=== PATIENT | female | born 1940 | race Two or more races ===

== ENCOUNTER 2020-12-30 21:04 | Inpatient (IN) | payer MEDICAID, SELFPAY ==
[~2020-12-30] VITALS: Ht 147.3 cm; Wt 45.8 kg
[2020-12-30 21:17] VITALS: BP 167/101
--- NOTE | 2020-12-30 21:32 | NUR ---
Dr. Ding examining patient.
--- NOTE | 2020-12-30 21:41 | NUR ---
PT TAKEN TO BED 11
[2020-12-30] MEDS ORDERED: LORazepam 2 MG/ML VIAL IVP ONE (21:45)
--- NOTE | 2020-12-30 21:45 | NUR ---
SEE PATIENTASSESSMENT FOR MORE INFORMATION. PATIENT SITTING IN BED LOCKED IN LOWEST POSITION, X2 SIDERAILS UP FOR PATIENT SAFETY. PATIENT CONNECTED TO MONITOR. VSS. BREATHING EVEN AND UNLABORED. NAD NOTED, WILL CONTINUE TO MONITOR. [id number] AT BEDSIDE.
--- NOTE | 2020-12-30 21:45 | NUR ---
80 YO/F BIB DAUGHTER IN-LAW W C/O ABDOMINAL AND BACK PAIN, NAUSEA, AND VOMITING X 2 DAYS. DENIES FEVER OR DIARRHEA, REPORTS X1 EPISODE OF SLIGHT HEMATURIA. DENIES INJURIES, LOC. PATIENT PRESENTS CONFUSED [employer] 13. MOANS TO TOUCH OF ABDOMEN, BOWEL SOUNDS PRESENT. PATIENT LAYING IN BED LOCKED IN LOWEST POSITION, X2 SIDERAILS UP FOR PATIENT SAFETY. BREATHING EVEN AND UNLABORED. NAD NOTED, WILL CONTINUR TO MONITOR. DAUGHTER IN LAW AT BEDSIDE. PMH: SCHIZO, DEMENTIA, ENDOMETRIS CANCER, HTN, DIABETES (PER [id number]) NKA
--- NOTE | 2020-12-30 22:12 | NUR ---
PT TAKEN TO RADIOLOGY
[2020-12-30 22:25] LABS: BASOPHILS % (AUTO) 0.1 % (0.0-2.0); HEMATOCRIT 35.6 % (36-48); HEMOGLOBIN 11.8 g/dL (12.0-16.0); LYMPHOCYTES # (AUTO) 1.1 K/uL (2.5-16.5); LYMPHOCYTES % (AUTO) 10.5 % (20.5-51.1); MEAN CORPUSCULAR HEMOGLOBIN 30 pg (27-31); MEAN CORPUSCULAR HGB CONC 33 g/dL (33-37); MONOCYTES # (AUTO) 0.3 K/uL (0.8-1.0); MONOCYTES % (AUTO) 2.5 % (1.7-9.3); NEUTROPHILS % (AUTO) 86.9 % (42.2-75.2); PLATELET COUNT (AUTO) 273 K/uL (140-450); RED BLOOD CELL COUNT(AUTO) 3.96 MIL/uL (4.20-5.40); RED CELL DISTRIBUTION WIDTH 14.6 % (11.6-13.7); WHITE BLOOD COUNT (AUTO) 10.4 K/uL (4.8-10.8)
--- NOTE | 2020-12-30 22:25 | NUR ---
PT RETURN FROM CT
[2020-12-30 22:32] LABS: APPEARANCE,URINE CLEAR (CLEAR); BILIRUBIN,URINE NEGATIVE (NEGATIVE); BLOOD, URINE 1+ (NEGATIVE); COLOR,URINE YELLOW (YELLOW); LEUKOCYTE ESTERASE ,URINE NEGATIVE (NEGATIVE); NITRITE, URINE NEGATIVE (NEGATIVE); UGLUCOSE 1+ (NEGATIVE)
[2020-12-30 22:43] LABS: ALBUMIN 3.8 g/dL (3.4-5.0); ANION GAP 16.5 (8-16); ASPARTATE AMINOTRANSFERASE 41 U/L (15-37); CARBON DIOXIDE 26.2 mmol/L (21-32); CHLORIDE 96 mmol/L (98-107); CREATININE 1.4 mg/dL (0.6-1.3); GLUCOSE 220 mg/dL (74-106); POTASSIUM 5.7 mmol/L (3.5-5.1); SODIUM SERUM 133 mmol/L (136-145); UREA NITROGEN, BLOOD 23 mg/dL (7-18)
[2020-12-30 23:01] LABS: RBC,URINE 0-5 /HPF (0-5); WBC,URINE 0-5 /HPF (0-5)
--- NOTE | 2020-12-30 23:17 | NUR ---
PROVIDED BEDPAN TO PATIENT. REMOVED BEDPAN WHEN PATIENT FINISHED, CLEAR YELLOW URINE.
[2020-12-31] MEDS ORDERED: NACL 0.9% 1,000 ML IV ONE ×2 (00:25)
[2020-12-31] MEDS ORDERED: cefTRIAXone 1,000 MG VIAL ONE (00:42)
--- NOTE | 2020-12-31 01:17 | NUR ---
PATIENT LAYING IN BED W EYES CLOSED, X2 SIDERAILS UP FOR PATIENT SAFETY, BREATHING EVEN AND UNLABORED. VSS. NAD NOTED, WILL CONTINUE TO MONITOR. DAUGHTER IN LAW AT BEDSIDE.
[2020-12-31] MEDS ORDERED: DEXTROSE 50% 50 ML SYR IVP ONE ×2 (02:55→15:05)
[2020-12-31] MEDS ORDERED: INSULIN REGULAR, HUMAN 100 UNIT/ML VIAL SUBQ ONE (02:55)
[2020-12-31] MEDS ORDERED: CALCIUM GLUCONATE 10% 1000 MG/10 ML VIAL IVP ONE (02:55)
[2020-12-31] MEDS ORDERED: KETOROLAC 30 MG/ML VIAL IVP ONE (02:55)
[2020-12-31] MEDS ORDERED: INSULIN REGULAR, HUMAN 100 UNIT/ML VIAL IVP ONE (03:20)
--- NOTE | 2020-12-31 03:55 | NUR ---
JULIUS SAMPLE OBTAINED FROM PATIENT NARES AND TAKEN TO LAB.
--- NOTE | 2020-12-31 04:15 | NUR ---
PATIENT'S [id number] LEFT, AND PROVIDED HER PHONE NUMBER ([phone], YOSELYN) AND PATIENT'S GRANDAUGHTER'S PHONE NUMBER ([phone], CAESAR). TO BE REACHED FOR ANY QUESTIONS OR UPDATES.
[2020-12-31] MEDS ORDERED: LOSA100T1 PO (05:17)
[2020-12-31] MEDS ORDERED: [UNRECOGNIZED DRUG - OTHER] (05:26)
[2020-12-31] MEDS ORDERED: CODEINE (05:26)
[2020-12-31] MEDS ORDERED: METF1TAB5 PO (05:28)
[2020-12-31] MEDS ORDERED: GLIM2TAB PO (05:29)
[2020-12-31] MEDS ORDERED: FENT1PAT TP (05:30)
--- NOTE | 2020-12-31 06:30 | NUR ---
PATIENT LAYING IN BED SUPINE W EYES CLOSED, HOB SLIGHTLY ELEVATED. 0.9NS FLUIDS RUNNING AT 100ML/HR W 680 ML TO BE INFUSED. VSS. BREATHING EVEN AND UNLABORED. NAD NOTED, WILL CONTINUE TO MONITOR.
--- NOTE | 2020-12-31 07:16 | NUR ---
Pt report given to JULIET Yadav for transfer of care at this time.
[2020-12-31] MEDS ORDERED: LORazepam 2 MG/ML VIAL ONE (07:45)
[2020-12-31] MEDS ORDERED: LORazepam 2 MG/ML VIAL IVP SCH ×2 (07:55→08:35)
--- NOTE | 2020-12-31 07:57 | NUR ---
UNABLE TO REORIENT PT TO STAY IN BED, PT ATTEMPTING TO GET OUT OF BED AT THIS TIME. ADMITTING DR LISA OVIEDO VERBAL ORDER FOR ATIVAN 1MG IVP. TRANSLATION PHONE USED (LITHUANIAN), PT CONFUSED, NOT SPEAKING COHERENTLY, STILL ATTEMPTS TO GET OUT OF BED.
--- NOTE | 2020-12-31 08:02 | NUR ---
DENISA CHUNG NOTIFIED DAUGHTER OF SITUATION. DAUGHTER STATES PT IS NORMALLY CONFUSED IN THE MORNING AND TYPICALLY NEEDS MEDICATION.
[2020-12-31] MEDS ORDERED: DOCUSATE SODIUM 100 MG GELCAP PO PRN (08:05)
[2020-12-31] MEDS ORDERED: ONDANSETRON 4 MG/2 ML VIAL IM/IVP PRN (08:05)
[2020-12-31] MEDS ORDERED: guaiFENesin DM 200/20 MG-10 ML 10 ML UDC PO PRN (08:05)
--- NOTE | 2020-12-31 08:12 | NUR ---
DR OVIEDO NOTIFIED, PT IS STILL ATTEMPTING TO GET OUT OF BED. ORDERED SOFT RESTRAINTS, MORPHINE 1MG IVP, ATIVAN 1MG IVP.
[2020-12-31] MEDS ORDERED: MORPHINE SULFATE 2 MG/ML SYR ONE (08:15)
--- NOTE | 2020-12-31 08:30 | NUR ---
MORPHINE, ATIVAN AND RESTRAINTS ORDER UNDER WRONG PT. PHARMACY STAFF MADE AWARE.
[2020-12-31] MEDS ORDERED: MORPHINE SULFATE 2 MG/ML SYR IVP SCH (08:35)
[2020-12-31] MEDS: DEXT 5% /NACL 0.9% 1,000 ML IV SCH (08:55)
[2020-12-31] MEDS ORDERED: LOSARTAN 50 MG TAB PO SCH (09:00)
[2020-12-31] MEDS: METOPROLOL 25 MG TAB PO SCH ×2 (09:00→20:18)
[2020-12-31] MEDS: PANTOPRAZOLE 40 MG TABEC PO SCH (09:00)
[2020-12-31] MEDS ORDERED: HALOPERIDOL IM 5 MG/ML VIAL IM ONE (09:15)
[2020-12-31] MEDS ORDERED: HALOPERIDOL IM 5 MG/ML VIAL ONE ×2 (09:18→12:23)
--- NOTE | 2020-12-31 10:04 | NUR ---
GRANDDAUGHTER WAS CONTACTED AND IS NOW ON HER WAY TO DISCUSS CODE STATUS UPDATE WELL CYSTOSCOPY L URETERAL STENT PLACEMENT.
--- NOTE | 2020-12-31 10:47 | NUR ---
GRAND DAUGHTER AND DAUGHTER IN LAW AT BEDSIDE. DR SAGE SPOKE WITH PT, DUE TO ENDOMETRIAL CANCER HX, DR SAGE WOULD LIKE THE PROCEDURE TO CHANGE. DAUGHTER IN LAW INFORMED THAT SHE WOULD LIKE THE SURGERY, BUT CHANGE CODE STATUS TO DNR.
[2020-12-31 10:54] LABS: CHOL/HDL RATIO 2.4 (1-4.5); FREE T4 (FREE THYROXINE) 1.34 ng/dL (0.76-1.46); MAGNESIUM 1.8 mg/dL (1.8-2.4); THYROID STIMULATING HORMONE 0.78 uIU/mL (0.34-3.74)
--- NOTE | 2020-12-31 11:20 | NUR ---
ATTEMPTED TO SEE PATIENT FOR PHYSICAL THERAPY EVALUATION HOWEVER PATIENT UNDER MEDICATION ATIVAN AT THIS TIME AND IS UNABLE TO PARTICIPATE OR FOLLOW COMMANDS PER RN. WILL FOLLOW UP IF APPROPRIATE TOMORROW; RN AWARE.
[2020-12-31] MEDS ORDERED: QUEtiapine FUMARATE 25 MG TAB ONE (12:08)
--- NOTE | 2020-12-31 12:15 | NUR ---
PT GOT OUT OF SOFT BILATERAL HAND RESTRAINTS, STOOD OUT OF BED WITH UNSTEADY GAIT. PT WAS PLACED BACK IN BED AND TRYING TO HIT STAFF. DR OVIEDO MADE AWARE OF SITUATION ORDERED VERBAL HALDOL 5 MG Q 8 HR PRN, SEROQUEL 50MG BID AND HALDOL 5 MG IM. PT DID NOT TOLERATE SEROQUEL AND REFUSED TO TAKE MEDICATION
[2020-12-31] MEDS ORDERED: HALOPERIDOL IM 5 MG/ML VIAL IM SCH (12:30)
[2020-12-31] MEDS ORDERED: GLUCAGON 1 MG VIAL ONE (15:07)
--- NOTE | 2020-12-31 15:10 | NUR ---
BS 32 -- CALLED DR OVIEDO, ORDER FOR IM GLUCAGON RECEIVED DUE TO NO IV ACCESS. CARRIED OUT.
[2020-12-31] MEDS ORDERED: GLUCAGON 1 MG VIAL IM SCH (15:30)
--- NOTE | 2020-12-31 15:35 | NUR ---
REPORT RECEIVED FROM ED
--- NOTE | 2020-12-31 15:50 | NUR ---
Patient will be admitted to care of IVELISSE SAEZ. Admited to TELEMETRY. Will go to room 107A. Belongings list completed. Report to SERENITY CHUNG.
--- NOTE | 2020-12-31 15:58 | NUR ---
PT ARRIVED ON UNIT. PT IS RESTING IN BED EYES CLOSED. EASY TO AROUSE. NO S/SX OF DISTRESS AT THIS TIME
[2020-12-31 16:00] VITALS: BP 128/63
--- NOTE | 2020-12-31 17:32 | NUR ---
MD SAGE AT BEDSIDE.
--- NOTE | 2020-12-31 18:55 | NUR ---
PT AWAKE NON COMPLAINANT AND IMPULSIVE
[2020-12-31] MEDS: HALOPERIDOL IM 5 MG/ML VIAL IM PRN (19:06)
--- NOTE | 2020-12-31 19:06 | NUR ---
PT TOOK OF TELE, ATTACKED STAFF. PT GIVEN PRN MEDICATION. AWARE
--- NOTE | 2020-12-31 19:23 | NUR ---
RECEIVED BEDSIDE REPORT FROM DAY RN, PT AAOX1 SELF. PT STANDING AT DOOR WAY ATTEMPTING TO LEAVE YELLING AT STAFF. PATIENT IS IRRITABLE DAY RN GAVE IM PRN. AWARE WAITING POSSIBLE SITTER ORDER. SKIN IS INTACT. DX L SEVERE HYDRONEPHROSIS PENDING SURGERY TOMORROW AM. PT NPO EXCEPT MEDS. IV ON R LARKIN 22G SL. PATIENT IS INCONTINENT TO B&B. POC DISCUSSED WITH PT. PT UNABLE TO VERBALIZED UNDERSTANDING. ASSOCIATE STORE DIRECTOR WITH PATIENT FOR SAFETY.
--- NOTE | 2020-12-31 19:25 | NUR ---
PT ENDORSED TO INSTRUCTOR OF EDUCATION RN. PT VITALS WNL
[2020-12-31 20:00] VITALS: BP 145/76
[2020-12-31] MEDS: QUEtiapine FUMARATE 25 MG TAB PO SCH (20:18)
--- NOTE | 2020-12-31 20:18 | NUR ---
VSS. PATIENT REFUSING PO DAMASO MEDICATIONS DESPITE EXPLAIN RATIONALE AND PROS OF MEDICATION. ALL NEEDS MET. SITTER AT BEDSIDE.
--- NOTE | 2020-12-31 22:00 | NUR ---
PATIENT IS SITTING IN BED CALM STARING OUT TO THE HALLWAY. DENIES ANY DISCOMFORT. SITTER AT BEDSIDE. WILL CONTINUE TO MONITOR.
[2021-01-01] VITALS: BP 143/71
--- NOTE | 2021-01-01 00:35 | NUR ---
VITAL SIGNS ARE WITHIN NORMAL LIMITS. ALL SAFETY MEASURES ARE IN PLACE. SITTER AT BEDSIDE. WILL CONTINUE TO MONITOR.
[2021-01-01] MEDS: HALOPERIDOL IM 5 MG/ML VIAL IM PRN (01:49)
--- NOTE | 2021-01-01 01:49 | NUR ---
PATIENT ATTEMPTING TO LEAVE BECAME VERY AGITATED WHEN ATTEMPT TO REDIRECT BACK INTO ROOM, PATIENT SCREAMING AND TRYING TO PUNCH AND BITE STAFF. MX STAFF ATTEMPT TO CALM PATIENT DOWN UNSUCCESSFUL. ADMIN PRN HALDOL IM. SITTER AT BEDSIDE. WILL CONTINUE TO MONITOR.
--- NOTE | 2021-01-01 02:40 | NUR ---
PATIENT OBSERVED LAYING IN BED APPEARS TO BE ASLEEP. CHEST RISE AND FALL NOTED. SITTER AT BEDSIDE.
--- NOTE | 2021-01-01 04:30 | NUR ---
ATTEMPT TO OBTAIN VITAL SIGNS 3X PATIENT IS VERY COMBATIVE TO NURSE TRYING TO HIT AND BITE, UNABLE TO OBTAIN VS AT THIS TIME. SITTER AT BEDSIDE. SAFETY MEASURES ARE IN PLACE.
[2021-01-01 06:07] LABS: T4 (THYROXINE) 11.5 ug/dL (4.5-12.0)
--- NOTE | 2021-01-01 06:19 | NUR ---
PATIENT IS REFUSING BLOOD DRAWS THIS MORNING COSTUME DESIGNER TRIED 2X. PATIENT WITH HX DEMENTIA. PATIENT OBSERVED SITTING BY THE DOOR SMILING AND ASKING, "COMER?" EXPLAIN TO PATIENT SHE CAN EAT AFTER SURGERY. PATIENT EASILY IRRITABLE WHEN SHE IS NOT ALLOWED TO LEAVE. PATIENT REQUIRES A LOT OF REDIRECTION. SITTER AT BEDSIDE.
--- NOTE | 2021-01-01 07:23 | NUR ---
PT HAS BEEN ENDORSED BY NATIONAL PARK TOUR GUIDE NURSE FOR CONTINUITY OF CARE, POC DISCUSSED. ENDORSED THAT PT IS HAVE A PROCEDURE TODAY TO REPLACE NEPHROSTOMY TUBE VIA IR. NO ORDER PLACED TO OBTAIN CONSENT, WILL CALL DR. SAGE TO VERIFY AND GET TORB. INFORM THAT THE PT IS CONFUSED AND HAS HX OF DEMENTIA SO FAMILY NEEDS TO BE CALLED AND OBTAIN CONSENT FROM THEM. PT IS RESTING IN BED WITH SITTER AT BEDSIDE. PT HAS A RIGHT HAND 22G, SALINE LOCK THAT IS WRAPPED IN KERLIX. PT IS ON ROOM AIR WITH CHEST RISING AND FALLING EVEN AND UNLABORED. ENDORSED THAT PT DECLINED BLOOD DRAW, MRSA SWAB AND PO MEDICATION. ALL SAFETY MEASURES IN PLACE, CALL LIGHT WITHIN REACH. WILL CONTINUE TO MONITOR.
--- NOTE | 2021-01-01 07:25 | NUR ---
GAVE BEDSIDE REPORT TO DAY RN. PT ENDORSED IN STABLE CONDITION.
[2021-01-01 08:00] VITALS: BP 157/80
--- NOTE | 2021-01-01 08:01 | NUR ---
SPOKE WITH RADIOLOGY ABOUT THE PLAN FOR PTS PROCEDURE OF GETTING THE NEPHROSTOMY TUBE REPLACED VIA IR. INFORMED THEM THAT IM WAITING ON DR. CRUM RESPONSE ABOUT CONSENT. THEY STATED THAT THEY ARE THE ONES THAT OBTAIN CONSENT, AND THAT WE JUST NEED TO PLACE THE ORDER. ONCE DR. SAGE RESPONSE WITH THE PROCEDURE I WILL PLACE THE ORDER.
--- NOTE | 2021-01-01 08:02 | NUR ---
DR. SAGE RESPONDED STATING THAT THE PROCEDURE IS A NEPHROSTOMY REPLACEMENT VIA IR. PLACED ORDER FOR RADIOLOGY.
[2021-01-01] MEDS: DEXT 5% /NACL 0.9% 1,000 ML IV SCH (08:05)
--- NOTE | 2021-01-01 08:21 | NUR ---
PT IS AGITATED AND PUSHING SITTER AWAY. PT IS OUT OF BED WALKING AROUND, WITH THE ASSISTANCE OF THE SPINE SURGEON AND FORMULATION SCIENTIST, PT WAS WALKED AROUND THE NURSING STATION. PT GAIT IS STEADY. WILL CONTINUE TO MONITOR
--- NOTE | 2021-01-01 08:57 | NUR ---
ATTEMPTED TO OBTAIN VITAL SIGNS, ONLY ABLE TO OBTAIN BP; 157/80 AND HR 106. PT IS AGITATED AT THIS TIME.
[2021-01-01] MEDS: METOPROLOL 25 MG TAB PO SCH ×2 (09:00→20:42)
[2021-01-01] MEDS: PANTOPRAZOLE 40 MG TABEC PO SCH (09:00)
[2021-01-01] MEDS: QUEtiapine FUMARATE 25 MG TAB PO SCH ×2 (09:00→20:15)
--- NOTE | 2021-01-01 09:00 | NUR ---
SPOKE WITH PTS DAUGHTER, PTS DAUGHTER IS IN THE CHART. INFORMED THE DAUGHTER OF THE PTS CONTINUED AGITATION. ASK IF THE FAMILY COULD COME TO HELP CALM THE PT AND KEEP HER FROM BEING AGITATED. FAMILY ALREADY MADE AWARE OF THE PTS PLAN TO GO TO PROCEDURE, SPOKE WITH DR MEADE. INFORMED THEM THAT THE PT WILL BE BACK ROUGHLY AROUND 1100, STATED THEY WILL BE ABLE TO COME AROUND 1300.
--- NOTE | 2021-01-01 09:08 | NUR ---
PATIENT HAS BEEN SCREENED AND CATEGORIZED MODERATE NUTRITION RISK. PATIENT WILL BE SEEN WITHIN 3-5 DAYS OF ADMISSION. 01/02/21 01/04/21 FNS REFERRAL FOR VOMITING OVER 3 DAYS NOT APPROPRIATE [address]
--- NOTE | 2021-01-01 09:21 | NUR ---
PT REFUSED MEDICATION, ATTEMPTED TWICE BUT PT PUSHED THE MEDICATION AND BECAME AGITATED. INFORMED DR. OVIEDO OF PTS CONTINUOUS AGITATION AND UNCOOPERATIVE.
[2021-01-01] MEDS ORDERED: MIDAZOLAM 5 MG/5 ML VIAL ONE ×2 (09:41→11:11)
[2021-01-01] MEDS ORDERED: diphenhydrAMINE 50 MG/ML VIAL ONE (09:41)
[2021-01-01] MEDS ORDERED: LIDOCAINE 1% 500 MG/50 ML VIAL ONE (09:41)
[2021-01-01] MEDS ORDERED: fentaNYL citrate 0.05 MG/ML VIAL ONE ×2 (09:41→11:11)
--- NOTE | 2021-01-01 09:59 | NUR ---
PT PICKED UP BY RADIOLOGY FOR PROCEDURE. PT TRANSPORTED BY GURNEY IN STABLE CONDITION. SITTER IS WITH PT AND WILL FOLLOW TO RADIOLOGY.
--- NOTE | 2021-01-01 11:44 | NUR ---
PT BROUGHT BACK IN STABLE CONDITION WITH A NEPHROSTOMY TUBE ON LEFT SIDE OF BACK. DRESSING IS DRY AND INTACT, NO HEMATOMA NOTED. PT REFUSED VITAL SIGNS. SITTER IS AT BEDSIDE AND PT IS IN STABLE CONDITION. WILL CONTINUE TO MONITOR.
--- NOTE | 2021-01-01 12:15 | NUR ---
ABLE TO OBTAIN 3RD SET OF VITALS, WNL, PT HAS BEEN REFUSING VITALS AND ASSESSMENT OF NEPHROSTOMY TUBE. PT SHOWS NO S/S OF ACUTE DISTRESS. SITTER AT BEDSIDE. WILL CONTINUE TO MONITOR.
--- NOTE | 2021-01-01 13:30 | NUR ---
PT ALLOWED OBTAINMENT OF LAST SET OF VITAL SIGNS, WNL. DRESSING APPEARS INTACTED FROM WHAT PT ALLOWED ME TO SEE. PT TRIED TO PULL ON BAGGING. SENIOR JAVA SOFTWARE DEVELOPER TAPED BAG TO BACK OF PT TO KEEP OUT OF HER WAY. WILL CONTINUE TO MONITOR.
--- NOTE | 2021-01-01 14:16 | NUR ---
DC PLANN[age] YRS OLD FEMALE PATIENT WAS ADMITTED FROM HOME WITH A DX OF LEFT SIDED SEVER HYDRONEPHROSIS, HYPERKALEMIA. PT HAS A HX OF DEMENTIA, SCHIZOPHRENIA, ENDOMETRIAL CANCER HTN AND DM. CXR SHOWED NO RADIOGRAPHIC EVIDENCE OF ACUTE CARDIOPULMONARY DISEASE. CT ABD/PELVIS SHOWED SEVER LEFT SIDED HYDROURETERONEPHROSIS, MULTIPLE CALCIFICATION ARE PRESENT IN THE LOWER PELVIS. RAPID COVID TEST NEGATIVE. ADMINISTERED IVF, IV ABX ROCEPHIN AND CONTINUED HOME MEDS. CONSULTED WITH UROLOGIST AND NEPHRO. DC PLAN TO GO HOME WHEN STABLE. Addendum: 01/02/21 at 1215 by Argentina Patel RN DC PLANNING: CALLED PT'S GRANDDAUGHTER SPOKE WITH CAESAR ROUSSEAU UNABLE TO FIND PLACEMENT BECAUSE OF MEDICAL HOSPITAL PRESUMPTIVE, PER CAESAR REQUESTED HOSPICE OR PALLIATIVE CARE. REFER PATIENT TO A PALLIATIVE CARE NAME ED WILL SPEAK WITH FAMILY. CM TO FOLLOW Addendum: 01/04/21 at 1533 by Argentina Patel RN DC PLANNING CALLED PT'S GRAND DAUGHTER CAESAR NOTIFIED HER THAT PT HAS A DC ORDER , UNABLE TO PLACE HER WITH HER INSURANCE PURPOSE BUT NOTIFIED HER THAT REFER TO THE [facility] AND WILL CONTACT THEM HOWEVER FOR NOW PATIENT IS STABLE FOR DC. ED [facility] WILL SET UP WITH [employer] TO COME HOME TO HELP HER FOR 3-4 HRS UNTIL SHE HAS A PENDING MEDICAL NUMBER . CAESAR STATED THEY CAN NOT TAKE HER AND ASKING ME TO TALK TO NGUYỄN CUTLER AND EXPLAIN. CALLED JUAN AT [phone] (FAMILY SPOKES PERSON) STATED THEY ARE ON [place] FOR BUSINESS TRIP AND NO RETURNING DATE, NO ONE IS HOME TO TAKE CARE OF HER. I TOLD JUAN DIDN'T HEAR FROM CAESAR THAT THEY ARE IN [place] BUT JUAN INSIST THAT NO ONE IS AT HOME TO TAKE PATIENT STATED, FAMILY HAVE OTHER THINGS TO TAKE CARE AND INSIST THAT TO FIND A PLACE FOR HER. I EXPLAINED TO HER WE NEED TO FINE AN APS REPORT. SHE REPLIED BOTH ARE IN THE PLANE LEFT A MESSAGE AND STATED "DO WHAT YOU HAVE TO DO" CM TO FOLLOW Addendum: 01/04/21 at 1652 by Argentina Patel RN DC PLANNING: RECEIVED A CALL FROM [facility] [phone] SPOKE WITH DEIRDRE DISCUSSED THE SITUATION, THAT FAMILY IS NOT WILLING TO TAKE PATIENT BACK HOME. HE STATED WILL SUBMIT TO THE NEXT SHIFT AND WILL CONTACT US [facility].PROVIDE THE HOUSE SUP NUMBER CM TO FOLLOW Addendum: 01/09/21 at 1217 by Argentina Patel RN DC PLANNING: RECEIVED A CALL FROM [facility] [phone] SPOKE WITH RAMA STATED SHE SPOKE WITH JUAN FAMILY FRIEND AND WILLING TO HELP WITH MEDICAL PROCESS, HOWEVER IN ORDER TO GET INFO FROM HER NEEDS INCAPACITY LETTER FROM THE PHYSICIAN AND TO FAX IT TO [phone] COSTELLO[address] GIORGIO TO FOLLOW Addendum: 01/09/21 at 1627 by Argentina Patel RN DC PLANNING: SPOKE WITH RAMA FROM [facility] REGARDING THE LETTER SHE SENT THE FORMAT, SIGNED BY DR COSTELLO AND FAXED BACK TO [phone]. CM TO FOLLOW Addendum: 01/10/21 at 1118 by Argentina Patel RN DC PLANNING: CALLED LARR[facility] [phone] SPOKE WITH RAMA STATED SHE RECEIVED THE INCAPACITATED LETTER WILL CALL FAMILY FRIEND JUAN AND WILL START THE APPLICATIONS. ONCE SHE HAS THE PENDING NUMBER SHE WILL CALL [facility] TO FOLLOW
--- NOTE | 2021-01-01 14:40 | NUR ---
PT FAMILY AT BEDSIDE, SPOKE WITH WANTING TO SPEAK WITH CASE MANAGEMENT ABOUT BEING DC'D TO SNF FOR ASSISTANCE. CALLED FERMÍN, CASE MANAGEMENT, STATED SHE WILL COME SPEAK WITH THE FAMILY
--- NOTE | 2021-01-01 15:15 | NUR ---
FERMÍN SPEAKING WITH FAMILY. PT IS STABLE. SITTER AT BEDSIDE, WILL CONTINUE TO MONITOR
[2021-01-01 16:00] VITALS: BP 153/83
--- NOTE | 2021-01-01 16:27 | NUR ---
PT REFUSED ASSESSMENT OF NEPHROSTOMY TUBE, BECAME AGITATED. PT SHOWS NO S/S OF ACUTE DISTRESS WILL CONTINUE TO MONITOR.
--- NOTE | 2021-01-01 16:52 | NUR ---
WITH ASSISTANCE OF CARRIER OPERATOR AND BOG CUTTER, ABLE TO OBTAIN PHOTOGRAPHY OF NEPHROSTOMY, INTACT AND DRAINING. PLACED IN THE CHART. WILL CONTINUE TO MONITOR.
[2021-01-01] MEDS: HYDROcodone/APAP 7.5/325 MG 1 TAB PO PRN (17:05)
--- NOTE | 2021-01-01 17:07 | NUR ---
PT COMPAINED OF MODERATE PAIN, MEDICATED PER MD ORDER. PT TOLERATED ADMINISTRATION AND SITTER IS AT BEDSIDE. PT IS IN STABLE CONDITION. ALL SAFETY MEASURES IN PLACE, WILL CONTINUE TO MONITOR.
--- NOTE | 2021-01-01 19:00 | NUR ---
300 ml output from nephrostomy
--- NOTE | 2021-01-01 19:39 | NUR ---
pt endorsed to digital experience manager nurse in stable condition.
--- NOTE | 2021-01-01 19:40 | NUR ---
RECD. RESTING IN BED, AWAKE, ORIENTED X1, CONFUSED. RESPIRATION EVEN AND UNLABORED. IV SALINE LOCK AT THE RIGHT THUMB G20, PATENT AND INTACT. REORIENTED TO HOSPITAL SETTING, NEEDS REINFORCEMENT. LEFT NEPHROSTOMY TUBE INTACT WITH MINIMAL AMOUNT OF CLEAR YELLOW URINE. NO AGITATION NOTED AT THIS TIME, ALLOWED 1:1 SITTER TO TAKE HER VITAL SIGNS. DENIES PAIN 0/10.
[2021-01-01 20:00] VITALS: BP 173/83
--- NOTE | 2021-01-01 20:00 | NUR ---
PATIENT'S PLAN OF CARE WAS DISCUSSED AND REVIEWED WITH HOSPITAL SUPERINTENDENT:ROBIN STAPLETON
--- NOTE | 2021-01-01 20:19 | NUR ---
REFUSED SCHEDULED MEDICATIONS. EXPLAINED IT IS IMPORTANT BUT STILL REFUSED. WILL COME BACK AGAIN. 1:1 SITTER MONITORING PATIENT NEAR BEDSIDE.
--- NOTE | 2021-01-01 20:30 | NUR ---
MOTIONED HAND TO NURSE NOT TO TOUCH OR GO AWAY FROM HER. STILL REFUSING UCHE MONITORING AND IV LINE TO BE CONNECTED TO IV MACHINE, OCCASIONALLY AGITATED.
--- NOTE | 2021-01-01 20:43 | NUR ---
CAME BACK TO PATIENT AND OFFERED AGAIN MEDICATIONS FOR THE NIGHT, TOOK SEROQUEL BUT REFUSED TO TAKE LOPRESSOR. EXPLAINED IT IS IMPORTANT BUT AGAIN REFUSED.
--- NOTE | 2021-01-01 22:00 | NUR ---
SLEEPING COMFORTABLY IN BED.
--- NOTE | 2021-01-01 23:58 | NUR ---
REFUSED TO BE CONNECTED TO IV MACHINE FOR INFUSION OF ROCEPHIN. WILL WAIT PATIENT TO SLEEP.
--- NOTE | 2021-01-02 | NUR ---
AWAKE, REFUSED VITAL SIGNS TO BE TAKEN BY SITTER. NEPHROSTOMY TUBE NEEDS TO BE EMPTY BUT PATIENT DOES NOT WANT TO TURN TO THE RIGHT SIDE, TRIED TO GRAB HER TUBE. WILL WAIT FOR PATIENT TO GO TO SLEEP AGAIN. STILL REFUSING TELE MONITORING.
[2021-01-02] MEDS: ZOLPIDEM 5 MG TAB PO PRN (01:24)
[2021-01-02] MEDS: HYDROcodone/APAP 7.5/325 MG 1 TAB PO PRN (01:25)
[2021-01-02] MEDS: HALOPERIDOL IM 5 MG/ML VIAL IM PRN (02:53)
--- NOTE | 2021-01-02 02:53 | NUR ---
AGITATED, PULLING OUT NEPHROSTOMY TUBE, MEDICATED WITH HALDOL PER MD ORDER.
[2021-01-02 04:00] VITALS: BP 177/97
--- NOTE | 2021-01-02 04:26 | NUR ---
PATIENT SLEEPING, ABLE TO CONNECT IV ANTIBIOTICS WITHOUT PATIENT'S RESISTANCE.
[2021-01-02] MEDS: hydrALAZINE 20 MG/ML VIAL IVP PRN ×3 (06:31→20:57)
--- NOTE | 2021-01-02 06:31 | NUR ---
BP - 177/93, HR - 109, MEDICATED WITH APRESOLINE BY MARY LOU CHUNG PER MD ORDER.
[2021-01-02 06:54] LABS: BASOPHILS % (AUTO) 0.3 % (0.0-2.0); EOSINOPHILS % (AUTO) 0.1 % (0.0-4.0); HEMATOCRIT 33.7 % (36-48); HEMOGLOBIN 11.3 g/dL (12.0-16.0); LYMPHOCYTES # (AUTO) 1.6 K/uL (2.5-16.5); LYMPHOCYTES % (AUTO) 19.1 % (20.5-51.1); MEAN CORPUSCULAR HEMOGLOBIN 30 pg (27-31); MEAN CORPUSCULAR HGB CONC 33 g/dL (33-37); MEAN CORPUSCULAR VOLUME 89.1 fL (80-94); MONOCYTES # (AUTO) 0.7 K/uL (0.8-1.0); NEUTROPHILS # (AUTO) 6.2 K/uL (1.8-7.7); NEUTROPHILS % (AUTO) 72.5 % (42.2-75.2); PLATELET COUNT (AUTO) 228 K/uL (140-450); RED BLOOD CELL COUNT(AUTO) 3.78 MIL/uL (4.20-5.40); RED CELL DISTRIBUTION WIDTH 14.9 % (11.6-13.7); WHITE BLOOD COUNT (AUTO) 8.6 K/uL (4.8-10.8)
[2021-01-02 07:03] LABS: ANION GAP 13.9 (8-16); CARBON DIOXIDE 26.3 mmol/L (21-32); CHLORIDE 105 mmol/L (98-107); CREATININE 1.3 mg/dL (0.6-1.3); GLUCOSE 198 mg/dL (74-106); POTASSIUM 3.2 mmol/L (3.5-5.1); SODIUM SERUM 142 mmol/L (136-145); UREA NITROGEN, BLOOD 20 mg/dL (7-18)
--- NOTE | 2021-01-02 07:30 | NUR ---
RECEIVED REPORT FROM NIGHT NURSE ROBIN PT IS AWAKE AND ALERT, COOPERATIVE, ON ROOM AIR, ON MECHANICAL SOFT DIET, SKIN INTACT , WITH LEFT SIDE NEUROSTOMY TUBE 200 ML OUTPUT, DONE BY DR REYES YESTERDAY, AMBULATORY WITH ASSIST, PT REFUSED MRSA SCREEN, IV NON INTACT ON THE RIGHT THUMB, PT HAD HIGH BLOOD PRESSURE AND NIGHT NURSE GAVE HYDRALAZINE BUT IV IS LEAKING AND MEDICATION WAS WASTED. SAFETY MEASURES IN PLACE AND CALL LIGHT WITHIN REACH. WILL CONTINUE TO MONITOR.
--- NOTE | 2021-01-02 07:33 | NUR ---
ASSESSED PT'S BP AND IT WAS 195/112 [place] OF 120. I CHECKED ON CHART WHEN WAS THE LAST TIME HYDRLAZINE WAS GIVEN AND 0636. UPON ASSESSMENT IV SITE WAS LEAKING AND NON PATENT. I ASKED NIGHT NURSE IF SHE WAS SURE SHE GAVE HYDRALAZINE 10 MG BECAUSE HER BP DID NOT GO DOWN AFTER ADMINISTRATION. NIGHT NURSE SAID SHE WAS NOT SURE. I INITIATED A NEW IV ACCESS WITH 3 TRIES. PT HAS A 24 G IV ON HER RIGHT FOREARM.
--- NOTE | 2021-01-02 07:35 | NUR ---
PATIENT BP STILL HIGH -184/110, HR - 113. PATIENT IS COOPERATIVE AT THIS TIME. CHECKED IV LINE, INFILTRATED. ENDORSED TO AM NURSES FOR NEW IV INSERTION, APRESOLINE DID NOT WORK, IV WITH LEAKAGE.
[2021-01-02 08:00] VITALS: BP 195/112
[2021-01-02] MEDS: DEXT 5% /NACL 0.9% 1,000 ML IV SCH (08:05)
--- NOTE | 2021-01-02 08:13 | NUR ---
I NOTIFIED DR. OVIEDO VIA TEXT MESSAGE OF OCCURRED EVENTS AND ASKED HOW TO PROCEED WITH PLAN OF CARE.
--- NOTE | 2021-01-02 08:16 | NUR ---
DR. OVIEDO RESPONDED WITH GIVING EXTRA DOSE OF 10MG OF HYDRALAZINE 10MG IVP.
[2021-01-02] MEDS: POTASSIUM CHLORIDE 10 MEQ TABER PO PRN ×2 (08:33→08:49)
[2021-01-02] MEDS: QUEtiapine FUMARATE 25 MG TAB PO SCH ×3 (08:33→21:00)
[2021-01-02] MEDS: PANTOPRAZOLE 40 MG TABEC PO SCH (08:34)
[2021-01-02] MEDS: METOPROLOL 25 MG TAB PO SCH ×3 (08:34→21:00)
--- NOTE | 2021-01-02 08:49 | NUR ---
PA RECEIVED SCHEDULED MEDICATIONS. BP WAS 195/112. PA WAS 120. PT WAS EDUCATED ON MEDICATIONS MOA AND SIDE EFFECTS. PT NODDED HEAD UNDERSTANDING TEACHING. PT HAS A SITTER AT BEDSIDE. WILL RE ASSESS BP IN 30 MINUTES. CALL LIGHT IS WITHIN REACH. SAFETY PRECAUTIONS ARE IN PLACE. WILL CONTINUE TO MONITOR.
--- NOTE | 2021-01-02 10:33 | NUR ---
UPDATED WITH PT'S BP AFTER HYDRALAZINE WAS ADMINISTERED WHICH WAS 169/95 VIA TEXT MESSAGE.
[2021-01-02] MEDS ORDERED: lisinopriL 20 MG TAB PO SCH (11:10)
--- NOTE | 2021-01-02 11:33 | NUR ---
PT'S GRANDDAUGHTER AND [id number], MS. CAESAR BIRD CAME TO SPEAK TO ME IN REGARDS REQUESTING A REFERRAL TO A BODY AND FENDER MECHANIC APPRENTICE TO PLACE PT IN A SKILLED FACILITY. MS. CAESAR BIRD STATED THAT THEY ARE UNABLE TO CARE FOR PT DUE TO BECOMING HOMELESS AFTER OF PT' SON WHICH WAS LAST MONTH.MS. CAESAR BIRD STATED THAT THEY DO NOT HAVE THE FINANCIAL MEANS OR STABLE RESIDENCY TO KEEP PT. MS. CAESAR BIRD WERE BOTH CRYING EXPLAINING THEIR SITUATION TO ME. THEY STATED THAT THE PREVIOUS OCCUPATIONAL THERAPY INSTRUCTOR OF PT WILL NO LONGER BE ABLE TO CARE FOR PT. I TOLD THEM THAT I WOULD SPEAK TO CASE MANAGEMENT ABOUT THE SITUATION.
[2021-01-02] MEDS: hydrALAZINE 10 MG TAB PO SCH ×2 (11:50→16:44)
--- NOTE | 2021-01-02 11:54 | NUR ---
ADMINISTERED 30MG HYDRALAZINE PO PER MD ORDER. BP WAS 169/95, NH: 95. MEDICATION EDUCATION WAS PROVIDED. SITTER IS AT BEDSIDE AND PT APPEARS NOT TO BE UNDER DISTRESS. CALL LIGHT IS WITHIN REACH. SAFETY PRECAUTIONS ARE IN PLACE. WILL CONTINUE TO MONITOR.
[2021-01-02 12:00] VITALS: BP 141/80
[2021-01-02 16:00] VITALS: BP 149/69
--- NOTE | 2021-01-02 16:34 | NUR ---
LATE ENTRY MEDICATION SODIUM CHLORIDE IV STARTED ON 12/31/20 AT 0345 COMPLETED ON 12/31/20 AT 1345.
--- NOTE | 2021-01-02 16:51 | NUR ---
ADMINISTERED 30MG OF HYDRALAZINE PO. PT'S BP WAS 149/68 FL:79. EDUCATED PT ON MEDICATIONS MOA AND SIDE EFFECTS. SITTER AT BEDSIDE. WILL CONTINUE TO MONITOR.
--- NOTE | 2021-01-02 19:16 | NUR ---
ENDORSED TO NIGHT NURSE FOR CONTINUITY OF CARE. PT IS STABLE
--- NOTE | 2021-01-02 19:17 | NUR ---
RECD. RESTING IN BED, AWAKE, A/OX2. REORIENTED TO HOSPITAL SETTING. RESPIRATION EVEN AND UNLABORED. IV OF NS AT 40 ML/HR, RIGHT FOREARM G24, NOT INFUSING, PATIENT HAD JUST AMBULATED TO THE BR BUT FLUSHES WELL. CALM AND QUIET AT THIS TIME. ON 1:1 SITTER MONITORING PATIENT FOR SAFETY. DENIES PAIN 0/10.
--- NOTE | 2021-01-02 20:39 | NUR ---
SCHEDULED MEDICATIONS GIVEN TO PATIENT BUT REFUSED. CALM IN BED BUT BECOME UNCOOPERATIVE.
[2021-01-02 20:55] VITALS: BP 179/95
--- NOTE | 2021-01-02 20:57 | NUR ---
BP - 179/95, HR - 108, MEDICATED WITH APRESOLINE IVP BY MILTON CHUNG. WILL CONTINUE TO MONITOR.
--- NOTE | 2021-01-02 21:10 | NUR ---
ASSISTED TO AMBULATE TO THE BR TO VOID BY SUBSTATION DESIGN DRAFTSPERSON. LEFT NEPHROSTOMY TUBE IN PLACED WITH 100 ML CLEAR LIGHT RED URINE.
--- NOTE | 2021-01-02 21:15 | NUR ---
HR - 168- 178 IN THE TELE MONITOR, PATIENT IS RESTING IN BED, CALM AND COMFORTABLE.
[2021-01-02] MEDS ORDERED: METOPROLOL 5 MG/5 ML VIAL IV SCH (21:40)
--- NOTE | 2021-01-02 21:40 | NUR ---
CHARGE NURSE ROQUE INFORMED DR. GARCIA, ORDERED LOPRESSOR IVP 5 MG. ONCE AND EKG.
--- NOTE | 2021-01-02 22:00 | NUR ---
CALLED FAMILY, DAUGHTER OF PATIENT CELESTE ACCORDING TO JULISSA MUHAMMAD, PATIENT IS NO CODE, WILL GO TO HOSPITAL TO COMPLETE DNR PAPER.
--- NOTE | 2021-01-02 22:10 | NUR ---
ECG SHOWS SVT, HR - 176, LEAVE A MESSAGE TO DR. MCKEON FOR THE CONSULT.
--- NOTE | 2021-01-02 22:20 | NUR ---
BP CHECKED AFTER APRESOLINE BY CHARGE NURSE ROQUE, 138/68, HR - 165 AT 2157/ MEDICATED WITH LOPRESSOR IVP PER MD ORDER BY CHARGE NURSE ROQUE. WILL CONTINUE TO MONITOR.
--- NOTE | 2021-01-02 22:50 | NUR ---
BP - 146/74, HR - 109. PATIENT IS ASYMPTOMATIC, RESTING COMFORTABLY IN BED ASLEEP.
--- NOTE | 2021-01-02 23:20 | NUR ---
VS CHECKED - 97.9, BP - 156/83, HR - 102, RR - 14, 02 SAT - 96%. PATIENT IS RESTING COMFORTABLY IN BED.
--- NOTE | 2021-01-02 23:25 | NUR ---
ECG RESULT SENT TO DR. MCKEON BY CHARGE NURSE ROQUE. OK TO GIVE ANOTHER LOPRESSOR 5 MG. IVP AND TO GET ANOTHER ECG AFTER 30 MINS LOPRESSOR GIVEN.
[2021-01-02] MEDS ORDERED: METOPROLOL 5 MG/5 ML VIAL IV ONE (23:30)
--- NOTE | 2021-01-02 23:41 | NUR ---
BP - 156/83, HR - 102, MEDICATED WITH LOPRESSOR 5 MG. IVP BY CHARGE NURSE ROQUE PER MD ORDER. WILL CONTINUE TO MONITOR.
--- NOTE | 2021-01-03 00:41 | NUR ---
BP - 163/89, HR - 79. PATIENT RESTING COMFORTABLY IN BED.
--- NOTE | 2021-01-03 01:25 | NUR ---
DR. GARCIA MADE AWARE ABOUT THE BP ELEVATED AGAIN 174/112 HR-119 AND ALSO WITH FREQUENT JERKING. WITH ORDERS.
[2021-01-03] MEDS ORDERED: METOPROLOL 5 MG/5 ML VIAL IV SCH (01:30)
--- NOTE | 2021-01-03 01:40 | NUR ---
BP - 159/91, HR - 109. PT ASYMPTOMATIC. 1:1 SITTER STILL NEAR BEDSIDE MONITORING PATIENT.
[2021-01-03] MEDS: ACETAMINOPHEN 325 MG TAB PO PRN (01:52)
--- NOTE | 2021-01-03 02:20 | NUR ---
BP STILL 159/91, HR - 106 ON TELE MONITORING. MEDICATED WITH LOPRESSOR IVP PER MD ORDER BY JULIET ROSE. WILL CONTINUE TO MONITOR.
--- NOTE | 2021-01-03 02:30 | NUR ---
IV INFILTRATED, NEW IV LINE INSERTED BY MILTON CHUNG AT THE RIGHT AC G20.
[2021-01-03] MEDS: DEXT 5% /NACL 0.9% 1,000 ML IV SCH ×3 (03:01→06:06)
--- NOTE | 2021-01-03 03:15 | NUR ---
ECG DONE BY RT, SINUS TACHYCARDIA, WITH IRREGULAR RATE, HR -106.
--- NOTE | 2021-01-03 03:40 | NUR ---
MESSAGED DR. GARCIA REGARDING VS AT 0320 AND ECG RESULTS, WILL WAIT FOR ANY NEW ORDER.
[2021-01-03 04:00] VITALS: BP 162/74
--- NOTE | 2021-01-03 06:00 | NUR ---
AWAKE IN BED, GETS AGITATED, TOOK OFF TELEBOX, GOWN AND TRYING TO PULL OUT NEPHROSTOMY TUBE. WENT OUT OF BED AND GOES TO THE CHAIR ASSISTED BY SITTER. HAD CONTINUOUS JERKY MOVEMENTS FOR 3 MINUTES, ASSISTED BACK TO THE BED WITH HELP OF MILTON CHUNG AND ARITER.
[2021-01-03 06:55] LABS: BASOPHILS % (AUTO) 0.3 % (0.0-2.0); HEMATOCRIT 32.3 % (36-48); HEMOGLOBIN 10.9 g/dL (12.0-16.0); LYMPHOCYTES # (AUTO) 1.7 K/uL (2.5-16.5); LYMPHOCYTES % (AUTO) 15.8 % (20.5-51.1); MEAN CORPUSCULAR HEMOGLOBIN 30 pg (27-31); MEAN CORPUSCULAR HGB CONC 34 g/dL (33-37); MEAN CORPUSCULAR VOLUME 88.1 fL (80-94); MONOCYTES # (AUTO) 0.7 K/uL (0.8-1.0); MONOCYTES % (AUTO) 6.4 % (1.7-9.3); NEUTROPHILS # (AUTO) 8.1 K/uL (1.8-7.7); NEUTROPHILS % (AUTO) 77.5 % (42.2-75.2); PLATELET COUNT (AUTO) 236 K/uL (140-450); RED BLOOD CELL COUNT(AUTO) 3.67 MIL/uL (4.20-5.40); RED CELL DISTRIBUTION WIDTH 14.9 % (11.6-13.7); WHITE BLOOD COUNT (AUTO) 10.5 K/uL (4.8-10.8)
[2021-01-03 07:19] LABS: ANION GAP 15.4 (8-16); CARBON DIOXIDE 24.5 mmol/L (21-32); CHLORIDE 102 mmol/L (98-107); CREATININE 1.3 mg/dL (0.6-1.3); GLUCOSE 293 mg/dL (74-106); SODIUM SERUM 139 mmol/L (136-145); UREA NITROGEN, BLOOD 19 mg/dL (7-18)
--- NOTE | 2021-01-03 07:20 | NUR ---
RECEIVED REPORT FROM NIGHT NURSE PATIENT IS AWAKE AND PER NIGHT NURSE PT IS CONFUSED AND BEEN HAVING HIGH BLOOD PRESSURE, ON ROOM AIR, MECHANICAL SOFT DIET, WITH LEFT NEPHROSTOMY TUBE WITH 100 ML OUTPUT, IV INTACT ON RIGHT AC WITH D5NS 1000 AT 100 MLS/HR. WITH 1;1 SITTER. SAFETY MEASURES IN PLACE AND CALL LIGHT WITHIN REACH. WILL CONTINUE TO MONITOR.
[2021-01-03 07:24] LABS: POTASSIUM 2.9 mmol/L (3.5-5.1)
--- NOTE | 2021-01-03 07:25 | NUR ---
RECEIVED CRITICAL LAB REPORT POTASSIUM 2.9 AND GLUCOSE [address] GARCIA AWARE AND ORDERS RECEIVED.
--- NOTE | 2021-01-03 07:25 | NUR ---
BP STILL IN THE HIGH SIDE, REMAIN ASYMPTOMATIC. ENDORSED TO AM SHIFT NURSE FOR CONTINUITY OF CARE.
[2021-01-03 08:00] VITALS: BP 165/89
[2021-01-03] MEDS ORDERED: INSULIN LISPRO SLIDING SCALE 100 UNITS/ML VIAL SUBQ ONE (08:35)
[2021-01-03] MEDS: hydrALAZINE 10 MG TAB PO SCH ×3 (08:45→17:14)
[2021-01-03] MEDS: METOPROLOL 25 MG TAB PO SCH (08:46)
[2021-01-03] MEDS: QUEtiapine FUMARATE 25 MG TAB PO SCH ×2 (08:46→22:29)
[2021-01-03] MEDS: PANTOPRAZOLE 40 MG TABEC PO SCH (08:46)
--- NOTE | 2021-01-03 08:56 | NUR ---
ADMINISTERED SCHEDULED MEDICATION CHECK VITAL SIGNS BP 165/89 MD 95 AND PT ABLE TO SWALLOW MEDICATION AND COOPERATIVE, ATTACHED INJECTION MOLDING TECHNICIAN. SAFETY MEASURES IN PLACE AND CALL LIGHT WITHIN REACH.WILL CONTINUE TO MONITOR.
[2021-01-03] MEDS ORDERED: INSULIN LISPRO 100 UNITS/ML VIAL SUBQ SCH (09:00)
--- NOTE | 2021-01-03 09:19 | NUR ---
INSULIN HUMALOG ONE TIME GIVEN PT GLUCOSE 293 MG/DL PER DR GARCIA ORDER AND KRIDER 40 MEQ GIVEN PT POTASSIUM 2.9.
[2021-01-03] MEDS ORDERED: NACL 0.9% 1,000 ML IV ONE (09:25)
[2021-01-03] MEDS ORDERED: POTASSIUM CHLORIDE 40 MEQ, LIDOCAINE MPF 1% 25 MG in NACL 0.9% 250 ML IV SCH (09:30)
--- NOTE | 2021-01-03 09:57 | NUR ---
IV FLUIDS CHANGED FROM D5NS 1000 MLS AT 100 MLS/HR TO SODUIM CHLORIDE 0.9% 1000 ML AT 60 MLS/HR PER DR BAILEY ORDER.INFUSING WELL.
--- NOTE | 2021-01-03 11:00 | NUR ---
MADE ROUNDS PT IS SLEEPING NO DISTRESS NOTED IV INFUSING WELL
[2021-01-03] MEDS ORDERED: AMIODARONE 200 MG TAB PO SCH (11:50)
[2021-01-03] MEDS ORDERED: APIXABAN 2.5 MG TAB PO SCH (11:55)
[2021-01-03 12:00] VITALS: BP 157/70
[2021-01-03] MEDS: METOPROLOL 50 MG TAB PO SCH ×2 (12:17→17:14)
--- NOTE | 2021-01-03 12:25 | NUR ---
ADMINISTERED SCHEDULED MEDICATION CHECK VITAL SIGNS PRIOR TO MEDICATION BP 157/70 IN 112 METOPROLOL 50 MG, ULLSTABPBV316 MG AND APIXABAN 2.5 MG GIVEN ONCE PER MD ORDER. PT TOLERATED WELL.WILL CONTINUE TO MONITOR.
--- NOTE | 2021-01-03 13:33 | NUR ---
RECEIVED TORB FROM DR. GARCIA FOR [facility] 45 GM MECHANICAL SOFT DIET.
--- NOTE | 2021-01-03 15:35 | NUR ---
01/03/21 RD INITIAL ASSESSMENT COMPLETED PLEASE REFER TO NUTRITION ASSESSMENT UNDER CARE ACTIVITY FOR ESTIMATED NUTRITIONAL NEEDS. 1. RECOMMENDED CCHO 60GM MECHANICAL SOFT DIET TOLERATED 2. RECOMMEND GLUCERNA BID 3. CONTINUE PROVIDING ASSISTANCE WITH MEALS 4. RD TO FOLLOW-UP 3-5 DAYS, MODERATE RISK ABIGAIL AVENDANO, GENNY
[2021-01-03 16:00] VITALS: BP 155/76
--- NOTE | 2021-01-03 17:32 | NUR ---
ADMINISTERED SCHEDULED MEDICATION CHECK VITAL SIGN BP 157/70 FL 112 PT TOLERATED WELL.
--- NOTE | 2021-01-03 19:23 | NUR ---
RECEIVED REPORT FROM AM NURSE. PATIENT IS SLEEPING IN BED, NO S/S OF RESPIRATORY DISTRESS. SKIN WARM AND DRY TO TOUCH.SAFETY PRECAUTIONS IN PLACE. CALL LIGHT WITHIN REACH. WITH IVF OF NS INFUSING AT 60ML. WILL CONTINUE TO MONITOR.
--- NOTE | 2021-01-03 19:23 | NUR ---
ENDORSED TO NIGHT NURSE FOR CONTINUITY OF CARE. PT IS STABLE.
[2021-01-03 20:00] VITALS: BP 173/81
[2021-01-03] MEDS: AMIODARONE 200 MG TAB PO SCH (21:00)
[2021-01-03] MEDS: OLANZapine 2.5 MG TAB PO SCH (22:29)
[2021-01-03] MEDS: APIXABAN 2.5 MG TAB PO SCH (22:37)
[2021-01-03] MEDS: hydrALAZINE 20 MG/ML VIAL IVP PRN (22:54)
--- NOTE | 2021-01-03 22:54 | NUR ---
BP-173/81 HYDRALAZINE 10 MG IVP GIVEN.
--- NOTE | 2021-01-03 23:23 | NUR ---
AMIODARONE NOT GIVEN D/T MEDICATION CANNOT BE CRUSHED PER PHARMACY. NOTIFIED DR. GARCIA . WILL FOLLOW UP IN AM. PATIENT IS STRICT I&O.
--- NOTE | 2021-01-03 23:55 | NUR ---
PATIENT IS SLEEPING, BP RECHECKED - 140/71, 85.
[2021-01-04] VITALS: BP 148/79
[2021-01-04] MEDS: METOPROLOL 50 MG TAB PO SCH ×4 (00:34→21:30)
[2021-01-04 04:00] VITALS: BP 148/79
[2021-01-04] MEDS: hydrALAZINE 20 MG/ML VIAL IVP PRN ×3 (07:08→09:05)
[2021-01-04 07:20] LABS: BASOPHILS % (AUTO) 0.4 % (0.0-2.0); HEMATOCRIT 35.7 % (36-48); HEMOGLOBIN 11.7 g/dL (12.0-16.0); LYMPHOCYTES # (AUTO) 2.1 K/uL (2.5-16.5); LYMPHOCYTES % (AUTO) 22.6 % (20.5-51.1); MEAN CORPUSCULAR HEMOGLOBIN 30 pg (27-31); MEAN CORPUSCULAR HGB CONC 33 g/dL (33-37); MEAN CORPUSCULAR VOLUME 90.5 fL (80-94); MONOCYTES # (AUTO) 0.6 K/uL (0.8-1.0); MONOCYTES % (AUTO) 6.6 % (1.7-9.3); NEUTROPHILS # (AUTO) 6.5 K/uL (1.8-7.7); NEUTROPHILS % (AUTO) 70.4 % (42.2-75.2); PLATELET COUNT (AUTO) 232 K/uL (140-450); RED BLOOD CELL COUNT(AUTO) 3.94 MIL/uL (4.20-5.40); WHITE BLOOD COUNT (AUTO) 9.2 K/uL (4.8-10.8)
--- NOTE | 2021-01-04 07:21 | NUR ---
PT ENDORSED BY MILITARY PERSONNEL SPECIALIST NURSE FOR CONTINUITY OF CARE, POC DISCUSSED. PT IS ASLEEP IN BED WITH SITTER AT BEDSIDE. PT IS ON ROOM AIR WITH CHEST RISING AND FALLING EVEN AND UNLABORED. PT RECEIVED HYDRALAZINE BY MILITARY PERSONNEL SPECIALIST NURSE AND NEW BLOOD PRESSURE IS 140/66. PT HAS A RIGHT AC 20 GAUGE, SALINE LOCK. PT ALSO HAS A LEFT NEPHROSTOMY TUBE. ALL SAFETY MEASURES IN PLACE, WILL CONTINUE TO MONITOR
[2021-01-04 07:24] LABS: ANION GAP 11.5 (8-16); CARBON DIOXIDE 26.8 mmol/L (21-32); CHLORIDE 104 mmol/L (98-107); CREATININE 1.2 mg/dL (0.6-1.3); GLUCOSE 203 mg/dL (74-106); MAGNESIUM 1.5 mg/dL (1.8-2.4); PHOSPHORUS 2.9 mg/dL (2.5-4.9); POTASSIUM 3.3 mmol/L (3.5-5.1); SODIUM SERUM 139 mmol/L (136-145); UREA NITROGEN, BLOOD 20 mg/dL (7-18)
--- NOTE | 2021-01-04 07:26 | NUR ---
ENDORSED TO AM NURSE FOR CONTINUITY OF CARE.
[2021-01-04 08:00] VITALS: BP 140/66
[2021-01-04] MEDS: QUEtiapine FUMARATE 25 MG TAB PO SCH ×2 (09:15→21:30)
[2021-01-04] MEDS: PANTOPRAZOLE 40 MG TABEC PO SCH (09:15)
[2021-01-04] MEDS: AMIODARONE 200 MG TAB PO SCH ×2 (09:16→21:30)
[2021-01-04] MEDS: hydrALAZINE 10 MG TAB PO SCH ×3 (09:16→17:00)
[2021-01-04] MEDS: APIXABAN 2.5 MG TAB PO SCH ×2 (09:18→21:30)
--- NOTE | 2021-01-04 09:24 | NUR ---
DAMASO MEDICATION ADMINISTERED PER MD ORDER, PT TOLERATED ADMINISTRATION. PT IS ALERT AND ORIENTED X1. PT IS ASLEEP IN BED WITH NO ACUTE S/S OF ACUTE DISTRESS. ALL SAFETY MEASURES IN PLACE. WILL CONTINUE TO MONITOR.
--- NOTE | 2021-01-04 11:22 | NUR ---
DAMASO BP MEDICATION NON ADMINISTERED DUE TO BP OF 97/54.
[2021-01-04] MEDS ORDERED: MAG SULF 2000 MG/WATER PREMIX 50 ML IV SCH (12:00)
--- NOTE | 2021-01-04 12:21 | NUR ---
PRN POTASSIUM AND MAGNESIUM ADMINISTERED PER MD ORDER, MAG LEVEL OF 1.5 AND POT LEVEL OF 3.3. IV SITE IS PATENT. PT IS RESTING IN BED WITH NO S/S OF ACUTE DISTRESS, ALL SAFETY MEASURES IN PLACE, CALL LIGHT WITHIN REACH. WILL CONTINUE TO MONITOR.
[2021-01-04] MEDS: POTASSIUM CHLORIDE 10 MEQ TABER PO PRN (12:31)
--- NOTE | 2021-01-04 13:40 | NUR ---
[facility] BP MEDICATION NON ADMINISTERED DUE TO BP OF 93/57. WILL CONTINUE TO MONITOR.
--- NOTE | 2021-01-04 13:57 | NUR ---
VITAL SIGNS WNL WITH BP AT 100/56. PT IS ASLEEP WITH NO ACUTE S/S AND CHEST RISING AND FALLING EVEN AND UNLABORED. SITTER AT BEDSIDE. WILL CONTINUE TO MONITOR.
--- NOTE | 2021-01-04 15:58 | NUR ---
Social Service Note: TYPE ROLLING MACHINE OPERATOR has contacted [facility] Adult Protective Services ([phone]); TYPE ROLLING MACHINE OPERATOR spoke to Thuy; a report was taken; Report # [id number]. TYPE ROLLING MACHINE OPERATOR will remain available for support. Addendum: 01/08/21 at 0901 by Julissa Quiros CM APS worker assigned to the pt's case is: Jose Winkler ([phone]). Addendum: 01/14/21 at 1321 by Julissa Quiros CM APS worker assigned to the case is Yvonne Meyers ([phone]); Ms. Barker states that she has not yet visited the patient; Ms. Barker plans to visit the patient tomorrow; Ms. Barker also states that she has not yet contacted the family to alert them of the APS investigation. Ms. Barker states that she will contact the family tomorrow after she visits the patient.
--- NOTE | 2021-01-04 18:24 | NUR ---
FAMILY AT BEDSIDE, SPOKE TO THEM ABOUT THE PLAN FROM CASE MANAGEMENT. ANSWERED ALL QUESTIONS, WILL CONTINUE TO MONITOR.
--- NOTE | 2021-01-04 19:15 | NUR ---
RECEIVED REPORT FROM AM RN AT BEDSIDE. PT IN BED AWAKE, CALM / QUIET, NON-VERBAL NON-VERBAL, RESP REG NON-LABORED, IN NAD.
[2021-01-04 20:05] VITALS: BP 149/66
[2021-01-04] MEDS: OLANZapine 2.5 MG TAB PO SCH (21:30)
--- NOTE | 2021-01-04 22:00 | NUR ---
MED PASS DONE PT ASLEEP, RESP REG NON-LABORED, IN NAD.
--- NOTE | 2021-01-05 00:15 | NUR ---
ON ROUNDS PT ASLEEP, NO S/S OF DISTRESS NOTED.
[2021-01-05 00:30] VITALS: BP 179/91
[2021-01-05] MEDS: hydrALAZINE 20 MG/ML VIAL IVP PRN (01:40)
[2021-01-05 02:30] VITALS: BP 147/72
--- NOTE | 2021-01-05 04:20 | NUR ---
ON ROUNDS PT ASLEEP, NO S/S OF DISTRESS NOTED. BP S/P APRESOLINE IVP IMPROVED 147/72, P 94
[2021-01-05 07:27] LABS: BASOPHILS % (AUTO) 0.4 % (0.0-2.0); EOSINOPHILS % (AUTO) 0.1 % (0.0-4.0); HEMATOCRIT 34.1 % (36-48); HEMOGLOBIN 11.3 g/dL (12.0-16.0); LYMPHOCYTES % (AUTO) 18.7 % (20.5-51.1); MEAN CORPUSCULAR HEMOGLOBIN 30 pg (27-31); MEAN CORPUSCULAR HGB CONC 33 g/dL (33-37); MEAN CORPUSCULAR VOLUME 89.4 fL (80-94); MONOCYTES # (AUTO) 0.7 K/uL (0.8-1.0); MONOCYTES % (AUTO) 6.6 % (1.7-9.3); NEUTROPHILS # (AUTO) 7.7 K/uL (1.8-7.7); NEUTROPHILS % (AUTO) 74.2 % (42.2-75.2); PLATELET COUNT (AUTO) 236 K/uL (140-450); RED BLOOD CELL COUNT(AUTO) 3.82 MIL/uL (4.20-5.40); RED CELL DISTRIBUTION WIDTH 14.5 % (11.6-13.7); WHITE BLOOD COUNT (AUTO) 10.4 K/uL (4.8-10.8)
--- NOTE | 2021-01-05 07:30 | NUR ---
RECEIVED REPORT FROM NIGHT NURSE. PER NIGHT NURSE, PT HAS NOT WANT TO EAT AND PT IS NON VERBAL. PT IS BREATHING ON RA. PT HAS A LEFT-SIDED NEPHROSTOMY BAG. PT HAS A RAC 20G SL. BP WAS HIGH LAST NIGHT AND NURSE GAVE MEDICATION. PT HAS A SITTER AT BEDSIDE. I INTRODUCED MYSELF TP PT. PT LOOKS TIRED, PALE AND WEAK COMPARED TO 2 DAYS AGO THAT I SAW HER. SAFETY PRECAUTIONS ARE IN PLACE. CALL LIGHT IS WITHIN REACH. PT IS NOT IN ACUTE DISTRESS. WILL CONTINUE TO MONITOR.
--- NOTE | 2021-01-05 07:30 | NUR ---
REPORT TO AM RN AT BEDSIDE. PT AWAKE, RESP REG NON-LABORED. PT IN NAD, SITTER AT BEDSIDE.
[2021-01-05 07:45] LABS: CREATININE 1.2 mg/dL (0.6-1.3); GLUCOSE 195 mg/dL (74-106); UREA NITROGEN, BLOOD 29 mg/dL (7-18)
--- NOTE | 2021-01-05 08:00 | NUR ---
EMPTIED OUT NEPHROSTOMY BAG 150 CC. DRAINAGE WAS A RED/PINK COLOR.NO APPARENT DISTRESS IS NOTED WILL CONTINUE TO MONITOR. SITTER IS AT BEDSIDE.
--- NOTE | 2021-01-05 08:03 | NUR ---
RECEIVED A CALL FROM LAB THAT PT'S K+ WAS 2.9 AND CO2 WAS 41.6. WILL NOTIFY MD AND INITIATE SEIZURE PRECAUTIONS.
--- NOTE | 2021-01-05 08:04 | NUR ---
PADDED SIDE RIALS FOR SEIZURE PRECAUTIONS. PT IS NOT UNDER NO APPARENT DISTRESS. SITTER IS AT BEDSIDE. WILL CONTINUE TO MONITOR.
--- NOTE | 2021-01-05 08:08 | NUR ---
DR. GARSIA WAS NOTIFIED ABOUT CRITICAL LAB VALUES OF K+2.9 AND CO2 OF 41.6. WILL WAIT FOR MD RESPONSE.
[2021-01-05 08:12] LABS: ANION GAP 13.9 (8-16); CHLORIDE 104 mmol/L (98-107); SODIUM SERUM 140 mmol/L (136-145)
[2021-01-05 08:15] LABS: POTASSIUM 2.9 mmol/L (3.5-5.1)
--- NOTE | 2021-01-05 08:15 | NUR ---
NOTIFIED ABOUT LAB MISTAKE ON CRITICAL VALUE AND THE CO2 LAB VALUE IS 25.
--- NOTE | 2021-01-05 08:15 | NUR ---
LAB CALLED TO NOTIFY ME OF LAB VALUE MISTAKE. CO2 IS 25. WILL NOTIFY MD ABOUT CORRECTION OF LAB VALUE.
--- NOTE | 2021-01-05 08:25 | NUR ---
DR. GARSIA ORDERED A K-RIDER 40MEQ IVF ONCE. WILL COMMENCE MEDICATION ADMINISTRATION.
--- NOTE | 2021-01-05 08:25 | NUR ---
PRESCRIBED 40MEQ OF K-RIDER FOR POTASSIUM LEVEL OF 2.9. WILL INITIATE MEDICTAION ADMINISTRATION.
--- NOTE | 2021-01-05 08:33 | NUR ---
UPON MEDICATION ADMINISTRATION PT WAS NOT ALERT OR AWAKE. I HELD MEDICATIONS DUE TO ASPIRATION PRECAUTION. HAS BEEN NOTIFIED. PT IS NOT UNDER APPARENT DISTRESS. WILL CONTINUE TO MONITOR.SITTER IS AT BEDSIDE.
[2021-01-05] MEDS ORDERED: POTASSIUM CHL 40 MEQ/ D5-1/2NS 1,000 ML IV SCH (08:50)
[2021-01-05] MEDS ORDERED: KCL 20 MEQ/WATER INJ PREMIX 200 ML IV ONE (08:55)
[2021-01-05] MEDS: APIXABAN 2.5 MG TAB PO SCH ×3 (09:00→21:00)
[2021-01-05] MEDS: AMIODARONE 200 MG TAB PO SCH ×3 (09:00→21:00)
[2021-01-05] MEDS: METOPROLOL 50 MG TAB PO SCH ×3 (09:00→21:00)
[2021-01-05] MEDS: PANTOPRAZOLE 40 MG TABEC PO SCH ×4 (09:00→18:41)
[2021-01-05] MEDS: QUEtiapine FUMARATE 25 MG TAB PO SCH ×3 (09:00→21:00)
--- NOTE | 2021-01-05 09:06 | NUR ---
LAB CALLED TO VERIFY K-RIDER ORDER.
[2021-01-05] MEDS ORDERED: POTASSIUM CHLORIDE 40 MEQ, LIDOCAINE MPF 1% 25 MG in NACL 0.9% 250 ML IV ONE (09:30)
[2021-01-05] MEDS: hydrALAZINE 10 MG TAB PO SCH ×3 (09:38→17:00)
--- NOTE | 2021-01-05 10:55 | NUR ---
PT HAD A SEIZURE LASTING AROUND 1 MINUTE LONG. PT WAS QUIN INWARDS. I PLACED PT ON HER SIDE, APPLIED OXYGEN AND COUNTED TIMEFRAME OF SEIZURE. PLACED A SUCTION CANISTER AT BEDSIDE. PT DID NOT SHOW SIGNS OF INJURY. I NOTIFIED DR. GARSIA OF SEIZURE. AFTER SEIZURE WAS DONE PT APPEARED TO BE TIRED.
--- NOTE | 2021-01-05 11:05 | NUR ---
PT APPEARS TO BE AWAKE AND ALERT AFTER SEIZURE. SHE IS BEING COOPERATIVE AND IS SMILING. WALKED INTO ROOM AND WAS NOTIFIED OF ALL THE EVENTS. MD SAID IF PT APPEARS TO BE IN PAIN BY FACIAL GRIMACE. TO START COMFORT MEASURES. SITTER AT BEDSIDE BP IS 125/79, HR:110 RR:18,AND SPO2 IS 97% 2L NC. SITTER IS AT BEDSIDE. PT IS NOT UNDER APPARENT DISTRESS. SAFETY PRECAUTIONS ARE IN PLACE.WILL CONTINUE TO MONITOR.
--- NOTE | 2021-01-05 11:30 | NUR ---
DEPUTY SALCEDO ARRIVED TO CHECK UP ON THE STATUS OF PT. DEPUTY SALCEDO ASKED IF PT WAS GOING TO BE DISCHARGED ANYTIME SOON AND I TOLD THE DEPUTY THAT PT WAS UNSTABLE AND SHE COULD NOT GET DISCHARGED TODAY. I EXPLAINED TO THAT PT DID NOT HAVE PLACEMENT DUE TO BEING UNINSURED. I ALSO EXPLAINED TO DEPUTY SALCEDO THAT PT WAS SUPPOSED TO RECEIVE HOME HEALTH CARE AND THAT COULD NOT HAPPEN BECAUSE GRANDDAUGHTER AND [id number] W[place]. DEPUTY SALCEDO HAD NO FURTHER QUESTIONS.
[2021-01-05 12:00] VITALS: BP 127/95
--- NOTE | 2021-01-05 13:00 | NUR ---
HELD HYDRALAZINE DUE TO PT'S BP BEING 127/95, HR:122 AND PT REFUSING TO TAKE MEDICATIONS. NOTIFIED CHARGE NURSE SUSAN OF SITUATION AND SHE TOLD ME TO HOLD HYDRALAZINE. PT APPEARS NOT TO BE UNDER APPARENT ACUTE DISTRESS. SITTER IS AT BEDSIDE. WILL CONTINUE TO MONITOR.
--- NOTE | 2021-01-05 14:35 | NUR ---
NOTIFIED THAT PT APPEARED TO BE IN PAIN DUE TO HOLDING HER CHEST AND GUARDING. I RECOMMENDED IVP PAIN MEDICATION DUE TO PT BEING TOO WEAK TO SWALLOW. WILL AWAIT MD'S RESPONSE.
--- NOTE | 2021-01-05 14:48 | NUR ---
ORDERED 0.5MG OF MORPHINE IVP BY TORB. WILL CONTINUE MEDICATION ADMINISTRATION.
[2021-01-05] MEDS ORDERED: MORPHINE SULFATE 2 MG/ML SYR IVP PRN (14:55)
--- NOTE | 2021-01-05 15:15 | NUR ---
ADMINISTERED 0.5MG OF MORPHINE IVP FOR PAIN BY APPARENT GRIMACE OF FACE. EXPLAINED MEDICATION MOA AND SIDE EFFECTS. BP: 154/62, HR:120. SITTER IS AT BEDSIDE. SAFETY PRECAUTIONS ARE IN PLACE. WILL REASSESS FACIAL EXPRESSIONS IN 30 MINUTES.
[2021-01-05] MEDS: MORPHINE SULFATE 2 MG/ML SYR IVP PRN (15:16)
--- NOTE | 2021-01-05 16:16 | NUR ---
REASSEEED PTS PAIN AND VS : PT IS RESTING AND HER BP IS 95/81, HR:112. SITTER IS AT PLACE. SAFETY PRECAUTIONS ARE IN PLACE. CALL LIGHT IS WITHIN REACH. WILL CONTINUE TO MONITOR.
--- NOTE | 2021-01-05 19:31 | NUR ---
ENDORSED PT TO NIGHT NURSE FOR CONTINUITY OF CARE. PT IS STABLE.
--- NOTE | 2021-01-05 19:31 | NUR ---
ENDORSED PT TO NIGHT NURSE FOR CONTINUITY OF CARE. PT IS STABLE.
--- NOTE | 2021-01-05 19:45 | NUR ---
RECEIVED REPORT AT BEDSIDE.PT IS SLEEPING.DOESN'T OPEN HER EYES .IVF SL PATENT.LT NEPHROSTOMY TUBE IS PATENT.VS STABLE.CALL LIGHT IN REACH.RESP.UNLABORED IN RA.NO S/S OF DISTRESS NOTED.WILL CONTINUE MONITORING.
[2021-01-05 20:00] VITALS: BP 124/76
[2021-01-05] MEDS: OLANZapine 2.5 MG TAB PO SCH (21:00)
--- NOTE | 2021-01-05 22:00 | NUR ---
PT IS VERY DROWSY SO UNABLE TO TAKE HER MEDS.
[2021-01-06 04:00] VITALS: BP 120/68
--- NOTE | 2021-01-06 05:45 | NUR ---
SLEPT WELL.WHEN SHE IS AWAKE TRY TO GET OOB.SITTER AT BEDSIDE.NO DISTRESS NOTED NOW.
[2021-01-06 05:55] LABS: BASOPHILS % (AUTO) 0.3 % (0.0-2.0); HEMOGLOBIN 11.1 g/dL (12.0-16.0); LYMPHOCYTES # (AUTO) 2.4 K/uL (2.5-16.5); LYMPHOCYTES % (AUTO) 16.6 % (20.5-51.1); MEAN CORPUSCULAR HEMOGLOBIN 30 pg (27-31); MEAN CORPUSCULAR HGB CONC 33 g/dL (33-37); MEAN CORPUSCULAR VOLUME 90.5 fL (80-94); MONOCYTES % (AUTO) 7.1 % (1.7-9.3); PLATELET COUNT (AUTO) 215 K/uL (140-450); RED BLOOD CELL COUNT(AUTO) 3.75 MIL/uL (4.20-5.40); RED CELL DISTRIBUTION WIDTH 14.3 % (11.6-13.7); WHITE BLOOD COUNT (AUTO) 14.5 K/uL (4.8-10.8)
[2021-01-06 06:17] LABS: CARBON DIOXIDE 27.5 mmol/L (21-32); CHLORIDE 108 mmol/L (98-107); CREATININE 1.3 mg/dL (0.6-1.3); GLUCOSE 219 mg/dL (74-106); POTASSIUM 3.5 mmol/L (3.5-5.1); SODIUM SERUM 146 mmol/L (136-145); UREA NITROGEN, BLOOD 35 mg/dL (7-18)
--- NOTE | 2021-01-06 07:25 | NUR ---
PT RECEIVED FROM RUG SCRATCHER RN,PT RESTING IN BED EYES CLOSED, BREATHING IS SYMMETRICAL. NO S/SX OF DISTRESS. ALLL SAFETY MEASURES IN PLACE.
[2021-01-06] MEDS: NACL 0.45% 500 ML IV SCH ×2 (08:40→21:10)
[2021-01-06] MEDS: APIXABAN 2.5 MG TAB PO SCH (08:57)
[2021-01-06] MEDS: PANTOPRAZOLE 40 MG TABEC PO SCH (08:58)
[2021-01-06] MEDS: QUEtiapine FUMARATE 25 MG TAB PO SCH ×2 (08:59→20:36)
[2021-01-06] MEDS: AMIODARONE 200 MG TAB PO SCH ×2 (08:59→20:35)
[2021-01-06] MEDS: METOPROLOL 50 MG TAB PO SCH ×2 (09:00→20:35)
--- NOTE | 2021-01-06 09:05 | NUR ---
MEDICATIONS GIVEN PER MD ORDER. PT EDUCATED REINFORCEMENT NEEDED.
[2021-01-06] MEDS: hydrALAZINE 10 MG TAB PO SCH ×3 (09:47→17:00)
--- NOTE | 2021-01-06 10:19 | NUR ---
PT RESTING IN BED EYES CLOSED
--- NOTE | 2021-01-06 10:59 | NUR ---
PT REFUSING TO EAT PT EDUCATED REINFORCEMENT NEEDED
[2021-01-06 12:00] VITALS: BP 112/74
--- NOTE | 2021-01-06 12:59 | NUR ---
PT ATE ALL HER LUNCH 100% FULL ASSISTANCE. PT TOLERATED WELL.
--- NOTE | 2021-01-06 15:20 | NUR ---
FAMILY FRIEND AT BEDSIDE. PT ABLE TO COMMUNICATE AND TALK TO THEM . NO S/SX OF DISTRESS. FAMILY LAWRENCE PT SNACKS, FAMILY EDUCATED ON PUREED DIET.
--- NOTE | 2021-01-06 17:20 | NUR ---
STRAIGHT CATHETER OBTAINED FOR URINE CULTURE PT TOLERATED WELL. ALL SAFETY MEASURES IN PLACE
[2021-01-06 17:25] LABS: APPEARANCE,URINE CLEAR (CLEAR); BILIRUBIN,URINE NEGATIVE (NEGATIVE); BLOOD, URINE TRACE-I (NEGATIVE); COLOR,URINE DARK YELLOW (YELLOW); LEUKOCYTE ESTERASE ,URINE NEGATIVE (NEGATIVE); NITRITE, URINE NEGATIVE (NEGATIVE); PH,URINE 5.5 (5.0-9.0); UGLUCOSE 1+ (NEGATIVE)
[2021-01-06 17:33] LABS: WBC,URINE 0-5 /HPF (0-5)
--- NOTE | 2021-01-06 18:15 | NUR ---
GRANDDAUGHTER CALLED REGARDING STATUS OF PT
[2021-01-06] MEDS: PIPERACILLIN/TAZOBACTAM 2.25 GM in DEXTROSE 5% 50 ML IV SCH (18:39)
--- NOTE | 2021-01-06 19:10 | NUR ---
PT ENDORSED TO STEPDOWN NURSE RN FOR CONTINUITY OF CARE. PT STABLE
--- NOTE | 2021-01-06 19:45 | NUR ---
RECEIVED REPORT AT BEDSIDE.PT IS MORE AWAKE THAN LAST NIGHT.RESP.UNLABORED.LUNGS DIMINISHED.IVF INFUSING WELL.SITTER AT BEDSIDE.NEPHROSTOMY TUBE IS PATENT AT LT SIDE,WILL CONT.MONITORING.
[2021-01-06 20:00] VITALS: BP 109/55
[2021-01-06] MEDS: OLANZapine 2.5 MG TAB PO SCH (20:39)
[2021-01-06] MEDS ORDERED: PIPERACILLIN/TAZOBACTAM 3.375 GM in DEXTROSE 5% 50 ML IV SCH (21:00)
[2021-01-07] MEDS: PIPERACILLIN/TAZOBACTAM 2.25 GM in DEXTROSE 5% 50 ML IV SCH ×5 (00:28→23:39)
[2021-01-07 04:00] VITALS: BP 194/70
[2021-01-07] MEDS: hydrALAZINE 20 MG/ML VIAL IVP PRN (04:16)
--- NOTE | 2021-01-07 04:22 | NUR ---
HER BP WAS HIGH 194/70.HYDRALAZINE IVP GIVEN.WILL REASSESS BP.
--- NOTE | 2021-01-07 06:28 | NUR ---
RECHECKED IK=904/57.SLEPT WELL.SITTER AT BEDSIDE.
[2021-01-07 07:13] LABS: BASOPHILS % (AUTO) 0.2 % (0.0-2.0); HEMATOCRIT 33.2 % (36-48); HEMOGLOBIN 10.8 g/dL (12.0-16.0); LYMPHOCYTES # (AUTO) 2.1 K/uL (2.5-16.5); LYMPHOCYTES % (AUTO) 14.5 % (20.5-51.1); MEAN CORPUSCULAR HEMOGLOBIN 30 pg (27-31); MEAN CORPUSCULAR HGB CONC 33 g/dL (33-37); MEAN CORPUSCULAR VOLUME 91.2 fL (80-94); MONOCYTES # (AUTO) 0.8 K/uL (0.8-1.0); MONOCYTES % (AUTO) 5.6 % (1.7-9.3); NEUTROPHILS # (AUTO) 11.4 K/uL (1.8-7.7); NEUTROPHILS % (AUTO) 79.7 % (42.2-75.2); PLATELET COUNT (AUTO) 194 K/uL (140-450); RED BLOOD CELL COUNT(AUTO) 3.64 MIL/uL (4.20-5.40); RED CELL DISTRIBUTION WIDTH 14.7 % (11.6-13.7); WHITE BLOOD COUNT (AUTO) 14.4 K/uL (4.8-10.8)
[2021-01-07 07:27] LABS: ANION GAP 19.8 (8-16); CARBON DIOXIDE 21.1 mmol/L (21-32); CHLORIDE 105 mmol/L (98-107); CREATININE 1.7 mg/dL (0.6-1.3); GLUCOSE 368 mg/dL (74-106); SODIUM SERUM 143 mmol/L (136-145); UREA NITROGEN, BLOOD 35 mg/dL (7-18)
--- NOTE | 2021-01-07 07:37 | NUR ---
PT RECEIVED FROM AUTHORIZATION REP RN. PT RESTING IN BED AWAKE TALKING. NO S/SX OF DISTRESS AT THIS TIME BREATHING IS SYMMETRICAL AND UNLABORED. ALL SAFETY MEASURES ARE IN PLACE.
--- NOTE | 2021-01-07 08:07 | NUR ---
PTS NEPHROSTOMY TUBE HAS 150 ML YELLOW AND CLEAR
--- NOTE | 2021-01-07 08:08 | NUR ---
PT ASSESSED BY MD STUDENT PER. PT COOPERATIVE
[2021-01-07 08:23] LABS: POTASSIUM 2.9 mmol/L (3.5-5.1)
--- NOTE | 2021-01-07 08:24 | NUR ---
CRITICAL VALUE RECEIVED BUN 35, K 2.9. NOTIFIED, ORDERS RECEIVED AND WILL BE CARRIED THROUGH
[2021-01-07] MEDS: QUEtiapine FUMARATE 25 MG TAB PO SCH ×2 (08:32→20:11)
[2021-01-07] MEDS: AMIODARONE 200 MG TAB PO SCH ×2 (08:32→20:11)
[2021-01-07] MEDS: hydrALAZINE 10 MG TAB PO SCH ×3 (08:32→16:33)
[2021-01-07] MEDS: METOPROLOL 50 MG TAB PO SCH ×2 (08:32→20:12)
[2021-01-07] MEDS: PANTOPRAZOLE 40 MG TABEC PO SCH (08:33)
--- NOTE | 2021-01-07 08:33 | NUR ---
PT AT 25% OF FOOD
--- NOTE | 2021-01-07 08:44 | NUR ---
MEDICATIONS GIVEN PER MD ORDER. PT EDUCATED , NO S/SX OF DISTRESS. ALL SAFETY MEASURES ARE IN PLACE.
--- NOTE | 2021-01-07 08:58 | NUR ---
PT HAS 16 SECOND SEIZURE. PT BREATHING LABORED AND RAPID WILL MONITOR. MD STUDENT AWARE
--- NOTE | 2021-01-07 09:50 | NUR ---
PRN K-DUR GIVEN PER MD ORDER. PT EDUCATED AND NEEDS REINFORCEMENT , NO S/SX OF DISTRESS. PT TOLERATED WELL. NO S/SX OF DISTRESS
[2021-01-07] MEDS ORDERED: POTASSIUM CHLORIDE 40 MEQ, LIDOCAINE MPF 1% 25 MG in NACL 0.9% 250 ML IV SCH (10:00)
[2021-01-07] MEDS: NACL 0.45% 500 ML IV SCH ×2 (10:30→22:10)
--- NOTE | 2021-01-07 10:45 | NUR ---
PT RESTING IN BED BREATHING IS UNLABORED, EYES CLOSED.
--- NOTE | 2021-01-07 11:42 | NUR ---
MD MCKEON AT BEDSIDE
--- NOTE | 2021-01-07 11:58 | NUR ---
MEDICATIONS GIVEN PER MD ORDER, PT EDUCATED REINFORCEMENT NEEDED
[2021-01-07 12:00] VITALS: BP 135/81
--- NOTE | 2021-01-07 13:30 | NUR ---
PER DR BURROUGHS IF CR WORSENS IMAGING IS REQUIRED TO ASSESS NEPHROSTOMY TUBE PLACEMENT
--- NOTE | 2021-01-07 15:59 | NUR ---
HEMATOLOGY SUPERVISOR AT BEDSIDE.
[2021-01-07] MEDS: ACETAMINOPHEN 325 MG TAB PO PRN (16:33)
--- NOTE | 2021-01-07 16:33 | NUR ---
MEDICATIONS GIVEN PER MD ORDER PT EDUCATED. REINFORCEMENT NEEDED. THREAT MONITORING ANALYST AT BEDSIDE.
--- NOTE | 2021-01-07 17:49 | NUR ---
PT RESTING IN BED , MUSIC THERAPY PROVIDED PT CALM AND RELAXED. PT TOLERATED WELL
--- NOTE | 2021-01-07 17:52 | NUR ---
300 MLS FOR NEPHROSTOMY TUBE TODAY , YELLOW AND CLEAR, NO ODOR
--- NOTE | 2021-01-07 18:46 | NUR ---
FAMILY AT BEDSIDE , PT HAD 100% OF DINNER
--- NOTE | 2021-01-07 18:52 | NUR ---
PT RESTING IN BED IN STABLE CONDITION WILL ENDORSE TO ELECTRICAL INTERN RN FOR CONTINUITY OF CARE
--- NOTE | 2021-01-07 19:05 | NUR ---
PT ENDORSED TO REHABILITATION PROGRAM COORDINATOR RN. PT IN STABLE CONDITION.
--- NOTE | 2021-01-07 19:20 | NUR ---
RECEIVED PT AWAKE ON BED, VERBALLY RESPONSIVE BUT CONFUSED, NO SIGNS OF SOB OR PAIN, IVF INFUSING WELL, , WITH LEFT NEPHROSTOMY TUBE IN PLACE ATTACHED TO LEG BAG WITH YELLOW OUTPUT NOTED, SAFETY MEASURES IN PLACE, SITTER AT BEDSIDE FOR SAFETY, FREQUENT ROUNDS WILL BE MADE.
[2021-01-07 20:00] VITALS: BP 166/61
[2021-01-07] MEDS: OLANZapine 2.5 MG TAB PO SCH (20:11)
--- NOTE | 2021-01-07 21:10 | NUR ---
PT AWAKE TRYING TO GET OOB, MAXIMUM ASSIST TO BEDSIDE CHAIR, AFTER 10 MINUTES PT ASSISTED BACK TO BED, LEFT NEPHROSTOMY TUBE ATTACHED TO LEG BAG DRAINING YELLOW URINE, SITTER AT BEDSIDE, ALL NEEDS ATTENDED.
[2021-01-07] MEDS: MORPHINE SULFATE 2 MG/ML SYR IVP PRN (22:28)
[2021-01-07] MEDS: ZOLPIDEM 5 MG TAB PO PRN (23:42)
[2021-01-08] MEDS: HALOPERIDOL IM 5 MG/ML VIAL IM PRN (03:03)
--- NOTE | 2021-01-08 03:07 | NUR ---
PT AWAKE AND RESTLESS, STARTED SCREAMING, HALDOL IM GIVEN PRN, CONTINUE SITTER AT BEDSIDE FOR SAFETY, MONITORED CLOSELY.
[2021-01-08 04:00] VITALS: BP 145/65
--- NOTE | 2021-01-08 04:10 | NUR ---
PT AWAKE, OCCASIONALLY TALKING TO SELF, CONFUSED UNABLE TO REDIRECT, VITAL SIGNS STABLE, NO SIGNS OF PAIN OR SOB, IVF INFUSING WELL, MONITORED CLOSELY.
[2021-01-08] MEDS: PIPERACILLIN/TAZOBACTAM 2.25 GM in DEXTROSE 5% 50 ML IV SCH ×3 (05:05→17:51)
--- NOTE | 2021-01-08 05:20 | NUR ---
SEEN PT SLEEPING, NO DISTRESS NOTED, SAFETY MEASURES IN PLACE, SITTER AT BEDSIDE.
--- NOTE | 2021-01-08 07:15 | NUR ---
PT SLEEPING, NO SIGNS OF DISTRESS, BEDSIDE REPORT GIVEN TO JULIET SCHWARTZ FOR CONTINUITY OF CARE.
--- NOTE | 2021-01-08 07:16 | NUR ---
RECEIVED REPORT FROM NIGHT NURSE BRADY PATIENT IS SLEEPING, ON ROOM AIR, PUREE DIET, WITH 1;1 SITTER AT BEDSIDE, NON AMBULATORY, IV ON RIGHT AC WITH NS AT 40 MLS/HR, WITH LEFT NEPHROSTOMY TUBE WITH 300 ML OUTPUT, LAST BOWEL MOVEMENT 01/07/21 EEG DONE YESTERDAY, PLAN OF CARE FOR HOSPICE CARE. SAFETY MEASURES IN PLACE AND CALL LIGHT WITHIN REACH. WILL CONTINUE TO MONITOR.
[2021-01-08 08:00] VITALS: BP 152/69
[2021-01-08] MEDS: AMIODARONE 200 MG TAB PO SCH ×2 (08:52→20:19)
[2021-01-08] MEDS: QUEtiapine FUMARATE 25 MG TAB PO SCH ×2 (08:52→20:19)
[2021-01-08] MEDS: hydrALAZINE 10 MG TAB PO SCH ×3 (08:52→16:48)
[2021-01-08] MEDS: PANTOPRAZOLE 40 MG TABEC PO SCH (08:53)
[2021-01-08] MEDS: METOPROLOL 50 MG TAB PO SCH ×2 (08:53→20:18)
[2021-01-08] MEDS ORDERED: levETIRAcetam 500 MG TAB PO SCH (09:00)
--- NOTE | 2021-01-08 09:11 | NUR ---
ADMINISTERED SCHEDULED MEDICATION CHECK BP PRIOR TO MEDICATION BP 152/69 WI 82 PATIENT TOLERATED WELL WILL CONTINUE TO MONITOR.
[2021-01-08 09:45] LABS: BASOPHILS # (AUTO) 0.2 K/uL (0.00-0.22); BASOPHILS % (AUTO) 1.5 % (0.0-2.0); EOSINOPHILS % (AUTO) 0.1 % (0.0-4.0); HEMATOCRIT 29.8 % (36-48); HEMOGLOBIN 9.7 g/dL (12.0-16.0); LYMPHOCYTES # (AUTO) 1.8 K/uL (2.5-16.5); LYMPHOCYTES % (AUTO) 12.5 % (20.5-51.1); MEAN CORPUSCULAR HEMOGLOBIN 29 pg (27-31); MEAN CORPUSCULAR HGB CONC 33 g/dL (33-37); MONOCYTES # (AUTO) 0.9 K/uL (0.8-1.0); MONOCYTES % (AUTO) 6.4 % (1.7-9.3); NEUTROPHILS # (AUTO) 11.5 K/uL (1.8-7.7); NEUTROPHILS % (AUTO) 79.5 % (42.2-75.2); PLATELET COUNT (AUTO) 151 K/uL (140-450); RED BLOOD CELL COUNT(AUTO) 3.31 MIL/uL (4.20-5.40); RED CELL DISTRIBUTION WIDTH 14.3 % (11.6-13.7); WHITE BLOOD COUNT (AUTO) 14.5 K/uL (4.8-10.8)
[2021-01-08 10:33] LABS: ANION GAP 16.6 (8-16); CARBON DIOXIDE 24.4 mmol/L (21-32); CHLORIDE 108 mmol/L (98-107); CREATININE 1.5 mg/dL (0.6-1.3); GLUCOSE 320 mg/dL (74-106); SODIUM SERUM 146 mmol/L (136-145); UREA NITROGEN, BLOOD 31 mg/dL (7-18)
[2021-01-08] MEDS: NACL 0.45% 500 ML IV SCH ×2 (10:40→23:10)
[2021-01-08] MEDS: levETIRAcetam 1,000 MG in NACL 0.9% 100 ML IV SCH ×2 (10:53→20:23)
--- NOTE | 2021-01-08 10:55 | NUR ---
SODIUM CHLORIDE 0.9% LEVETIRACETAM 1000 MG AT 220 MLS/HR GIVEN INFUSING WELL AND VERIFIED BY DR FOX.
--- NOTE | 2021-01-08 11:00 | NUR ---
PATIENT SEEN BY DR FOX AND ORDERED CT HEAD WITH OUT CONTRAST.
[2021-01-08] MEDS ORDERED: POTASSIUM CHLORIDE 10 MEQ TABER PO SCH (11:40)
[2021-01-08] MEDS ORDERED: MAG SULF 2000 MG/WATER PREMIX 50 ML IV ONE (11:40)
--- NOTE | 2021-01-08 11:50 | NUR ---
KDUR AT 40 MEQ GIVEN PT POTASSIUM LEVEL AT 3.0.
--- NOTE | 2021-01-08 12:04 | NUR ---
MAGNESIUM RIDER AT 2000 GRAMS GIVEN INFUSING WELL. PATIENT EATING WELL.
--- NOTE | 2021-01-08 12:05 | NUR ---
ULTRASOUND OF THE KIDNEY ONGOING TO CHECK FOR NEPHROSTOMY TUBE PLACEMENT.
--- NOTE | 2021-01-08 12:30 | NUR ---
ADMINISTERED SCHEDULED MEDICATION AT THIS TIME PT IS RESTING AND NO DISTRESS NOTED PT SEEN BY DR RAGLAND.
--- NOTE | 2021-01-08 14:41 | NUR ---
01/08/21 RD FOLLOW UP COMPLETED PLEASE REFER TO NUTRITION ASSESSMENT UNDER CARE ACTIVITY FOR ESTIMATED NUTRITIONAL NEEDS. 1. CONT. PUREE CCHO 45 GM 2. RECOMMEND GLUCERNA BID 3. CONTINUE PROVIDING ASSISTANCE WITH MEALS 4. RD TO FOLLOW-UP 3-5 DAYS, MODERATE RISK ABIGAIL AVENDANO, RD
--- NOTE | 2021-01-08 15:00 | NUR ---
PATIENT OUT IN HER ROOM FOR CT HEAD WITH OUT CONTRAST.
--- NOTE | 2021-01-08 15:10 | NUR ---
PATIENT IS BACK IN HER ROOM
[2021-01-08 16:00] VITALS: BP 124/65
--- NOTE | 2021-01-08 16:48 | NUR ---
SCHEDULED MEDICATION HELP PER PARAMETERS PATIENT BP 124/65 RI 97 WILL CONTINUE TO MONITOR.
--- NOTE | 2021-01-08 17:53 | NUR ---
ADMINISTERED SCHEDULED MEDICATION ZOSYN INFUSING WELL.DRAINED 200 ML OUTPUT FROM THE NEPHROSTOMY TUBE.
--- NOTE | 2021-01-08 19:28 | NUR ---
endorsed to night nurse for continuity of care. pt is stable.
--- NOTE | 2021-01-08 19:29 | NUR ---
RECEIVED PT SITTING UP ON BED, CALM AND COOPERATIVE BUT WITH CONFUSION, SITTER AT BEDSIDE, FLACC-0, IVF INFUSING WELL, LEFT NEPHROSTOMY TUBE DRAINING WELL, SAFETY MEASURES IN PLACE, CALL LIGHT WITHIN REACH.
[2021-01-08 20:00] VITALS: BP 139/60
[2021-01-08] MEDS: OLANZapine 2.5 MG TAB PO SCH (20:19)
--- NOTE | 2021-01-08 22:20 | NUR ---
DUE MEDS CRUSHED AND GIVEN WITH PUDDING, TOLERATED WELL, ALL NEEDS ATTENDED, SITTER AT BEDSIDE. Addendum: 01/08/21 at 2249 by Robb Douglass RN TIME SHOULD BE 2020
--- NOTE | 2021-01-08 22:30 | NUR ---
PT STILL AWAKE, CALM AT THIS TIME, REPORT GIVEN TO ROBIN PEREZ FOR CONTINUITY OF CARE.
--- NOTE | 2021-01-08 22:31 | NUR ---
RECD. RESTING IN BED, AWAKE, ALERT, CONFUSED. RESPIRATION EVEN AND UNLABORED. JUST LAYING IN BED, WITH EYES OPEN. IV OF NS INFUSING AT 40 ML/HR, RIGHT FOREARM G 22. NO AGITATION NOTED. ABLE TO AMBULATE WITH ASSISTANCE. SAFETY MEASURES ENFORCED. BED IN THE LOWEST POSITION, SIDE RAILS UP. 1:1 SITTER MONITORING PATIENT FOR SAFETY NEAR DOOR. NO APPEARANCE OF PAIN OR DISCOMFORT NOTED, 0/10.
--- NOTE | 2021-01-09 01:00 | NUR ---
LYING SUPINE IN BED, EYES OPEN BUT NO AGITATION NOTED. QUIET IN BED. WILL CONTINUE TO MONITOR.
--- NOTE | 2021-01-09 03:00 | NUR ---
HAD LARGE AMOUNT OF LOOSE BM, YELLOWISH. CLEANSED AND MADE COMFORTABLE IN BED BY SITTER.
[2021-01-09] MEDS: PIPERACILLIN/TAZOBACTAM 2.25 GM in DEXTROSE 5% 50 ML IV SCH ×4 (03:57→17:19)
[2021-01-09 04:00] VITALS: BP 119/56
[2021-01-09] MEDS: NACL 0.45% 500 ML IV SCH ×2 (04:19→11:40)
--- NOTE | 2021-01-09 05:00 | NUR ---
LAYING ON BED, NO APPEARANCE OF DISCOMFORT OR PAIN NOTED, 0/10.
[2021-01-09 06:58] LABS: BASOPHILS % (AUTO) 0.3 % (0.0-2.0); EOSINOPHILS % (AUTO) 0.2 % (0.0-4.0); HEMATOCRIT 31.7 % (36-48); HEMOGLOBIN 10.3 g/dL (12.0-16.0); LYMPHOCYTES # (AUTO) 1.5 K/uL (2.5-16.5); LYMPHOCYTES % (AUTO) 11.4 % (20.5-51.1); MEAN CORPUSCULAR HEMOGLOBIN 30 pg (27-31); MEAN CORPUSCULAR HGB CONC 33 g/dL (33-37); MEAN CORPUSCULAR VOLUME 91.4 fL (80-94); MONOCYTES # (AUTO) 0.7 K/uL (0.8-1.0); MONOCYTES % (AUTO) 5.2 % (1.7-9.3); NEUTROPHILS # (AUTO) 10.8 K/uL (1.8-7.7); NEUTROPHILS % (AUTO) 82.9 % (42.2-75.2); PLATELET COUNT (AUTO) 182 K/uL (140-450); RED BLOOD CELL COUNT(AUTO) 3.46 MIL/uL (4.20-5.40); RED CELL DISTRIBUTION WIDTH 14.8 % (11.6-13.7); WHITE BLOOD COUNT (AUTO) 13.1 K/uL (4.8-10.8)
--- NOTE | 2021-01-09 07:10 | NUR ---
RECEIVED BEDSIDE REPORT FROM SCHOOL PSYCHOLOGIST NURSE FOR CONTINUITY OF CARE. PT IS SLEEPING IN BED WITH UNLABORED BREATHING. PT SKIN IS DRY AND WARM. IV IS ON RIGHT FORE ARM 22G WITH FLUIDS RUNNING. PLAN OF CARE WAS DISCUSSED. PT IS STABLE. CALL LIGHT WITHIN REACH. WILL CONTINUE TO MONITOR.
--- NOTE | 2021-01-09 07:10 | NUR ---
CONDITION REMAIN STABLE, ENDORSED TO AM SHIFT NURSES FOR CONTINUITY OF CARE.
[2021-01-09 07:22] LABS: MAGNESIUM 2.2 mg/dL (1.8-2.4); PHOSPHORUS 2.4 mg/dL (2.5-4.9)
[2021-01-09 07:29] LABS: ANION GAP 14.3 (8-16); CARBON DIOXIDE 25.7 mmol/L (21-32); CHLORIDE 108 mmol/L (98-107); CREATININE 1.4 mg/dL (0.6-1.3); SODIUM SERUM 144 mmol/L (136-145); UREA NITROGEN, BLOOD 32 mg/dL (7-18)
--- NOTE | 2021-01-09 07:46 | NUR ---
RECEIVED CRITICAL LAB VALUE FROM LABORATORY OF BLOOD SUGAR BEEN 523. INFORMED DR. GARCIA AND RECEIVED ORDERS TO GIVE 14 UNITS PER SLIDING SCALE.
[2021-01-09 07:50] LABS: GLUCOSE 523 mg/dL (74-106)
[2021-01-09] MEDS ORDERED: INSULIN LISPRO 100 UNITS/ML VIAL SUBQ SCH (08:30)
[2021-01-09] MEDS: QUEtiapine FUMARATE 25 MG TAB PO SCH ×2 (08:47→21:29)
[2021-01-09] MEDS: PANTOPRAZOLE 40 MG TABEC PO SCH (08:47)
[2021-01-09] MEDS: AMIODARONE 200 MG TAB PO SCH ×2 (08:47→21:28)
[2021-01-09] MEDS: METOPROLOL 50 MG TAB PO SCH ×2 (08:48→21:29)
[2021-01-09] MEDS: hydrALAZINE 10 MG TAB PO SCH ×3 (08:48→16:55)
[2021-01-09] MEDS: levETIRAcetam 1,000 MG in NACL 0.9% 100 ML IV SCH ×2 (08:49→21:16)
--- NOTE | 2021-01-09 09:00 | NUR ---
PT IS IN BED WITH SITTER FEEDING PT. ADMINISTER PRESCRIBED MEDICATION. GAVE INSULIN [address] GARCIA FOR BLOOD SUGAR OF 523. PT IS STABLE. SAFETY MEASURES IN PLACE AND WILL CONTINUE TO MONITOR.
--- NOTE | 2021-01-09 09:10 | NUR ---
GAVE BEDSIDE REPORT TO [facility] NURSE FOR CONTINUE OF CARE. PT IS STABLE. Addendum: 01/09/21 at 1926 by Jade Hutchinson RN RN DISREGARD WRONG TIME
--- NOTE | 2021-01-09 09:58 | NUR ---
GRANDDAUGHTER CAESAR CALLED AND UPDATED HER ON PT STATUS. ANSWERED ANY QUESTIONS SHE HAD.
--- NOTE | 2021-01-09 12:15 | NUR ---
PT IS IN AWAKE AND IN BED. PT ON RA WITH UNLABORED BREATHING. PT IS STABLE. ALL SAFETY MEASURES ARE IN PLACE AND WILL CONTINUE TO MONITOR.
--- NOTE | 2021-01-09 12:32 | NUR ---
HYDRALAZINE 10 MG HELD FROM PT BP WAS 91/73 HEART 84. SAFETY MEASURES ARE IN PLACE AND WILL CONTINUE TO MONITOR.
--- NOTE | 2021-01-09 15:36 | NUR ---
PT IS SLEEPING WITH VISIBLE CHEST RISE AND FALL. NO DISTRESS NOTED. ALL SAFETY MEASURES ARE IN PLACE AND WILL CONTINUE TO MONITOR.
[2021-01-09 16:00] VITALS: BP 133/63
--- NOTE | 2021-01-09 17:01 | NUR ---
HYDRALAZINE 10 MG HELD PATIENT VITAL SIGNS WITHIN NORMAL LEVEL BP 133/63 VA 98.PT IS AWAKE AND RESTING. WILL CONTINUE TO MONITOR.
--- NOTE | 2021-01-09 17:20 | NUR ---
ADMINISTERED SCHEDULED MEDICATION ZOSYN 2.25 GM. INFUSING WELL.
--- NOTE | 2021-01-09 18:28 | NUR ---
SPOKE TO GRANDDAUGHTER CAESAR AND GAVE AN UPDATE ON THE PT WHO IS SLEEPING AT THE MOMENT WITH VISIBLE CHEST RISE AND FALL. CAESAR ASKED IF PT HAD ANY SEIZURES TODAY AND WAS INFORMED THAT NO. SAFETY MEASURES ARE IN PLACE AND WILL CONTINUE TO MONITOR PT.
--- NOTE | 2021-01-09 19:10 | NUR ---
GAVE BEDSIDE REPORT TO [facility] NURSE FOR CONTINUE OF CARE. PT IS STABLE.
--- NOTE | 2021-01-09 19:11 | NUR ---
RECD. SLEEPING COMFORTABLY IN BED, RESPIRATION EVEN AND UNLABORED. IV OF NS INFUSING AT 40ML/HR, RIGHT FOREARM G22. SAFETY MEASURES ENFORCED. SIDE RAILS WITH PADS, BED IN THE LOWEST POSITION, SIDE RAILS UP, BED ON ALARM. PATIENT IS FALL RISK AND ON SEIZURE PRECAUTION. NO APPEARANCE OF PAIN OR DISCOMFORT NOTED 0/10.
[2021-01-09 20:00] VITALS: BP 141/82
--- NOTE | 2021-01-09 21:00 | NUR ---
Patient's Plan of Care was discussed and reviewed with AUTOMOBILE RENTAL REPRESENTATIVE: ROBIN STAPLETON
--- NOTE | 2021-01-09 21:16 | NUR ---
PAMRA IVPB INFUSED BY JULIET NEVAREZ. PATIENT STARTED TO WAKE UP, A/OX1, CONFUSED.
--- NOTE | 2021-01-09 21:28 | NUR ---
SCHEDULED MEDICATIONS CRUSHED AND GIVEN WITH PUDDING,TOLERATED WELL. REORIENTED PATIENT TO HOSPITAL SETTING.
[2021-01-09] MEDS: OLANZapine 2.5 MG TAB PO SCH (21:29)
--- NOTE | 2021-01-10 | NUR ---
BED ALARMED, FOUND PATIENT NEAR BED, UNSTEADY. ASSISTED BACK TO BED AND MADE COMFORTABLE. SAFETY MAINTAINED. PUT ON BED ALARM AGAIN. WILL CONTINUE TO MONITOR.
[2021-01-10] MEDS: NACL 0.45% 500 ML IV SCH ×2 (00:10→12:40)
[2021-01-10] MEDS: PIPERACILLIN/TAZOBACTAM 2.25 GM in DEXTROSE 5% 50 ML IV SCH ×4 (00:29→18:00)
--- NOTE | 2021-01-10 02:00 | NUR ---
SLEEPING COMFORTABLY IN BED, RESPIRATION EVEN AND UNLABORED.
[2021-01-10 04:00] VITALS: BP 127/64
--- NOTE | 2021-01-10 04:00 | NUR ---
AWAKE IN BED, NO AGITATION BUT JUST QUIET IN BED.
--- NOTE | 2021-01-10 06:30 | NUR ---
RESTING IN BED, CLEANSED BY PARTS PRODUCT ANALYST. MADE COMFORTABLE IN BED WITH PILLOWS. NO AGITATION NOTED.
[2021-01-10 06:52] LABS: CARBON DIOXIDE 27.4 mmol/L (21-32); CHLORIDE 107 mmol/L (98-107); CREATININE 1.3 mg/dL (0.6-1.3); GLUCOSE 316 mg/dL (74-106); POTASSIUM 3.4 mmol/L (3.5-5.1); SODIUM SERUM 143 mmol/L (136-145); UREA NITROGEN, BLOOD 25 mg/dL (7-18)
[2021-01-10 06:53] LABS: BASOPHILS # (AUTO) 0.1 K/uL (0.00-0.22); BASOPHILS % (AUTO) 0.5 % (0.0-2.0); EOSINOPHILS % (AUTO) 0.3 % (0.0-4.0); HEMOGLOBIN 10.6 g/dL (12.0-16.0); LYMPHOCYTES # (AUTO) 1.7 K/uL (2.5-16.5); LYMPHOCYTES % (AUTO) 14.3 % (20.5-51.1); MEAN CORPUSCULAR HEMOGLOBIN 30 pg (27-31); MEAN CORPUSCULAR HGB CONC 33 g/dL (33-37); MEAN CORPUSCULAR VOLUME 89.4 fL (80-94); MONOCYTES # (AUTO) 0.6 K/uL (0.8-1.0); MONOCYTES % (AUTO) 5.1 % (1.7-9.3); NEUTROPHILS # (AUTO) 9.4 K/uL (1.8-7.7); NEUTROPHILS % (AUTO) 79.8 % (42.2-75.2); PLATELET COUNT (AUTO) 180 K/uL (140-450); RED BLOOD CELL COUNT(AUTO) 3.58 MIL/uL (4.20-5.40); RED CELL DISTRIBUTION WIDTH 14.3 % (11.6-13.7)
--- NOTE | 2021-01-10 07:57 | NUR ---
ENDORSED TO AM SHIFT NURSE FOR CONTINUITY OF CARE.
--- NOTE | 2021-01-10 07:57 | NUR ---
NURSE REPORT Report obtained from the night nurse Christy, and this nurse assumed care of patient. VSS. Afeb. IV 1/2 NS infusing at 40 ml/hr.
[2021-01-10] MEDS: POTASSIUM CHLORIDE 10 MEQ TABER PO PRN (10:30)
[2021-01-10] MEDS: QUEtiapine FUMARATE 25 MG TAB PO SCH ×2 (10:31→22:27)
[2021-01-10] MEDS: hydrALAZINE 10 MG TAB PO SCH ×3 (10:31→17:00)
[2021-01-10] MEDS: ACETAMINOPHEN 325 MG TAB PO PRN (10:32)
[2021-01-10] MEDS: METOPROLOL 50 MG TAB PO SCH ×2 (10:32→22:27)
[2021-01-10] MEDS: AMIODARONE 200 MG TAB PO SCH ×2 (10:33→22:27)
[2021-01-10] MEDS: PANTOPRAZOLE 40 MG TABEC PO SCH (10:33)
[2021-01-10] MEDS: levETIRAcetam 1,000 MG in NACL 0.9% 100 ML IV SCH ×2 (10:40→22:26)
--- NOTE | 2021-01-10 13:00 | NUR ---
NURSE NOTES Had 1 visitor and she assisted patient to eat, but she eat slowly. Meds crushed and given in apple sauce. No sxs of pain or discomfort.
--- NOTE | 2021-01-10 16:00 | NUR ---
NURSE NOTES VSS. Rodriguez. BP 131/60. Addendum: 01/10/21 at 2028 by Agency 04 RN RN No sxs of pain or discomfort. Patient needs to feed with each meals, but slwo feeder. Will not open her mouth.
[2021-01-10 20:00] VITALS: BP 130/68
--- NOTE | 2021-01-10 20:30 | NUR ---
REPORT GIVEN BY AM SHIFT. PT IS SLEEPING , RESPIRATION EVEN AND UNLABORED. PT ON ROOM AIR. SKIN WARM TO TOUCH.IV LINE TO RFA NO 22 GAUGE RUNNING 1/2 NS AT 40 CC/HR . PT HAS LEFT NEPHROSTOMY TUBE WITH YELLOW CLEAR DRAINAGE. PATIENT IS FALL RISK BED PLACED ON LOWEST POSITION. PT HX SEIZURE AND SEIZURE PRECAUTION APPLIED. GRAND DAUGHTER WAS CALLING AND INFORM HER THAT PT IS SLEEPING AT THIS TIME.
--- NOTE | 2021-01-10 20:36 | NUR ---
NURSE REPORT Report given to night nurse Zuleima to assumed care of patient. Stable condition. No sxs of pain or discomfort.
--- NOTE | 2021-01-10 21:00 | NUR ---
V/S T 96.8, B/P 130/68, P 83, R 18 SPO2 96%. PT STILL SLEEPING AT THIS TIME.
[2021-01-10 22:18] LABS: WHITE BLOOD COUNT (AUTO) 11.8 K/uL (4.8-10.8)
[2021-01-10] MEDS: OLANZapine 2.5 MG TAB PO SCH (22:27)
--- NOTE | 2021-01-10 22:30 | NUR ---
TRYING TO GIVE NIGHT MED TO PT . ALL MEDS ALREADY CRUSH AND MIX WITH APPLE SAUCE , CALL HER NAME AND WAKE PT UP. PT OPEN EYES AND BACK TO SLEEP, UNABLE TO GIVE NIGHT MED AT THIS TIME D/T PT TOO SLEEPY RISK FOR ASPIRATION. KEPRA IV GIVEN ORDER.
--- NOTE | 2021-01-10 23:00 | NUR ---
PT IS AWAKE AT THIS TIME ABLE TO GIVE ALL NIGHT MEDS MIX WITH APPLE SAUCE AALIYAH WELL.
[2021-01-11] MEDS: PIPERACILLIN/TAZOBACTAM 2.25 GM in DEXTROSE 5% 50 ML IV SCH ×2 (00:49→05:16)
[2021-01-11] MEDS: NACL 0.45% 500 ML IV SCH ×2 (01:10→13:40)
[2021-01-11 04:00] VITALS: BP 116/57
--- NOTE | 2021-01-11 06:00 | NUR ---
AM CARE GIVEN. AM MEDS GIVEN AALIYAH WELL.
[2021-01-11 06:49] LABS: BASOPHILS % (AUTO) 0.3 % (0.0-2.0); EOSINOPHILS # (AUTO) 0.1 K/uL (0-0.4); EOSINOPHILS % (AUTO) 0.6 % (0.0-4.0); HEMATOCRIT 32.2 % (36-48); HEMOGLOBIN 10.5 g/dL (12.0-16.0); LYMPHOCYTES # (AUTO) 1.3 K/uL (2.5-16.5); LYMPHOCYTES % (AUTO) 9.3 % (20.5-51.1); MEAN CORPUSCULAR HEMOGLOBIN 30 pg (27-31); MEAN CORPUSCULAR HGB CONC 33 g/dL (33-37); MEAN CORPUSCULAR VOLUME 90.6 fL (80-94); MONOCYTES # (AUTO) 0.6 K/uL (0.8-1.0); MONOCYTES % (AUTO) 4.6 % (1.7-9.3); NEUTROPHILS # (AUTO) 11.7 K/uL (1.8-7.7); NEUTROPHILS % (AUTO) 85.2 % (42.2-75.2); PLATELET COUNT (AUTO) 193 K/uL (140-450); RED BLOOD CELL COUNT(AUTO) 3.55 MIL/uL (4.20-5.40); RED CELL DISTRIBUTION WIDTH 14.3 % (11.6-13.7); WHITE BLOOD COUNT (AUTO) 13.7 K/uL (4.8-10.8)
--- NOTE | 2021-01-11 07:23 | NUR ---
REPORT GIVEN TO AM SHIFT. PT IS SLEEPING AT THIS TIME.
[2021-01-11 07:42] LABS: PHOSPHORUS 3.5 mg/dL (2.5-4.9)
[2021-01-11 07:46] LABS: ANION GAP 16.9 (8-16); CARBON DIOXIDE 24.1 mmol/L (21-32); CHLORIDE 105 mmol/L (98-107); CREATININE 1.6 mg/dL (0.6-1.3); SODIUM SERUM 142 mmol/L (136-145); UREA NITROGEN, BLOOD 28 mg/dL (7-18)
[2021-01-11 07:51] LABS: GLUCOSE 424 mg/dL (74-106)
--- NOTE | 2021-01-11 08:00 | NUR ---
NURSE REPORT Report obtained [facility] night nurse Zuleima at 0723 and this nurse assume care of patient. Received patient awake and alert. No c/o pain. VSS. Afeb. IV 1/2 NS at 40 ml/hr infusing into R arm. Frequent check since patient fall risks.
[2021-01-11] MEDS: levETIRAcetam 1,000 MG in NACL 0.9% 100 ML IV SCH ×2 (09:00→22:27)
[2021-01-11] MEDS: PANTOPRAZOLE 40 MG TABEC PO SCH (10:24)
[2021-01-11] MEDS: hydrALAZINE 10 MG TAB PO SCH ×3 (10:26→18:29)
[2021-01-11] MEDS: METOPROLOL 50 MG TAB PO SCH ×2 (10:26→21:00)
[2021-01-11] MEDS: QUEtiapine FUMARATE 25 MG TAB PO SCH ×2 (10:27→22:14)
[2021-01-11] MEDS: AMIODARONE 200 MG TAB PO SCH (10:27)
[2021-01-11] MEDS: ACETAMINOPHEN 325 MG TAB PO PRN (10:28)
--- NOTE | 2021-01-11 13:00 | NUR ---
NURSE NOTES PATIENT ISN'T EATING ANYTHING AND REFUSING MEALS. IV 1/2 NS AT 40 ML/HR. GIVEN KEPPRA. NO SEIZURES NOTED.
--- NOTE | 2021-01-11 18:00 | NUR ---
NURSE NOTES PATIENT REFUSED TO EAT DINNER AND SUPERVISOR CORDUROY CUTTING TRIED 1:1 FEED AND WOULDN'T EAT. VSS. AFEB. 1/2 NS AT 40 ML/HR.
--- NOTE | 2021-01-11 19:15 | NUR ---
NURSE REPORT AND ENDORSEMENT REPORT GIVEN TO NIGHT NURSE BERENICE TO ASSUME CARE OF APTIENT. VSS. AFEB. SBAR GIVEN AND ALL QUESTIONS ANSWERED. VIJAYA KLEIN RN
--- NOTE | 2021-01-11 19:30 | NUR ---
RECEIVED ENDORSEMENT FROM RN DAYSHIFT NURSE AT BEDSIDE FOR CONTINUITY OF CARE, PT IN STABLE CONDITION. PT IN BED HOB UP 45% SHE IS AOX1 ON ROOM AIR. WITH IV SITE R F/A 22G RUNNING 1/2 N/S AT 40MLS/HR. NO S/S OF PAIN OR DISTRESS NOTED. ALL FALLS PRECAUTIONS IN PLACE.
[2021-01-11 20:00] VITALS: BP 129/70
--- NOTE | 2021-01-11 20:00 | NUR ---
PT LYING IN BED NO S/S OF PAIN OR DISTRESS NOTED. IV SITE RUNNING 1/2 NS AT 40MLS/HR. EYES CLOSED BUT OPEN SPONTANEOUSLY TO NAME AND LIGHT SHAKING. V/S FOLLOWS: T 98.6 P 95 R 18 B/P 129/70 02 92% ON ROOM AIR. ALL FALLS PROTOCOL IN PLACE.
--- NOTE | 2021-01-11 21:30 | NUR ---
PT IN BED IV KESULLYRA RECONSTITUTED; HUNG AND RUNNING ORDERED. PT ALSO GIVEN ORDERED LOPRESSOR, SEROQUEL AND ZYPREXA. PT UNABLE TO COMPREHEND PURPOSE AND SIDE EFFECTS OF MEDICATION. MEDS WERE CRUSHED AND GIVEN WITH VANILLA PUDDING. NO S/S OF PAIN OR DISTRESS NOTED. ALL ORDERED PRECAUTIONS IN PLACE.
[2021-01-11] MEDS: OLANZapine 2.5 MG TAB PO SCH (22:15)
--- NOTE | 2021-01-11 23:00 | NUR ---
PT WAS TURNED, CHANGED AND REPOSITIONED IN BED. ALL FALLS PRECAUTIONS IN PLACE.
--- NOTE | 2021-01-12 02:00 | NUR ---
ROUNDS DONE, PT SLEEPING ALL ORDERED PRECAUTIONS IN PLACE.
[2021-01-12] MEDS: NACL 0.45% 500 ML IV SCH ×2 (02:22→18:00)
[2021-01-12 04:00] VITALS: BP 135/71
--- NOTE | 2021-01-12 04:30 | NUR ---
FLUIDS REPLACED AND RUNNING ORDERED. TURNED, CHANGED AND REPOSITIONED DIN BED. NO C/O VOICED . V/S FOLLOWS: T 97.9 P 92 R 18 B/P 135/71 02 93% ON ROOM AIR. ALL ORDERED PRECAUTIONS IN PLACE, PT HAS NO S/S OF PAIN OR DISTRESS NOTED.
[2021-01-12 07:09] LABS: CARBON DIOXIDE 23.8 mmol/L (21-32); CHLORIDE 106 mmol/L (98-107); CREATININE 1.5 mg/dL (0.6-1.3); GLUCOSE 359 mg/dL (74-106); POTASSIUM 3.8 mmol/L (3.5-5.1); SODIUM SERUM 144 mmol/L (136-145); UREA NITROGEN, BLOOD 30 mg/dL (7-18)
[2021-01-12 07:10] LABS: HEMATOCRIT 31.5 % (36-48); HEMOGLOBIN 10.5 g/dL (12.0-16.0); MEAN CORPUSCULAR HEMOGLOBIN 30 pg (27-31); MEAN CORPUSCULAR HGB CONC 33 g/dL (33-37); MEAN CORPUSCULAR VOLUME 89.2 fL (80-94); PLATELET COUNT (AUTO) 228 K/uL (140-450); RED BLOOD CELL COUNT(AUTO) 3.53 MIL/uL (4.20-5.40); RED CELL DISTRIBUTION WIDTH 14.4 % (11.6-13.7); WHITE BLOOD COUNT (AUTO) 23.7 K/uL (4.8-10.8)
--- NOTE | 2021-01-12 07:20 | NUR ---
NURSE REPORT Report obtained from night nurse Deidra and this nurse assumed care of patient. Received patient asleep at beginning of shift. No sxs of pain or distress.
[2021-01-12 07:25] LABS: MAGNESIUM 1.9 mg/dL (1.8-2.4)
[2021-01-12 07:50] LABS: LYMPHOCYTES % (MANUAL) 3 % (20-46); MONOCYTES % (MANUAL) 2 % (5-12)
--- NOTE | 2021-01-12 08:30 | NUR ---
NURSE NOTES PATIENT GETTING OUT OF BED AND THIS NURSE ASSISTED PATIENT TO THE BATHROOM. VOIDED AND HAD LOOSE SOFT BM.
[2021-01-12] MEDS: QUEtiapine FUMARATE 25 MG TAB PO SCH ×2 (09:53→20:31)
[2021-01-12] MEDS: PANTOPRAZOLE 40 MG TABEC PO SCH (09:54)
[2021-01-12] MEDS: AMIODARONE 200 MG TAB PO SCH (09:54)
[2021-01-12] MEDS: METOPROLOL 50 MG TAB PO SCH ×2 (09:54→20:32)
[2021-01-12] MEDS: levETIRAcetam 1,000 MG in NACL 0.9% 100 ML IV SCH ×2 (09:55→21:34)
[2021-01-12] MEDS: hydrALAZINE 10 MG TAB PO SCH ×3 (10:07→18:54)
--- NOTE | 2021-01-12 12:00 | NUR ---
NURSE NOTES BREAKFAST TAKEN 30% AND LUNCH 100%. NO C/O PAIN. IV 1/2 NS AT 40 ML/HR.
[2021-01-12 14:30] VITALS: BP 121/45
--- NOTE | 2021-01-12 17:30 | NUR ---
NURSE NOTES PATIENT GETTING OUT OF BED AND TRYING TO REMOVE IV. IV SL'D. OTHER NURSES ASSISTED WHEN SHE WAS OUT OF BED, AND INCONTINENT OF STOOL. CLEANSED AND UP IN CHAIR.
--- NOTE | 2021-01-12 19:14 | NUR ---
NURSE REPORT REPORT GIVEN TO NIGHT NURSE TO ASSUME CARE OF PATIENT. VSS. AFEB. UP IN CHAIR. NURSE WATCHING HER FROM OUTSIDE OF ROOM.
--- NOTE | 2021-01-12 19:30 | NUR ---
RECEIVED REPORT FROM DAY SHIFT NURSE FOR CONTINUITY OF CARE. PT STABLE NO SIGNS OF DISTRESS.
[2021-01-12 20:00] VITALS: BP 130/68
--- NOTE | 2021-01-12 20:00 | NUR ---
ALL SCHEDULED MEDS GIVEN. PT TOLERATED WELL. PT AWAKE AND SITTING ON BED. NO SIGNS OF DISTRESS, SAFETY MEASURES IMPLEMENTED.
[2021-01-12] MEDS: HALOPERIDOL IM 5 MG/ML VIAL IM PRN (20:05)
[2021-01-12] MEDS: OLANZapine 2.5 MG TAB PO SCH (20:31)
--- NOTE | 2021-01-12 20:50 | NUR ---
CHECKED PATIENTS BLOOD SUGAR IT WAS GREATER THAN 600. NOTIFIED DR. GARSIA. DR ORDERED TO GIVE 12 UNITS OF INSULIN AND RECHECK AFTER 1 HOUR. PROVIDER ORDERED TO INCREASE CURRENT FLUIDS TO 100 MLS/HR.
[2021-01-12] MEDS: INSULIN LISPRO SLIDING SCALE 100 UNITS/ML VIAL SUBQ PRN ×2 (21:12→22:34)
--- NOTE | 2021-01-12 21:12 | NUR ---
GAVE 12 UNITS OF INSULIN, WILL RECHECK AFTER 1 HR FOR BLOOD SUGAR.
[2021-01-12] MEDS: BLOOD GLUCOSE MONITORING 1 DEV DEV FS SCH (21:17)
--- NOTE | 2021-01-12 22:12 | NUR ---
CHECKED PATIENTS BLOOD SUGAR IT WAS 442. DR GARSIA NOTIFIED, HE ORDERED TO GIVE 6 UNITS OF INSULIN AND RECHECK 2 HR
--- NOTE | 2021-01-12 22:34 | NUR ---
GAVE 6 UNITS OF INSULIN, WILL RECHECK BS IN 2 HR
[2021-01-13] MEDS: INSULIN LISPRO SLIDING SCALE 100 UNITS/ML VIAL SUBQ PRN ×4 (00:58→21:36)
[2021-01-13] MEDS: NACL 0.45% 500 ML IV SCH ×5 (01:23→21:14)
--- NOTE | 2021-01-13 03:52 | NUR ---
PT ASLEEP, NO SIGNS OF DISTRESS, ON ROOM AIR, SAFETY MEASURES IMPLEMENTED.
[2021-01-13 04:00] VITALS: BP 140/93
--- NOTE | 2021-01-13 06:14 | NUR ---
IV FLUIDS NON ADMIN AT THIS SCHEDULED TIME. CURRENT IV FLUIDS STILL RUNNING.
[2021-01-13] MEDS: BLOOD GLUCOSE MONITORING 1 DEV DEV FS SCH ×4 (06:51→21:30)
--- NOTE | 2021-01-13 07:20 | NUR ---
NURSE REPORT Report obtained from Adriano and this nurse assumed care of patient. Patient awake and alert x 1. No c/o pain or discomfort. IV 1/2 NS infusing at 100 ml/hr.
--- NOTE | 2021-01-13 07:25 | NUR ---
ENDORSED PATIENT TO DAY SHIFT NURSE FOR CONTINUITY OF CARE. PT STABLE, NO SIGNS OF DISTRESS, ON ROOM AIR, IV LINE INTACT. SAFETY MEASURES IMPLEMENTED. CALL LIGHT WITHIN REACH.
[2021-01-13 07:55] LABS: BASOPHILS % (AUTO) 0.1 % (0.0-2.0); EOSINOPHILS % (AUTO) 0.2 % (0.0-4.0); HEMATOCRIT 34.9 % (36-48); HEMOGLOBIN 11.4 g/dL (12.0-16.0); LYMPHOCYTES # (AUTO) 1.2 K/uL (2.5-16.5); LYMPHOCYTES % (AUTO) 6.6 % (20.5-51.1); MEAN CORPUSCULAR HEMOGLOBIN 30 pg (27-31); MEAN CORPUSCULAR HGB CONC 33 g/dL (33-37); MEAN CORPUSCULAR VOLUME 90.9 fL (80-94); MONOCYTES # (AUTO) 0.7 K/uL (0.8-1.0); MONOCYTES % (AUTO) 3.9 % (1.7-9.3); NEUTROPHILS # (AUTO) 15.9 K/uL (1.8-7.7); NEUTROPHILS % (AUTO) 89.2 % (42.2-75.2); PLATELET COUNT (AUTO) 252 K/uL (140-450); RED BLOOD CELL COUNT(AUTO) 3.84 MIL/uL (4.20-5.40); RED CELL DISTRIBUTION WIDTH 14.5 % (11.6-13.7); WHITE BLOOD COUNT (AUTO) 17.8 K/uL (4.8-10.8)
[2021-01-13 08:00] LABS: CARBON DIOXIDE 22.1 mmol/L (21-32); CHLORIDE 103 mmol/L (98-107); CREATININE 1.4 mg/dL (0.6-1.3); GLUCOSE 300 mg/dL (74-106); POTASSIUM 3.1 mmol/L (3.5-5.1); SODIUM SERUM 142 mmol/L (136-145); UREA NITROGEN, BLOOD 37 mg/dL (7-18)
--- NOTE | 2021-01-13 08:00 | NUR ---
NURSE REPORT REPORT OBTAINED FROM NIGHT NURSE JEANETTE AT 0725 AND THIS NURSE ASSUMED CARE OF PATIENT. RECEIVED PATIENT ASLEEP AT THE BEGINNING OF DAYSHIFT. NO SXS OF PAIN OR DISTRESS NOTED. VSS. AFEB
[2021-01-13] MEDS: QUEtiapine FUMARATE 25 MG TAB PO SCH ×2 (09:00→21:31)
[2021-01-13] MEDS: hydrALAZINE 10 MG TAB PO SCH ×4 (09:00→17:00)
[2021-01-13] MEDS: METOPROLOL 50 MG TAB PO SCH ×2 (09:00→21:31)
[2021-01-13] MEDS: PANTOPRAZOLE 40 MG TABEC PO SCH (09:01)
[2021-01-13] MEDS: AMIODARONE 200 MG TAB PO SCH (09:05)
[2021-01-13] MEDS: levETIRAcetam 1,000 MG in NACL 0.9% 100 ML IV SCH ×2 (09:53→21:53)
[2021-01-13] MEDS ORDERED: INSULIN LANTUS 100 UNITS/ML 10 ML VIAL SUBQ SCH (09:55)
--- NOTE | 2021-01-13 10:00 | NUR ---
NURSE NOTES PATIENT GETTING OUT OF BED AND NEEDED TO DISCONNECT HER iv BEFORE SHE PULL OUT THE IV. SHE SAT IN THE CHAIR AND THIS NURSE NOTICE URINE ON THE FLOOR, BUT THEN SHE CHECKED THE UROTOMY BAG AND THE VALVE WAS OPEN. sO ABOUT 125 ML WAS ON THE FLOOR.
--- NOTE | 2021-01-13 11:11 | NUR ---
01/13/21 RD FOLLOW UP COMPLETED PLEASE REFER TO NUTRITION ASSESSMENT UNDER CARE ACTIVITY FOR ESTIMATED NUTRITIONAL NEEDS. 1. CONT. PUREE CCHO 45 GM 2. CONTINUE GLUCERNA BID 3. CONTINUE PROVIDING ASSISTANCE WITH MEALS 4. RD TO FOLLOW-UP 3-5 DAYS, MODERATE RISK CELIO CHEN, GENNY
[2021-01-13 14:30] VITALS: BP 98/55
[2021-01-13 16:00] VITALS: BP 106/64
--- NOTE | 2021-01-13 16:00 | NUR ---
NURSE CARE PATIENT HAS BEEN ASLEEP SINCE LUNCH TIME, AND SHE REFUSED TO EAT. BLOOD GLUCOSE WHEN LETHARGIC WAS 190.
[2021-01-13] MEDS ORDERED: KCL 20 MEQ/WATER INJ PREMIX 200 ML IV SCH (20:00)
--- NOTE | 2021-01-13 20:00 | NUR ---
NURSE REPORT REPORT GIVEN TO NIGHT NURSE KAROLINA TO ASSUME CARE OF PATIENT. VSS. AFEB. PATIENT HAS BEEN SLEEPY SINCE 1400. BLOOD GLUCOSE CHECK 1415- 190. BEFORE LUNCH BG- 343 AND PATIENT RECEIVED 8 UNITS HUMALOG AND ALSO HAD LANTUS 10 UNITS. BEFORE DINNER- BG 203. NO INSULIN GIVEN SINCE PATIENT JUST SLEEPING AND WONT WAKE UP TO EAT. k 3.[address] HERMINIA GARSIA WAS NOTIFIED TO ORDER KCL IV- 40 MEQ ORDERED. TO BE GIVEN BY INVESTIGATIVE RESEARCH SPECIALIST- KCL 40 PO AND IV KCL.
--- NOTE | 2021-01-13 20:00 | NUR ---
PATIENT WAS RECEIVED IN BED AWAKE AND ALERT, SPEAKS FOREIGN LANGUAGE, CALM AND QUITE.
--- NOTE | 2021-01-13 21:00 | NUR ---
ALL DUE MEDICATIONS WERE GIVEN BY MOUTH CRUSHED WITH APPLE SAUCE, DUE KEPPRA 1 GRAM IV PB WAS ADMINISTERED, TOLERATED WELL
--- NOTE | 2021-01-13 21:30 | NUR ---
K LEVEL WAS 3.1, GOT NEW ORDER TO REPLACE VIA 40 MEQ KCL RIDER, ADMINISTERED TOLERATING WELL AT 30 ML/HOUR.
[2021-01-13] MEDS: OLANZapine 2.5 MG TAB PO SCH (21:31)
--- NOTE | 2021-01-14 | NUR ---
KCL FIRST BAG OF 20 MEQ WAS FINISHED, DUE ZOSYN 2.25 GMS WAS ADMINISTERED TOLERATED WELL AT 100 ML/HOUR, WHILE THE NEXT KCL 20 MEQ WAS PAUSED.
[2021-01-14] MEDS ORDERED: PIPERACILLIN/TAZOBACTAM 2.25 GM VIAL IV ONE ×2 (00:28→06:06)
[2021-01-14] MEDS: PIPERACILLIN/TAZOBACTAM 2.25 GM in DEXTROSE 5% 50 ML IV SCH ×4 (00:32→18:45)
--- NOTE | 2021-01-14 01:00 | NUR ---
2ND BAG OF KCL 20 MEQS IN 100 ML NSS WAS ADMINISTERED AT 30 ML/HOUR.
[2021-01-14] MEDS: NACL 0.45% 500 ML IV SCH ×6 (02:14→22:14)
[2021-01-14 04:00] VITALS: BP 115/62
--- NOTE | 2021-01-14 04:00 | NUR ---
PATIENT WAS ASLEEP CALMLY.
[2021-01-14] MEDS: BLOOD GLUCOSE MONITORING 1 DEV DEV FS SCH ×4 (06:27→21:33)
--- NOTE | 2021-01-14 07:24 | NUR ---
ALL REPORTS WERE GIVEN, TRANSFER OF CASRE ENDORSED
[2021-01-14 08:00] VITALS: BP_SYST 102; BP_SYST 149; BP_DIAS 70; BP_DIAS 73
[2021-01-14] MEDS: INSULIN LANTUS 100 UNITS/ML 10 ML VIAL SUBQ SCH (09:00)
[2021-01-14] MEDS: AMIODARONE 200 MG TAB PO SCH (09:52)
[2021-01-14] MEDS: PANTOPRAZOLE 40 MG TABEC PO SCH (09:53)
[2021-01-14] MEDS: hydrALAZINE 10 MG TAB PO SCH ×3 (09:53→17:00)
[2021-01-14] MEDS: QUEtiapine FUMARATE 25 MG TAB PO SCH ×2 (09:54→21:33)
[2021-01-14] MEDS: METOPROLOL 50 MG TAB PO SCH ×2 (09:55→21:33)
[2021-01-14] MEDS: levETIRAcetam 1,000 MG in NACL 0.9% 100 ML IV SCH ×2 (09:56→21:58)
[2021-01-14 11:38] LABS: BASOPHILS # (AUTO) 0.1 K/uL (0.00-0.22); BASOPHILS % (AUTO) 0.4 % (0.0-2.0); EOSINOPHILS # (AUTO) 0.1 K/uL (0-0.4); EOSINOPHILS % (AUTO) 0.5 % (0.0-4.0); HEMATOCRIT 31.7 % (36-48); HEMOGLOBIN 10.4 g/dL (12.0-16.0); LYMPHOCYTES # (AUTO) 1.1 K/uL (2.5-16.5); LYMPHOCYTES % (AUTO) 7.4 % (20.5-51.1); MEAN CORPUSCULAR HEMOGLOBIN 30 pg (27-31); MEAN CORPUSCULAR HGB CONC 33 g/dL (33-37); MEAN CORPUSCULAR VOLUME 90.6 fL (80-94); MONOCYTES # (AUTO) 0.7 K/uL (0.8-1.0); MONOCYTES % (AUTO) 4.7 % (1.7-9.3); NEUTROPHILS # (AUTO) 13.1 K/uL (1.8-7.7); PLATELET COUNT (AUTO) 264 K/uL (140-450); RED CELL DISTRIBUTION WIDTH 14.5 % (11.6-13.7); WHITE BLOOD COUNT (AUTO) 15.1 K/uL (4.8-10.8)
[2021-01-14 11:50] LABS: ANION GAP 13.5 (8-16); CARBON DIOXIDE 24.3 mmol/L (21-32); CHLORIDE 108 mmol/L (98-107); CREATININE 1.3 mg/dL (0.6-1.3); GLUCOSE 266 mg/dL (74-106); POTASSIUM 3.8 mmol/L (3.5-5.1); SODIUM SERUM 142 mmol/L (136-145); UREA NITROGEN, BLOOD 35 mg/dL (7-18)
[2021-01-14] MEDS ORDERED: POTASSIUM CHLORIDE 10 MEQ TABER PO SCH (12:00)
--- NOTE | 2021-01-14 13:04 | NUR ---
DC PLANNING: CALLED [facility] SPOKE WITH KALLIE STATED STILL AWAITING FOR JUAN TO SIGN THE MEDICAL APPLICATION. CALL JUAN LEFT A MESSAGE. CM TO FOLLOW Addendum: 01/17/21 at 1319 by Argentina Patel RN LATE ENTRY: 01/16/21 SPOKE WITH SHERON STATED CHECKED THE E-MAIL AND JUAN HAS NOT YET SIGNED THE PAPERWORK . APS SHIP FASTENER NAME KADEEM CAME TO SEE PATIENT, UPDATED PT'S CLINICAL, NO FAMILY MEMBER VISITED SINCE LAST WEEK. SHE STATED WILL CALL FAMILY. CM TO FOLLOW Addendum: 01/17/21 at 1330 by Argentina Patel RN DC PLANNING: MET PT'S DAUGHTER IN [place] IN THE ROOM ASKED HER IF THE MEDICAL APPLICATION PAPERWORK SIGNED, YOSELYN CALLED JUAN, ABLE TO TAKE TO HER AND JUAN STATED SHE SIGNED IT ELECTRONICALLY ON THURSDAY. NOTIFIED SHERON AND HE WILL FOLLOW UP. CM TO FOLLOW Addendum: 01/18/21 at 1447 by Argentina Patel RN DC PLANNING: PER SHERON PAPERWORK SUBMITTED 01/17/21 STILL AWAITING FOR THE PENDING MEDICAL NUMBER. CALLED [facility] SPOKE WITH ED AT [phone] NOTIFIED HIM THAT WE ARE STILL WAITING FOR THE MEDICAL PENDING NUMBER. PER ED HE WILL DISCUSS IT WITH HIS SALES ASSOCIATE AND ONCE WE HAVE THE MEDICAL PENDING NUMBER TO CALL HIM. Addendum: 01/23/21 at 1108 by Argentina Patel RN DC PLANNING: RECEIVED A CALL FROM SHERON STATED PT HAS A PENDING MEDICAL NUMBER CASE # [id number]. CALLED [facility] SPOKE WITH ED AND PROVIDE THE NUMBER. CM TO FOLLOW Addendum: 01/24/21 at 1120 by Argentina Patel RN DC PLANNING: RECEIVED A CALL FROM JUAN (FAMILY SPOKES PERSON) STATED SHE RECEIVED A CALL FROM MEDICAL OFFICE AND PROVIDE THE NUMBER [phone]. CM TO FOLLOW Addendum: 01/24/21 at 1642 by Argentina Patel RN DC PLANNING: PT HAD MEDICAL NUMBER PROVIDE TO ED A HOSPICE, HE STATED MEDICAL SHOWS ACTIVE, COME TOMORROW TO SEE PATIENT. CM TO FOLLOW Addendum: 01/25/21 at 1654 by Argentina Patel RN DC PLANNING: PT'S MEDICAL WILL AT THE END OF JANUARY PER ED [facility] ASKING SHERON IF IT CAN BE EXTENDED.PER SHERNO UNABLE TO EXTEND IT BUT WILL FOLLOW UP WITH THE COUNTY TO EXPEDITE. ONCE MEDICAL IS APPROVED [facility] [place] IS WILLING TO ACCEPT PT/ CM TO FOLLOW Addendum: 01/29/21 at 1053 by Argentina Patel RN DC PLANNING: PER ED FROM [facility] UNABLE TO ASSIST WITH RESTRICTED MEDICAL. CALLED [facility] [phone] SPOKE WITH EUNICE STATED WILL REVIEW IT. FAXED TO [phone] CM TO FOLLOW Addendum: 01/29/21 at 1442 by Argentina Patel RN DC PLANNING: RECEIVED A CALL FROM [facility] SPOKE WITH EUNICE STATED THEY ARE UNABLE TO ACCEPT PATIENT BECAUSE OF THE RESTRICTED MEDICAL STATUS. FAXED TO [facility] AT [phone]. CM TO FOLLOW Addendum: 01/30/21 at 1325 by Argentina Patel RN DC PLANNING: RECEIVED A CALL FROM [facility] [phone] SPOKE WITH DIANELYS STATED THEY ARE UNABLE TO TAKE PATIENT BECAUSE OF INSURANCE STATUS. CM TO FOLLOW
[2021-01-14] MEDS: INSULIN LISPRO SLIDING SCALE 100 UNITS/ML VIAL SUBQ PRN ×3 (13:24→21:36)
--- NOTE | 2021-01-14 13:43 | NUR ---
PATIENT'S 5051 HOLD HAS BEEN OFF SEVERAL DAYS. DOES NOT NEED OR HAVE SITTER PRESENTLY. CONTINUING THE BLOUS FEEDING'S PER G TUBE. PATIENT LETHARGIC NOT TAKING BREAKFAST TRAY OR LUNCH TRAY. CONTINUE PLAN OF CARE.
[2021-01-14 16:00] VITALS: BP_SYST 107; BP_SYST 134; BP_DIAS 53; BP_DIAS 90
[2021-01-14] MEDS: ACETAMINOPHEN 325 MG TAB PO PRN (16:40)
[2021-01-14 20:00] VITALS: BP 111/65
--- NOTE | 2021-01-14 20:00 | NUR ---
RECEIVED PATIENT IN BED WITH NO IV ACCESS, ALERT, CALM BUT CONFUSED,
[2021-01-14] MEDS: OLANZapine 2.5 MG TAB PO SCH (21:33)
--- NOTE | 2021-01-14 21:39 | NUR ---
ALL DUE MEDS WERE GIVEN CRUSHED WITH APPLE SAUCE, NEW PIV WAS OBTAINED IN HER LEFT THUMB LUCERO 24 GAUGE, TOLERATED WELL, KEPPRA IVPB WAS GIVEN INFUSED WELL, TOLERATED WELL BY THE PATIENT.
--- NOTE | 2021-01-14 23:00 | NUR ---
PATIENT PULLED OUT HER NEW PIV, OBTEINED HER NEW PIV AGAIN IN HER RIGHT AC 22 GAUGE LUCERO, ZOSYN 2.25 GRAMS WAS INFUSED TOLERATED WELL.
--- NOTE | 2021-01-15 02:00 | NUR ---
PATIENT WAS ASLEEP CALMLY.
[2021-01-15] MEDS: NACL 0.45% 500 ML IV SCH ×5 (03:14→20:59)
[2021-01-15 04:00] VITALS: BP 101/52
[2021-01-15] MEDS: HALOPERIDOL IM 5 MG/ML VIAL IM PRN (04:34)
--- NOTE | 2021-01-15 06:00 | NUR ---
BS= 88 MG.DL, NO INSULIN NEEDED TO COVER, ZOSYN 2.25 GMS WAS INFUSING WELL, TOLERATED BY THE PATIENT.
[2021-01-15] MEDS: PIPERACILLIN/TAZOBACTAM 2.25 GM in DEXTROSE 5% 50 ML IV SCH ×4 (06:12→12:59)
--- NOTE | 2021-01-15 07:37 | NUR ---
ALL REPORTS GIVEN TO INCOMING RN, TRANSFER OF CARE ENDORSED.
--- NOTE | 2021-01-15 07:43 | NUR ---
0400 V/S WNL, AGITATED HALDOL 5 MG IM WAS GIVEN TO HE RIGHT ANTERIOR THIGH, TOLERATED WELL BY THE PATIENT.
[2021-01-15] MEDS: BLOOD GLUCOSE MONITORING 1 DEV DEV FS SCH ×4 (07:45→20:51)
[2021-01-15 08:00] VITALS: BP 107/68
[2021-01-15 08:12] LABS: BASOPHILS # (AUTO) 0.1 K/uL (0.00-0.22); BASOPHILS % (AUTO) 1.2 % (0.0-2.0); EOSINOPHILS # (AUTO) 0.2 K/uL (0-0.4); EOSINOPHILS % (AUTO) 1.3 % (0.0-4.0); HEMATOCRIT 28.7 % (36-48); HEMOGLOBIN 9.6 g/dL (12.0-16.0); LYMPHOCYTES % (AUTO) 17.5 % (20.5-51.1); MEAN CORPUSCULAR HEMOGLOBIN 30 pg (27-31); MEAN CORPUSCULAR HGB CONC 33 g/dL (33-37); MEAN CORPUSCULAR VOLUME 89.2 fL (80-94); MONOCYTES # (AUTO) 0.6 K/uL (0.8-1.0); NEUTROPHILS # (AUTO) 8.7 K/uL (1.8-7.7); PLATELET COUNT (AUTO) 234 K/uL (140-450); RED BLOOD CELL COUNT(AUTO) 3.21 MIL/uL (4.20-5.40); RED CELL DISTRIBUTION WIDTH 14.2 % (11.6-13.7); WHITE BLOOD COUNT (AUTO) 11.6 K/uL (4.8-10.8)
[2021-01-15 08:53] LABS: CARBON DIOXIDE 23.3 mmol/L (21-32); CHLORIDE 109 mmol/L (98-107); CREATININE 1.1 mg/dL (0.6-1.3); GLUCOSE 115 mg/dL (74-106); POTASSIUM 3.3 mmol/L (3.5-5.1); SODIUM SERUM 143 mmol/L (136-145); UREA NITROGEN, BLOOD 27 mg/dL (7-18)
[2021-01-15] MEDS: METOPROLOL 50 MG TAB PO SCH ×3 (09:00→21:00)
[2021-01-15] MEDS: INSULIN LANTUS 100 UNITS/ML 10 ML VIAL SUBQ SCH (09:00)
[2021-01-15] MEDS: hydrALAZINE 10 MG TAB PO SCH ×3 (09:00→17:00)
[2021-01-15] MEDS: PANTOPRAZOLE 40 MG TABEC PO SCH (09:31)
[2021-01-15] MEDS: QUEtiapine FUMARATE 25 MG TAB PO SCH ×3 (09:33→21:00)
[2021-01-15] MEDS: levETIRAcetam 1,000 MG in NACL 0.9% 100 ML IV SCH ×2 (09:36→20:59)
[2021-01-15] MEDS: AMIODARONE 200 MG TAB PO SCH (09:39)
[2021-01-15 10:34] LABS: MAGNESIUM 1.7 mg/dL (1.8-2.4); PHOSPHORUS 2.4 mg/dL (2.5-4.9)
[2021-01-15 16:00] VITALS: BP 117/50
[2021-01-15] MEDS: INSULIN LISPRO SLIDING SCALE 100 UNITS/ML VIAL SUBQ PRN ×2 (19:12→21:06)
--- NOTE | 2021-01-15 19:30 | NUR ---
BP ON LOW SIDE ALL DAY 107/68 BP MED'S HELD REPORTED OFF TO NIGHT RN PATIENT'S NEXT BP MED'S AT 0900 THIS EVENING PLAN OF CARE WILL GIVE BP MED'S IF PATIENT NEED'S MEDS
[2021-01-15 20:00] VITALS: BP 122/55
--- NOTE | 2021-01-15 20:00 | NUR ---
RECEIVED BEDSIDE REPORT FROM DAY RN EARLIER REGARDING THE PATIENT FOR CONTINUITY OF CARE. RECEIVED PATIENT AWAKE, ALERT, CONFUSED AT TIMES. FAMILY AT THE BEDSIDE. PATIENT NOT IN ANY DISTRESS AND NO COMPLAIN AT THIS TIME. IVF INFUSING ORDERED. FALL PRECAUTION IMPLEMENTED. REMINDED THE PATIENT NOT TO GET OUT OF BED. CALL LIGHT WITHIN REACH. WILL CONTINUE POC AND OBSERVATION.
[2021-01-15] MEDS: OLANZapine 2.5 MG TAB PO SCH ×2 (20:52→21:00)
--- NOTE | 2021-01-16 02:27 | NUR ---
PATIENT ASLEEP NOT IN ANY DISTRESS. WILL CONTINUE TO OBSERVE.
[2021-01-16 04:00] VITALS: BP 164/83
[2021-01-16] MEDS: NACL 0.45% 500 ML IV SCH ×4 (04:57→20:00)
[2021-01-16] MEDS: BLOOD GLUCOSE MONITORING 1 DEV DEV FS SCH ×4 (05:15→21:00)
[2021-01-16] MEDS: INSULIN LISPRO SLIDING SCALE 100 UNITS/ML VIAL SUBQ PRN (05:17)
--- NOTE | 2021-01-16 06:15 | NUR ---
PATIENT STABLE. NO ACUTE EVENT THROUGHOUT THE NIGHT. PATIENT NOT IN ANY DISTRESS AND NO COMPLAIN AT THIS TIME. WILL ENDORSE THE PATIENT TO THE ONCOMING RN FOR CONTINUITY OF CARE.
[2021-01-16 07:09] LABS: BASOPHILS % (AUTO) 0.4 % (0.0-2.0); EOSINOPHILS # (AUTO) 0.1 K/uL (0-0.4); EOSINOPHILS % (AUTO) 0.9 % (0.0-4.0); HEMATOCRIT 30.1 % (36-48); LYMPHOCYTES # (AUTO) 1.5 K/uL (2.5-16.5); LYMPHOCYTES % (AUTO) 14.9 % (20.5-51.1); MEAN CORPUSCULAR HEMOGLOBIN 30 pg (27-31); MEAN CORPUSCULAR HGB CONC 33 g/dL (33-37); MEAN CORPUSCULAR VOLUME 90.2 fL (80-94); MONOCYTES # (AUTO) 0.4 K/uL (0.8-1.0); MONOCYTES % (AUTO) 4.4 % (1.7-9.3); NEUTROPHILS # (AUTO) 7.8 K/uL (1.8-7.7); NEUTROPHILS % (AUTO) 79.4 % (42.2-75.2); PLATELET COUNT (AUTO) 240 K/uL (140-450); RED BLOOD CELL COUNT(AUTO) 3.33 MIL/uL (4.20-5.40); RED CELL DISTRIBUTION WIDTH 14.3 % (11.6-13.7); WHITE BLOOD COUNT (AUTO) 9.8 K/uL (4.8-10.8)
[2021-01-16 07:19] LABS: MAGNESIUM 1.5 mg/dL (1.8-2.4); PHOSPHORUS 2.4 mg/dL (2.5-4.9)
[2021-01-16 07:21] LABS: ANION GAP 13.2 (8-16); CARBON DIOXIDE 24.3 mmol/L (21-32); CHLORIDE 107 mmol/L (98-107); GLUCOSE 232 mg/dL (74-106); POTASSIUM 3.5 mmol/L (3.5-5.1); SODIUM SERUM 141 mmol/L (136-145); UREA NITROGEN, BLOOD 19 mg/dL (7-18)
[2021-01-16 08:00] VITALS: BP 118/63
[2021-01-16] MEDS: INSULIN LANTUS 100 UNITS/ML 10 ML VIAL SUBQ SCH (08:18)
[2021-01-16] MEDS: QUEtiapine FUMARATE 25 MG TAB PO SCH ×2 (08:30→21:07)
[2021-01-16] MEDS: AMIODARONE 200 MG TAB PO SCH (08:31)
[2021-01-16] MEDS: PANTOPRAZOLE 40 MG TABEC PO SCH (08:31)
[2021-01-16] MEDS: METOPROLOL 50 MG TAB PO SCH ×2 (08:33→21:06)
[2021-01-16] MEDS: hydrALAZINE 10 MG TAB PO SCH ×3 (08:34→17:22)
[2021-01-16] MEDS: SODIUM PHOS / POTASSIUM PHOS 1 PKT PDR PO SCH ×2 (08:36→21:07)
[2021-01-16] MEDS: MAGNESIUM OXIDE 400 MG TAB PO SCH (08:36)
[2021-01-16] MEDS: levETIRAcetam 1,000 MG in NACL 0.9% 100 ML IV SCH ×2 (09:00→21:05)
[2021-01-16 13:00] VITALS: BP 135/68
--- NOTE | 2021-01-16 15:31 | NUR ---
PT. MEYER CONDITION WITH LOW LAVONNE SCALE AT HIGH RISK, CONTINUE TO FOLLOW PRESSURE INJURY PREVENTION INTERVENTIONS. -TURN AND REPOSITION PATIENT Q 2H -ASSESS AND MONITOR SKIN CONDITION DURING POSITION CHANGE -OFFLOAD BILATERAL HEELS BY PLACING PILLOWS UNDER CALVES AT ALL TIMES, UNLESS OTHERWISE CONTRAINDICATED -PRESSURE REDISTRIBUTION BY PLACING PILLOWS AND OFFLOADING SACRALCOCCYX -KEEP SKIN CLEAN AND DRY AT ALL TIMES.
[2021-01-16 16:00] VITALS: BP 130/63
--- NOTE | 2021-01-16 19:30 | NUR ---
PATIENT VERY LETHARGIC TODAY UNABLE TO GET PATIENT TO FULLY WAKE UP UNTIL LATE MORNING WHEN PATIENT'S DOCTOR WAS HERE AND SPOKE IN PATIENT'S KNOWN LANGUAGE. PATIENT NOT WANTING TO EAT ALL DAY WAS ABLE TO GET APPLE SAUCE AND PUDDING DOWN WITH MED'S END OF SHIFT AT AROUND 18:30 PATIENT C/O OF LARKIN PAIN MORPHINE 0.5 mg GIVEN. REPORTED TO LEGAL DOCUMENT SPECIALIST PATIENT RECEIVED MORPHINE BUT MAY REQUIRE JUST PLAIN TYLENOL PATIENT STILL MOANING. PATIENT NOT EATING INSTRUCTED PATIENT TO EAT LARKIN COULD BE FROM NOT EATING ENOUGH.
[2021-01-16] MEDS: OLANZapine 2.5 MG TAB PO SCH (21:07)
[2021-01-16] MEDS: ACETAMINOPHEN 325 MG TAB PO PRN (21:28)
[2021-01-17] MEDS: NACL 0.45% 500 ML IV SCH ×4 (05:14→20:14)
[2021-01-17 07:27] LABS: BASOPHILS # (AUTO) 0.1 K/uL (0.00-0.22); BASOPHILS % (AUTO) 0.5 % (0.0-2.0); EOSINOPHILS # (AUTO) 0.1 K/uL (0-0.4); EOSINOPHILS % (AUTO) 0.9 % (0.0-4.0); HEMATOCRIT 28.3 % (36-48); HEMOGLOBIN 9.4 g/dL (12.0-16.0); LYMPHOCYTES % (AUTO) 15.3 % (20.5-51.1); MEAN CORPUSCULAR HEMOGLOBIN 30 pg (27-31); MEAN CORPUSCULAR HGB CONC 33 g/dL (33-37); MEAN CORPUSCULAR VOLUME 89.5 fL (80-94); MONOCYTES # (AUTO) 0.7 K/uL (0.8-1.0); MONOCYTES % (AUTO) 5.4 % (1.7-9.3); NEUTROPHILS % (AUTO) 77.9 % (42.2-75.2); PLATELET COUNT (AUTO) 256 K/uL (140-450); RED BLOOD CELL COUNT(AUTO) 3.16 MIL/uL (4.20-5.40); RED CELL DISTRIBUTION WIDTH 14.7 % (11.6-13.7); WHITE BLOOD COUNT (AUTO) 12.9 K/uL (4.8-10.8)
--- NOTE | 2021-01-17 07:30 | NUR ---
Received report from pm nurse. Patient resting in bed, awake, no signs of distress. Call light within reach.
[2021-01-17 07:37] LABS: CARBON DIOXIDE 27.6 mmol/L (21-32); CHLORIDE 106 mmol/L (98-107); GLUCOSE 113 mg/dL (74-106); POTASSIUM 3.6 mmol/L (3.5-5.1); SODIUM SERUM 141 mmol/L (136-145); UREA NITROGEN, BLOOD 14 mg/dL (7-18)
[2021-01-17 08:00] VITALS: BP 151/65
[2021-01-17 08:56] LABS: MAGNESIUM 1.5 mg/dL (1.8-2.4); PHOSPHORUS 3.3 mg/dL (2.5-4.9)
[2021-01-17] MEDS: QUEtiapine FUMARATE 25 MG TAB PO SCH ×2 (09:00→21:04)
[2021-01-17] MEDS: PANTOPRAZOLE 40 MG TABEC PO SCH (09:00)
[2021-01-17] MEDS: MAGNESIUM OXIDE 400 MG TAB PO SCH (09:00)
[2021-01-17] MEDS: INSULIN LANTUS 100 UNITS/ML 10 ML VIAL SUBQ SCH (09:00)
[2021-01-17] MEDS: AMIODARONE 200 MG TAB PO SCH (09:00)
[2021-01-17] MEDS: METOPROLOL 50 MG TAB PO SCH ×2 (09:00→21:00)
[2021-01-17] MEDS: hydrALAZINE 10 MG TAB PO SCH ×3 (09:00→17:00)
[2021-01-17] MEDS: BLOOD GLUCOSE MONITORING 1 DEV DEV FS SCH ×4 (10:00→22:00)
[2021-01-17] MEDS: levETIRAcetam 1,000 MG in NACL 0.9% 100 ML IV SCH ×2 (10:00→21:05)
[2021-01-17] MEDS: SODIUM PHOS / POTASSIUM PHOS 1 PKT PDR PO SCH ×2 (10:01→21:05)
[2021-01-17] MEDS: INSULIN LISPRO SLIDING SCALE 100 UNITS/ML VIAL SUBQ PRN (12:35)
--- NOTE | 2021-01-17 15:51 | NUR ---
01/17/21 RD FOLLOW UP COMPLETED PLEASE REFER TO NUTRITION ASSESSMENT UNDER CARE ACTIVITY FOR ESTIMATED NUTRITIONAL NEEDS. 1. CONT. PUREE CCHO 45 GM 2. RECOMMEND GLUCERNA BID 3. CONTINUE PROVIDING ASSISTANCE WITH MEALS 4. RD TO FOLLOW-UP 2-3 DAYS, HIGH RISK ABIGAIL AVENDANO, RD
[2021-01-17 16:00] VITALS: BP 124/67
[2021-01-17] MEDS: OLANZapine 2.5 MG TAB PO SCH (21:04)
[2021-01-18] VITALS: BP 117/63
[2021-01-18] MEDS: NACL 0.45% 500 ML IV SCH ×5 (04:23→21:14)
[2021-01-18 05:17] VITALS: BP 121/60
[2021-01-18] MEDS: BLOOD GLUCOSE MONITORING 1 DEV DEV FS SCH ×4 (06:15→21:00)
[2021-01-18] MEDS: INSULIN LISPRO SLIDING SCALE 100 UNITS/ML VIAL SUBQ PRN ×2 (06:17→13:26)
--- NOTE | 2021-01-18 06:19 | NUR ---
SPOKE WITH PT'S JULISSA MAYNARD PER PT'S REQUEST. JULISSA INFORMED THAT PT WANTED TO EAT SOME BREAD WITH COFFEE. PT STATED TO GRANDDAUGHTER IN [place] THAT SHE DOES NOT LIKE THE FOOD HERE AND THAT IS WHY SHE DOESNT EAT. PT WAS ABLE TO SWALLOW 2 PIECES OF BREAD SOAKED IN SOME COFFEE WITH RN AT BEDSIDE. NO S/S OF DYSPHAGIA. PT ALSO HAD BS OF 61 LAST NIGHT D/T DECREASED PO INTAKE. BS THIS AM IS 154. PT VERY SLEEPY AT THIS TIME. WILL HOLD THE 2 UNITS OF INSULIN COVERAGE DUE TO PT'S HX OF DECREASED FOOD INTAKE AND POOR APPETITE. WILL ENDORSE TO DAYSHIFT NURSE TO F/U AFTER BREAKFAST. NEPHROSTOMY TUBE WITH GOOD OUTPUT. PT STILL VOIDING. PT DENIES ANY PAIN AT THIS TIME
[2021-01-18 06:55] LABS: BASOPHILS % (AUTO) 0.3 % (0.0-2.0); EOSINOPHILS % (AUTO) 0.4 % (0.0-4.0); HEMATOCRIT 24.8 % (36-48); HEMOGLOBIN 8.4 g/dL (12.0-16.0); LYMPHOCYTES # (AUTO) 1.6 K/uL (2.5-16.5); LYMPHOCYTES % (AUTO) 15.2 % (20.5-51.1); MEAN CORPUSCULAR HEMOGLOBIN 31 pg (27-31); MEAN CORPUSCULAR HGB CONC 34 g/dL (33-37); MEAN CORPUSCULAR VOLUME 90.3 fL (80-94); MONOCYTES # (AUTO) 0.5 K/uL (0.8-1.0); MONOCYTES % (AUTO) 5.1 % (1.7-9.3); NEUTROPHILS # (AUTO) 8.4 K/uL (1.8-7.7); PLATELET COUNT (AUTO) 246 K/uL (140-450); RED BLOOD CELL COUNT(AUTO) 2.74 MIL/uL (4.20-5.40); RED CELL DISTRIBUTION WIDTH 14.6 % (11.6-13.7); WHITE BLOOD COUNT (AUTO) 10.6 K/uL (4.8-10.8)
[2021-01-18 07:03] LABS: MAGNESIUM 1.3 mg/dL (1.8-2.4); PHOSPHORUS 3.2 mg/dL (2.5-4.9)
[2021-01-18 08:50] LABS: CARBON DIOXIDE 25.9 mmol/L (21-32); CHLORIDE 107 mmol/L (98-107); CREATININE 1.1 mg/dL (0.6-1.3); GLUCOSE 185 mg/dL (74-106); POTASSIUM 2.9 mmol/L (3.5-5.1); SODIUM SERUM 141 mmol/L (136-145); UREA NITROGEN, BLOOD 14 mg/dL (7-18)
--- NOTE | 2021-01-18 08:56 | NUR ---
Patient's calcium 7.9, potassium 2.9 and magnesium 1.3. Contact Physician and awaiting orders.
[2021-01-18] MEDS: hydrALAZINE 10 MG TAB PO SCH ×3 (09:29→18:03)
[2021-01-18] MEDS: POTASSIUM CHLORIDE 10 MEQ TABER PO PRN (09:32)
[2021-01-18] MEDS: SODIUM PHOS / POTASSIUM PHOS 1 PKT PDR PO SCH ×2 (09:33→21:11)
[2021-01-18] MEDS: METOPROLOL 50 MG TAB PO SCH ×2 (09:33→21:16)
[2021-01-18] MEDS: MAGNESIUM OXIDE 400 MG TAB PO SCH (09:34)
[2021-01-18] MEDS: QUEtiapine FUMARATE 25 MG TAB PO SCH ×2 (09:34→21:09)
[2021-01-18] MEDS: PANTOPRAZOLE 40 MG TABEC PO SCH (09:34)
[2021-01-18] MEDS: AMIODARONE 200 MG TAB PO SCH (09:34)
[2021-01-18] MEDS: levETIRAcetam 1,000 MG in NACL 0.9% 100 ML IV SCH (09:36)
[2021-01-18] MEDS: INSULIN LANTUS 100 UNITS/ML 10 ML VIAL SUBQ SCH (09:42)
[2021-01-18] MEDS: MORPHINE SULFATE 2 MG/ML SYR IVP PRN ×2 (13:24→18:04)
[2021-01-18 16:00] VITALS: BP 135/75
[2021-01-18 17:32] VITALS: BP 123/80
[2021-01-18] MEDS: OLANZapine 2.5 MG TAB PO SCH ×2 (21:09→21:12)
[2021-01-18] MEDS: HALOPERIDOL IM 5 MG/ML VIAL IM PRN (21:10)
[2021-01-19] MEDS: levETIRAcetam 1,000 MG in NACL 0.9% 100 ML IV SCH ×3 (00:14→21:00)
--- NOTE | 2021-01-19 00:49 | NUR ---
I RECEIVED PT IN BED FROM OUT GOING NURSE , PT IS ALERT ORIENTED X2 , ON RA CLEAR LUNGS SKIN ISINTACT , SHE HAS NO IV ACCESS , I STARTED ONE ON LEFT BIG FINGER /SHE C/O NO PAIN VSS .
[2021-01-19 01:53] VITALS: BP 135/71
[2021-01-19] MEDS: NACL 0.45% 500 ML IV SCH ×5 (02:14→22:52)
[2021-01-19] MEDS: BLOOD GLUCOSE MONITORING 1 DEV DEV FS SCH ×4 (06:21→21:00)
--- NOTE | 2021-01-19 06:22 | NUR ---
BLOOD SUGAR 64 PT IS AWAKE AND ALERT I GAVE HER APPLE JUICE WITH ADDED SUGAR I WILL RECHECK HER BLOOD SUGAR AFTER 1 HR .
--- NOTE | 2021-01-19 06:55 | NUR ---
BLOOD SUGAGER RECHECK AFTER GIVING APPLE JUICE WITH ADDED SUGAR IS 98 , SHE IS SLEEPING WELL
[2021-01-19 08:00] VITALS: BP 143/85
--- NOTE | 2021-01-19 08:39 | NUR ---
patient awake alert, follows some simple commands and repositioned in bed to left side.
--- NOTE | 2021-01-19 10:02 | NUR ---
(01/19/21) RD FOLLOW UP COMPLETED PLEASE REFER TO NUTRITION PROGRESS NOTE UNDER CARE ACTIVITY FOR ESTIMATED NUTRITION NEEDS. RD RECOMMENDATIONS: 1. CONTINUE PUREE CCHO 45 GM TOLERATED 2. CONTINUEGLUCERNA BID TOLERATED. THIS PROVIDES AN ADDITIONAL 440 KCAL AND 20 GM PROTEIN TO HELP MEET EST NEEDS. 3. CONTINUE PROVIDING ASSISTANCE WITH MEALS 4. RD TO FOLLOW-UP 3-5 DAYS, MODERATE RISK ANGELA LARSON MS, RDN
[2021-01-19] MEDS: hydrALAZINE 10 MG TAB PO SCH ×3 (11:34→18:28)
[2021-01-19] MEDS: AMIODARONE 200 MG TAB PO SCH (11:35)
[2021-01-19] MEDS: METOPROLOL 50 MG TAB PO SCH ×2 (11:38→21:00)
[2021-01-19] MEDS: MAGNESIUM OXIDE 400 MG TAB PO SCH (11:39)
[2021-01-19] MEDS: PANTOPRAZOLE 40 MG TABEC PO SCH (11:39)
[2021-01-19] MEDS: QUEtiapine FUMARATE 25 MG TAB PO SCH ×2 (11:39→21:00)
[2021-01-19] MEDS: INSULIN LANTUS 100 UNITS/ML 10 ML VIAL SUBQ SCH (11:41)
[2021-01-19] MEDS: ACETAMINOPHEN 325 MG TAB PO PRN (11:42)
[2021-01-19 16:00] VITALS: BP 128/58
[2021-01-19 16:56] LABS: BASOPHILS # (AUTO) 0.1 K/uL (0.00-0.22); BASOPHILS % (AUTO) 0.4 % (0.0-2.0); EOSINOPHILS % (AUTO) 0.3 % (0.0-4.0); HEMATOCRIT 27.6 % (36-48); HEMOGLOBIN 9.2 g/dL (12.0-16.0); LYMPHOCYTES # (AUTO) 2.2 K/uL (2.5-16.5); LYMPHOCYTES % (AUTO) 15.9 % (20.5-51.1); MEAN CORPUSCULAR HEMOGLOBIN 30 pg (27-31); MEAN CORPUSCULAR HGB CONC 33 g/dL (33-37); MEAN CORPUSCULAR VOLUME 88.7 fL (80-94); MONOCYTES # (AUTO) 0.7 K/uL (0.8-1.0); NEUTROPHILS % (AUTO) 78.4 % (42.2-75.2); PLATELET COUNT (AUTO) 296 K/uL (140-450); RED BLOOD CELL COUNT(AUTO) 3.11 MIL/uL (4.20-5.40); RED CELL DISTRIBUTION WIDTH 14.8 % (11.6-13.7); WHITE BLOOD COUNT (AUTO) 14.1 K/uL (4.8-10.8)
[2021-01-19 17:12] LABS: ANION GAP 6.6 (8-16); CARBON DIOXIDE 28.6 mmol/L (21-32); CHLORIDE 107 mmol/L (98-107); GLUCOSE 56 mg/dL (74-106); POTASSIUM 3.2 mmol/L (3.5-5.1); SODIUM SERUM 139 mmol/L (136-145); UREA NITROGEN, BLOOD 11 mg/dL (7-18)
[2021-01-19 17:16] LABS: MAGNESIUM 1.5 mg/dL (1.8-2.4); PHOSPHORUS 2.3 mg/dL (2.5-4.9)
--- NOTE | 2021-01-19 18:26 | NUR ---
Patient's blood sugar at 47, gave orange juice and apple juice, patient eating dinner and to recheck blood sugar.
[2021-01-19] MEDS ORDERED: CRUSHER, PILL MC ONE (21:58)
[2021-01-19] MEDS: INSULIN LISPRO SLIDING SCALE 100 UNITS/ML VIAL SUBQ PRN (23:31)
[2021-01-20] MEDS: NACL 0.45% 500 ML IV SCH ×5 (03:14→23:14)
[2021-01-20 04:21] VITALS: BP 128/69
[2021-01-20] MEDS: BLOOD GLUCOSE MONITORING 1 DEV DEV FS SCH ×4 (06:53→21:00)
--- NOTE | 2021-01-20 06:55 | NUR ---
her morning blood sugar was 60 i gave her apple juice with addedd sugar and checked her blood sugar letter and was 90 , she was given a bed bath and linen changed
--- NOTE | 2021-01-20 07:30 | NUR ---
REPORT RECEIVED FROM MILK RUNNER NURSE.
[2021-01-20 07:58] LABS: BASOPHILS % (AUTO) 0.4 % (0.0-2.0); EOSINOPHILS % (AUTO) 0.3 % (0.0-4.0); HEMATOCRIT 26.3 % (36-48); HEMOGLOBIN 8.9 g/dL (12.0-16.0); LYMPHOCYTES # (AUTO) 1.6 K/uL (2.5-16.5); MEAN CORPUSCULAR HEMOGLOBIN 30 pg (27-31); MEAN CORPUSCULAR HGB CONC 34 g/dL (33-37); MEAN CORPUSCULAR VOLUME 89.3 fL (80-94); MONOCYTES # (AUTO) 0.6 K/uL (0.8-1.0); MONOCYTES % (AUTO) 5.2 % (1.7-9.3); NEUTROPHILS # (AUTO) 8.6 K/uL (1.8-7.7); NEUTROPHILS % (AUTO) 79.1 % (42.2-75.2); PLATELET COUNT (AUTO) 284 K/uL (140-450); RED BLOOD CELL COUNT(AUTO) 2.95 MIL/uL (4.20-5.40); RED CELL DISTRIBUTION WIDTH 14.9 % (11.6-13.7); WHITE BLOOD COUNT (AUTO) 10.9 K/uL (4.8-10.8)
[2021-01-20 08:17] LABS: CARBON DIOXIDE 26.1 mmol/L (21-32); CHLORIDE 109 mmol/L (98-107); CREATININE 0.9 mg/dL (0.6-1.3); GLUCOSE 71 mg/dL (74-106); POTASSIUM 3.1 mmol/L (3.5-5.1); SODIUM SERUM 143 mmol/L (136-145); UREA NITROGEN, BLOOD 15 mg/dL (7-18)
[2021-01-20 08:30] LABS: MAGNESIUM 1.6 mg/dL (1.8-2.4); PHOSPHORUS 2.6 mg/dL (2.5-4.9)
[2021-01-20] MEDS: MAGNESIUM OXIDE 400 MG TAB PO SCH (08:41)
[2021-01-20] MEDS: hydrALAZINE 10 MG TAB PO SCH ×3 (08:41→16:17)
[2021-01-20] MEDS: AMIODARONE 200 MG TAB PO SCH (08:41)
[2021-01-20] MEDS: QUEtiapine FUMARATE 25 MG TAB PO SCH ×2 (08:42→21:00)
[2021-01-20] MEDS: METOPROLOL 50 MG TAB PO SCH ×2 (08:42→21:00)
[2021-01-20] MEDS: PANTOPRAZOLE 40 MG TABEC PO SCH (08:42)
[2021-01-20] MEDS: levETIRAcetam 1,000 MG in NACL 0.9% 100 ML IV SCH ×2 (08:47→21:00)
[2021-01-20] MEDS: INSULIN LANTUS 100 UNITS/ML 10 ML VIAL SUBQ SCH (08:48)
--- NOTE | 2021-01-20 08:50 | NUR ---
MEDICATIONS GIVEN PRESCRIBED PER MD ORDER. PT EDUCATED . NO S/SX OF DISTRESS. PT GIVEN GLUCERNA AT THIS TIME DRANK IT AND TOLERATED WELL.
--- NOTE | 2021-01-20 10:57 | NUR ---
NEW IV LINE STARTED. PT TOLERATED WELL. ROHAN OVER IT TO AVOID PULLING IT . WILL ASSESS SITE ROUTINELY
--- NOTE | 2021-01-20 11:30 | NUR ---
BG A87 . INSULIN GIVEN PER SLIDING SCALE
--- NOTE | 2021-01-20 12:05 | NUR ---
PT AMBULATED TO RESTROOM WASHED HANDS AND UNDRESSED HERSELF. PT REORIENTED TO BED AND CLOTHED. PT TOLERATED WELL. NO S/SX OF DISTRESS. PT UNCOOPERATIVE
[2021-01-20] MEDS: INSULIN LISPRO SLIDING SCALE 100 UNITS/ML VIAL SUBQ PRN (12:20)
--- NOTE | 2021-01-20 12:45 | NUR ---
MEDICATIONS GIVEN PER MD ORDER . PT EDUCATED AND VERBALIZED UNDERSTANDING
[2021-01-20 16:00] VITALS: BP 122/62
--- NOTE | 2021-01-20 16:03 | NUR ---
PT ROUNDED ON PT RESTING IN BED STATING CASA AND WHIMPERING. PT REORIENTED TO HOSPITAL.
[2021-01-20] MEDS: POTASSIUM CHLORIDE 10 MEQ TABER PO PRN (16:18)
--- NOTE | 2021-01-20 16:29 | NUR ---
PT PULLED OUT OUT NEPHROSTOMY TUBE. MD SAGE AND MD RAMIRES AVAILABLE
--- NOTE | 2021-01-20 18:43 | NUR ---
PT WALKING NAKED ON TENA WAY . PT UNCOOPERATIVE AND REFUSES TO GO TO BED. 3 NURSE ASSIST NECESSARY . PT SCREAM , " CASA " CASA!! . PT BACK IN BED .
--- NOTE | 2021-01-20 19:23 | NUR ---
PT ENDORSED TO NIGHT ALFAIFT RN . PT STABLE . RN AWARE OF EPISODES OF ELOPEMENT AND UNCOOPERATIVENESS
--- NOTE | 2021-01-20 19:27 | NUR ---
PT UP OT OF BED OPENING BLINDS AND SCREAMING CASA CASA. PT GIVEN GLUCERNA DRINK AND REORIENTED TO BED.
[2021-01-20] MEDS: OLANZapine 2.5 MG TAB PO SCH (21:00)
[2021-01-21] VITALS: BP 130/71
--- NOTE | 2021-01-21 | NUR ---
PT C/O OF PAIN AT IV SITE. IV SITE NOTED WITH MILD REDNESS. ASKED SENIOR RESIDENT CARE DIRECTOR TO OBTAIN SITE , DUE TO PT BEING A HARD STICK.
[2021-01-21] MEDS: HALOPERIDOL IM 5 MG/ML VIAL IM PRN ×2 (01:07→04:20)
[2021-01-21] MEDS: NACL 0.45% 500 ML IV SCH ×4 (04:14→19:14)
--- NOTE | 2021-01-21 06:22 | NUR ---
PT SLEPT WELL VSS , NO PAIN SHE WAS AGGITETED TWICE AND GOT OUT OF BED I GAVE HER HALDOL WITH EFFECT
--- NOTE | 2021-01-21 07:24 | NUR ---
PT HAS BEEN ENDORSED BY EXHIBITION DESIGNER NURSE FOR CONTINUITY OF CARE, POC DISCUSSED. PT IS ASLEEP IN BED WITH NO ACUTE S/S OF DISTRESS. PT HAS A LEFT FINGER 22G RUNNING HALF NS @100. PT ON ROOM AIR WITH CHEST RISING AND FALLING EVEN AND UNLABORED. ALL SAFETY MEASURES IN PLACE, CALL LIGHT WITHIN REACH. WILL CONTINUE TO MONITOR.
[2021-01-21 07:27] LABS: BASOPHILS # (AUTO) 0.1 K/uL (0.00-0.22); BASOPHILS % (AUTO) 0.6 % (0.0-2.0); HEMATOCRIT 27.4 % (36-48); HEMOGLOBIN 9.3 g/dL (12.0-16.0); LYMPHOCYTES % (AUTO) 8.4 % (20.5-51.1); MEAN CORPUSCULAR HEMOGLOBIN 30 pg (27-31); MEAN CORPUSCULAR HGB CONC 34 g/dL (33-37); MEAN CORPUSCULAR VOLUME 89.2 fL (80-94); MONOCYTES # (AUTO) 0.6 K/uL (0.8-1.0); NEUTROPHILS # (AUTO) 10.3 K/uL (1.8-7.7); PLATELET COUNT (AUTO) 296 K/uL (140-450); RED BLOOD CELL COUNT(AUTO) 3.08 MIL/uL (4.20-5.40); RED CELL DISTRIBUTION WIDTH 14.8 % (11.6-13.7); WHITE BLOOD COUNT (AUTO) 11.9 K/uL (4.8-10.8)
[2021-01-21] MEDS: BLOOD GLUCOSE MONITORING 1 DEV DEV FS SCH ×4 (07:56→21:00)
[2021-01-21 08:00] VITALS: BP 153/87
[2021-01-21 08:02] LABS: MAGNESIUM 1.4 mg/dL (1.8-2.4); PHOSPHORUS 2.7 mg/dL (2.5-4.9)
[2021-01-21 08:08] LABS: CARBON DIOXIDE 24.6 mmol/L (21-32); CHLORIDE 105 mmol/L (98-107); CREATININE 1.1 mg/dL (0.6-1.3); GLUCOSE 182 mg/dL (74-106); POTASSIUM 3.6 mmol/L (3.5-5.1); SODIUM SERUM 139 mmol/L (136-145); UREA NITROGEN, BLOOD 16 mg/dL (7-18)
[2021-01-21] MEDS: hydrALAZINE 10 MG TAB PO SCH ×3 (09:43→16:54)
[2021-01-21] MEDS: AMIODARONE 200 MG TAB PO SCH (09:43)
[2021-01-21] MEDS: METOPROLOL 50 MG TAB PO SCH ×2 (09:44→21:00)
[2021-01-21] MEDS: PANTOPRAZOLE 40 MG TABEC PO SCH (09:44)
[2021-01-21] MEDS: levETIRAcetam 1,000 MG in NACL 0.9% 100 ML IV SCH ×2 (09:45→21:00)
[2021-01-21] MEDS: INSULIN LANTUS 100 UNITS/ML 10 ML VIAL SUBQ SCH (09:45)
[2021-01-21] MEDS: QUEtiapine FUMARATE 25 MG TAB PO SCH ×2 (09:58→21:00)
--- NOTE | 2021-01-21 09:58 | NUR ---
DAMASO MEDICATION ADMINISTERED IN APPLE SAUCE, PT TOLERATED ADMINISTRATION. IV IS PATENT AND INTACT. PT SHOWS NO S/S OF ACUTE DISTRESS, ALL SAFETY MEASURES IN PLACE, CALL LIGHT WITHIN REACH, WILL CONTINUE TO MONITOR.
[2021-01-21] MEDS: MAG SULF 2000 MG/WATER PREMIX 50 ML IV PRN (11:25)
[2021-01-21] MEDS: INSULIN LISPRO SLIDING SCALE 100 UNITS/ML VIAL SUBQ PRN (11:26)
--- NOTE | 2021-01-21 11:28 | NUR ---
PRN MAG ADMINISTERED PER MD ORDER FOR A MAG LEVEL OF 1.4. IV IS PATENT AND INTACT. BLOOD GLUCOSE IS 218, 4 UNITS OF INSULIN ADMINISTERED PER SLIDING SCALE. ALL SAFETY MEASURES IN PLACE, CALL LIGHT WITHIN REACH. WILL CONTINUE TO MONITOR.
--- NOTE | 2021-01-21 12:51 | NUR ---
DAMASO MEDICATION ADMINISTERED PER MD ORDER, PT TOLERATED ADMINISTRATION, ALL SAFETY MEASURES IN PLACE. CALL LIGHT WITHIN REACH. WILL CONTINUE TO MONITOR
--- NOTE | 2021-01-21 15:28 | NUR ---
PT IS ASLEEP IN BED WITH NO ACUTE S/S OF DISTRESS, ALL SAFETY MEASURES IN PLACE. CALL LIGHT WITHIN REACH WILL CONTINUE TO MONITOR.
--- NOTE | 2021-01-21 15:31 | NUR ---
RECEIVED TORB BY DR. RAMIRES FOR SWALLOW EVALUATION D/T PATIENT REFUSING PUREE DIET.
[2021-01-21 16:00] VITALS: BP 102/54
--- NOTE | 2021-01-21 16:39 | NUR ---
BLOOD GLUCOSE WAS 52, INFUSED THE PRN 50% DEXTROSE PER MD ORDER. PT TOLERATED ADMINISTRATION. ALL SAFETY MEASURES IN PLACE. WILL REASSESS IN 30 MINUTES.
[2021-01-21] MEDS: DEXTROSE 50% 50 ML SYR IVP PRN (16:53)
--- NOTE | 2021-01-21 17:33 | NUR ---
01/21/21 RD FOLLOW UP COMPLETED PLEASE REFER TO NUTRITION ASSESSMENT UNDER CARE ACTIVITY FOR ESTIMATED NUTRITIONAL NEEDS. 1. RECOMMEND SWALLOW EVALUATION D/T PT REFUSING TO EAT PUREE FOODS 2. CURRENTLY ON PUREE CCHO 45 GM 3. CONTINUE GLUCERNA BID 4. CONTINUE PROVIDING ASSISTANCE WITH MEALS AND ENCOURAGE PO INTAKE GREATER THAN 75% 5. RD TO FOLLOW-UP 2-3 DAYS, HIGH RISK ABIGAIL AVENDANO, RD
--- NOTE | 2021-01-21 17:38 | NUR ---
REASSESS BLOOD GLUCOSE, 147. NO ACTION NEEDED AT THIS TIME.
--- NOTE | 2021-01-21 19:10 | NUR ---
ENDORSED TO GLAZE MIXER NURSE FOR CONTINUITY OF CARE. NO SOB OR RESPIRATORY DISTRESS NOTED. DENIES ANY PAIN OR DISCOMFORT @ THIS TIME. ALL SAFETY MEASURES IN PLACE. CALL LIGHT PLACED WITHIN REACH.
--- NOTE | 2021-01-21 19:30 | NUR ---
RECEIVED REPORT FROM RN DAYSHIFT NURSE AT BEDSIDE FOR CONTINUITY OF CARE, PT IN STABLE CONDITION.
--- NOTE | 2021-01-21 20:20 | NUR ---
PT FINGERSTICK IS 50, PT AROUSABLE TO NAME AND LIGHT SHAKING. SHE SAT UP AND DRANK 2 SUPPLEMENTAL SHAKES. WILL RECHECK FINGERSTICK LATER. OTHER V/S FOLLOWS: T 97.9 P 78 R 18 B/P 117/59 02 98% ON ROOM AIR. PT HAS RIGHT THUMB 22G INTACT AND RUNNING 1/2 NORMAL SALINE. ALL FALLS PRECAUTIONS IN PLACE.
[2021-01-21] MEDS: OLANZapine 2.5 MG TAB PO SCH (21:00)
--- NOTE | 2021-01-21 21:30 | NUR ---
PT WAS TURNED, CHANGED AND REPOSITIONED IN BED. PT GIVEN ORDERED LOPRESSOR, SEROQUEL AND ZYPREXA, MEDS CRUSHED AND GIVEN IN PUDDING. PT ATE ABOUT 2 BITES. ALSO IV KEPPRA GIVEN ORDERED. NEW BAG OF 1/2 NS HUNG. PT EDUCATED REGARDING MEDICATIONS AND IT S PURPOSES, PT UNABLE TO EXPRESS UNDERSTANDING OF ORDERED MEDS. ALL BERNIE PRECAUTIONS IN PLACE.
--- NOTE | 2021-01-21 22:00 | NUR ---
PONT OF CONTACT CALLED AND WAS UPDATED REGARDING PT CONDITION.
[2021-01-22] VITALS: BP 117/59
[2021-01-22] MEDS: NACL 0.45% 500 ML IV SCH ×5 (00:14→22:41)
--- NOTE | 2021-01-22 01:00 | NUR ---
DOG BEAUTICIAN UNABLE TO OBTAIN IV SITE, ATTEMPTED X2 AND UNABLE TO OBTAIN.
--- NOTE | 2021-01-22 05:30 | NUR ---
PT UP TO BATHROOM ON OWN WITH A STEADY GAIT. PT ESCORTED BACK TO BED AFTERWARDS V/S FOLLOWS: T 97.9 P 78 R 20 B/P 117/59 02 95
--- NOTE | 2021-01-22 06:30 | NUR ---
FINGERSTICK IS 173 PT NOT EATING WELL NO COVERAGE GIVEN.
--- NOTE | 2021-01-22 07:10 | NUR ---
RECEIVED REPORT FROM HOOKER UP NURSE FOR CONTINUITY OF CARE. PT IS SLEEPING WITH VISIBLE CHEST RISE AND FALL. PT IS ON RA WITH NO UNLABORED BREATHING. SKIN IS DRY AND WARM. IV ON RIGHT THUMB. PT IS STABLE. CALL LIGHT WITHIN REACH. WILL CONTINUE TO MONITOR.
[2021-01-22] MEDS: BLOOD GLUCOSE MONITORING 1 DEV DEV FS SCH ×4 (07:41→21:29)
[2021-01-22 08:00] VITALS: BP 140/75
[2021-01-22] MEDS: PANTOPRAZOLE 40 MG TABEC PO SCH (09:19)
[2021-01-22] MEDS: AMIODARONE 200 MG TAB PO SCH (09:19)
[2021-01-22] MEDS: QUEtiapine FUMARATE 25 MG TAB PO SCH ×2 (09:20→22:37)
[2021-01-22] MEDS: hydrALAZINE 10 MG TAB PO SCH ×3 (09:21→18:35)
[2021-01-22] MEDS: METOPROLOL 50 MG TAB PO SCH ×2 (09:21→22:37)
[2021-01-22] MEDS: levETIRAcetam 1,000 MG in NACL 0.9% 100 ML IV SCH ×2 (09:22→22:38)
[2021-01-22] MEDS: INSULIN LANTUS 100 UNITS/ML 10 ML VIAL SUBQ SCH (09:25)
--- NOTE | 2021-01-22 09:30 | NUR ---
PT IS AWAKE. PT IS ON RA WITH UNLABORED BREATHING. PT IS STABLE. SCHEDULED MEDICATION WAS GIVEN. WILL CONTINUE TO MONITOR.
[2021-01-22 10:00] LABS: HEMATOCRIT 31.7 % (36-48); HEMOGLOBIN 10.4 g/dL (12.0-16.0); MEAN CORPUSCULAR HEMOGLOBIN 30 pg (27-31); MEAN CORPUSCULAR HGB CONC 33 g/dL (33-37); MEAN CORPUSCULAR VOLUME 90.2 fL (80-94); PLATELET COUNT (AUTO) 323 K/uL (140-450); RED BLOOD CELL COUNT(AUTO) 3.51 MIL/uL (4.20-5.40); RED CELL DISTRIBUTION WIDTH 15.3 % (11.6-13.7); WHITE BLOOD COUNT (AUTO) 16.3 K/uL (4.8-10.8)
[2021-01-22 10:24] LABS: ANION GAP 11.3 (8-16); CARBON DIOXIDE 24.6 mmol/L (21-32); CHLORIDE 105 mmol/L (98-107); CREATININE 1.4 mg/dL (0.6-1.3); GLUCOSE 183 mg/dL (74-106); POTASSIUM 3.9 mmol/L (3.5-5.1); SODIUM SERUM 137 mmol/L (136-145); UREA NITROGEN, BLOOD 19 mg/dL (7-18)
[2021-01-22 10:30] LABS: MAGNESIUM 1.9 mg/dL (1.8-2.4); PHOSPHORUS 2.1 mg/dL (2.5-4.9)
[2021-01-22 10:57] LABS: LYMPHOCYTES % (MANUAL) 10 % (20-46); MONOCYTES % (MANUAL) 2 % (5-12)
--- NOTE | 2021-01-22 11:30 | NUR ---
BLOOD SUGAR WAS 196. WILL ADMINISTER 2 UNITS OF HUMALOG INSULIN.
[2021-01-22] MEDS: INSULIN LISPRO SLIDING SCALE 100 UNITS/ML VIAL SUBQ PRN (12:23)
--- NOTE | 2021-01-22 13:15 | NUR ---
PT IV REPLACED ON LEFT FOREARM. IV CATHETER IS INTACT. BLEEDING IS CONTROL. CHARGE NURSE, JOSLYN, PLACED NEW IV ON LEFT FOREARM 24 GAUGE.
--- NOTE | 2021-01-22 15:30 | NUR ---
PT IS AWAKE AND IN BED. PT A VISITOR AT BEDSIDE. PT IS STABLE. NO DISTRESS NOTED. VISITOR, DAUGHTER IN LAW, WANTED TO KNOW ABOUT PT TRANSFER SITUATION. CALLED PAT TO ASK AND PAT SAID TO GIVE VISITOR HER NUMBER. VISITOR SAID SHE WOULD CALL AND HAVE HER FRIEND TRANSLATE FOR HER BECAUSE SHE DOESN'T SPEAK [place].
[2021-01-22 16:00] VITALS: BP 110/49
--- NOTE | 2021-01-22 17:00 | NUR ---
PT BLOOD SUGAR WAS 79. GAVE HER SOME ORANGE JUICE.
--- NOTE | 2021-01-22 19:10 | NUR ---
GAVE REPORT TO NIGHTSHIFT NURSE FOR CONTINUITY OF CARE. PT IS AWAKE AND LAYING IN BED. PT IS STABLE.
[2021-01-22 20:00] VITALS: BP 133/64
[2021-01-22] MEDS: DEXTROSE 50% 50 ML SYR IVP PRN (21:31)
[2021-01-22 22:32] VITALS: BP 121/55
[2021-01-22] MEDS: OLANZapine 2.5 MG TAB PO SCH (22:37)
[2021-01-23] MEDS: NACL 0.45% 500 ML IV SCH ×5 (01:14→21:14)
[2021-01-23 04:00] VITALS: BP 137/63
--- NOTE | 2021-01-23 06:21 | NUR ---
PRN POTASSIUM GIVEN TO PT PER MD ORDER, PT ONLY ACCEPTED HALF OF THE DOSE. DAMASO MEDICATION ADMINISTERED WELL. PT BLOOD GLUCOSE IS 144, NO INSULIN COVERAGE IS NEEDED. ATTEMPTED TO START IV AGAIN, BUT PT REFUSED AND STARTED SWINGING HER ARMS. ALL SAFETY MEASURES IN PLACE. CALL LIGHT WITHIN REACH. WILL CONTINUE TO MONITOR.
[2021-01-23] MEDS: BLOOD GLUCOSE MONITORING 1 DEV DEV FS SCH ×4 (06:27→21:03)
[2021-01-23] MEDS: DEXTROSE 50% 50 ML SYR IVP PRN (06:28)
--- NOTE | 2021-01-23 07:24 | NUR ---
PT HAS BEEN ENDORSED BY OPERATIONAL TEST MECHANIC NURSE FOR CONTINUITY OF CARE, POC DISCUSSED. PT IS IN SLEEP WITH NO ACUTE S/S OF DISTRESS. PT HAS A RIGHT AC 20 G RUNNING HALF NS @ 100 ML PER HOUR. PT SKIN IS INTACT BUT IS INCONTIENT WITH LOOSE BM NOTED DURING NIGHT. PT IS ON ROOM AIR WITH CHEST RISING AND FALLING EVEN AND UNLABORED. PT BLOOD GLUCOSE IS 62, WILL MONITOR. ALL SAFETY MEASURES IN PLACE. CALL LIGHT WITHIN REACH, WILL CONTINUE TO MONITOR.
[2021-01-23 07:33] LABS: HEMATOCRIT 28.2 % (36-48); HEMOGLOBIN 9.2 g/dL (12.0-16.0); MEAN CORPUSCULAR HEMOGLOBIN 30 pg (27-31); MEAN CORPUSCULAR HGB CONC 33 g/dL (33-37); PLATELET COUNT (AUTO) 274 K/uL (140-450); RED BLOOD CELL COUNT(AUTO) 3.11 MIL/uL (4.20-5.40); RED CELL DISTRIBUTION WIDTH 15.3 % (11.6-13.7)
[2021-01-23 07:48] LABS: MAGNESIUM 1.6 mg/dL (1.8-2.4); PHOSPHORUS 2.5 mg/dL (2.5-4.9)
[2021-01-23 07:49] LABS: ANION GAP 9.3 (8-16); CARBON DIOXIDE 28.1 mmol/L (21-32); CHLORIDE 104 mmol/L (98-107); CREATININE 1.2 mg/dL (0.6-1.3); GLUCOSE 68 mg/dL (74-106); POTASSIUM 3.4 mmol/L (3.5-5.1); SODIUM SERUM 138 mmol/L (136-145); UREA NITROGEN, BLOOD 14 mg/dL (7-18)
--- NOTE | 2021-01-23 07:50 | NUR ---
HANDOFF WITH JULIET GABRIEL. ARTURO CHAPA RN
[2021-01-23 08:00] VITALS: BP 140/71
--- NOTE | 2021-01-23 08:26 | NUR ---
RECEIVED A CRITICAL FROM VIGIAL OF WBC 25.4, REPORTED TO THE DOCTOR, NO NEW ORDERS REPORTED.
[2021-01-23 08:28] LABS: WHITE BLOOD COUNT (AUTO) 25.4 K/uL (4.8-10.8)
[2021-01-23 08:57] LABS: LYMPHOCYTES % (MANUAL) 7 % (20-46); MONOCYTES % (MANUAL) 6 % (5-12)
[2021-01-23] MEDS: levETIRAcetam 1,000 MG in NACL 0.9% 100 ML IV SCH ×3 (09:00→21:47)
[2021-01-23] MEDS: INSULIN LANTUS 100 UNITS/ML 10 ML VIAL SUBQ SCH (09:00)
[2021-01-23] MEDS: hydrALAZINE 10 MG TAB PO SCH ×4 (09:30→16:08)
[2021-01-23] MEDS: AMIODARONE 200 MG TAB PO SCH (09:30)
[2021-01-23] MEDS: METOPROLOL 50 MG TAB PO SCH ×2 (09:31→21:53)
[2021-01-23] MEDS: PANTOPRAZOLE 40 MG TABEC PO SCH (09:31)
[2021-01-23] MEDS: QUEtiapine FUMARATE 25 MG TAB PO SCH ×2 (09:31→21:48)
--- NOTE | 2021-01-23 09:38 | NUR ---
IV INFILTRATED. IMMEDIATELY STOPPED IV FLUIDS, REMOVED IV AND CATH IN PLACE. PT TOLERATED REMOVAL, FLUIDS EXPELLED FROM IV SITE. ELEVATED ARM AND APPLIED ICE PACK.
--- NOTE | 2021-01-23 09:42 | NUR ---
DAMASO MEDICATION ADMINISTERED PER MD ORDER, MEDICATION GIVEN IN APPLE SAUCE. PT STARTED REFUSE THE APPLESAUCE TOWARDS THE END OF ADMINISTRATION. PT IS STABLE.
--- NOTE | 2021-01-23 10:01 | NUR ---
ATTEMPTED TO INSERT IV, PT REFUSED TO LET ME LOOK AT HER ARM, REPEATING "NO" AND SWINGING HER ARM. SHANITA CHUNG THEN ATTEMPTED AND SHE CONTINUED TO SAY NO AND SWING HER ARM. CALL SHAYNA CASTRO AND ASKED IF HE CAN HELP TRANSLATE. SHAYNA TRANSLATED AND PT VERBALIZED THAT SHE DOES NO WANT THE IV, BECAME UPSET AND STARTED CRYING. WILL NOTIFY THE MD OF THIS.
--- NOTE | 2021-01-23 10:44 | NUR ---
DOCTOR RESPONDING TO PTS REFUSAL OF IV INSERTION SAYING "AGG OK".
--- NOTE | 2021-01-23 11:44 | NUR ---
BLOOD GLUCOSE IS 146, NO INSULIN COVERAGE NEEDED AT THIS TIME. WILL CONTINUE TO MONITOR.
--- NOTE | 2021-01-23 13:04 | NUR ---
PT URINATED AND HAD A BOWEL MOVEMENT IN BED, CHUCKS HAVE BEEN CHANGED AND PT HAS BEEN CLEANED UP. ALL SAFETY MEASURES IN PLACE. CALL LIGHT WITHIN REACH. WILL CONTINUE TO MONITOR.
[2021-01-23 16:00] VITALS: BP 116/64
[2021-01-23] MEDS: POTASSIUM CHLORIDE 10 MEQ TABER PO PRN (16:08)
--- NOTE | 2021-01-23 16:40 | NUR ---
SPEECH THERAPY AT BEDSIDE. REPORTED PT REFUSED TO EAT FOR HIM, ONLY GOT A SMALL AMOUNT OF APPLE SAUCE IN. RECOMMENDS PUREE DIET BASED OF WHAT HE COULD SEE
--- NOTE | 2021-01-23 16:42 | NUR ---
PT WAS SEEN FOR DYSPHAGIA. PT WAS ABLE TO SAFELY SWALLOW PUREE DIET WITH THIN LIQUID WITHOUT S/S OF ASPIRATION. RECOMMENDATION PUREE DIET WITH THIN LIQUID
--- NOTE | 2021-01-23 18:04 | NUR ---
HEARD THE BED ALARM GOING OFF, PT AMBULATED TO THE RESTROOM BEFORE I COULD GET A CLEAN CATCH URINE SAMPLE
--- NOTE | 2021-01-23 19:25 | NUR ---
PT HAS BEEN ENDORSED TO TRIMMING DEPARTMENT BLOCKER NURSE FOR CONTINUITY OF CARE, PT IS STABLE.
[2021-01-23 20:00] VITALS: BP 133/64
[2021-01-23] MEDS: INSULIN LISPRO SLIDING SCALE 100 UNITS/ML VIAL SUBQ PRN (21:05)
[2021-01-23] MEDS: OLANZapine 2.5 MG TAB PO SCH (21:48)
[2021-01-23 22:55] LABS: APPEARANCE,URINE SL CLOUDY (CLEAR); BILIRUBIN,URINE NEGATIVE (NEGATIVE); BLOOD, URINE TRACE-I (NEGATIVE); COLOR,URINE YELLOW (YELLOW); LEUKOCYTE ESTERASE ,URINE 2+ (NEGATIVE); NITRITE, URINE NEGATIVE (NEGATIVE); PH,URINE 5.5 (5.0-9.0); UGLUCOSE NEGATIVE (NEGATIVE)
[2021-01-23 23:04] LABS: RBC,URINE 0-5 /HPF (0-5); WBC,URINE TOO MANY TO COUNT /HPF (0-5)
[2021-01-23 23:05] LABS: YEAST,URINE Moderate /HPF (None Seen)
[2021-01-23] MEDS ORDERED: cefTRIAXone 1,000 MG VIAL ONE (23:34)
[2021-01-24] MEDS: VANCOMYCIN 500 MG VIAL PO SCH ×4 (01:01→17:23)
[2021-01-24] MEDS: NACL 0.45% 500 ML IV SCH ×5 (02:59→22:14)
[2021-01-24 04:00] VITALS: BP 137/63
[2021-01-24] MEDS: BLOOD GLUCOSE MONITORING 1 DEV DEV FS SCH ×4 (05:12→21:52)
[2021-01-24 07:39] LABS: MAGNESIUM 1.5 mg/dL (1.8-2.4); PHOSPHORUS 2.6 mg/dL (2.5-4.9)
[2021-01-24 07:42] LABS: ANION GAP 15.2 (8-16); CARBON DIOXIDE 23.1 mmol/L (21-32); CHLORIDE 102 mmol/L (98-107); CREATININE 1.3 mg/dL (0.6-1.3); GLUCOSE 115 mg/dL (74-106); POTASSIUM 3.3 mmol/L (3.5-5.1); SODIUM SERUM 137 mmol/L (136-145); UREA NITROGEN, BLOOD 17 mg/dL (7-18)
--- NOTE | 2021-01-24 07:58 | NUR ---
RECEIVED REPORT FROM STEAM PLANT RECORDS CLERK NURSE FOR CONTINUITY OF CARE, POC DISCUSSED. PT IS ASLEEP IN BED WITH CHEST RISING AND FALLING EVEN AND UNLABORED. NEW BAG OF FLUIDS REPLENISHED. PTS BLOOD GLUCOSE IS 109. PT HAS A LEFT WRIST 22 GAUGE RUNNING HALF NS AT 100. ALL SAFETY MEASURES IN PLACE. CALL LIGHT WITHIN REACH. WILL CONTINUE TO MONITOR.
--- NOTE | 2021-01-24 08:16 | NUR ---
HANDOFF WITH JULIET GABRIEL. ARTURO CHAPA RN
[2021-01-24] MEDS: INSULIN LANTUS 100 UNITS/ML 10 ML VIAL SUBQ SCH (08:38)
--- NOTE | 2021-01-24 08:38 | NUR ---
DAMASO LANTUS NON ADMINISTERED DUE TO PT NOT EATING, AND BLOOD GLUCOSE TRENDING DOWN.
[2021-01-24 08:56] LABS: WHITE BLOOD COUNT (AUTO) 21.4 K/uL (4.8-10.8)
[2021-01-24 08:57] LABS: HEMATOCRIT 24.7 % (36-48); HEMOGLOBIN 8.2 g/dL (12.0-16.0); MEAN CORPUSCULAR HEMOGLOBIN 30 pg (27-31); MEAN CORPUSCULAR HGB CONC 33 g/dL (33-37); MEAN CORPUSCULAR VOLUME 90.5 fL (80-94); PLATELET COUNT (AUTO) 265 K/uL (140-450); RED BLOOD CELL COUNT(AUTO) 2.73 MIL/uL (4.20-5.40); RED CELL DISTRIBUTION WIDTH 14.8 % (11.6-13.7)
[2021-01-24] MEDS: levETIRAcetam 1,000 MG in NACL 0.9% 100 ML IV SCH ×2 (09:00→22:12)
[2021-01-24 09:01] LABS: LYMPHOCYTES % (MANUAL) 6 % (20-46); MONOCYTES % (MANUAL) 5 % (5-12)
[2021-01-24] MEDS: PANTOPRAZOLE 40 MG TABEC PO SCH (09:58)
[2021-01-24] MEDS: QUEtiapine FUMARATE 25 MG TAB PO SCH ×2 (09:58→21:38)
--- NOTE | 2021-01-24 09:58 | NUR ---
DAMASO MEDICATION ADMINISTERED PER MD ORDER, PT IS AWAKE, ALERT AND TALKING. PT ATE ALL OF HER YOGURT AND ENSURE. GAVE MEDICATION WITH JELLO AND PT TOOK ALL OF HER MEDICATION. PT TOLERATED ADMINISTRATION. IV IS PATENT AND RUNNING IV ABX. PRN K-DUR AND TYLENOL ADMINISTERED FOR LOW POTASSIUM AND ELEVATED TEMPERATURE. ALL SAFETY MEASURES IN PLACE. CALL LIGHT WITHIN REACH. WILL CONTINUE TO MONITOR.
[2021-01-24] MEDS: hydrALAZINE 10 MG TAB PO SCH ×3 (09:59→17:22)
[2021-01-24] MEDS: ACETAMINOPHEN 325 MG TAB PO PRN (09:59)
[2021-01-24] MEDS: AMIODARONE 200 MG TAB PO SCH (09:59)
[2021-01-24] MEDS: METOPROLOL 50 MG TAB PO SCH ×2 (10:00→21:38)
[2021-01-24] MEDS: POTASSIUM CHLORIDE 10 MEQ TABER PO PRN (10:01)
--- NOTE | 2021-01-24 12:00 | NUR ---
BLOOD GLUCOSE WAS 237, 4 UNITS OF INSULIN ADMINISTERED PER MD ORDER. ALL SAFETY MEASURES IN PLACE. CALL LIGHT WITHIN REACH. WILL CONTINUE TO MONITOR.
[2021-01-24] MEDS: INSULIN LISPRO SLIDING SCALE 100 UNITS/ML VIAL SUBQ PRN ×2 (12:27→22:14)
[2021-01-24] MEDS ORDERED: CRUSHER, PILL MC ONE (12:33)
--- NOTE | 2021-01-24 15:15 | NUR ---
01/24/21 RD FOLLOW UP COMPLETED PLEASE REFER TO NUTRITION ASSESSMENT UNDER CARE ACTIVITY FOR ESTIMATED NUTRITIONAL NEEDS. 1. CONTINUE PUREE CCHO 45 GM 2. CONTINUE GLUCERNA BID 3. CONTINUE PROVIDING ASSISTANCE WITH MEALS AND ENCOURAGE PO INTAKE GREATER THAN 75% 4. FNS WILL PROVIDE GELATO THRIVE BID -THIS WILL PROVIDE AN ADDITIONAL 520 KCAL AND [address] TO FOLLOW-UP 3-5 DAYS, MODERATE RISK ABIGAIL AVENDANO RD
[2021-01-24 16:00] VITALS: BP 116/64
--- NOTE | 2021-01-24 17:04 | NUR ---
BLOOD GLUCOSE IS 161, HELD INSULIN DUE TO PTS REFUSAL TO EAT. DO NOT WANT BG TO DROP. PRN MAG HUNG. DAMASO MEDICATION ADMINISTERED PER MD ORDER. ALL SAFETY MEASURES IN PLACE. WILL CONTINUE TO MONITOR.
--- NOTE | 2021-01-24 18:54 | NUR ---
SPOKE WITH HOSPICE NURSE FOR HOSPICE PLACEMENT, STATED SHE IS A CANDIDATE BUT DO NOT HAVE A BED. WILL FOLLOW UP WITH CASE MANAGEMENT.
[2021-01-24] MEDS: MAG SULF 2000 MG/WATER PREMIX 50 ML IV PRN (19:05)
--- NOTE | 2021-01-24 19:17 | NUR ---
PT HAS BEEN ENDORSED TO CUSTOMER MARKETING MANAGER NURSE FOR CONTINUITY OF CARE. PT IS STABLE.
[2021-01-24 20:00] VITALS: BP 124/60
[2021-01-24] MEDS: OLANZapine 2.5 MG TAB PO SCH (21:37)
[2021-01-25] MEDS: VANCOMYCIN 500 MG VIAL PO SCH ×5 (02:06→17:18)
[2021-01-25] MEDS: NACL 0.45% 500 ML IV SCH ×5 (03:15→23:19)
[2021-01-25 04:00] VITALS: BP 109/50
--- NOTE | 2021-01-25 07:21 | NUR ---
PT HAS BEEN ENDORSED BY TECHNICIAN'S HELPER NURSE, ARTURO, FOR CONTINUITY OF CARE. POC DISCUSSED. PT IS ASLEEP IN BED WITH NO ACUTE S/S OF DISTRESS. CHEST RISING AND FALLING EVEN AND UNLABORED ON ROOM AIR. PT HAS A LEFT FOREARM 20G, RUNNING 0.45 NS @ 100. SKIN INTACT, PT IS INCONTINENT WITH A DIAPER ON. LAST BLOOD GLUCOSE ON TECHNICIAN'S HELPER WAS 171, PT REFUSED TO GET INSULIN. WILL MONITOR AT [facility] BLOOD SUGAR CHECK AND ADMINISTER PER SLIDING SCALE. ALL SAFETY MEASURES IN PLACE. CALL LIGHT WITHIN REACH .WILL CONTINUE TO MONITOR.
[2021-01-25] MEDS: BLOOD GLUCOSE MONITORING 1 DEV DEV FS SCH ×4 (07:42→16:37)
[2021-01-25 07:43] LABS: BASOPHILS % (AUTO) 0.1 % (0.0-2.0); HEMATOCRIT 23.6 % (36-48); HEMOGLOBIN 7.8 g/dL (12.0-16.0); LYMPHOCYTES # (AUTO) 1.1 K/uL (2.5-16.5); LYMPHOCYTES % (AUTO) 5.5 % (20.5-51.1); MEAN CORPUSCULAR HEMOGLOBIN 30 pg (27-31); MEAN CORPUSCULAR HGB CONC 33 g/dL (33-37); MEAN CORPUSCULAR VOLUME 90.3 fL (80-94); MONOCYTES # (AUTO) 0.9 K/uL (0.8-1.0); MONOCYTES % (AUTO) 4.5 % (1.7-9.3); NEUTROPHILS # (AUTO) 17.3 K/uL (1.8-7.7); NEUTROPHILS % (AUTO) 89.9 % (42.2-75.2); PLATELET COUNT (AUTO) 265 K/uL (140-450); RED BLOOD CELL COUNT(AUTO) 2.62 MIL/uL (4.20-5.40); RED CELL DISTRIBUTION WIDTH 14.8 % (11.6-13.7); WHITE BLOOD COUNT (AUTO) 19.2 K/uL (4.8-10.8)
[2021-01-25] MEDS: INSULIN LISPRO SLIDING SCALE 100 UNITS/ML VIAL SUBQ PRN ×4 (07:43→22:11)
--- NOTE | 2021-01-25 07:44 | NUR ---
PATIENT HANDOFF REPORT WITH JULIET GABRIEL. ARTURO CHAPA RN
[2021-01-25 07:46] LABS: ANION GAP 13.9 (8-16); CARBON DIOXIDE 22.4 mmol/L (21-32); CHLORIDE 103 mmol/L (98-107); CREATININE 1.3 mg/dL (0.6-1.3); GLUCOSE 164 mg/dL (74-106); POTASSIUM 3.3 mmol/L (3.5-5.1); SODIUM SERUM 136 mmol/L (136-145); UREA NITROGEN, BLOOD 16 mg/dL (7-18)
[2021-01-25 08:00] VITALS: BP 123/60
[2021-01-25] MEDS: AMIODARONE 200 MG TAB PO SCH (09:14)
[2021-01-25] MEDS: METOPROLOL 50 MG TAB PO SCH ×2 (09:15→21:47)
[2021-01-25] MEDS: PANTOPRAZOLE 40 MG TABEC PO SCH (09:15)
[2021-01-25] MEDS: hydrALAZINE 10 MG TAB PO SCH ×3 (09:16→17:18)
[2021-01-25] MEDS: POTASSIUM CHLORIDE 10 MEQ TABER PO PRN (09:16)
[2021-01-25] MEDS: QUEtiapine FUMARATE 25 MG TAB PO SCH ×2 (09:17→21:47)
[2021-01-25] MEDS: levETIRAcetam 1,000 MG in NACL 0.9% 100 ML IV SCH ×2 (09:19→21:48)
[2021-01-25] MEDS: INSULIN LANTUS 100 UNITS/ML 10 ML VIAL SUBQ SCH (09:25)
--- NOTE | 2021-01-25 09:38 | NUR ---
ADMINISTERED ALL PRESCRIBED MEDICATIONS PER MD ORDER WILL CONTINUE TO MONITOR PT FOR S/S OF SIDE EFFECTS OF MEDICATIONS. PT IS STABLE AT THE MOMENT.
--- NOTE | 2021-01-25 09:40 | NUR ---
PRN POTASSIUM ADMINISTERED PER MD ORDER, PT PT WAS 3.3. PT DRANK ALL HER ENSURE.
--- NOTE | 2021-01-25 11:21 | NUR ---
BLOOD GLUCOSE IS 201, 4 UNITS OF INSULIN WILL BE ADMINISTERED PER MD ORDER.
--- NOTE | 2021-01-25 13:04 | NUR ---
DAMASO MEDICATION ADMINISTERED PER MD ORDER, PT TOLERATED ADMINISTRATION. PT HAS BEEN CHANGED AND CLEANED. PT IS STABLE. ALL SAFETY MEASURES IN PLACE . CALL LIGHT WITHIN REACH .WILL CONTINUE TO MONITOR.
[2021-01-25] MEDS ORDERED: OLAN2.5T40 PO (14:38)
[2021-01-25] MEDS ORDERED: QUET25TA46 PO (14:38)
[2021-01-25] MEDS ORDERED: APR10 PO (14:38)
[2021-01-25] MEDS ORDERED: LEVE1000 PO (14:38)
[2021-01-25] MEDS ORDERED: LANTUS SUBQ (14:38)
[2021-01-25] MEDS ORDERED: APR20I IVP (14:38)
[2021-01-25] MEDS ORDERED: METO50TA99 PO (14:38)
[2021-01-25] MEDS ORDERED: AMIO200T10 PO (14:38)
--- NOTE | 2021-01-25 15:18 | NUR ---
PT IS STABLE IN BED WITH NO ACUTE S/S OF DISTRESS. CALL LIGHT WITHIN REACH. WILL CONTINUE TO MONTIOR.
[2021-01-25 16:00] VITALS: BP 106/49
--- NOTE | 2021-01-25 17:34 | NUR ---
DAMASO MEDICATION ADMINISTERED PER MD ORDER, PT TOLERATED ADMINISTRATION. PT CLEANED AND HAD A LOOSE BOWEL MOVEMENT. ALL VITAL SIGNS IN PLACE, CALL LIGHT WITHIN REACH. WILL CONTINUE TO MONITO.
--- NOTE | 2021-01-25 19:10 | NUR ---
PT HAS BEEN ENDORSED TO SPECIAL EDUCATOR NURSE IN STABLE CONDITION, POC DISCUSSED
[2021-01-25 20:00] VITALS: BP 101/51
[2021-01-25] MEDS: OLANZapine 2.5 MG TAB PO SCH (21:43)
[2021-01-26] MEDS: VANCOMYCIN 500 MG VIAL PO SCH ×5 (00:25→23:11)
[2021-01-26 04:00] VITALS: BP 110/51
[2021-01-26] MEDS: NACL 0.45% 500 ML IV SCH ×4 (04:07→18:24)
[2021-01-26] MEDS: BLOOD GLUCOSE MONITORING 1 DEV DEV FS SCH ×4 (06:15→20:17)
[2021-01-26] MEDS: INSULIN LISPRO SLIDING SCALE 100 UNITS/ML VIAL SUBQ PRN ×2 (06:19→18:04)
--- NOTE | 2021-01-26 07:30 | NUR ---
RECEIVED REPORT FROM NIGHT NURSE. WILL CONTINUE PLAN OF CARE.
--- NOTE | 2021-01-26 07:40 | NUR ---
HANDOFF WITH JULIET VELASCO. ARTURO CHAPA RN
[2021-01-26] MEDS: FLUCONAZOLE 100 MG TAB PO SCH (09:00)
[2021-01-26] MEDS: INSULIN LANTUS 100 UNITS/ML 10 ML VIAL SUBQ SCH (09:00)
[2021-01-26] MEDS: PANTOPRAZOLE 40 MG TABEC PO SCH (09:00)
[2021-01-26] MEDS: METOPROLOL 50 MG TAB PO SCH ×2 (09:00→20:32)
[2021-01-26] MEDS: QUEtiapine FUMARATE 25 MG TAB PO SCH ×2 (09:00→20:33)
[2021-01-26] MEDS: hydrALAZINE 10 MG TAB PO SCH ×3 (09:57→17:50)
[2021-01-26] MEDS: levETIRAcetam 1,000 MG in NACL 0.9% 100 ML IV SCH ×2 (09:57→20:25)
[2021-01-26] MEDS: AMIODARONE 200 MG TAB PO SCH (09:59)
--- NOTE | 2021-01-26 10:21 | NUR ---
ADMINISTERED SCHEDULED MEDICATIONS PER MD ORDER. EDUCATED PT ON MEDICATIONS MOA AND SIDE EFFECTS. PT DID NOT VERBALIZE UNDERSTANDING. IV FLUID ARE RUNNING WELL. IV SITE IS INTACT. BP IS 143/76 NV 81, PLT 200 WNL. PT IS RESTING COMFORTABLY. SAFETY PRECAUTIONS ARE IN PLACE. CALL LIGHT IS WITHIN REACH. WILL ROUND ON HER IN 1 HOUR.
--- NOTE | 2021-01-26 12:38 | NUR ---
ASSESSED BG AND IT WAS 143MG/DL. NO INSULIN COVERAGE WAS NEEDED PER SLIDING SCALE. WILL CONTINUE TO MONITOR.
--- NOTE | 2021-01-26 13:05 | NUR ---
ADMINISTERED SCHEDULED MEDICATIONS PER MD ORDER. EDUCATED PT ON MEDICATIONS MOA AND SIDE EFFECTS. PT DID NOT VERBALIZED UNDERSTANDING DUE TO THE LANGUAGE BARRIER. BP WAS 129/66 WY 67. PT IS EATING AND DOES NOT APPEAR TO BE IN ANY ACUTE DISTRESS. SAFETY PRECAUTIONS ARE IN PLACE . WILL CONTINUE TO MONITOR.
[2021-01-26 16:00] VITALS: BP 111/53
--- NOTE | 2021-01-26 18:05 | NUR ---
ADMINISTERED SCHEDULED MEDICATIONS PER MD ORDER. BG WAS 183MG/DL. ADMINISTERED 2 UNITS OF HUMALOG INSULIN. BP WAS 133/61, SD:81. EDUCATED PT ON MEDICATIONS MOA AND SIDE EFFECTS. PT UNDERSTOOD TEACHING PARTIALLY. SAFETY PRECAUTIONS ARE IN PLACE. WILL CONTINUE TO MONITOR.
--- NOTE | 2021-01-26 19:29 | NUR ---
ENDORSED PT TO NIGHT NURSE FOR CONTINUITY OF CARE. PT IS STABLE.
--- NOTE | 2021-01-26 19:43 | NUR ---
RECEIVED REPORT FROM DAYSHIFT NURSE FOR CONTINUITY OF CARE. PATIENT IN STABLE CONDITION
[2021-01-26 20:00] VITALS: BP 122/60
[2021-01-26] MEDS: OLANZapine 2.5 MG TAB PO SCH (20:33)
--- NOTE | 2021-01-26 20:35 | NUR ---
PT TRIGGERED BED ALARM, SEEN PT TRYING TO AMBULATE TO BR WITH IV LINE CAUGHT ON THE SIDE RAILS, PT CONFUSED, ASSISTED TO BR, VOIDED FREELY AND LOOSE BM WITH SMALL GREENISH BLACK STOOL, BACK TO BED, PERINEAL CARE DONE AND DIAPER APPLIED, RN SITTING AT BEDSIDE FOR SAFETY.
[2021-01-26] MEDS: HALOPERIDOL IM 5 MG/ML VIAL IM PRN (20:52)
--- NOTE | 2021-01-26 20:52 | NUR ---
GAVE PRN HALDOL IM, FOR AGITATION.
--- NOTE | 2021-01-26 21:00 | NUR ---
ALL SCHEDULED MEDICATIONS GIVEN. PT TOLERATED WELL. PT RESTING ON BED, NO SIGNS OF DISTRESS. SAFETY MEASURES IMPLEMENTED.
--- NOTE | 2021-01-27 | NUR ---
PT STILL AWAKE, RN SITTING OUTSIDE THE ROOM FOR CLOSE MONITORING, IVF INFUSING WELL, SIDE RAILS UP AND BED ALARM ON.
[2021-01-27] MEDS: NACL 0.45% 500 ML IV SCH ×5 (00:14→21:48)
[2021-01-27 04:00] VITALS: BP 137/68
--- NOTE | 2021-01-27 04:00 | NUR ---
PT SLEEPING ON AND OFF, VITAL SIGNS STABLE, NO SIGNS OF PAIN, INCONTINENT OF URINE, PERINEAL CARE DONE, DIAPER APPLIED, REPOSITIONED AND OFFLOAD PRESSURE AREAS, MONITORED CLOSELY.
[2021-01-27] MEDS: VANCOMYCIN 500 MG VIAL PO SCH ×4 (06:00→23:32)
--- NOTE | 2021-01-27 06:20 | NUR ---
PT SLEEPING, AROUSABLE, REFUSED TO TAKE DUE PO VANCOMYCIN, WILL TRY AGAIN LATER, PT WENT BACK TO SLEEP, IVF INFUSING WELL, MONITORED CLOSELY.
--- NOTE | 2021-01-27 06:30 | NUR ---
CHECKED BLOOD SUGAR, IT WAS 74. NO INSULIN COVERAGE GIVEN.
[2021-01-27] MEDS: BLOOD GLUCOSE MONITORING 1 DEV DEV FS SCH ×4 (06:31→21:48)
--- NOTE | 2021-01-27 07:16 | NUR ---
ENDORSE PATIENT TO DAY SHIFT RN FOR CONTINUITY OF CARE. PATIENT IN STABLE CONDITION.
[2021-01-27 08:00] VITALS: BP 149/75
--- NOTE | 2021-01-27 08:00 | NUR ---
RECEIVED REPORT FROM THE SLIP DUMPER FOR CONTINUITY OF CARE. INITIAL ASSESSMENT INITIATED. PATIENT ASLEEP, AROUSABLE, NOT IN ANY DISTRESS NOTED. WITH IVF ON GOING AND INFUSING WELL. ISOLATION PRECAUTION OBSERVED. CALLED LAB FOR FOLLOW UP OF C-DIFF RESULT AND SPOKE TO MARIA DOLORES. NEEDS ATTENDED, WILL CONTINUE TO MONITOR.
[2021-01-27] MEDS: hydrALAZINE 10 MG TAB PO SCH ×3 (09:37→16:55)
[2021-01-27] MEDS: METOPROLOL 50 MG TAB PO SCH ×2 (09:37→21:34)
[2021-01-27] MEDS: PANTOPRAZOLE 40 MG TABEC PO SCH (09:37)
[2021-01-27] MEDS: QUEtiapine FUMARATE 25 MG TAB PO SCH ×2 (09:38→21:35)
[2021-01-27] MEDS: AMIODARONE 200 MG TAB PO SCH (09:38)
[2021-01-27] MEDS: FLUCONAZOLE 100 MG TAB PO SCH (09:38)
[2021-01-27] MEDS: INSULIN LANTUS 100 UNITS/ML 10 ML VIAL SUBQ SCH (09:39)
[2021-01-27] MEDS: levETIRAcetam 1,000 MG in NACL 0.9% 100 ML IV SCH (09:40)
--- NOTE | 2021-01-27 09:45 | NUR ---
DUE MEDICATION GIVEN AND REFUSING IT, WILL CONTINUE TO MONITOR.
--- NOTE | 2021-01-27 10:00 | NUR ---
PATIENT IS POSITIVE FOR C-DIFF, DR. GARCIA IS AWARE. WILL CONTINUE TO MONITOR.
--- NOTE | 2021-01-27 11:30 | NUR ---
RECEIVED REPORT FROM JOSLYN FOR CONTINUITY OF CARE.
--- NOTE | 2021-01-27 11:35 | NUR ---
REPORT GIVEN TO JULIET DURON FOR CONTINUITY OF CARE.
--- NOTE | 2021-01-27 11:45 | NUR ---
PATIENT IV INFILTRATED, TRY TO INSERT ONE, PATIENT KEEP REFUSING, WILL TRY AGAIN LATER.
--- NOTE | 2021-01-27 14:36 | NUR ---
CHECKED ON PATIENT. PATIENT SLEEPING RESPIRATION EVEN UNLABORED ON ROOM AIR. NO DISTRESS NOTED. WILL CONTINUE TO MONITOR
[2021-01-27 16:00] VITALS: BP 129/66
[2021-01-27] MEDS: ACETAMINOPHEN 325 MG TAB PO PRN (16:54)
--- NOTE | 2021-01-27 16:54 | NUR ---
PT COMPLAINED OF MILD HEADACHE. PRN TYLENOL GIVEN PER ORDER. WILL CONTINUE TO MONITOR
--- NOTE | 2021-01-27 17:28 | NUR ---
TRY TO INSERT AN IV AGAIN, UNABLE TO INSERT. WILL HAVE CHARGE NURSE TO INSERT AN IV.
[2021-01-27] MEDS: INSULIN LISPRO SLIDING SCALE 100 UNITS/ML VIAL SUBQ PRN (17:31)
--- NOTE | 2021-01-27 17:45 | NUR ---
PER DR. GARCIA ITS OKAY TO CHANGE KEPPRA IV MEDICATION TO PO SINCE PATIENT DOESN'T HAVE AN IV RIGHT NOW
--- NOTE | 2021-01-27 19:30 | NUR ---
ENDORSED PATIENT TO INSURANCE SALES MANAGER NURSE FOR CONTINUITY OF CARE
--- NOTE | 2021-01-27 19:31 | NUR ---
RECEIVED PT ON BED, AAOX1, CONFUSED WITH HX OF DEMENTIA, ROMANSH AND [place] SPEAKING, NO IV SITE, DRS AWARE, PT REFUSED RE-INSERTION, SAFETY MEASURES IN PLACE WITH BED ALARM ON AND SIDE RAILS UP, MAINTAINED ON CONTACT ISOLATION FOR C-DIFF POSITIVE, FREQUENT ROUNDS WILL BE MADE AND CLOSE MONITORING.
[2021-01-27 20:00] VITALS: BP 129/60
[2021-01-27] MEDS: OLANZapine 2.5 MG TAB PO SCH (21:35)
[2021-01-27] MEDS: levETIRAcetam 500 MG TAB PO SCH (21:35)
--- NOTE | 2021-01-27 21:40 | NUR ---
DUE PO MEDS CRUSHED AND GIVEN WITH PUDDING, TOLERATED WELL, ALL NEEDS ATTENDED.
--- NOTE | 2021-01-28 01:10 | NUR ---
PT AWAKE, COMPLAINING OF BACK PAIN, MEDICATED PRN WITH TYLENOL PO, TOLERATED WELL, ABLE TO REPOSITION SELF INDEPENDENTLY, MONITORED CLOSELY.
[2021-01-28] MEDS: ACETAMINOPHEN 325 MG TAB PO PRN (01:11)
[2021-01-28] MEDS: NACL 0.45% 500 ML IV SCH ×5 (01:14→21:02)
--- NOTE | 2021-01-28 04:30 | NUR ---
PT AWAKE, VITAL SIGNS STABLE, NO SIGNS OF PAIN, INCONTINENT OF URINE AND BM WITH MODERATE LOOSE STOOL, PERINEAL CARE DONE, MONITORED CLOSELY.
[2021-01-28] MEDS: VANCOMYCIN 500 MG VIAL PO SCH (05:50)
--- NOTE | 2021-01-28 06:10 | NUR ---
DUE VANCOMYCIN GIVEN, BLOOD SUGAR CHECKED WITH 117 RESULT, NO DISTRESS NOTED, MONITORED CLOSELY.
[2021-01-28 06:55] LABS: BASOPHILS % (AUTO) 0.6 % (0.0-2.0); EOSINOPHILS % (AUTO) 0.5 % (0.0-4.0); HEMATOCRIT 24.1 % (36-48); HEMOGLOBIN 8.1 g/dL (12.0-16.0); LYMPHOCYTES # (AUTO) 1.7 K/uL (2.5-16.5); LYMPHOCYTES % (AUTO) 26.1 % (20.5-51.1); MEAN CORPUSCULAR HEMOGLOBIN 30 pg (27-31); MEAN CORPUSCULAR HGB CONC 34 g/dL (33-37); MEAN CORPUSCULAR VOLUME 90.5 fL (80-94); MONOCYTES # (AUTO) 0.5 K/uL (0.8-1.0); MONOCYTES % (AUTO) 7.2 % (1.7-9.3); NEUTROPHILS # (AUTO) 4.2 K/uL (1.8-7.7); NEUTROPHILS % (AUTO) 65.6 % (42.2-75.2); PLATELET COUNT (AUTO) 268 K/uL (140-450); RED BLOOD CELL COUNT(AUTO) 2.66 MIL/uL (4.20-5.40); RED CELL DISTRIBUTION WIDTH 14.6 % (11.6-13.7); WHITE BLOOD COUNT (AUTO) 6.5 K/uL (4.8-10.8)
[2021-01-28] MEDS: BLOOD GLUCOSE MONITORING 1 DEV DEV FS SCH ×4 (06:57→21:01)
[2021-01-28 06:58] LABS: ANION GAP 13.7 (8-16); CARBON DIOXIDE 26.9 mmol/L (21-32); CHLORIDE 107 mmol/L (98-107); CREATININE 1.2 mg/dL (0.6-1.3); GLUCOSE 138 mg/dL (74-106); POTASSIUM 3.6 mmol/L (3.5-5.1); SODIUM SERUM 144 mmol/L (136-145); UREA NITROGEN, BLOOD 15 mg/dL (7-18)
[2021-01-28 07:02] LABS: MAGNESIUM 1.5 mg/dL (1.8-2.4); PHOSPHORUS 2.7 mg/dL (2.5-4.9)
--- NOTE | 2021-01-28 07:20 | NUR ---
PT ASLEEP, NO SIGNS OF DISTRESS, REPORT GIVEN TO RN SUSAN FOR CONTINUITY OF CARE.
--- NOTE | 2021-01-28 07:21 | NUR ---
RECEIVED PT ASLEEP. NO SOB NOTED. NO SIGNS OF PAIN AT THIS TIME. BED ON LOW POSITION, CALL LIGHT WITHIN REACH, BED ALARM ON. WILL CONTINUE TO MONITOR PT.
[2021-01-28 08:00] VITALS: BP 151/73
[2021-01-28] MEDS: INSULIN LANTUS 100 UNITS/ML 10 ML VIAL SUBQ SCH (09:00)
--- NOTE | 2021-01-28 10:00 | NUR ---
RECEIVED PATIENT FROM OFFICE COORDINATOR. PATIENT IS RESTING. NO S/S OF DISTRESS. ALL SAFETY PRECAUTIONS IN PLACE.
--- NOTE | 2021-01-28 10:00 | NUR ---
PT RESTING. NO SOB NOTED. NO SIGNS OF PAIN AT THIS TIME. ENDORSED TO SONY-JULIET FOR CONTINUITY OF CARE.
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
[2021-01-28] MEDS: hydrALAZINE 10 MG TAB PO SCH ×3 (12:13→17:00)
[2021-01-28] MEDS: levETIRAcetam 500 MG TAB PO SCH ×2 (12:14→20:20)
[2021-01-28] MEDS: FLUCONAZOLE 100 MG TAB PO SCH (12:18)
[2021-01-28] MEDS: METOPROLOL 50 MG TAB PO SCH ×2 (12:19→20:21)
[2021-01-28] MEDS: PANTOPRAZOLE 40 MG TABEC PO SCH (12:19)
[2021-01-28] MEDS: AMIODARONE 200 MG TAB PO SCH (12:20)
[2021-01-28] MEDS: QUEtiapine FUMARATE 25 MG TAB PO SCH ×2 (12:20→20:21)
--- NOTE | 2021-01-28 13:00 | NUR ---
CHECKED PATIENT. PATIENT IS RESTING. ALL SAFETY PRECAUTIONS IN PLACE. WILL CONTINUE TO MONITOR.
--- NOTE | 2021-01-28 14:15 | NUR ---
CHECKED ON PATIENT. PATIENT IS STABLE. ALL SAFETY PRECAUTIONS IN PLACE. WILL CONTINUE TO MONITOR.
--- NOTE | 2021-01-28 14:37 | NUR ---
STEEL ERECTOR OTILIO ATTEMPTED TO CONTACT RESERVOIR CARETAKER MS. QUAN TITLE COORDINATOR, J[place]ICA COLLINS AT THE [facility] OFFICE . TO FIND PATIENT'S CASE # [id number] STATUS. JAMAICA COLLINS WAS NOT AVAILABLE AND ANSWER THE CALL SW LEFT HER A VOICE MAIL MGS WITH DIRECT CONTACT NUMBER. Addendum: 01/29/21 at 1734 by Amada Buitrago CM DC PLANNING RESERVOIR CARETAKER BERNABE [place] CALL BACK TO DISCUSS PATIENT'S OPEN CASE # [id number]. PER RESERVOIR CARETAKER KADEEM SHE HAS ATTEMPTED TO CONTACT SEVERAL TIMES BOTH PATIENT'S GRANDDAUGHTER CAESAR JASSO AND DAUGHTER IN LAW YOSELYN JASSO BUT HAS RECEIVED NO RESPONSE FROM NEITHER OF THEM. PER RESERVOIR CARETAKER SHE HAS COME TO [facility] AND MET WITH PATIENT HOWEVER, WAS UNABLE TO GET MUCH INFORMATION FROM HER. [facility] INFORM HER THAT SHE HAD MEET WITH DAUGHTER [place] ON 01/28/21 AND INFORM HER OF THE APS/REPORT PROCESS AND PROVIDED RESERVOIR CARETAKER NUMBER TO GET THEM LINK AND IN CONTACT. WELL PROVIDED HER WITH INFORMATION AND EXPLORE OTHER RESOURCES THEY MAY NEED TO GET PATIENT TO A SAFE DISCHARGE FROM [facility]. RESERVOIR CARETAKER KADEEM STATED THAT SHE WILL FOLLOW UP WITH SOME VISITS AND CALLS TO THE FAMILY AND WILL CALL BACK TO [facility]/ TO PROVIDE UPDATES. [facility] THANK HER FOR HER CALL BACK AND WILL ALSO INFORM HER THAT THESE SENIOR PACKAGING ENGINEER WILL BE CALLING HER BACK FOR UPDATES. SHE AGREED AND ENDED THE CALL
[2021-01-28 16:00] VITALS: BP 128/68
--- NOTE | 2021-01-28 16:30 | NUR ---
CHECKED PATIENT'S BLOOD SUGAR. BLOOD SUGAR WAS AT 294. ADMINISTERED 6 UNITS PER PRN SLIDING SCALE. WILL CONTINUE TO MONITOR.
[2021-01-28] MEDS: INSULIN LISPRO SLIDING SCALE 100 UNITS/ML VIAL SUBQ PRN (18:06)
--- NOTE | 2021-01-28 19:35 | NUR ---
RECEIVED REPORT FROM RN DAYSHIFT NURSE AT BEDSIDE FOR CONTINUITY OF CARE, PT IN STABLE CONDITION.
--- NOTE | 2021-01-28 19:50 | NUR ---
ENDORSED PATIENT TO CLASSIFICATION OFFICER RN FOR CONTINUITY OF CARE. PATIENT IS STABLE.
[2021-01-28] MEDS: OLANZapine 2.5 MG TAB PO SCH (20:22)
--- NOTE | 2021-01-28 20:30 | NUR ---
PT LYING IN BED AOX2, SKIN INTACT AND ON ROOM AIR. PT IS INCONTINENT, BUT CAN ALERT STAFF THAT SHE NEEDS TO BE CHANGED. SHE HAS NO IV ACCESS AND REFUSES TO HAVE ONE. V/S FOLLOWS: T 98.2 P 79 R 18 B/P 126/65 02 99% ON ROOM AIR. ALL FALLS PRECAUTIONS IN PLACE.
--- NOTE | 2021-01-28 20:45 | NUR ---
PT WAS TURNED, CHANGED AND REPOSITIONED IN BED. FINGERSTICK IS 139, NO COVERAGE NEEDED. PT GIVEN ORDERED KEPPRA, LOPRESSOR, SEROQUEL AND ZYPREXA WELL SQ HEPARIN. EDUCATION MEDICATION PROVIDED AT BEDSIDE. REINFORCEMENT NEEDED. CONTACT AND FALLS PRECAUTIONS IN PLACE.
--- NOTE | 2021-01-28 21:30 | NUR ---
PT WAS TURNED, CHANGED AND REPOSITIONED IN BED. ALL ORDERED PRECAUTIONS IN PLACE.
[2021-01-29] VITALS: BP 126/65
--- NOTE | 2021-01-29 01:00 | NUR ---
PT WAS TURNED, CHANGED AND REPOSITIONED IN BED. ALL ORDERED PRECAUTIONS IN PLACE.
[2021-01-29] MEDS: NACL 0.45% 500 ML IV SCH ×2 (02:14→07:14)
[2021-01-29 04:00] VITALS: BP 146/69
--- NOTE | 2021-01-29 06:00 | NUR ---
PT TURNED, CHANGED AND REPOSITIONED IN BED. FINGERSTICK IS 222, SHE WAS GIVEN 4 UNITS OF HUMALOG COVERAGE.
[2021-01-29] MEDS: INSULIN LISPRO SLIDING SCALE 100 UNITS/ML VIAL SUBQ PRN ×3 (06:50→20:45)
[2021-01-29 06:57] LABS: BASOPHILS % (AUTO) 0.5 % (0.0-2.0); EOSINOPHILS % (AUTO) 0.6 % (0.0-4.0); HEMATOCRIT 24.6 % (36-48); HEMOGLOBIN 8.2 g/dL (12.0-16.0); LYMPHOCYTES % (AUTO) 30.6 % (20.5-51.1); MEAN CORPUSCULAR HEMOGLOBIN 30 pg (27-31); MEAN CORPUSCULAR HGB CONC 33 g/dL (33-37); MEAN CORPUSCULAR VOLUME 90.5 fL (80-94); MONOCYTES # (AUTO) 0.5 K/uL (0.8-1.0); MONOCYTES % (AUTO) 7.3 % (1.7-9.3); NEUTROPHILS # (AUTO) 4.1 K/uL (1.8-7.7); PLATELET COUNT (AUTO) 275 K/uL (140-450); RED BLOOD CELL COUNT(AUTO) 2.72 MIL/uL (4.20-5.40); RED CELL DISTRIBUTION WIDTH 14.5 % (11.6-13.7); WHITE BLOOD COUNT (AUTO) 6.7 K/uL (4.8-10.8)
[2021-01-29 07:19] LABS: ANION GAP 11.3 (8-16); CARBON DIOXIDE 26.2 mmol/L (21-32); CHLORIDE 109 mmol/L (98-107); CREATININE 1.1 mg/dL (0.6-1.3); GLUCOSE 233 mg/dL (74-106); POTASSIUM 3.5 mmol/L (3.5-5.1); SODIUM SERUM 143 mmol/L (136-145); UREA NITROGEN, BLOOD 14 mg/dL (7-18)
[2021-01-29] MEDS: BLOOD GLUCOSE MONITORING 1 DEV DEV FS SCH ×4 (07:25→20:46)
--- NOTE | 2021-01-29 07:25 | NUR ---
REPORT RECEIVED FROM THE NIGHT NURSE, PT IS DNR, NKA, MENTAL STATUS ALERT X2, PUREE DIET, LAST BLOOD GLUCOSE IS 222 INSULIN COVERAGE PROVIDED. PT HAD LEFT NEPHROTIC TUBE AND PT PULL IT. BRYATN REDNESS, ON ROOM AIR, NO IV ACCESS PT KEEP PULLING THE LINES LAST NIGHT NEW ONE DID NOT PLACED. POSITIVE FOR C. DIFF PT HAS 5 DIARRHEAL EPISODES WITH NIGHT NURSE. WILL CONTINUE TO MONITOR PT AND CARRY OUT CURRENT PLAN OF CARE.
[2021-01-29 07:27] LABS: MAGNESIUM 1.5 mg/dL (1.8-2.4); PHOSPHORUS 2.4 mg/dL (2.5-4.9)
[2021-01-29] MEDS ORDERED: NACL 0.45% 1,000 ML IV SCH (07:45)
[2021-01-29 08:00] VITALS: BP 132/66
[2021-01-29] MEDS: hydrALAZINE 10 MG TAB PO SCH ×3 (09:00→17:00)
[2021-01-29] MEDS ORDERED: MAGNESIUM OXIDE 400 MG TAB PO SCH (09:10)
[2021-01-29] MEDS: METOPROLOL 50 MG TAB PO SCH ×2 (09:22→20:52)
[2021-01-29] MEDS: FLUCONAZOLE 100 MG TAB PO SCH (09:23)
[2021-01-29] MEDS: levETIRAcetam 500 MG TAB PO SCH ×2 (09:23→20:51)
[2021-01-29] MEDS: QUEtiapine FUMARATE 25 MG TAB PO SCH ×2 (09:24→20:53)
[2021-01-29] MEDS: PANTOPRAZOLE 40 MG TABEC PO SCH (09:24)
[2021-01-29] MEDS: AMIODARONE 200 MG TAB PO SCH (09:25)
[2021-01-29] MEDS: INSULIN LANTUS 100 UNITS/ML 10 ML VIAL SUBQ SCH (09:26)
--- NOTE | 2021-01-29 09:36 | NUR ---
ALL PRESCRIBED MEDICATIONS GIVEN PER MD ORDER, CRUSHED AND MIXED IN JELLO 14 UNITS OF LANTUS ADMINISTERED BLOOD GLUCOSE WAS 173. HELD HYDRALAZINE BP WAS 132/66 KS 80. ALL OTHER BP MEDICATIONS ADMINISTERED. WILL CONTINUE TO MONITOR PT FOR SIDE EFFECTS OF MEDICATIONS AND S/S OF HYPO/HYPERGLYCEMIA.
--- NOTE | 2021-01-29 11:52 | NUR ---
BLOOD GLUCOSE WAS 196, 2 UNITS OF INSULIN ADMINISTERED PER MD ORDER WILL CONTINUE TO MONITOR PT FOR S/S OF HYPO/HYPER GLYCEMIA.
[2021-01-29] MEDS ORDERED: Z-GUARD PASTE TP SCH (13:00)
--- NOTE | 2021-01-29 13:00 | NUR ---
Z GUARD ADMINISTERED ON THE BRYANT ANAL AREA DUE TO REDNESS.WILL CONTINUE TO MONITOR.
--- NOTE | 2021-01-29 13:01 | NUR ---
BP 126/68 WY 69 HELD HYDRALAZINE 10 MG. WILL CONTINUE TO MONITOR PT
[2021-01-29] MEDS: ACETAMINOPHEN 325 MG TAB PO PRN (14:46)
--- NOTE | 2021-01-29 14:52 | NUR ---
PT COMPLAIN OF GENERALIZED BODY PAIN 4/10 MEDICATED WITH TYLENOL. WILL CONTINUE TO MONITOR PT.
[2021-01-29 16:00] VITALS: BP 132/56
--- NOTE | 2021-01-29 16:19 | NUR ---
PT BLOOD GLUCOSE WAS 73 240 ML OF APPLE JUICE GIVEN WILL RECHECK BLOOD GLUCOSE AGAIN IN 15 MINUTE.
--- NOTE | 2021-01-29 17:05 | NUR ---
HYDRALAZINE 10 MG HELD PATIENT VITAL SIGNS WITHIN NORMAL LIMITS. BP 132/54 OH 72.
--- NOTE | 2021-01-29 17:25 | NUR ---
RECHECK BLOOD SUGAR 110 MG/DL NO INSULIN COVERAGE. WILL CONTINUE TO MONITOR.
--- NOTE | 2021-01-29 17:58 | NUR ---
PT IS SLEEPING IN BED COMFORTABLY DENIES PAIN
--- NOTE | 2021-01-29 19:08 | NUR ---
ENDORSE THE CONVERTIBLE POWER SHOVEL OPERATOR NURSE FOR CONTINUITY OF CARE PT IS STABLE
--- NOTE | 2021-01-29 19:45 | NUR ---
REPORT RECEIVED AT BEDSIDE.PT'S CONDITION IS STABLE.NO SIGN OF ANY DISTRESS NOTED.HAS NO IV LINE AND REFUSED TI INSERT NEW ONE.CALL LIGHT IN REACH.WILL CONT.MONITORING.
[2021-01-29 20:00] VITALS: BP 121/62
[2021-01-29] MEDS: OLANZapine 2.5 MG TAB PO SCH (20:53)
--- NOTE | 2021-01-30 00:47 | NUR ---
SLEEPING W/O ANY DISTRESS.FREQUENT ROUND DONE.
[2021-01-30 04:00] VITALS: BP 132/72
[2021-01-30] MEDS: BLOOD GLUCOSE MONITORING 1 DEV DEV FS SCH ×4 (06:53→21:40)
[2021-01-30] MEDS: INSULIN LISPRO SLIDING SCALE 100 UNITS/ML VIAL SUBQ PRN ×4 (06:54→21:37)
--- NOTE | 2021-01-30 07:00 | NUR ---
SLEPT WELL.QP=[id number].COVERD PER SLIDING SCALE.ENDORSED TO AM RN.
--- NOTE | 2021-01-30 07:25 | NUR ---
report received from night nurse pt is alert x4 denies pain and discomfort no IV access pt pulled IV multiple time. pt is in contact isolation due to positive c. diff, pt is on puree diet, has hx of dm last blood glucose 165 and insulin coverage given by night nurse. will continue current plan of care.
[2021-01-30] MEDS: levETIRAcetam 500 MG TAB PO SCH ×2 (08:42→21:42)
[2021-01-30] MEDS: AMIODARONE 200 MG TAB PO SCH (08:43)
[2021-01-30] MEDS: FLUCONAZOLE 100 MG TAB PO SCH (08:43)
[2021-01-30] MEDS: PANTOPRAZOLE 40 MG TABEC PO SCH (08:43)
[2021-01-30] MEDS: METOPROLOL 50 MG TAB PO SCH ×2 (08:44→21:41)
[2021-01-30] MEDS: hydrALAZINE 10 MG TAB PO SCH ×3 (09:00→16:47)
[2021-01-30] MEDS: INSULIN LANTUS 100 UNITS/ML 10 ML VIAL SUBQ SCH (09:00)
[2021-01-30] MEDS: QUEtiapine FUMARATE 25 MG TAB PO SCH ×2 (09:05→21:41)
--- NOTE | 2021-01-30 09:08 | NUR ---
ALL PRESCRIBED MEDICATIONS GIVEN PER MD ORDER HELD LANTUS BLOOD GLUCOSE WAS 82 DIABETIC SNACK GIVEN WILL REASSESS BLOOD GLUCOSE IN 15 MINUTE. WILL CONTINUE TO ASSESS PT FOR HYPO/HYPER GLYCEMIA.
--- NOTE | 2021-01-30 11:42 | NUR ---
PT BLOOD GLUCOSE WAS 202 4 UNITS OF INSULIN GIVEN PER MD ORDER. WILL CONTINUE TO MONITOR PT OF HYPO/HYPER GLYCEMIA
--- NOTE | 2021-01-30 13:06 | NUR ---
HYDRALAZINE 10 MG HELD CHECK VITAL SIGNS PRIOR TO MEDICATION BP 132/66 MA 76. PATIENT VITAL SIGNS ARE WITHIN NORMAL LIMITS.
[2021-01-30 16:00] VITALS: BP 131/68
--- NOTE | 2021-01-30 16:47 | NUR ---
BLOOD SUGAR 200 MG/DL INSULIN COVERAGE 2 UNITS GIVEN AND HELD HYDRALAZINE 10 MG PT VITALS SIGNS ARE WITHIN NORMAL LIMIT. WILL CONTINUE TO MONITOR.
--- NOTE | 2021-01-30 19:28 | NUR ---
ENDORSE THE CALL WORKER NURSE FOR CONTINUITY OF CARE PT IS STABLE.
--- NOTE | 2021-01-30 19:29 | NUR ---
RECEIVED REPORT FROM DAYSHIFT NURSE FOR CONTINUITY OF CARE. PT IN STABLE CONDITION.
--- NOTE | 2021-01-30 19:31 | NUR ---
ASSESSED PT'S BOWEL MOVEMENT. NOTICED A SMALL STREAK OF BLOOD ON STOOL. PROVIDER NOTIFIED.
--- NOTE | 2021-01-30 19:32 | NUR ---
ORDERED TO MONITOR HGB AND MONITOR FOR ANY WORSENING SYMPTOMS IN REGARDS OF BLOOD ON STOOL.
[2021-01-30 20:00] VITALS: BP 135/71
--- NOTE | 2021-01-30 21:30 | NUR ---
ALL SCHEDULED MEDICATIONS GIVEN. SCHEDULED BS CHECKED, IT WAS 193. GAVE 2 UNITS OF INSULIN. PT TOLERATED WELL.
[2021-01-30] MEDS: OLANZapine 2.5 MG TAB PO SCH (21:41)
--- NOTE | 2021-01-31 | NUR ---
patient resting on bed, no signs of distress. safety measures implemented. call light within reach.
[2021-01-31 04:00] VITALS: BP 141/71
[2021-01-31] MEDS: INSULIN LISPRO SLIDING SCALE 100 UNITS/ML VIAL SUBQ PRN ×4 (06:53→20:24)
[2021-01-31] MEDS: BLOOD GLUCOSE MONITORING 1 DEV DEV FS SCH ×4 (06:54→20:28)
--- NOTE | 2021-01-31 07:48 | NUR ---
ENDORSE PT TO DAY SHIFT NURSE FOR CONTINUITY OF CARE. PT STABLE CONDITION
--- NOTE | 2021-01-31 08:00 | NUR ---
RECEIVED REPORT FROM LAN ENGINEER FOR CONTINUITY OF CARE. INITIAL ASSESSMENT INITIATED. PATIENT ALERT AWAKE NOT IN ANY DISTRESS NOTED. NO IV ACCESS AT THIS TIME. DENIES PAIN. ISOLATION OBSERVED FOR POSITIVE C-DIFF.FALL RISK OBSERVED. NEEDS ATTENDED, WILL CONTINUE TO MONITOR.
[2021-01-31] MEDS: INSULIN LANTUS 100 UNITS/ML 10 ML VIAL SUBQ SCH (09:00)
--- NOTE | 2021-01-31 09:00 | NUR ---
DUE MEDS GIVEN AND TOLERATED WELL. PATIENT ASKING IF WE CAN CALL THE FAMILY TO BRING HER MEDICATION FOR HER EYES. TRIED TO CALL THE NUMBER, NO ANSWER.
[2021-01-31] MEDS: levETIRAcetam 500 MG TAB PO SCH ×2 (09:01→20:12)
[2021-01-31] MEDS: QUEtiapine FUMARATE 25 MG TAB PO SCH (09:01)
[2021-01-31] MEDS: hydrALAZINE 10 MG TAB PO SCH ×3 (09:01→17:02)
[2021-01-31] MEDS: AMIODARONE 200 MG TAB PO SCH (09:02)
[2021-01-31] MEDS: PANTOPRAZOLE 40 MG TABEC PO SCH (09:02)
[2021-01-31] MEDS: FLUCONAZOLE 100 MG TAB PO SCH (09:02)
[2021-01-31] MEDS: METOPROLOL 50 MG TAB PO SCH ×2 (09:03→20:12)
[2021-01-31 10:01] LABS: BASOPHILS # (AUTO) 0.1 K/uL (0.00-0.22); BASOPHILS % (AUTO) 1.1 % (0.0-2.0); EOSINOPHILS % (AUTO) 0.2 % (0.0-4.0); HEMATOCRIT 26.3 % (36-48); HEMOGLOBIN 8.6 g/dL (12.0-16.0); LYMPHOCYTES # (AUTO) 1.8 K/uL (2.5-16.5); LYMPHOCYTES % (AUTO) 27.7 % (20.5-51.1); MEAN CORPUSCULAR HEMOGLOBIN 30 pg (27-31); MEAN CORPUSCULAR HGB CONC 33 g/dL (33-37); MEAN CORPUSCULAR VOLUME 91.2 fL (80-94); MONOCYTES # (AUTO) 0.4 K/uL (0.8-1.0); MONOCYTES % (AUTO) 6.5 % (1.7-9.3); NEUTROPHILS # (AUTO) 4.2 K/uL (1.8-7.7); NEUTROPHILS % (AUTO) 64.5 % (42.2-75.2); PLATELET COUNT (AUTO) 184 K/uL (140-450); RED BLOOD CELL COUNT(AUTO) 2.88 MIL/uL (4.20-5.40); RED CELL DISTRIBUTION WIDTH 15.3 % (11.6-13.7); WHITE BLOOD COUNT (AUTO) 6.6 K/uL (4.8-10.8)
[2021-01-31 10:13] LABS: ANION GAP 9.6 (8-16); CARBON DIOXIDE 28.1 mmol/L (21-32); CHLORIDE 106 mmol/L (98-107); GLUCOSE 159 mg/dL (74-106); POTASSIUM 3.7 mmol/L (3.5-5.1); SODIUM SERUM 140 mmol/L (136-145); UREA NITROGEN, BLOOD 17 mg/dL (7-18)
[2021-01-31 10:43] LABS: MAGNESIUM 1.4 mg/dL (1.8-2.4); PHOSPHORUS 3.1 mg/dL (2.5-4.9)
[2021-01-31] MEDS: MAGNESIUM OXIDE 400 MG TAB PO PRN (11:14)
--- NOTE | 2021-01-31 14:49 | NUR ---
RESTING IN BED, DENIES PAIN. IN STABLE CONDITION.
[2021-01-31 18:00] VITALS: BP 152/67
--- NOTE | 2021-01-31 19:00 | NUR ---
REPORT GIVEN TO JULIET REID FOR CONTINUITY OF CARE.PATIENT IN STABLE CONDITION.
--- NOTE | 2021-01-31 19:24 | NUR ---
RECEIVED REPORT FROM DAYSHIFT NURSE FOR CONTINUITY OF CARE. PATIENT RESTING ON BED, STABLE CONDITION.
[2021-01-31 20:00] VITALS: BP 139/70
[2021-01-31] MEDS: OLANZapine 2.5 MG TAB PO SCH (20:13)
--- NOTE | 2021-01-31 20:28 | NUR ---
PT ON ROOM AIR, NO SIGNS DISTRESS. ALL SCHEDULED MEDICATIONS GIVEN. PT TOLERATED WELL. SCHEDULED BS CHECKED. IT WAS 175, GAVE 2 UNITS OF INSULIN. SAFETY MEASURES IMPLEMENTED.
--- NOTE | 2021-02-01 | NUR ---
PATIENT RESTING ON BED, NO SIGNS OF DISTRESS, ON ROOM AIR. SAFETY MEASURES IMPLEMENTED. CALL LIGHT WITHIN REACH.
--- NOTE | 2021-02-01 02:00 | NUR ---
PATIENT ASLEEP, NO SIGNS OF DISTRESS, ON ROOM AIR. SAFETY MEASURES IMPLEMENTED. CALL LIGHT WITHIN REACH.
[2021-02-01 04:00] VITALS: BP 147/66
--- NOTE | 2021-02-01 04:00 | NUR ---
PATIENT RESTING ON BED. NO SIGNS OF DISTRESS, ON ROOM AIR. SAFETY MEASURES IMPLEMENTED.
[2021-02-01] MEDS: INSULIN LISPRO SLIDING SCALE 100 UNITS/ML VIAL SUBQ PRN ×3 (06:54→21:17)
[2021-02-01] MEDS: BLOOD GLUCOSE MONITORING 1 DEV DEV FS SCH ×4 (06:55→21:19)
--- NOTE | 2021-02-01 06:56 | NUR ---
BS CHECKED. IT WAS 164, GAVE 2 UNITS OF INSULIN. PT TOLERATED WELL.
--- NOTE | 2021-02-01 07:25 | NUR ---
report received from night nurse pt is alert x4 denies pain and discomfort no IV access . pt is in contact isolation due to positive c. diff, pt is on puree diet, PT PULLED NEPHROSTOMY . will continue current plan of care. SAFETY MEASURE ON PLACE, CALLS LIGHT WITHIN REACH
--- NOTE | 2021-02-01 07:30 | NUR ---
ENDORSE PT TO DAY SHIFT NURSE FOR CONTINUITY OF CARE. PT ON STABLE CONDITION.
--- NOTE | 2021-02-01 09:15 | NUR ---
Patient resting in bed, awake, no signs of distress, respirations even & nonlabored in room air. no complains, safety measures on place, calls light within reach
[2021-02-01] MEDS: METOPROLOL 50 MG TAB PO SCH ×2 (10:20→21:09)
[2021-02-01] MEDS: levETIRAcetam 500 MG TAB PO SCH ×2 (10:21→21:08)
[2021-02-01] MEDS: AMIODARONE 200 MG TAB PO SCH (10:22)
[2021-02-01] MEDS: PANTOPRAZOLE 40 MG TABEC PO SCH (10:23)
[2021-02-01] MEDS: hydrALAZINE 10 MG TAB PO SCH ×3 (10:24→17:27)
[2021-02-01] MEDS: INSULIN LANTUS 100 UNITS/ML 10 ML VIAL SUBQ SCH (10:27)
--- NOTE | 2021-02-01 10:30 | NUR ---
Patient resting in bed, awake, no signs of distress, respirations even & nonlabored in room air. got medicated as order, tolerated Meds well, nephrostomy site dressing change. safety measures on place, calls light within reach
--- NOTE | 2021-02-01 11:33 | NUR ---
DC PLANNING PRODUCTION SHIFT SUPERVISOR PLACE A CALL TO KALYN SARAH AT ABOUT 09:15 AT SPOKE TO DEPUTY Royce MENDOZA IN REQUEST FOR A WELFARE CHECK TO PATIENT'S DAUGHTER [place] Y[place] JASSO. WHO HAS NOT CONTACTED [facility]O SHE STATED SHE WOULD ON 01/28/21 TO DISCUSS A PLAN FOR DISCHARGE FOR PATIENT AFTER SHE TALK TO APS/ADJUNCT SOCIOLOGY PROFESSOR SATYA QUAN ON ELDERLY ABANDONMENT CASE. DEPUTY MENDOZA GATHER THE INFORMATION PROVIDED BY MILO AND AGREED TO FOLLOW UP WITH A CALL TO [facility] TO PROVIDE AN UPDATE. Addendum: 02/04/21 at 7694 by Amada Buitrago CM LATE ENTRY OF 02/01/21 PATIENT'S DAUGHTER [place]ASS[place] MET WITH [facility] STATING THAT Elmo GOT IN CONTACT WITH HER DUE TO ABANDONMENT REPORT. MILO EXPLAINED TO MRS. JASSO THAT IS CONSIDERED ABANDONMENT WHEN ELDERLY PATIENT IS LEFT IN THE HOSPITAL AND NO VISITING TAKES PLACE FOR DAYS FROM THE FAMILY OR RESPONSIBLE DEMOCRAT IN THIS CASE SHE AND HER DAUGHTER NICOLAS ARE LISTED HER FAMILY CONTACT. MILO ALSO EXPLAINED TO MRS JASSO THAT PATIENT HAS BEEN IN THE HOSPITAL FOR OVER A MONTH NOW WITH CLEARANCE FOR DC BUT HOWEVER SHE AND DAUGHTER ARE REFUSING TO TAKE HOME AT DISCHARGE. MILO INFORMED TO MRS. YOSELYN JASSO THAT MANY ATTEMPTS HAVE BEEN MADE BY THE HOSPITAL TO PLACE PATIENT HOWEVER, THERE IS NO PLACE OF ACCEPTANCE DUE TO PATIENT'S IMMIGRATION STATUS AND LIMITED EMERGENCY MEDICAL IS NOT ACCEPTED IN ANY SNF. PER MRS. JASOS SHE IS UNABLE TO TAKE HER DUE TO ALL HER FINANCIAL PROBLEMS AND STATED THAT SHE HAS NOT RECEIVED ANY CALLS FROM APS WORKER BERNABE QUAN . MILO WROTE APS/ADJUNCT SOCIOLOGY PROFESSOR CONTACT NUMBER AND HANDED TO MRS. YOSELYN JASSO IN A PIECE OF PAPER. SHE STATED THAT WILL TALK TO APS/WORKER AND WILL CONTACT HER ON Thursday02/04/21 FOR UPDATE. MILO AGREED AND WILL FOLLOW UP WITH APS/ADJUNCT SOCIOLOGY PROFESSOR FOR AN UPDATE. MILO ATTEMPTED TO CALL ADJUNCT SOCIOLOGY PROFESSOR/APS ASSIGNED TO THE CASE MS. SATYA QUAN TO DISCUSS AND GET AN UPDATED STATUS ON THE CASE. ADJUNCT SOCIOLOGY PROFESSOR DID NOT ANSWER THE CALL. MILO YAÑEZ LEFT HER A VOICE MGS TO CALL BACK AT DIRECT CONTACT NUMBER LEFT IN VOICE MAIL.
--- NOTE | 2021-02-01 12:16 | NUR ---
PATIENT AWAKE. PATIENT SITTING UP IN BED. COMPUTER NUMERICAL CONTROL MACHINIST AIDING PATIENT WITH FEEDING LUNCH. ALL SAFETY MEASURES IN PLACE. CALL LIGHT WITHIN REACH. WILL CONTINUE TO MONITOR.
--- NOTE | 2021-02-01 13:08 | NUR ---
PATIENT AWAKE. NO ACUTE DISTRESS NOTED. PATIENT ON ROOM AIR. BP 135 /63, HR 81, SCHEDULED MEDICATION GIVEN. ALL SAFETY MEASURES IN PLACE. CALL LIGHT WITHIN REACH. WILL CONTINUE TO MONITOR.
--- NOTE | 2021-02-01 15:04 | NUR ---
PATIENT SITTING UP IN BED. NO ACUTE DISTRESS NOTED. DRESSING TO LEFT LOWER BACK CHANGED DUE TO BE SATURATED AND PATIENT COMPLAIN OF FEELING WET. ALL SAFETY MEASURES IN PLACE. CALL LIGHT WITH REACH. WILL CONTINUE TO MONITOR.
[2021-02-01 16:00] VITALS: BP 141/43
--- NOTE | 2021-02-01 16:54 | NUR ---
PT ON BED CONFUSED TRIED MULTIPLE TIMES TO GET OUT OF BED, INSTRUCTED NOT TO, WILL KEEP MONITORING. SAFETY MEASURES ON PLACE , CALLS LIGHT WITHIN REACH
--- NOTE | 2021-02-01 18:10 | NUR ---
PATIENT AWAKE. BREATHING EVEN AND UNLABORED. PUMP HOUSE OPERATOR AT BEDSIDE ASSISTING PATIENT. ALL SAFETY MEASURES IN PLACE. CALL LIGHT WITHIN REACH. WILL CONTINUE TO MONITOR.
--- NOTE | 2021-02-01 19:05 | NUR ---
ENDORSED TO SPRAY PAINTING MACHINE OPERATOR NURSE FOR CONTINUITY OF CARE. PATIENT STABLE. ALL SAFETY MEASURES IN PLACE. CALL LIGHT WITHIN REACH.
--- NOTE | 2021-02-01 19:30 | NUR ---
RECEIVED BEDSIDE ENDORSEMENT FROM AM SHIFT RN, SAFETY MEASURES IN PLACE, FALL PRECAUTIONS IN PLACE AND CONTACT PRECAUTIONS - CDIFF, A&O X3, DNR, NO SIGNS OF DISTRESS, NO IV SITE, WILL CONTINUE TO MONITOR, AND NOTIFY MD NEEDED.
[2021-02-01] MEDS: OLANZapine 2.5 MG TAB PO SCH (21:09)
--- NOTE | 2021-02-01 21:10 | NUR ---
BLOOD GLUCOSE FINGER STICK, BS 180, GAVE 2 UNITS PER SLIDING SCALE, GAVE SCHEDULED MEDS, PROVIDED MEDICATION EDUCATION, PROVIDED TOILETING, SAFETY MEASURES IN PLACE, WILL CONTINUE TO MONITOR.
[2021-02-02] VITALS: BP 117/42
--- NOTE | 2021-02-02 | NUR ---
ROUNDS DONE, PT IN BED SLEEPING NO S/S OF PAIN OR DISTRESS NOTED, ALL ORDERED PRECAUTIONS IN PLACE.
--- NOTE | 2021-02-02 02:32 | NUR ---
PATIENT IS KEPT COMFORTABLE, NO SIGNS OF DISTRESS, SAFETY MEASURES IN PLACE, CHEST RISE AND FALL, WILL CONTINUE TO MONITOR.
--- NOTE | 2021-02-02 06:30 | NUR ---
FINGERSTICK IS 76, NO HUMALOG COVERAGE NEEDED, GIVEN APPLE JUICE TO INCREASE BLOOD SUGAR.
[2021-02-02] MEDS: BLOOD GLUCOSE MONITORING 1 DEV DEV FS SCH ×4 (06:34→21:00)
[2021-02-02 08:00] VITALS: BP 119/64
--- NOTE | 2021-02-02 08:06 | NUR ---
(02/02/21) RD FOLLOW UP COMPLETED PLEASE REFER TO NUTRITION PROGRESS NOTE UNDER CARE ACTIVITY FOR ESTIMATED NUTRITION NEEDS. RD RECOMMENDATIONS: 1. CONTINUE PUREE CCHO 45 GM TOLERATED 2. CONTINUE GLUCERNA BID TOLERATED 3. CONTINUE PROVIDING ASSISTANCE WITH MEALS AND ENCOURAGE PO INTAKE GREATER THAN 75% 4. FNS WILL PROVIDE GELATO THRIVE BID. THIS WILL PROVIDE AN ADDITIONAL 520 KCAL AND [address] TO FOLLOW-UP 5-7 DAYS, LOW RISK ANGELA LARSON MS, RDN
[2021-02-02] MEDS: hydrALAZINE 10 MG TAB PO SCH ×3 (13:20→18:30)
[2021-02-02] MEDS: METOPROLOL 50 MG TAB PO SCH ×2 (13:21→22:25)
[2021-02-02] MEDS: MAGNESIUM OXIDE 400 MG TAB PO PRN (13:22)
[2021-02-02] MEDS: AMIODARONE 200 MG TAB PO SCH (13:23)
[2021-02-02] MEDS: levETIRAcetam 500 MG TAB PO SCH ×2 (13:23→22:25)
[2021-02-02] MEDS: PANTOPRAZOLE 40 MG TABEC PO SCH (13:24)
[2021-02-02] MEDS: INSULIN LANTUS 100 UNITS/ML 10 ML VIAL SUBQ SCH (14:24)
[2021-02-02] MEDS: INSULIN LISPRO SLIDING SCALE 100 UNITS/ML VIAL SUBQ PRN ×2 (14:26→18:32)
[2021-02-02 16:00] VITALS: BP 113/65
--- NOTE | 2021-02-02 17:45 | NUR ---
REPORT RECEIVED FROM MILTON CHUNG. PT RESTING IN BED. NO COMPLAINTS AT THIS TIME. WILL CONTINUE TO MONITOR PATIENT.
--- NOTE | 2021-02-02 18:30 | NUR ---
BLOOD SUGAR 237, COVERAGE GIVEN. SCHEDULED HYDRALAZINE GIVEN. PATIENT TOLERATED IT WELL. NO COMPLAINTS AT THIS TIME.
--- NOTE | 2021-02-02 19:20 | NUR ---
REPORT GIVEN TO CELL STRIPPER NURSE AT BEDSIDE FOR CONTINUITY OF CARE. PATIENT RESTING IN BED.
--- NOTE | 2021-02-02 19:21 | NUR ---
RECD. RESTING IN BED, AWAKE, A/OX2. RESPIRATION EVEN AND UNLABORED. NO IV LINE, PT REFUSING IV INSERTION. ABLE TO VERBALIZED NEEDS, AMBULATORY TO THE BR. NO NEPHROSTOMY TUBE, SITE COVERED WITH DRESSING, DRAINING GEORGE COLORED FLUID. SAFETY MEASURES ENFORCED. SIDE RAILS WITH PADS FOR SEIZURE PRECAUTION. DENIES PAIN 0/10.
--- NOTE | 2021-02-02 19:21 | NUR ---
Patient's Plan of Care was discussed and reviewed with UNIVERSITY INTERN: ROBIN. CALL LIGHT WITHIN REACH. WILL CONTINUE TO MONITOR
--- NOTE | 2021-02-02 19:30 | NUR ---
PUREE FOOD AT THE BEDSIDE, NOT EATEN BY THE PATIENT, STATED "I WANT HAMBURGER." REORIENTED TO HOSPITAL SETTING. OFFERED PUDDING AND JELLO, ATE TWO SPOONFULS OF JELLO AND REFUSED TO EAT MORE.
--- NOTE | 2021-02-02 20:30 | NUR ---
SHOWED NURSE HER UNDERWEAR WITH DRIED BLOOD, SIZE OF TWENTY FIVE CENTS. CLEANSED AND ASSISTED TO CHANGE UNDERWEAR. NEPHROSTOMY TUBE DRESSING CHANGED, APPLIED ABDOMINAL PADS TO ABSORBED FLUIDS.
[2021-02-02] MEDS: OLANZapine 2.5 MG TAB PO SCH (22:24)
--- NOTE | 2021-02-02 22:40 | NUR ---
REFUSED HEPARIN, EXPLAINED ITS IMPORTANCE BUT STILL REFUSED.
[2021-02-03] VITALS: BP 142/66
--- NOTE | 2021-02-03 | NUR ---
SLEEPING COMFORTABLY IN BED.
--- NOTE | 2021-02-03 02:00 | NUR ---
SLEEPING ON HER RIGHT SIDE, RESPIRATION EVEN AND UNLABORED.
--- NOTE | 2021-02-03 04:00 | NUR ---
STILL SLEEPING COMFORTABLY IN BED.
--- NOTE | 2021-02-03 06:00 | NUR ---
ABLE TO SLEEP WELL. CONDITION REMAIN STABLE.
--- NOTE | 2021-02-03 07:10 | NUR ---
ENDORSED TO AM SHIFT NURSE FOR CONTINUITY OF CARE.
[2021-02-03] MEDS: BLOOD GLUCOSE MONITORING 1 DEV DEV FS SCH ×4 (07:58→21:11)
[2021-02-03 08:00] VITALS: BP 121/44
[2021-02-03] MEDS: METOPROLOL 50 MG TAB PO SCH ×2 (09:41→21:10)
[2021-02-03] MEDS: AMIODARONE 200 MG TAB PO SCH (09:42)
[2021-02-03] MEDS: hydrALAZINE 10 MG TAB PO SCH ×3 (09:43→17:29)
[2021-02-03] MEDS: levETIRAcetam 500 MG TAB PO SCH ×2 (09:50→21:09)
[2021-02-03] MEDS: PANTOPRAZOLE 40 MG TABEC PO SCH (09:51)
[2021-02-03] MEDS: INSULIN LANTUS 100 UNITS/ML 10 ML VIAL SUBQ SCH (10:52)
[2021-02-03] MEDS: INSULIN LISPRO SLIDING SCALE 100 UNITS/ML VIAL SUBQ PRN ×3 (12:19→21:18)
[2021-02-03] MEDS: ACETAMINOPHEN 325 MG TAB PO PRN ×2 (14:04→21:19)
[2021-02-03 16:00] VITALS: BP 133/55
--- NOTE | 2021-02-03 19:15 | NUR ---
RECD. REPORT FROM JULIET VALDES. PATIENT RESTING IN BED, AWAKE, A/OX2. REORIENTED TO HOSPITAL SETTING. RESPIRATION EVEN AND UNLABORED. AMBULATORY TO THE BR. SAFETY MEASURES ENFORCED. LEFT NEPHROSTOMY TUBE SITE WITH MINIMAL AMOUNT OF CLEAR LIQUID DRAIN. COVERED WITH GAUZED AND APPLIED DRESSING. DENIES PAIN 0/10.
--- NOTE | 2021-02-03 20:00 | NUR ---
CHANGED PATIENT'S GOWN AND PUT ON NEW UNDERWEAR AND SOCKS. CHANGED BEDDINGS. MADE PATIENT COMFORTABLE IN BED.
--- NOTE | 2021-02-03 21:19 | NUR ---
SCHEDULED MEDICATIONS GIVEN. COMPLAINT OF HEADACHE, MEDICATED WITH TYLENOL PER MD ORDER.
--- NOTE | 2021-02-03 21:57 | NUR ---
Patient's Plan of Care was discussed and reviewed with DINING ROOM HOST/HOSTESS: ROBIN STAPLETON
--- NOTE | 2021-02-03 22:30 | NUR ---
SLEEPING ON HER RIGHT SIDE IN BED.
[2021-02-04] VITALS: BP 123/65
--- NOTE | 2021-02-04 | NUR ---
STILL SLEEPING COMFORTABLY IN BED.
--- NOTE | 2021-02-04 01:00 | NUR ---
WOKE UP, REPEATING "AGUA, AGUA". CHANGED WET BLANKETS AND PUT ON WARM BLANKET. WENT BACK TO SLEEP.
--- NOTE | 2021-02-04 03:00 | NUR ---
SLEEPING COMFORTABLY IN BED. RESPIRATION EVEN AND UNLABORED.
--- NOTE | 2021-02-04 05:30 | NUR ---
CLEANSED AND DIAPER CHANGED DONE. MADE COMFORTABLE IN BED.
--- NOTE | 2021-02-04 07:10 | NUR ---
CONDITION REMAIN STABLE. ENDORSED TO AM NURSE FOR CONTINUITY OF CARE.
[2021-02-04] MEDS: BLOOD GLUCOSE MONITORING 1 DEV DEV FS SCH ×4 (07:34→20:24)
[2021-02-04 08:00] VITALS: BP 129/62
--- NOTE | 2021-02-04 08:22 | NUR ---
PT REFUSED MORNING LABS, DR GARSIA NOTIFIED. WILL CONTINUE TO MONITOR.
[2021-02-04] MEDS: hydrALAZINE 10 MG TAB PO SCH ×3 (09:00→17:00)
[2021-02-04] MEDS ORDERED: PANTOPRAZOLE 40 MG TABEC PO SCH (09:00)
[2021-02-04] MEDS: PANTOPRAZOLE 40 MG TABEC PO SCH (09:00)
[2021-02-04] MEDS: AMIODARONE 200 MG TAB PO SCH (09:00)
[2021-02-04] MEDS: INSULIN LANTUS 100 UNITS/ML 10 ML VIAL SUBQ SCH (09:56)
[2021-02-04] MEDS: levETIRAcetam 500 MG TAB PO SCH ×2 (09:57→20:12)
--- NOTE | 2021-02-04 09:58 | NUR ---
PATIENT REFUSED PO MEDICATIONS, SHE TOOK 1 PILL OF KEPPRA THEN REFUSED THE REST OF MEDICATIONS. WILL CONTINUE TO MONITOR.
[2021-02-04] MEDS: INSULIN LISPRO SLIDING SCALE 100 UNITS/ML VIAL SUBQ PRN (12:46)
--- NOTE | 2021-02-04 12:46 | NUR ---
DUE MEDICATIONS ADMINISTERED, PT TOLERATED WELL, NO DISTRESS NOTED, WILL CONTINUE TO MONITOR.
[2021-02-04 16:00] VITALS: BP 155/73
--- NOTE | 2021-02-04 17:09 | NUR ---
PATIENT REFUSED HYDRALAZINE PO, STATED DOES NOT WANT TO TAKE THE PILLS, TRIED TO EXPLAIN TO PATIENT REGARDING MEDICATION, TRIBAL JUDGE ALIYAH ALSO AT BEDSIDE TELLING PATIENT IN HEBREW TO TAKE MEDICATION, PT TOOK 1 PILL AND REFUSED THE REST.
--- NOTE | 2021-02-04 17:15 | NUR ---
RESIDENTIAL REAL ESTATE SALES MANAGER/APS SATYA QUAN CALLED [facility]/ TO PROVIDE UPDATE ON STATUS ON CASE. PER APS/RESIDENTIAL REAL ESTATE SALES MANAGER SHE HAS SPOKE TO BOTH PATIENT'S DAUGHTER [place] Y[place] JASSO AND GRANDDAUGHTER NICOLAS JASSO AT AND BOTH STATED THAT THEY ARE NOW LOOKING FOR PLACEMENT FOR THE PATIENT AND DUE TO THEIR EFFORTS CASE WITH APS WILL BE CLOSING. [facility] CLARIFY WITH APS/RESIDENTIAL REAL ESTATE SALES MANAGER THAT NEITHER OF THE FAMILY MEMBERS ARE LOOKING FOR PLACEMENT INSTEAD THEY ARE TELLING THE HOSPITAL THAT THEY CAN'T CARE FOR PATIENT AND LEAVING IT TO APS AND HOSPITAL TO FIND PLACEMENT OR DECIDE WHAT TO DO WITH PATIENT. MRS. BERNABE QUAN STATED THAT APS IS NOT ABLE TO DO ANYTHING IN THE CASE AND ADVISED [facility]/ TO SEND PATIENT'S CASE TO LEGAL DEPARTMENT DUE TO APS BEEN UNABLE TO DO ANYTHING IN THE CASE. REQUESTED TO HAVE APS/RESIDENTIAL REAL ESTATE SALES MANAGER NEW CAR MAKE READY MECHANIC CONTACT MRS. ABHILASH ACOSTA APS SOCIAL WORKERS NEW CAR MAKE READY MECHANIC AT . APS WAS ANGRY FOR THE REQUEST STATING " IM TELLING YOU THERE IS NOTHING THAT CAN BE DONE" AFTER NUMBER WAS PROVIDED THANK HER AND ENDED THE CALL.
--- NOTE | 2021-02-04 18:58 | NUR ---
PT WAS SEEN FOR DYSPHAGIA. PT WAS ABLE TO SAFELY SWALLOW MS DIET WITH THIN LIQUID WITHOUT S/S OF ASPIRATION. RECOMMENDATION MS DIET WITH THIN LIQUID
--- NOTE | 2021-02-04 19:23 | NUR ---
ENDORSED PT TO DIRECTOR ASSET NURSE BERENICE CHUNG FOR CONTINUOUS OF CARE.
--- NOTE | 2021-02-04 19:30 | NUR ---
RECEIVED REPORT AT BEDSIDE FOR CONTINUITY OF CARE. PT IN BED, IN STABLE CONDITION.
[2021-02-04 20:00] VITALS: BP 129/53
--- NOTE | 2021-02-04 20:00 | NUR ---
PT WAS TURNED, CHANGED AND REPOSITIONED IN BED, LINENS CHANGED V/S FOLLOWS: T 99.5 P 95 R 20 B/P 129/53 02 97% ON ROOM AIR. ALL FALLS PRECAUTIONS IN PLACE.
--- NOTE | 2021-02-04 21:30 | NUR ---
PT WAS GIVEN ORDERED KEPPRA, TEACHING GIVEN AT BEDSIDE, PT UNABLE TO EXPRESS COMPREHENSION, PT WAS ALSO GIVEN SQ HEPARIN PT UNABLE TO UNDERSTAND MEDICATION TEACHING. PLATES 184. PT FINGERSTICK IS 109, NO HUMALOG COVERAGE NEEDED. ALL ORDERED PRECAUTIONS IN PLACE.
--- NOTE | 2021-02-05 00:30 | NUR ---
PT WAS TURNED, CHANGED AND REPOSITIONED IN BED. DRESSING TO LOWER LEFT ABDOMEN WAS REPLACED BECAUSE IT WAS WET. STITCHES INTACT. ALL FALLS PRECAUTIONS IN PLACE.
[2021-02-05] MEDS: ACETAMINOPHEN 325 MG TAB PO PRN ×2 (01:40→15:58)
--- NOTE | 2021-02-05 01:40 | NUR ---
PT C/O HEADACHE, SHE WAS GIVEN 650MG TYLENOL, BUT ONLY WANTED TO TAKE 1 PILL. PT WAS GIVEN 325MG TYLENOL. WILL MONITOR FOR EFFECT.
--- NOTE | 2021-02-05 04:00 | NUR ---
PT IN BED, SHE WAS TURNED CHANGED AND REPOSITIONED NI BED. PT AMBULATED TO TOILET AND BACK WITH STANDBY ASSISTANCE. V/S FOLLOWS: T 97.9 P 94 R 20 B/P 154/71 02 99% ON ROOM AIR. ALL ORDERED PRECAUTIONS IN PLACE.
--- NOTE | 2021-02-05 06:30 | NUR ---
FINGERSTICK IS 98 NO HUMALOG COVERAGE REQUIRED. PT IN BED RESTING, NO C/O VOICED ALL ORDERED PRECAUTIONS IN PLACE.
--- NOTE | 2021-02-05 07:30 | NUR ---
RECEIVED BEDSIDE REPORT FROM JULIET NG FOR CONTINUOUS OF CARE, PT SLEEPING, NO DISTRESS NOTED, PT ON ROOM AIR, NO SOB NOTED, INITIAL ASSESSMENT DONE, ALL SAFETY PRECAUTION MET, CALL LIGHT WITHIN REACH, WILL CONTINUE TO MONITOR.
[2021-02-05] MEDS: BLOOD GLUCOSE MONITORING 1 DEV DEV FS SCH ×4 (07:36→21:00)
[2021-02-05 08:00] VITALS: BP 144/71
[2021-02-05] MEDS: PANTOPRAZOLE 40 MG TABEC PO SCH (08:56)
[2021-02-05] MEDS: AMIODARONE 200 MG TAB PO SCH (08:58)
--- NOTE | 2021-02-05 08:58 | NUR ---
DUE MEDICATION ADMINISTERED, PT REFUSED TO TAKE ALL MEDICATIONS, WILL TRY AGAIN LATER.
[2021-02-05] MEDS: hydrALAZINE 10 MG TAB PO SCH ×3 (09:00→17:00)
[2021-02-05] MEDS: INSULIN LANTUS 100 UNITS/ML 10 ML VIAL SUBQ SCH (09:00)
[2021-02-05] MEDS: levETIRAcetam 500 MG TAB PO SCH ×2 (09:55→23:07)
--- NOTE | 2021-02-05 09:55 | NUR ---
PT TOOK KEPPRA BUT REFUSED HYDRALAZINE, PT RESTING, NO DISTRESS NOTED, WILL CONTINUE TO MONITOR.
[2021-02-05] MEDS: INSULIN LISPRO SLIDING SCALE 100 UNITS/ML VIAL SUBQ PRN ×3 (12:25→22:59)
--- NOTE | 2021-02-05 12:32 | NUR ---
MEDICATION ADMINISTERED, PT TOLERATED WELL, NO DISTRESS NOTED, WILL CONTINUE TO MONITOR.
[2021-02-05] MEDS ORDERED: LORazepam 0.5 MG TAB ONE (15:25)
[2021-02-05] MEDS: LORazepam 0.5 MG TAB PO PRN (15:35)
--- NOTE | 2021-02-05 15:35 | NUR ---
PT STATED FEELING ANXIOUS, PER DR GARSIA TO GIVE PT 0.5MG ATIVAN, MEDICATION ADMINISTERED, WILL CONTINUE TO MONITOR.
--- NOTE | 2021-02-05 15:55 | NUR ---
PT STATED HAVING HEADACHE, TYLENOL ORDERED GIVEN, WILL CONTINUE TO MONITOR.
[2021-02-05 16:00] VITALS: BP 129/72
--- NOTE | 2021-02-05 19:30 | NUR ---
ENDORSED PT TO FISHERIES INSPECTOR NURSE ROBIN PEREZ, FOR CONTINUOUS OF CARE.
--- NOTE | 2021-02-05 19:31 | NUR ---
RECD. RESTING IN BED, AWAKE, A/OX2. RESPIRATION EVEN AND UNLABORED. SAFETY MEASURES ENFORCED, SIDE RAILS WITH PADS. BED IN THE LOWEST POSITION. ABLE TO AMBULATE BY HERSELF TO THE BR, GAIT STEADY. MEDICATIONS FOR THE NIGHT DISCUSSED WITH PATIENT. NEEDS REINFORCEMENT. DENIES PAIN 0/10.
--- NOTE | 2021-02-05 20:00 | NUR ---
Patient's Plan of Care was discussed and reviewed with ONLINE MERCHANT: ROBIN STAPLETON
--- NOTE | 2021-02-05 20:30 | NUR ---
COMPLAINED OF WET BEDDINGS, BRADY CHUNG CHNAGED BEDDINGS.
--- NOTE | 2021-02-05 21:20 | NUR ---
SALES FORCE DEVELOPER OF ZOE SAHU CAME AND INQUIRED ABOUT PATIENT REGARDING REPORT THAT PATIENT IS BEING NEGLECTED BY FAMILY. GIVE REPORT OF HOW PATIENT IS DOING AT PRESENT AND INFORMED SALES FORCE DEVELOPER PATIENT DAUGHTER IN LAW YOSELYN CAME THIS MORNING PER AM NURSE REPORT. POLICE OFFICE CALLED YOSELYN AND HAD SOME DISCUSSION IN BULGARIAN REGARDING PATIENT.
--- NOTE | 2021-02-05 22:25 | NUR ---
RADIO FREQUENCY DESIGN ENGINEER LEFT THE HOSPITAL AFTER LOOKING AT THE NEW MEDICAL INSURANCE PAPERS IN THE CHART.
--- NOTE | 2021-02-05 22:30 | NUR ---
PATIENT COMPLAINT OF BEING WET. PUT ON NEW GAUZE DRESSING FOR THE LEFT NEPHROSTOMY TUBE SITE DRINAING GEORGE COLORED FLUID. MADE COMFORTABLE IN BED WITH WARM BLANKETS.
[2021-02-06] VITALS: BP 121/61
--- NOTE | 2021-02-06 00:30 | NUR ---
SLEEPING COMFORTABLY IN BED.
--- NOTE | 2021-02-06 02:30 | NUR ---
CHANGED GOWN WITH SOME PORTION WET. BACK TO SLEEP AFTER CHANGING GOWN.
--- NOTE | 2021-02-06 04:00 | NUR ---
ON HER LEFT SIDE SLEEPING COMFORTABLY.
--- NOTE | 2021-02-06 06:00 | NUR ---
ASSISTED TO CHANGED GOWN. ABLE TO SLEEP WELL.
[2021-02-06] MEDS: BLOOD GLUCOSE MONITORING 1 DEV DEV FS SCH ×4 (06:43→20:49)
[2021-02-06] MEDS: INSULIN LISPRO SLIDING SCALE 100 UNITS/ML VIAL SUBQ PRN ×3 (06:44→20:53)
--- NOTE | 2021-02-06 07:24 | NUR ---
CONDITION REMAIN STABLE. ENDORSED TO AM SHIFT NURSE FOR CONTINUITY OF CARE.
--- NOTE | 2021-02-06 07:25 | NUR ---
RECEIVED REPORT FROM NIGHT NURSE AT BEDSIDE FOR CONTINUITY OF CARE. REVIEWED AND WILL CONTINUE WITH POC. PT ASLEEP DURING REPORT, NURSE REPORTS PT IS AA&OX2. PT IS RA BREATHING NORMAL AND UNLABORED. NURSE REPORTS LAST BM WAS LAST NIGHT. PT HAS WOUND ON LEFT SIDE WHERE NEPHROSTOMY TUBE WAS, DRESSING IS DRY AND INTACT. PT CONDITION IS STABLE.
[2021-02-06 08:00] VITALS: BP 131/65
[2021-02-06] MEDS: AMIODARONE 200 MG TAB PO SCH (08:59)
[2021-02-06] MEDS: hydrALAZINE 10 MG TAB PO SCH ×4 (09:00→16:14)
[2021-02-06] MEDS: PANTOPRAZOLE 40 MG TABEC PO SCH ×2 (09:00→09:04)
[2021-02-06] MEDS: levETIRAcetam 500 MG TAB PO SCH ×2 (09:00→20:42)
[2021-02-06] MEDS: INSULIN LANTUS 100 UNITS/ML 10 ML VIAL SUBQ SCH (09:02)
--- NOTE | 2021-02-06 09:16 | NUR ---
PT REFUSED PANTOPRAZOLE AND HYDRALAZINE. AWARE. Addendum: 02/06/21 at 0917 by Gloria Denise RN RN DR. GARSIA AT BEDSIDE.
--- NOTE | 2021-02-06 09:18 | NUR ---
SPOKE TO DR. GARSIA ABOUT HEPARIN ORDER. INFORMED HIM THAT LAST PLATELET LAB DRAW WAS 01/31. HE SAID IT WAS OK TO GIVE. WILL ADMINISTER SUBQ.
--- NOTE | 2021-02-06 09:30 | NUR ---
PT WAS UP TO THE RESTROOM WITH STANDBY ASSIST. GAIT IS UNSTEADY. FALL PRECAUTIONS IN PLACE. LINENS ON BED WERE CHANGED. GOWN ON PT WAS CHANGED. PT IS NOW BACK IN BED. DENIES PAIN. PT IS STABLE.
[2021-02-06 10:36] LABS: HEMATOCRIT 24.9 % (36-48); HEMOGLOBIN 8.1 g/dL (12.0-16.0); MEAN CORPUSCULAR HEMOGLOBIN 30 pg (27-31); MEAN CORPUSCULAR HGB CONC 33 g/dL (33-37); MEAN CORPUSCULAR VOLUME 91.9 fL (80-94); PLATELET COUNT (AUTO) 377 K/uL (140-450); RED BLOOD CELL COUNT(AUTO) 2.71 MIL/uL (4.20-5.40)
--- NOTE | 2021-02-06 10:44 | NUR ---
SPOKE TO YOSELYN, [id number] ON THE PHONE. YOSELYN WAS INQUIRING WHY THE PT WAS LABELED ABANDONED BY FAMILY TO POLICE. INFORMED YOSELYN THAT THIS INFORMATION NEEDS TO BE DISCUSSED WITH CASE MANAGEMENT. TOLD HER THAT CASE MANAGEMENT WOULD GET THIS INFORMATION AND CALL HER ABOUT THE MATTER. CALLED FERMÍN (WILDLIFE VETERINARIAN) TO INFORM HER TO CALL YOSELYN. FERMÍN SAID SHE WILL CALL SHORTLY.
[2021-02-06 11:05] LABS: MONOCYTES % (MANUAL) 6 % (5-12)
[2021-02-06 11:06] LABS: CREATININE 1.2 mg/dL (0.6-1.3); GLUCOSE 162 mg/dL (74-106)
[2021-02-06 11:11] LABS: ANION GAP 9.5 (8-16); CARBON DIOXIDE 30.1 mmol/L (21-32); CHLORIDE 104 mmol/L (98-107); POTASSIUM 3.6 mmol/L (3.5-5.1); SODIUM SERUM 140 mmol/L (136-145); UREA NITROGEN, BLOOD 16 mg/dL (7-18)
[2021-02-06 11:12] LABS: LYMPHOCYTES % (MANUAL) 15 % (20-46)
--- NOTE | 2021-02-06 11:31 | NUR ---
PT CONDITION IS STABLE. PT IS CURRENTLY TAKING A NAP. NO SIGNS OF PAIN OR DISTRESS. PT IS ON RA WITH NORMAL, UNLABORED BREATHING. WILL CONTINUE TO PERFORM FREQ CHECKS.
--- NOTE | 2021-02-06 12:27 | NUR ---
PT'S BS READING IS 150. PER SLIDING SCALE PT DOES NOT NEED INSULIN COVERAGE. PT IS STABLE AT THIS TIME. EATING LUNCH SITTING UP IN BED. NO DISTRESS NOTED.
--- NOTE | 2021-02-06 13:05 | NUR ---
PT NEEDED TO USE THE RESTROOM. ASSISTED TO RESTROOM AND PERFORMED LINEN CHANGE. GOWN WAS SOILED AND WET, CHANGED PT AND APPLIED NEW GOWN. PT BACK IN BED AND DRY. WILL CONTINUE TO MONITOR.
--- NOTE | 2021-02-06 15:29 | NUR ---
PERFORMED FREQ ROUNDING. PT HAS PREFINISH OPERATOR AT BEDSIDE TAKING VITALS. CONDITION IS STABLE AND PT DENIES PAIN AND DISCOMFORT AT THIS TIME. WILL CONTINUE TO MONITOR.
[2021-02-06 16:00] VITALS: BP 115/54
--- NOTE | 2021-02-06 16:10 | NUR ---
PT REFUSED HYDRALAZINE ORDERED. PT STATES SHE DOES NOT WANT TO TAKE ANYMORE PILLS. BP IS STABLE AT THIS TIME. WILL CONTINUE TO MONITOR.
--- NOTE | 2021-02-06 17:21 | NUR ---
CHANGED PT DRESSING WHERE LEFT NEPHROSTOMY TUBE WAS. AREA IS DRAINING MODERATE AMOUNT OF CLEAR FLUID. NOTIFIED , DR. GARSIA. AWAITING RESPONSE.
--- NOTE | 2021-02-06 17:39 | NUR ---
YOSELYN (FAMILY) CALLED TO CHECK ON PT CONDITION MADE HER AWARE OF PT STATUS. MADE FAMILY AWARE THAT PT IS STABLE AND CURRENTLY SLEEPING.
--- NOTE | 2021-02-06 19:23 | NUR ---
GAVE CHANGE OF SHIFT REPORT TO NIGHT NURSE. DISCUSSED POC. PT CONDITION IS STABLE.
--- NOTE | 2021-02-06 19:24 | NUR ---
RECD. RESTING IN BED, AWAKE, A/OX2. ABLE TO VERBALIZED NEEDS AND CALLS NURSE WHEN SHE NEEDING HELP. RESPIRATION EVEN AND UNLABORED. REORIENTED TO HOSPITAL. ABLE TO AMBULATE INDEPENDENTLY. SAFETY MEASURES ENFORCED. SIDE RAILS WITH PADS. BED IN THE LOWEST POSITION. CALL LIGHT IN REACH. DENIES PAIN 0/10.
--- NOTE | 2021-02-06 20:42 | NUR ---
SCHEDULED MEDICATIONS GIVEN, JOSH 100% OF SNACK FOR THE NIGHT.
[2021-02-06] MEDS: LORazepam 0.5 MG TAB PO PRN (21:03)
--- NOTE | 2021-02-06 21:03 | NUR ---
AGITATED, GOING OUT OF THE ROOM AND WALKING IN THE HALLWAY, ASSISTED BACK TO BED AND MEDICATED WITH ATIVAN PER MD ORDER.
--- NOTE | 2021-02-06 21:30 | NUR ---
DRAINING NEPHROSTOMY TUBE COVERED WITH GAUZE. GOWN CHANGED. MADE PATIENT COMFORTABLE IN BED.
--- NOTE | 2021-02-06 22:00 | NUR ---
NO AGITATION, SLEEPING COMFORTABLY IN BED.
[2021-02-07] VITALS: BP 132/62
--- NOTE | 2021-02-07 | NUR ---
STILL IN BED, COMFORTABLE AND ASLEEP.
--- NOTE | 2021-02-07 02:00 | NUR ---
WOKE UP, GO TO THE BR TO VOID, BACK TO BED AFTER VOIDING AND WENT BACK TO SLEEP.
--- NOTE | 2021-02-07 04:00 | NUR ---
ON HER RIGHT SIDE, COMFORTABLY SLEEPING. RESPIRATION EVEN AND UNLABORED.
--- NOTE | 2021-02-07 06:00 | NUR ---
ABLE TO SLEEP WELL. HAT FOR UA COLLECTION PLACE NEAR BEDSIDE FOR URINE COLLECTION FOR CULTURE.
[2021-02-07] MEDS: BLOOD GLUCOSE MONITORING 1 DEV DEV FS SCH ×4 (06:46→20:44)
--- NOTE | 2021-02-07 07:30 | NUR ---
ENDORSED PATIENT TO GARMENT WORKER RN FOR CONTINUITY OF CARE. PATIENT IS STABLE.
--- NOTE | 2021-02-07 07:30 | NUR ---
ENDORSED TO AM SHIFT NURSE FOR CONTINUITY OF CARE.
--- NOTE | 2021-02-07 07:32 | NUR ---
RECEIVED REPORT FROM COTTON FARMWORKER RN FOR CONTINUITY OF CARE. PATIENT IS RESTING IN BED. NO S/S OF DISTRESS. RESPIRATIONS ARE EVEN AND UNLABORED. ALL SAFETY PRECAUTIONS IN PLACE.
[2021-02-07 08:00] VITALS: BP 158/73
[2021-02-07] MEDS: AMIODARONE 200 MG TAB PO SCH (09:00)
[2021-02-07] MEDS: INSULIN LANTUS 100 UNITS/ML 10 ML VIAL SUBQ SCH (09:00)
[2021-02-07] MEDS: PANTOPRAZOLE 40 MG TABEC PO SCH (11:54)
[2021-02-07] MEDS: levETIRAcetam 500 MG TAB PO SCH ×2 (11:54→20:53)
[2021-02-07] MEDS: hydrALAZINE 10 MG TAB PO SCH ×3 (12:03→18:11)
--- NOTE | 2021-02-07 12:15 | NUR ---
CHECKED ON PATIENT. PATIENT IS AWAKE AND STABLE. NO S/S OF DISTRESS. PATIENT DENIES ANY PAIN. ALL SAFETY PRECAUTIONS IN PLACE. WILL CONTINUE TO MONITOR.
[2021-02-07] MEDS: INSULIN LISPRO SLIDING SCALE 100 UNITS/ML VIAL SUBQ PRN ×3 (12:39→20:46)
--- NOTE | 2021-02-07 14:00 | NUR ---
PATIENT'S FAMILY CALLED. PATIENT SPOKE WITH DAUGHTER IN LAW YOSELYN.
--- NOTE | 2021-02-07 15:14 | NUR ---
CHECKED ON PATIENT. PATIENT IS IN BED RESTING. ALL SAFETY PRECAUTIONS IN PLACE.
[2021-02-07 16:00] VITALS: BP 131/65
--- NOTE | 2021-02-07 19:20 | NUR ---
RECEIVED REPORT AT BEDSIDE. PATIENT IN BED RESTING. NO SOB NOTED. ALL SAFETY PRECAUTIONS ARE IN PLACE. CALL LIGHT WITHIN REACH. SKIN WARM AND DRY TO TOUCH. WILL CONTINUE TO MONITOR.
--- NOTE | 2021-02-07 20:53 | NUR ---
ADMINISTERED ALL 2100 SCHEDULED MEDICATIONS, TOLERATED WELL. AFEBRILE
--- NOTE | 2021-02-07 22:30 | NUR ---
ASSISTED PATIENT TO RESTROOM. ABLE TO URINATE.
[2021-02-08] VITALS: BP 159/74
--- NOTE | 2021-02-08 02:10 | NUR ---
PATIENT IS SLEEPING. NO SOB NOTED. CALL LIGHT WITHIN REACH.
[2021-02-08] MEDS: BLOOD GLUCOSE MONITORING 1 DEV DEV FS SCH ×4 (06:40→20:47)
[2021-02-08] MEDS: INSULIN LISPRO SLIDING SCALE 100 UNITS/ML VIAL SUBQ PRN ×3 (06:41→17:31)
--- NOTE | 2021-02-08 07:25 | NUR ---
ENDORSED TO AM NURSE FOR CONTINUITY OF CARE. PATIENT IS STABLE
--- NOTE | 2021-02-08 07:27 | NUR ---
RECEIVED PATIENT AND REPORT FROM HAND BOOKED FOLDER AND STITCHER RN FOR CONTINUITY OF CARE. PATIENT IS RESTING IN BED. NO S/S OF DISTRESS. ALL SAFETY PRECAUTIONS IN PLACE.
[2021-02-08 08:00] VITALS: BP 151/75
[2021-02-08] MEDS: INSULIN LANTUS 100 UNITS/ML 10 ML VIAL SUBQ SCH (09:00)
[2021-02-08] MEDS: hydrALAZINE 10 MG TAB PO SCH ×3 (10:01→17:38)
[2021-02-08] MEDS: AMIODARONE 200 MG TAB PO SCH (10:01)
[2021-02-08] MEDS: levETIRAcetam 500 MG TAB PO SCH ×2 (10:01→20:48)
[2021-02-08] MEDS: PANTOPRAZOLE 40 MG TABEC PO SCH (10:01)
[2021-02-08 10:43] LABS: BASOPHILS % (AUTO) 0.4 % (0.0-2.0); HEMATOCRIT 28.2 % (36-48); HEMOGLOBIN 9.1 g/dL (12.0-16.0); LYMPHOCYTES # (AUTO) 1.3 K/uL (2.5-16.5); LYMPHOCYTES % (AUTO) 11.2 % (20.5-51.1); MEAN CORPUSCULAR HEMOGLOBIN 30 pg (27-31); MEAN CORPUSCULAR HGB CONC 32 g/dL (33-37); MEAN CORPUSCULAR VOLUME 92.1 fL (80-94); MONOCYTES # (AUTO) 0.7 K/uL (0.8-1.0); MONOCYTES % (AUTO) 6.3 % (1.7-9.3); NEUTROPHILS # (AUTO) 9.6 K/uL (1.8-7.7); NEUTROPHILS % (AUTO) 82.1 % (42.2-75.2); PLATELET COUNT (AUTO) 440 K/uL (140-450); RED BLOOD CELL COUNT(AUTO) 3.07 MIL/uL (4.20-5.40); WHITE BLOOD COUNT (AUTO) 11.7 K/uL (4.8-10.8)
[2021-02-08 10:59] LABS: ANION GAP 9.6 (8-16); CARBON DIOXIDE 30.2 mmol/L (21-32); CHLORIDE 104 mmol/L (98-107); GLUCOSE 198 mg/dL (74-106); POTASSIUM 3.8 mmol/L (3.5-5.1); SODIUM SERUM 140 mmol/L (136-145); UREA NITROGEN, BLOOD 15 mg/dL (7-18)
--- NOTE | 2021-02-08 12:00 | NUR ---
DR. GARSIA AT BEDSIDE WITH PATIENT.
[2021-02-08] MEDS: ACETAMINOPHEN 325 MG TAB PO PRN (14:08)
[2021-02-08 14:29] LABS: BILIRUBIN,URINE NEGATIVE (NEGATIVE); BLOOD, URINE NEGATIVE (NEGATIVE); COLOR,URINE YELLOW (YELLOW); LEUKOCYTE ESTERASE ,URINE 1+ (NEGATIVE); NITRITE, URINE NEGATIVE (NEGATIVE); UGLUCOSE NEGATIVE (NEGATIVE)
[2021-02-08 14:38] LABS: APPEARANCE,URINE CLOUDY (CLEAR)
--- NOTE | 2021-02-08 14:42 | NUR ---
PATIENT'S DAUGHTER IN LAW YOSELYN CALLED. PATIENT IS SPEAKING ON THE PHONE WITH HER.
[2021-02-08 16:00] VITALS: BP 139/68
--- NOTE | 2021-02-08 16:25 | NUR ---
02/08/21 RD FOLLOW UP COMPLETED PLEASE REFER TO NUTRITION ASSESSMENT UNDER CARE ACTIVITY FOR ESTIMATED NUTRITIONAL NEEDS. 1. CONTINUE MECHANICAL SOFT CCHO 60 GM AND CARDIAC DIET TOLERATED 2. ASSIST SETTING UP MEAL 3. D/C GLUCERNA AND GELATO THRIVE 4. RD TO FOLLOW-UP 5-7 DAYS, LOW RISK ABIGAIL AVENDANO, RD
--- NOTE | 2021-02-08 17:38 | NUR ---
PATIENT REFUSED 3 TABLETS OF HYDRALAZINE AND ACCEPTED ONLY ONE TABLET. BP IS 136/60 AND HR IS 83.
--- NOTE | 2021-02-08 19:30 | NUR ---
RECEIVED REPORT FROM RN DAYSHIFT NURSE AT BEDSIDE FOR CONTINUITY OF CARE, PT IN STABLE CONDITION.
--- NOTE | 2021-02-08 19:38 | NUR ---
ENDORSED PATIENT TO ELEVATING GRADER OPERATOR RN FOR CONTINUITY OF CARE. PATIENT IS STABLE.
[2021-02-08 20:00] VITALS: BP 120/64
--- NOTE | 2021-02-08 20:00 | NUR ---
PT IS AWAKE AND ALERT, SHE AMBULATED TO TOILET WITH STANDBY ASSISTANCE , BED LINENS WERE CHANGED ALL ORDERED PRECAUTIONS IN PLACE V/S FOLLOWS: T 98.2 P 94 R 18 B/P 120/64 02 98%. PT FINGERSTICK IS 132, NO S/S COVERAGE NEEDED. ALL ORDERED PRECAUTIONS IN PLACE.
[2021-02-08 20:34] LABS: RBC,URINE 0-5 /HPF (0-5); YEAST,URINE Many /HPF (None Seen)
--- NOTE | 2021-02-08 21:00 | NUR ---
PT GIVEN ORDERED KEPPRA TABS AND HEPARIN SHOT FOR DVT PREVENTION. EDUCATION PROVIDED REGARDING ORDERED MEDICATION, REINFORCEMENT NEEDED.
--- NOTE | 2021-02-08 23:30 | NUR ---
ROUNDS DONE, PT IN BED ASLEEP, ALL ORDERED PRECAUTIONS IN PLACE.
--- NOTE | 2021-02-09 01:00 | NUR ---
PT IN BED ASLEEP ALL ORDERED PRECAUTIONS IN PLACE.
--- NOTE | 2021-02-09 04:30 | NUR ---
PT UP TO TOILET, LINENS CHANGED V/S FOLLOWS: T 97.9 P 85 R 20 B/P 123/69 02 98% ON ROOM AIR. ALL ORDERED PRECAUTIONS IN PLACE.
--- NOTE | 2021-02-09 06:00 | NUR ---
PT FINGERSTICK IS 135 NO HUMALOG COVERAGE NEEDED.
--- NOTE | 2021-02-09 07:10 | NUR ---
RECEIVED REPORT FROM COMBINATION WORKER NURSE FOR CONTINUITY OF PATIENT CARE. PATIENT SLEEPING. NO ACUTE DISTRESS NOTED. PATIENT ON ROOM AIR. ALL SAFETY MEASURES IN PLACE. CALL LIGHT WITHIN REACH WILL CONTINUE TO MONITOR.
[2021-02-09 08:00] VITALS: BP 136/68
[2021-02-09] MEDS: BLOOD GLUCOSE MONITORING 1 DEV DEV FS SCH ×4 (08:26→21:00)
[2021-02-09] MEDS: levETIRAcetam 500 MG TAB PO SCH ×2 (08:27→20:54)
[2021-02-09] MEDS: PANTOPRAZOLE 40 MG TABEC PO SCH (08:28)
[2021-02-09] MEDS: hydrALAZINE 10 MG TAB PO SCH ×3 (08:28→18:30)
[2021-02-09] MEDS: AMIODARONE 200 MG TAB PO SCH (08:29)
[2021-02-09] MEDS: INSULIN LANTUS 100 UNITS/ML 10 ML VIAL SUBQ SCH (08:36)
--- NOTE | 2021-02-09 08:38 | NUR ---
PATIENT AWAKE AND ALERT. BREATHING EVEN AND UNLABORED. SCHEDULED MEDICATION GIVEN. ALL SAFETY MEASURES IN PLACE. CALL LIGHT WITHIN REACH. WILL CONTINUE TO MONITOR.
--- NOTE | 2021-02-09 10:51 | NUR ---
PATIENT AWAKE. BREATHING EVEN AND UNLABORED. PATIENT ON ROOM AIR. PATIENT IN BED. ALL SAFETY MEASURES IN PLACE. CALL LIGHT WITHIN REACH. WILL CONTINUE TO MONITOR.
--- NOTE | 2021-02-09 12:15 | NUR ---
PATIENT AWAKE. BREATHING EVEN AND UNLABORED. PATIENT ON ROOM AIR. PATIENT IN BED. PATIENT HAVING LUNCH. ALL SAFETY MEASURES IN PLACE. CALL LIGHT WITHIN REACH. WILL CONTINUE TO MONITOR.
[2021-02-09] MEDS: INSULIN LISPRO SLIDING SCALE 100 UNITS/ML VIAL SUBQ PRN ×3 (12:20→22:07)
--- NOTE | 2021-02-09 14:17 | NUR ---
PATIENT AWAKE. NO ACUTE DISTRESS NOTED. ALL SAFETY MEASURES IN PLACE. CALL LIGHT WITHIN REACH. WILL CONTINUE TO MONITOR.
[2021-02-09 16:00] VITALS: BP 130/60
--- NOTE | 2021-02-09 17:14 | NUR ---
PATIENT AWAKE. NO ACUTE DISTRESS NOTED. PATIENT ON ROOM AIR. ALL SAFETY MEASURES IN PLACE. CALL LIGHT WITHIN REACH. WILL CONTINUE TO MONITOR .
--- NOTE | 2021-02-09 19:10 | NUR ---
ENDORSED TO DESK REPORTER FOR CONTINUITY OF PATIENT CARE. PATIENT STABLE. ALL SAFETY MEASURES IN PLACE.
[2021-02-09] MEDS: LORazepam 0.5 MG TAB PO PRN (20:55)
[2021-02-10] VITALS: BP 135/60
--- NOTE | 2021-02-10 02:18 | NUR ---
PATIENT ALERT SPEAKS TURKMEN AMBULATES TO BATH ROOM. ON ROOM AIR LUNGS CLEAR PATIENT WITH ANXIETY MEDICATED WITH ATIVAN 0.5 MG PO. BLOOD SUGAR HS. 176 COVERED WITH HUMALOG 2 UNITS. S.Q.. PATIENT HAS NO IV PULLS THEM OUT DR. FONTAINE. NO DISTRESS NOTED.
--- NOTE | 2021-02-10 07:10 | NUR ---
RECEIVE REPORT FROM JAVA PROJECT MANAGER NURSE FOR CONTINUITY OF CARE. PATIENT SLEEPING. NO ACUTE DISTRESS NOTED. PATIENT ON ROOM AIR. ALL SAFETY MEASURES IN PLACE. CALL LIGHT WITHIN REACH. WILL CONTINUE TO MONITOR.
[2021-02-10 08:00] VITALS: BP 124/53
[2021-02-10] MEDS: BLOOD GLUCOSE MONITORING 1 DEV DEV FS SCH ×4 (08:02→20:27)
[2021-02-10] MEDS: INSULIN LANTUS 100 UNITS/ML 10 ML VIAL SUBQ SCH (09:00)
[2021-02-10] MEDS: AMIODARONE 200 MG TAB PO SCH (09:32)
[2021-02-10] MEDS: levETIRAcetam 500 MG TAB PO SCH ×2 (09:32→21:57)
[2021-02-10] MEDS: hydrALAZINE 10 MG TAB PO SCH ×3 (09:33→17:00)
[2021-02-10] MEDS: PANTOPRAZOLE 40 MG TABEC PO SCH (09:33)
--- NOTE | 2021-02-10 09:55 | NUR ---
PATIENT AWAKE AND ALERT. NO ACUTE DISTRESS NOTED. SCHEDULE MEDICATIONS GIVEN EXCEPT FOR LANTUS DUE TO BLOOD SUGAR BEING 98. RN ATTEMPT TO INSERT IV. ALL SAFETY MEASURES IN PLACE. CALL LIGHT WITHIN REACH. WILL CONTINUE TO MONITOR.
[2021-02-10] MEDS: CEFEPIME 1,000 MG in DEXTROSE 5% 50 ML IV SCH ×2 (10:37→20:43)
--- NOTE | 2021-02-10 11:50 | NUR ---
PATIENT AWAKE. NO ACUTE DISTRESS NOTED. PATIENT DENIES PAIN AT THIS TIME. EXPANDER AT BEDSIDE AIDING WITH ADLS. ALL SAFETY MEASURES IN PLACE. CALL LIGHT WITHIN REACH. WILL CONTINUE TO MONITOR .
[2021-02-10] MEDS: INSULIN LISPRO SLIDING SCALE 100 UNITS/ML VIAL SUBQ PRN ×2 (12:29→17:09)
--- NOTE | 2021-02-10 13:09 | NUR ---
PATIENT BEING AIDED BY MANAGER OPERATING IN SHOWER.
--- NOTE | 2021-02-10 15:48 | NUR ---
PATIENT SLEEPING. EASY TO AROUSE. NO ACUTE DISTRESS NOTED. ALL SAFETY MEASURES IN PLACE. CALL LIGHT WITHIN REACH. WILL CONTINUE TO MONITOR.
[2021-02-10 16:00] VITALS: BP 110/53
--- NOTE | 2021-02-10 17:05 | NUR ---
GRAND DAUGHTER CALLED TO ASK FOR PATIENT.
--- NOTE | 2021-02-10 19:10 | NUR ---
ENDORSED TO EMBROIDERY OPERATOR NURSE FOR CONTINUITY OF CARE. PATIENT STABLE. ALL SAFETY MEASURES IN PLACE.
--- NOTE | 2021-02-10 20:00 | NUR ---
PATIENT WAS RECEIVED AWAKE AND ALERT, NO S/S OF DISTRESS NOR GRIMACING FOR PAIN.
--- NOTE | 2021-02-10 21:00 | NUR ---
DUE IV MED WAS GIVEN PIGGYBACK TOLERATED WELL
[2021-02-10] MEDS ORDERED: MEROPENEM 500 MG VIAL IV ONE (21:31)
[2021-02-10] MEDS: MEROPENEM 500 MG in NACL 0.9% 50 ML IV SCH (21:58)
[2021-02-10] MEDS: LORazepam 0.5 MG TAB PO PRN (22:06)
[2021-02-11] VITALS: BP 126/60
--- NOTE | 2021-02-11 | NUR ---
PATIENT ASKED FOR 2 ORANGE JUICE AND A HAM SANDWICH
--- NOTE | 2021-02-11 02:30 | NUR ---
PATIENT WAS TRANSFERRED TO ANOTHER ROOM FROM 107 TO 115.
[2021-02-11] MEDS: MEROPENEM 500 MG in NACL 0.9% 50 ML IV SCH ×3 (05:00→21:00)
[2021-02-11] MEDS ORDERED: MEROPENEM 500 MG VIAL IV ONE (05:54)
[2021-02-11] MEDS: BLOOD GLUCOSE MONITORING 1 DEV DEV FS SCH ×4 (06:52→21:20)
[2021-02-11] MEDS: INSULIN LISPRO SLIDING SCALE 100 UNITS/ML VIAL SUBQ PRN ×4 (06:58→21:25)
--- NOTE | 2021-02-11 07:25 | NUR ---
RECEIVED REPORT FROM NIGHTSHIFT NURSE. PT RESTING IN BED. ABLE TO MAKE SOME NEEDS KNOWN. RESPIRATIONS EVEN AND UNLABORED WITH NO SOB OR RESPIRATORY DISTRESS. SKIN WARM AND DRY TO TOUCH. SAFETY MEASURES IN PLACE. WILL CONTINUE TO MONITOR
--- NOTE | 2021-02-11 07:42 | NUR ---
BS WAS 163, 2 UNITS REG. INSULIN WAS COVERED IN HER ABD SQ, TOLERATED, ALL REPORTS WERE GIVEN, TRANSFER OF CARE ENDORSED.
[2021-02-11 08:00] VITALS: BP 108/58
[2021-02-11] MEDS: hydrALAZINE 10 MG TAB PO SCH ×3 (09:00→17:00)
[2021-02-11] MEDS: CEFEPIME 1,000 MG in DEXTROSE 5% 50 ML IV SCH (09:31)
[2021-02-11] MEDS: INSULIN LANTUS 100 UNITS/ML 10 ML VIAL SUBQ SCH (09:34)
[2021-02-11] MEDS: levETIRAcetam 500 MG TAB PO SCH ×2 (09:39→21:47)
[2021-02-11] MEDS: PANTOPRAZOLE 40 MG TABEC PO SCH (09:39)
[2021-02-11] MEDS: AMIODARONE 200 MG TAB PO SCH (09:40)
--- NOTE | 2021-02-11 09:45 | NUR ---
ADMINISTERED SCHED MED PRESCRIBED PER MD ORDER. PT TOLERATED WELL. SAFETY MEASURES IN PLACE. WILL CONTINUE TO MONITOR
--- NOTE | 2021-02-11 11:30 | NUR ---
PT BLOOD SUGAR IS 194. PRN INSULIN TO BE ADMINISTERED PRESCRIBED PER MD ORDER. SAFETY MEASURES IN PLACE. WILL CONTINUE TO MONITOR
--- NOTE | 2021-02-11 13:10 | NUR ---
ADMINISTERED SCHED MED PRESCRIBED PER MD ORDER. PT TOLERATED WELL. SAFETY MEASURES IN PLACE. WILL CONTINUE TO MONITOR
--- NOTE | 2021-02-11 14:21 | NUR ---
YOSELYN [phone] CALLED AND WANTED UPDATE. UPDATE GIVEN. SAFETY MEASURES IN PLACE. WILL CONTINUE TO MONITOR
[2021-02-11] MEDS ORDERED: HYDRAGUARD CREAM TP ONE (14:45)
[2021-02-11 16:00] VITALS: BP 118/63
[2021-02-11] MEDS: LORazepam 0.5 MG TAB PO PRN ×2 (16:01→21:13)
--- NOTE | 2021-02-11 16:01 | NUR ---
PT UP OUT OF BED AND LEAVING ROOM. PT STATES SHE FEELS ANXIOUS. PRN ATIVAN ADMINISTERED PRESCRIBED PER MD ORDER. PT IN BED. SAFETY MEASURES IN PLACE. WILL CONTINUE TO MONITOR
[2021-02-11] MEDS: ACETAMINOPHEN 325 MG TAB PO PRN (17:58)
--- NOTE | 2021-02-11 17:58 | NUR ---
PT COMPLAINED OF MILD HEADACHE. PRN TYLENOL ADMINISTERED PRESCRIBED PER MD ORDER. SAFETY MEASURES IN PLACE. WILL CONTINUE TO MONITOR
--- NOTE | 2021-02-11 18:45 | NUR ---
PT EATING DINNER. NO SIGNS OF DISTRESS. SAFETY MEASURES IN PLACE. WILL CONTINUE TO MONITOR
--- NOTE | 2021-02-11 19:30 | NUR ---
ENDORSED TO NIGHTSHIFT NURSE FOR CONTINUITY OF CARE
[2021-02-11 20:00] VITALS: BP 98/57
--- NOTE | 2021-02-11 20:05 | NUR ---
PATIENT RECEIVED IN BED AWAKE AND ALERT, NO S/S OF DISTRESS, V/S WNL.
--- NOTE | 2021-02-11 21:05 | NUR ---
ALL DUE MEDS GIVEN, PATIENT REQUESTED PRN ATIVAN 0.5 MG BY ORALLY WAS GIVEN WELL, TOLERATED SWALLOWING ALL MEDS.
--- NOTE | 2021-02-12 | NUR ---
PATIENT WAS CALMLY ASLEEP.
--- NOTE | 2021-02-12 01:00 | NUR ---
PATIENT WAS CALMLY ASLEEP.
[2021-02-12] MEDS: MEROPENEM 500 MG in NACL 0.9% 50 ML IV SCH ×3 (05:00→21:20)
[2021-02-12] MEDS ORDERED: DEXTROSE 50% 50 ML SYR IVP PRN (06:50)
[2021-02-12] MEDS: INSULIN LISPRO SLIDING SCALE 100 UNITS/ML VIAL SUBQ PRN ×2 (07:18→16:34)
[2021-02-12] MEDS: BLOOD GLUCOSE MONITORING 1 DEV DEV FS SCH ×5 (07:30→21:06)
--- NOTE | 2021-02-12 07:37 | NUR ---
RECEIVED CHANGE OF SHIFT REPORT FROM NIGHT NURSE AT BEDSIDE FOR CONTINUITY OF CARE. PT CONDITION IS STABLE. NIGHT NURSE REPORTS PT PULLED OUT IV LAST NIGHT AND REFUSES TO HAVE IV PLACED. PT DENIES PAIN OR DISCOMFORT AT THIS TIME. PT HAS DRAINAGE FROM NEPHROSTOMY TUBE THAT WAS TAKEN OUT, THERE IS A COLLECTION BAG PLACED ON THE BACK TO COLLECT DRAINAGE. WILL CONTINUE TO MONITOR.
--- NOTE | 2021-02-12 07:45 | NUR ---
PT CONDITION IS STABLE. PT CURRENTLY SLEEPING. NO SIGNS OF DISTRESS OR PAIN. WILL CONTINUE TO MONITOR.
--- NOTE | 2021-02-12 07:46 | NUR ---
REPORTS WERE GIVEN, PATIENT WAS ENDORSED.
[2021-02-12 08:00] VITALS: BP 116/59
[2021-02-12] MEDS: levETIRAcetam 500 MG TAB PO SCH ×3 (09:00→21:07)
[2021-02-12] MEDS: hydrALAZINE 10 MG TAB PO SCH ×4 (09:00→17:00)
[2021-02-12] MEDS: PANTOPRAZOLE 40 MG TABEC PO SCH ×2 (09:00→09:17)
[2021-02-12] MEDS: INSULIN LANTUS 100 UNITS/ML 10 ML VIAL SUBQ SCH (09:12)
--- NOTE | 2021-02-12 09:30 | NUR ---
PT CONDITION IS STABLE. PT DENIES PAIN AT THIS TIME. PT AMBULATED TO USE THE RESTROOM TO VOID AND WENT BACK TO BED. PT IS STABLE.
--- NOTE | 2021-02-12 11:15 | NUR ---
PERFORMED FREQ ROUNDING. PT WAS AWAKE AND CALM IN BED. ASKED PT IF I COULD PLACE IV AND SHE REFUSED. WILL ATTEMPT LATER.
--- NOTE | 2021-02-12 12:12 | NUR ---
YOSELYN CALLED ASKING TO SPEAK WITH PT BUT PT IS CURRENTLY SLEEPING. FAMILY ASKED ABOUT PT CONDITION. LET HER KNOW THAT PT IS CURRENTLY STABLE. DISCUSSED HOW LABS SHOW ELEVATED WBC'S. YOSELYN STATED SHE WILL CALL LATER TO SPEAK WITH HER [id number]
--- NOTE | 2021-02-12 12:58 | NUR ---
ABLE TO PLACE 22G IN LAC. WILL BEGIN MEDICATION ADMINISTRATION OF SCHEDULED IV ABX. PT CONDITION IS STABLE AND SHE IS EATING HER LUNCH.
--- NOTE | 2021-02-12 13:20 | NUR ---
PT CONDITION IS STABLE. PT IS CALM IN BED WATCHING TELEVISION. PT DENIES ANY PAIN AT THIS TIME. BREATHING IS NORMAL AND UNLABORED. WILL CONTINUE ASSESSING PT CONDITION.
--- NOTE | 2021-02-12 15:19 | NUR ---
SKIN IS STILL LEAKING MODERATE AMOUNT OF CLEAR LIGHT YELLOW DRAINAGE FROM PREVIOUS NEPHROSTOMY SITE. DRAINAGE BAG OPENED. CLEANED PT, CHANGED GOWN AND SOILED LINEN. PT IS NOW IN BED AND CALM. SHE IS WATCHING TELEVISION AND DENIES PAIN OR DISCOMFORT AT THIS TIME.
[2021-02-12] MEDS: ACETAMINOPHEN 325 MG TAB PO PRN ×2 (15:31→21:07)
--- NOTE | 2021-02-12 15:31 | NUR ---
ADMINISTERED TYLENOL PRN FOR LARKIN 08/15. WILL REASSESS IN 1 HOUR.
[2021-02-12 16:00] VITALS: BP 114/75
--- NOTE | 2021-02-12 17:30 | NUR ---
RECEIVED REPORT FROM JES CHUNG
--- NOTE | 2021-02-12 17:54 | NUR ---
PT AWAKE, RESTING IN BED. NO C/O PAIN, NO SOB ON ROOM AIR
--- NOTE | 2021-02-12 19:25 | NUR ---
RECD. RESTING IN BED, AWAKE, A/OX2-3, WITH CONFUSION AT TIMES. REORIENTED TO HOSPITAL SETTING. RESPIRATION EVEN AND UNLABORED. IV OF NS AT TKO, LEFT AC G22. LEFT NEPHROSTOMY SITE WITH OSTOMY BAG DRAINING MINIMAL AMOUNT OF GEORGE COLORED DRIANAGE. AMBULATORY TO THE BR. SAFETY MEASURES ENFORCED. BED IN THE LOWEST POSITION, SIDE RAILS WITH PADS. DENIED PAIN 0/10.
--- NOTE | 2021-02-12 20:00 | NUR ---
Patient's Plan of Care was discussed and reviewed with NETWORK/TELECOM ENGINEER: ANA KELLY.
[2021-02-12] MEDS: LORazepam 0.5 MG TAB PO PRN (21:06)
--- NOTE | 2021-02-12 21:06 | NUR ---
WITH ANXIETY, MEDICATED WITH ATIVAN PO PER MD ORDER.
--- NOTE | 2021-02-12 21:06 | NUR ---
BS CHECKED - 144. SNACK FOR THE NIGHT GIVEN. SCHEDULED MEDICATIONS GIVEN, TOLERATED WELL.
--- NOTE | 2021-02-12 21:20 | NUR ---
SCHEDULE ANTIBIOTIC MEDICATION GIVEN WITH EDUCATION. PATIENT TOLERATED WELL. NO SIGN OF DISTRESS NOTED. PRECAUTION IN PLACE. CALL LIGHT WITHIN REACH. WILL CONTINUE TO MONITOR.
--- NOTE | 2021-02-12 22:00 | NUR ---
SLEEPING COMFORTABLY IN BED.
[2021-02-13] VITALS: BP 90/46
--- NOTE | 2021-02-13 | NUR ---
ON HIS RIGHT SIDE ASLEEP, RESPIRATION EVEN AND UNLABORED.
--- NOTE | 2021-02-13 03:00 | NUR ---
OUT OF BED GOES TO THE BR AND VOID. BACK TO BED, WARM BLANKETS GIVEN AND ADVISED TO GO BACK TO SLEEP.
--- NOTE | 2021-02-13 04:21 | NUR ---
OUT OF BED, AMBULATED TO BR TO VOID, BACK TO BED AFTER VOIDING. SAFETY MAINTAINED.
[2021-02-13] MEDS: MEROPENEM 500 MG in NACL 0.9% 50 ML IV SCH ×3 (04:26→21:51)
[2021-02-13] MEDS: BLOOD GLUCOSE MONITORING 1 DEV DEV FS SCH ×4 (06:35→21:00)
--- NOTE | 2021-02-13 07:10 | NUR ---
RECEIVED BEDSIDE REPORT FROM FIBER LOCKING SUPERVISOR NURSE FOR CONTINUITY OF CARE. PT IS AWAKE, LAYING IN BED. ON RA WITH BREATHING UNLABORED. MED SURG PATIENT. PT IS AMBULATORY TO THE RESTROOM. PERIODS OF INCONTINENCE. SKIN IS WARM AND DRY. SITE WHERE NEPHROSTOMY TUBE WAS REMOVED, OPEN WOUND WITH OSTOMY BAG IN PLACE COLLECTING FLUID. IV IS IN THE LEFT AC 22 GAUGE SALINE LOCKED. PT IS STABLE AT THIS TIME. PLAN OF CARE DISCUSSED.
--- NOTE | 2021-02-13 07:25 | NUR ---
CONDITION REMAIN STABLE. ENDORSED TO AM NURSE FOR CONTINUITY OF CARE.
[2021-02-13 08:00] VITALS: BP 145/69
--- NOTE | 2021-02-13 09:30 | NUR ---
PT IS AWAKE, LAYING IN BED. NO DISTRESS NOTED. FLACC 0. EATING BREAKFAST IN BED. PT IS STABLE. WILL CONTINUE TO MONITOR.
[2021-02-13 09:58] LABS: BASOPHILS % (AUTO) 0.5 % (0.0-2.0); HEMATOCRIT 25.3 % (36-48); HEMOGLOBIN 8.5 g/dL (12.0-16.0); LYMPHOCYTES # (AUTO) 1.5 K/uL (2.5-16.5); LYMPHOCYTES % (AUTO) 22.2 % (20.5-51.1); MEAN CORPUSCULAR HEMOGLOBIN 30 pg (27-31); MEAN CORPUSCULAR HGB CONC 34 g/dL (33-37); MEAN CORPUSCULAR VOLUME 90.3 fL (80-94); MONOCYTES # (AUTO) 0.5 K/uL (0.8-1.0); MONOCYTES % (AUTO) 7.9 % (1.7-9.3); NEUTROPHILS # (AUTO) 4.8 K/uL (1.8-7.7); NEUTROPHILS % (AUTO) 69.4 % (42.2-75.2); PLATELET COUNT (AUTO) 430 K/uL (140-450); RED CELL DISTRIBUTION WIDTH 15.9 % (11.6-13.7); WHITE BLOOD COUNT (AUTO) 6.9 K/uL (4.8-10.8)
[2021-02-13] MEDS: levETIRAcetam 500 MG TAB PO SCH ×2 (10:02→21:46)
[2021-02-13] MEDS: hydrALAZINE 10 MG TAB PO SCH ×3 (10:02→17:00)
[2021-02-13] MEDS: PANTOPRAZOLE 40 MG TABEC PO SCH (10:02)
[2021-02-13] MEDS: INSULIN LANTUS 100 UNITS/ML 10 ML VIAL SUBQ SCH (10:04)
[2021-02-13 10:07] LABS: ANION GAP 9.8 (8-16); CARBON DIOXIDE 28.5 mmol/L (21-32); CHLORIDE 104 mmol/L (98-107); CREATININE 1.1 mg/dL (0.6-1.3); GLUCOSE 200 mg/dL (74-106); POTASSIUM 3.3 mmol/L (3.5-5.1); SODIUM SERUM 139 mmol/L (136-145); UREA NITROGEN, BLOOD 17 mg/dL (7-18)
[2021-02-13 10:14] LABS: MAGNESIUM 1.5 mg/dL (1.8-2.4)
[2021-02-13] MEDS: MAGNESIUM OXIDE 400 MG TAB PO PRN (11:05)
--- NOTE | 2021-02-13 11:06 | NUR ---
MAGNESIUM OXIDE WAS GIVEN FOR MAGNESIUM LEVEL OF 1.5. MEDICATION EDUCATION WAS PROVIDED AND PT VERBALIZED UNDERSTANDING. WILL MONITOR PT.
--- NOTE | 2021-02-13 11:27 | NUR ---
MESSAGED DR. OVIEDO TO INFORM HIM THAT THE POTASSIUM LEVEL IS 3.3 AND PT CANNOT SWALLOW THE KDUR PILLS BECAUSE THEY ARE TOO BIG. DR. OVIEDO ORDERED KRIDER 40 MEQ WITH LIDOCAINE IV. WILL ADMINISTER ONCE VERIFIED.
[2021-02-13] MEDS ORDERED: POTASSIUM CHLORIDE 40 MEQ, LIDOCAINE MPF 1% 25 MG in NACL 0.9% 250 ML IV ONE (11:30)
[2021-02-13] MEDS: INSULIN LISPRO SLIDING SCALE 100 UNITS/ML VIAL SUBQ PRN ×2 (12:29→17:29)
--- NOTE | 2021-02-13 12:29 | NUR ---
BS READING IS 195. HUMALOG INSULIN, 2 UNITS, PER SLIDING SCALE. WILL MONITOR PT.
[2021-02-13] MEDS: ACETAMINOPHEN 325 MG TAB PO PRN ×2 (13:50→21:46)
--- NOTE | 2021-02-13 13:50 | NUR ---
PT STATES SHE HAS A HEADACHE AND WAS GIVEN TYLENOL PRN FOR MILD PAIN. WILL MONITOR PT FOR HEADACHE.
--- NOTE | 2021-02-13 15:00 | NUR ---
PT WAS A ASSISTED TO THE RESTROOM. PT HAS A STEADY GAIT WITH STANDBY ASSIST. PT IS NOW SITTING UP AT CHAIR EATING A SANDWICH AND BANANA. PT HAS A GOOD APPETITE ON THIS SHIFT. PT IS STABLE.
[2021-02-13 16:00] VITALS: BP 111/43
--- NOTE | 2021-02-13 17:29 | NUR ---
BS READING IS 272. PT WAS GIVEN 6 UNITS HUMALOG INSULIN PER SLIDING SCALE.
--- NOTE | 2021-02-13 17:48 | NUR ---
PT PULLED OUT IV WHILE RUNNING KRIDER 40 MEQ IV. INFORMED HIM THAT PT PULLED OUT IV AND IS BEING COMBATIVE WHEN ATTEMPTING TO PLACE NEW IV. DR. OVIEDO STATED TO HOLD OFF FOR NOW AND THEY WILL RECHECK THE LABS TOMORROW MORNING.
--- NOTE | 2021-02-13 19:10 | NUR ---
ENDORSED PT TO FISHING GAME WARDEN NURSE FOR CONTINUITY OF CARE. PT IS STABLE AT THIS TIME. PLAN OF CARE DISCUSSED.
[2021-02-14 01:28] VITALS: BP 124/65
[2021-02-14] MEDS: MEROPENEM 500 MG in NACL 0.9% 50 ML IV SCH ×3 (05:00→21:00)
--- NOTE | 2021-02-14 06:35 | NUR ---
patient vitals are stable , IV was inserted at 21:00 02/13/2021, the poateinty anatoliy not want thye iv and removed again , the patient refused her scheduled Meropenem at 6:00am
--- NOTE | 2021-02-14 07:54 | NUR ---
Patient is awake, alert and oriented, able to verbalize needs. Denies pain and remains in bed with no further needs.
[2021-02-14] MEDS: BLOOD GLUCOSE MONITORING 1 DEV DEV FS SCH ×4 (08:57→21:03)
[2021-02-14] MEDS: INSULIN LISPRO SLIDING SCALE 100 UNITS/ML VIAL SUBQ PRN ×3 (09:04→21:16)
[2021-02-14] MEDS: levETIRAcetam 500 MG TAB PO SCH ×2 (09:07→21:03)
[2021-02-14] MEDS: PANTOPRAZOLE 40 MG TABEC PO SCH (09:12)
[2021-02-14] MEDS: hydrALAZINE 10 MG TAB PO SCH ×3 (09:12→17:13)
[2021-02-14 09:22] VITALS: BP 151/77
--- NOTE | 2021-02-14 14:20 | NUR ---
02/14/21 RD FOLLOW UP COMPLETED PLEASE REFER TO NUTRITION ASSESSMENT UNDER CARE ACTIVITY FOR ESTIMATED NUTRITIONAL NEEDS. 1. CONTINUE MECHANICAL SOFT CCHO 60 GM AND CARDIAC DIET TOLERATED 2. ASSIST SETTING UP MEAL 3. RD TO FOLLOW-UP 5-7 DAYS, LOW RISK ABIGAIL AVENDANO, RD
[2021-02-14 16:00] VITALS: BP 139/75
--- NOTE | 2021-02-14 20:00 | NUR ---
Patient awake alert, oriented and able to verbalize needs. Denies pain and remains in bed with no further needs.
[2021-02-14] MEDS: MAGNESIUM OXIDE 400 MG TAB PO PRN (20:50)
--- NOTE | 2021-02-14 21:00 | NUR ---
ALL DUE MEDS GIVEN, TOLERATED WELL. TRIED TO CONVINCE TO OBTAIN IV ACCESS, PATIENT REFUSED, IV MEREM WAS NOT ADMINISTERED DUE TO ABSENCE OF IV ACCESS., GOT NEW ORDER FOR AMBIEN 0.5 MG PO Q HS FOR INABILITY TO SLEEP
--- NOTE | 2021-02-14 21:34 | NUR ---
CORRECTION OF DOSE AMBIEN 5 MG/TABLET INSTEAD OF 0.5 MG/TABLET.
--- NOTE | 2021-02-15 | NUR ---
PATIENT WAS CALMLY ASLEEP
[2021-02-15] MEDS: MEROPENEM 500 MG in NACL 0.9% 50 ML IV SCH ×3 (04:19→21:00)
--- NOTE | 2021-02-15 07:40 | NUR ---
REPORTS WERE GIVEN, TRANSFER OF CARE ENDORSED.
[2021-02-15] MEDS: BLOOD GLUCOSE MONITORING 1 DEV DEV FS SCH ×4 (07:46→21:00)
[2021-02-15] MEDS: INSULIN LISPRO SLIDING SCALE 100 UNITS/ML VIAL SUBQ PRN ×3 (07:47→21:05)
[2021-02-15 08:00] VITALS: BP 135/76
--- NOTE | 2021-02-15 08:24 | NUR ---
Patient awake alert, oriented and able to verbalize needs. Patient has no IV site, tried to place Peripheral IV and patient refused. Physician is aware.
[2021-02-15] MEDS: levETIRAcetam 500 MG TAB PO SCH ×2 (11:13→21:02)
[2021-02-15] MEDS: hydrALAZINE 10 MG TAB PO SCH ×3 (11:13→17:43)
[2021-02-15] MEDS: PANTOPRAZOLE 40 MG TABEC PO SCH (11:14)
[2021-02-15 16:00] VITALS: BP 146/77
[2021-02-15] MEDS: ALPRAZolam 0.25 MG TAB PO PRN (17:44)
[2021-02-15] MEDS: metFORMIN 850 MG TAB PO SCH (17:44)
[2021-02-16] VITALS: BP 131/77
[2021-02-16] MEDS: MEROPENEM 500 MG in NACL 0.9% 50 ML IV SCH ×3 (05:00→21:00)
[2021-02-16] MEDS: BLOOD GLUCOSE MONITORING 1 DEV DEV FS SCH ×4 (05:52→20:41)
--- NOTE | 2021-02-16 06:00 | NUR ---
2 UNITSREG INSULIN WAS GIVEN FOR BS= 169 MG/DL
[2021-02-16] MEDS: INSULIN LISPRO SLIDING SCALE 100 UNITS/ML VIAL SUBQ PRN ×2 (06:50→20:45)
--- NOTE | 2021-02-16 06:56 | NUR ---
ENDORSED PATIENT TO FEDERAL APPELLATE CLERK RN FOR CONTINUITY OF CARE. PATIENT IS STABLE.
--- NOTE | 2021-02-16 07:23 | NUR ---
ALL REPORTS WERE GIVEN, TRANSFER OF CARE WAS ENDORSED TO THE NEXT RN ON DUTY.
[2021-02-16 08:00] VITALS: BP 97/58
[2021-02-16] MEDS: metFORMIN 850 MG TAB PO SCH ×2 (09:48→18:00)
[2021-02-16] MEDS: PANTOPRAZOLE 40 MG TABEC PO SCH (09:48)
[2021-02-16] MEDS: levETIRAcetam 500 MG TAB PO SCH ×2 (09:48→21:02)
[2021-02-16] MEDS: ALPRAZolam 0.25 MG TAB PO PRN ×2 (09:48→18:02)
[2021-02-16] MEDS: hydrALAZINE 10 MG TAB PO SCH ×3 (09:51→18:00)
[2021-02-16] MEDS ORDERED: POTASSIUM CHL 20 MEQ / DEXT 5% 1,000 ML IV SCH (11:20)
[2021-02-16] MEDS ORDERED: MAG SULF 2000 MG/WATER PREMIX 50 ML IV SCH (12:00)
[2021-02-16 18:00] VITALS: BP 101/52
--- NOTE | 2021-02-16 20:00 | NUR ---
PT IS IN BED.VERY WEAK.HAS DIARRHEA.RESP.UNLABORED IN RA.VS STABLE.CALL LIGHT IN REACH.WILL CONT.MONITORING.
--- NOTE | 2021-02-16 21:04 | NUR ---
SCHEDULED MEDS WERE ADMINISTERED, TOLERATED WELL, WILL CONTINUE TO MONITOR.
[2021-02-17] MEDS ORDERED: VANCOMYCIN 500 MG VIAL ONE (00:22)
[2021-02-17] MEDS ORDERED: WATER STERILE 10 ML MC ONE (00:24)
[2021-02-17] MEDS: VANCOMYCIN 1,000 MG VIAL PO SCH ×2 (00:33→06:00)
[2021-02-17 04:00] VITALS: BP 119/61
[2021-02-17] MEDS: MEROPENEM 500 MG in NACL 0.9% 50 ML IV SCH ×2 (05:00→13:00)
[2021-02-17] MEDS: BLOOD GLUCOSE MONITORING 1 DEV DEV FS SCH ×4 (06:17→20:23)
--- NOTE | 2021-02-17 06:25 | NUR ---
PT STILL HAS DIARRHEA.TOOK ORDER FOR C-DIFF AND SEND STOOL.BED ALARM IS ON.
[2021-02-17] MEDS: INSULIN LISPRO SLIDING SCALE 100 UNITS/ML VIAL SUBQ PRN ×3 (06:47→16:41)
--- NOTE | 2021-02-17 06:47 | NUR ---
TOOK PATIENTS BS. BS IS 179, GAVE 2 UNITS OF INSULIN PER SLIDING SCALE.
--- NOTE | 2021-02-17 07:30 | NUR ---
PASSED BEDSIDE ENDORSEMENT TO AM SHIFT RN, ALL INTERVENTIONS COMPLETED, PATIENT STABLE.
[2021-02-17] MEDS: PANTOPRAZOLE 40 MG TABEC PO SCH (08:42)
[2021-02-17] MEDS: metFORMIN 850 MG TAB PO SCH ×2 (08:42→17:45)
[2021-02-17] MEDS: levETIRAcetam 500 MG TAB PO SCH ×2 (08:43→20:31)
[2021-02-17] MEDS: AMIODARONE 200 MG TAB PO SCH (08:43)
[2021-02-17] MEDS: hydrALAZINE 10 MG TAB PO SCH ×3 (08:44→17:46)
[2021-02-17] MEDS ORDERED: VANCOMYCIN HCL 25 MG/ML SOLN PO SCH (12:48)
[2021-02-17] MEDS: VANCOMYCIN HCL 25 MG/ML SOLN PO SCH (18:27)
--- NOTE | 2021-02-17 18:38 | NUR ---
PATIENT RESTING IN BED WITH EYES CLOSED. NO VISIBLE S/S OF DISTRESS OR DISCOMFORT. ALL NEEDS HAVE BEEN MET AT THIS TIME. WILL ENDORSE PATIENT TO NOC NURSE.
[2021-02-17] MEDS: ZOLPIDEM 5 MG TAB PO PRN (20:34)
[2021-02-17] MEDS: ACETAMINOPHEN 325 MG TAB PO PRN (20:35)
[2021-02-17 21:59] VITALS: BP 116/60
[2021-02-18] MEDS: VANCOMYCIN HCL 25 MG/ML SOLN PO SCH ×5 (05:00→23:21)
[2021-02-18 07:39] LABS: ANION GAP 10.7 (8-16); CARBON DIOXIDE 26.8 mmol/L (21-32); CHLORIDE 105 mmol/L (98-107); GLUCOSE 167 mg/dL (74-106); POTASSIUM 3.5 mmol/L (3.5-5.1); SODIUM SERUM 139 mmol/L (136-145); UREA NITROGEN, BLOOD 14 mg/dL (7-18)
[2021-02-18 07:45] LABS: BASOPHILS % (AUTO) 0.3 % (0.0-2.0); EOSINOPHILS % (AUTO) 0.2 % (0.0-4.0); HEMATOCRIT 25.6 % (36-48); HEMOGLOBIN 8.7 g/dL (12.0-16.0); LYMPHOCYTES # (AUTO) 1.7 K/uL (2.5-16.5); LYMPHOCYTES % (AUTO) 19.3 % (20.5-51.1); MEAN CORPUSCULAR HEMOGLOBIN 31 pg (27-31); MEAN CORPUSCULAR HGB CONC 34 g/dL (33-37); MEAN CORPUSCULAR VOLUME 90.9 fL (80-94); MONOCYTES # (AUTO) 0.6 K/uL (0.8-1.0); MONOCYTES % (AUTO) 6.9 % (1.7-9.3); NEUTROPHILS # (AUTO) 6.4 K/uL (1.8-7.7); NEUTROPHILS % (AUTO) 73.3 % (42.2-75.2); PLATELET COUNT (AUTO) 395 K/uL (140-450); RED BLOOD CELL COUNT(AUTO) 2.82 MIL/uL (4.20-5.40); RED CELL DISTRIBUTION WIDTH 15.9 % (11.6-13.7); WHITE BLOOD COUNT (AUTO) 8.8 K/uL (4.8-10.8)
--- NOTE | 2021-02-18 07:57 | NUR ---
Patient noted resting, shows no signs of pain. Safety co measures in place with call light, bed alarm activated and has no further needs.
[2021-02-18] MEDS: AMIODARONE 200 MG TAB PO SCH (11:31)
[2021-02-18] MEDS: PANTOPRAZOLE 40 MG TABEC PO SCH (11:32)
[2021-02-18] MEDS: levETIRAcetam 500 MG TAB PO SCH ×2 (11:32→20:43)
[2021-02-18] MEDS: metFORMIN 850 MG TAB PO SCH ×2 (11:32→17:00)
[2021-02-18] MEDS: hydrALAZINE 10 MG TAB PO SCH ×3 (11:33→17:00)
[2021-02-18] MEDS: MAGNESIUM OXIDE 400 MG TAB PO PRN (11:34)
[2021-02-18] MEDS: ALPRAZolam 0.25 MG TAB PO PRN (11:35)
[2021-02-18] MEDS: BLOOD GLUCOSE MONITORING 1 DEV DEV FS SCH ×4 (11:57→20:54)
[2021-02-18 12:00] VITALS: BP 133/80
[2021-02-18] MEDS: INSULIN LISPRO SLIDING SCALE 100 UNITS/ML VIAL SUBQ PRN ×2 (12:00→20:52)
--- NOTE | 2021-02-18 15:47 | NUR ---
DC PLANNING: SPOKE WITH SHERON REGARDING THE MEDICAL APPROVAL STATED NOT YET READY, AND TRIED TO EXPEDITE, I CLARIFIED WITH HIM THAT THE MEDICAL THAT HAS APPROVED WAS FULL MEDICAL PER SHERON IT WILL BE FULL COVERAGE MEDICAL. FAXED TO [facility], [facility], CHANA MARTINE[facility]. CM TO FOLLOW
[2021-02-18] MEDS: ACETAMINOPHEN 325 MG TAB PO PRN (16:49)
--- NOTE | 2021-02-18 19:30 | NUR ---
RECEIVED PT SLEEPING, EASILY AROUSABLE, ABLE TO MAKE NEEDS KNOWN, WITH PERIODS OF CONFUSION/FORGETFULNESS, NO SIGNS OF DISTRESS, NO IV LINE, PT REFUSING TO START IV LINE, DR'S AWARE, SAFETY PRECAUTIONS IN PLACE, MAINTAIN ON CONTACT PRECAUTION, CALL LIGHT WITHIN REACH.
[2021-02-18 20:00] VITALS: BP 144/67
--- NOTE | 2021-02-18 21:00 | NUR ---
BLOOD SUGAR CHECKED WITH 242 RESULT, COVERAGE GIVEN, BEDTIME SNACK PROVIDED, DUE MEDS ADMINISTERED, ALL NEEDS ATTENDED.
--- NOTE | 2021-02-18 22:40 | NUR ---
SEEN PT SLEEPING, NO SIGNS OF DISTRESS, MONITORED CLOSELY.
[2021-02-19] MEDS: VANCOMYCIN HCL 25 MG/ML SOLN PO SCH ×3 (05:55→17:59)
[2021-02-19] MEDS: INSULIN LISPRO SLIDING SCALE 100 UNITS/ML VIAL SUBQ PRN ×2 (06:06→12:13)
[2021-02-19] MEDS: BLOOD GLUCOSE MONITORING 1 DEV DEV FS SCH ×4 (06:47→20:24)
--- NOTE | 2021-02-19 07:20 | NUR ---
PT SLEEPING, NO SIGNS OF DISTRESS, REPORT GIVEN TO JULIET JORGENSEN FOR CONTINUITY OF CARE.
[2021-02-19 08:00] VITALS: BP 133/76
--- NOTE | 2021-02-19 08:11 | NUR ---
RECEIVED REPORT FROM SPLUNK DEVELOPER FOR CONTINUITY OF CARE. PATIENT ALERT AWAKE ORIENTED X2. NOT IN ANY DISTRESS NOTED. NO IV ACCESS AT THIS TIME. PATIENT ON ISOLATION, ISOLATION PROTOCOL OBSERVED. DENIES PAIN. CALL LIGHT WITHIN REACH. NEEDS ATTENDED. WILL CONTINUE TO MONITOR.
[2021-02-19] MEDS: levETIRAcetam 500 MG TAB PO SCH ×2 (09:22→20:24)
[2021-02-19] MEDS: PANTOPRAZOLE 40 MG TABEC PO SCH (09:22)
[2021-02-19] MEDS: ALPRAZolam 0.25 MG TAB PO PRN ×3 (09:22→17:59)
[2021-02-19] MEDS: hydrALAZINE 10 MG TAB PO SCH ×3 (09:23→17:58)
[2021-02-19] MEDS: metFORMIN 850 MG TAB PO SCH ×2 (09:23→17:59)
[2021-02-19] MEDS: AMIODARONE 200 MG TAB PO SCH (09:23)
--- NOTE | 2021-02-19 12:00 | NUR ---
PATIENT IS RESTING IN BED. NOT IN ANY DISTRESS NOTED. ENCOURAGE TO AMBULATE INSIDE THE ROOM AND NOT TO GO OUTSIDE. DRESSING CHANGED ON HER BACK, NO DRAINAGE NOTED.
[2021-02-19 16:00] VITALS: BP 126/63
--- NOTE | 2021-02-19 16:30 | NUR ---
BS CHECKED 146, NO COVERAGE.
--- NOTE | 2021-02-19 19:16 | NUR ---
REPORT GIVEN AT BEDSIDE FOR CONTINUITY OF CARE. IN STABLE CONDITION.
[2021-02-19 20:00] VITALS: BP 133/63
--- NOTE | 2021-02-19 20:00 | NUR ---
RECEIVED BEDSIDE REPORT FROM DAY RN REGARDING THE PATIENT FOR CONTINUITY OF CARE. RECEIVED PATIENT A/A/OX2. PT LAYING IN BED AND NO SIGN AND SYMPTOMS OF DISTRESS NOTED. PT HAS NO COMPLAIN AT THIS TIME. ISOLATION AND FALL PRECAUTION IMPLEMENTED. CALL LIGHT WITHIN REACH. WILL CONTINUE POC.
[2021-02-19] MEDS ORDERED: CRUSHER, PILL MC ONE (20:22)
[2021-02-19] MEDS: ZOLPIDEM 5 MG TAB PO PRN (20:24)
--- NOTE | 2021-02-19 22:00 | NUR ---
DUE MEDS GIVEN AND PT TOLERATED IT WELL. NO ADVERSE DRUG REACTION NOTED. WILL CONTINUE TO OBSERVE THE PT.
--- NOTE | 2021-02-20 00:30 | NUR ---
PATIENT WAS RECEIVED IN BED ASLEEP, WITH NO S/S OF DISTRESS
--- NOTE | 2021-02-20 00:33 | NUR ---
ENDORSED PT TO JULIET TURCIOS FOR CONTINUITY OF CARE. PATIENT STABLE. SIGNING OFF.
--- NOTE | 2021-02-20 03:49 | NUR ---
PATIENT WAS CALMLY ASLEEP
[2021-02-20] MEDS: VANCOMYCIN HCL 25 MG/ML SOLN PO SCH ×4 (06:00→18:29)
[2021-02-20] MEDS: BLOOD GLUCOSE MONITORING 1 DEV DEV FS SCH ×4 (07:10→21:58)
--- NOTE | 2021-02-20 07:30 | NUR ---
BS= 138 NEEDING NO INSULIN COVERAGE TO NORMALIZE.
[2021-02-20 08:00] VITALS: BP 127/75
--- NOTE | 2021-02-20 08:00 | NUR ---
RECEIVED REPORT FROM EMERGENCY DISPATCHER FOR CONTINUITY OF CARE. INITIAL ASSESSMENT INITIATED. PATIENT ALERT AWAKE ORIENTED X2. NOT IN DISTRESS NOTED. RESTING IN BED. NO IV ACCESS AT THIS TIME. ON CONTACT ISOLATION OBSERVED. CALL LIGHT WITHIN REACH. WILL CONTINUE TO MONITOR.
--- NOTE | 2021-02-20 08:19 | NUR ---
ALL REPORTS WERE GIVEN, TRANSFER OF CARE ENDORSED.
[2021-02-20] MEDS: metFORMIN 850 MG TAB PO SCH ×2 (08:38→17:20)
[2021-02-20] MEDS: hydrALAZINE 10 MG TAB PO SCH ×3 (08:38→17:20)
[2021-02-20] MEDS: levETIRAcetam 500 MG TAB PO SCH ×2 (08:38→21:50)
[2021-02-20] MEDS: PANTOPRAZOLE 40 MG TABEC PO SCH (08:39)
[2021-02-20] MEDS: AMIODARONE 200 MG TAB PO SCH (08:39)
[2021-02-20] MEDS: ALPRAZolam 0.25 MG TAB PO PRN ×3 (08:39→17:20)
--- NOTE | 2021-02-20 09:00 | NUR ---
ALL DUE MEDICATIONS GIVEN AND TOLERATED WELL. NO PROBLEM TAKING MEDICATIONS. NEEDS ATTENDED. WILL CONTINUE TO MONITOR.
[2021-02-20] MEDS: INSULIN LISPRO SLIDING SCALE 100 UNITS/ML VIAL SUBQ PRN ×2 (11:50→22:11)
--- NOTE | 2021-02-20 14:10 | NUR ---
PATIENT RESTING IN BED, ASLEEP BUR AROUSABLE. WILL CONTINUE TO MONITOR.
--- NOTE | 2021-02-20 15:05 | NUR ---
[place] PLANNING LATE ENTRY CALL WAS ABOUT 11:30AM JULIET MCKEON PROVIDED SW WITH A CONTACT NUMBER FOR PATIENT'S POTENTIAL FAMILY MEMBER THAT IS ATTEMPTING TO KNOW ABOUT PATIENT AND REPORTED THAT WHEN INFORMATION WAS REQUESTED TO PATIENT'S DAUGHTER IN [place] SHE "STATED THAT PATIENT IS IN THE HOSPITAL DYING AND DUE TO PATIENTS FINANCIAL AND MEDICAL NEEDS SHE IS UNABLE TO CARE FOR HER THEREFORE'; SHE HAS LEFT HER IN THE HOSPITAL AND HAS MOVED TO LIVE IN [place]. SW TOOK THE CONTACT INFORMATION FOR KIM PASTRANA AND WILL PLACE A CALL ABOUT PT. [place] PLANNING LATE ENTRY TIME A OF CALL WAS ABOUT 12:00PM SW ATTEMPTED TO CONTACT PATIENT'S POTENTIAL FAMILY MEMBER KIM PASTRANA AT . MR. ALVAREZ DID NOT ANSWER THE PHONE AND SW LEFT HIM A VOICE MAIL MSG WITH DIRECT CONTACT INFORMATION AND A REQUEST FOR A CALL BACK SOON POSSIBLE. Addendum: 02/20/21 at 1604 by Amada Buitrago CM MR. ZEINA ALVAREZ AT CALLED SW BACK TO DISCUSS PATIENT'S RELATIONSHIP. PER MR. MCCARTNEY HE IS ONLY CLOSE FAMILY FRIEND WITH INTEREST TO ASSIST THE PATIENT'S FAMILY. MR. MCCARTNEY STATED " I AM NOT IN THE POSITION OF CARE FOR THE PATIENT SHE IS NOT A FAMILY MEMBER AND I HAVE NO LEGAL RESPONSIBILITY OR DOCUMENTS TO ASSIST OR TAKE CARE OF PATIENT" PER MR. MCCARTNEY PATIENT IS A FRIEND FROM [id number]. SW THANK HIM FOR THE CALL BACK AND ENDED THE CALL.
[2021-02-20 16:00] VITALS: BP 133/58
--- NOTE | 2021-02-20 19:25 | NUR ---
REPORT GIVEN TO TRACK LAYING SUPERVISOR FOR CONTINUITY OF CARE.
[2021-02-20] MEDS: ZOLPIDEM 5 MG TAB PO PRN (21:50)
--- NOTE | 2021-02-20 23:39 | NUR ---
THE PATIENT VITALS ARE STABLE,BS IS 172 INSULIN 1 UNIT WAS ADMINISTERED, SAFETY AND COMFORT MEASURES ARE PROVIDED. ONE EPISODE OF INSOMNIA , AMBIEN WAS GIVEN , THE PATIENT IS SLEEPY AND COMFORTABLE , NO PAIN , NO SOB , BREATH SOUNDS ARE CLEAR
[2021-02-21] MEDS: VANCOMYCIN HCL 25 MG/ML SOLN PO SCH ×5 (00:11→23:23)
[2021-02-21 01:40] VITALS: BP 127/65
--- NOTE | 2021-02-21 07:30 | NUR ---
RECEIVED REPORT FROM AERONAUTICAL ENGINEERING TECHNOLOGIST RN FOR CONTINUITY OF CARE. PATIENT IS RESTING IN BED. NO S/S OF DISTRESS. RESPIRATIONS ARE EVEN AND UNLABORED. ALL SAFETY PRECAUTIONS IN PLACE. WILL CONTINUE TO MONITOR.
[2021-02-21 08:00] VITALS: BP 136/68
[2021-02-21] MEDS: BLOOD GLUCOSE MONITORING 1 DEV DEV FS SCH ×4 (08:23→21:39)
[2021-02-21] MEDS: metFORMIN 850 MG TAB PO SCH ×2 (08:41→17:10)
[2021-02-21] MEDS: hydrALAZINE 10 MG TAB PO SCH ×3 (08:41→17:10)
[2021-02-21] MEDS: levETIRAcetam 500 MG TAB PO SCH ×2 (08:42→21:26)
[2021-02-21] MEDS: PANTOPRAZOLE 40 MG TABEC PO SCH (08:42)
[2021-02-21] MEDS: AMIODARONE 200 MG TAB PO SCH (08:42)
--- NOTE | 2021-02-21 08:45 | NUR ---
ADMINISTERED SCHEDULED MEDICATIONS. PATIENT VERBALIZED UNDERSTANDING. WILL CONTINUE TO MONITOR.
--- NOTE | 2021-02-21 10:30 | NUR ---
PATIENT RESTING IN BED. NO S/S OF DISTRESS. ALL SAFETY PRECAUTIONS IN PLACE.
[2021-02-21] MEDS: INSULIN LISPRO SLIDING SCALE 100 UNITS/ML VIAL SUBQ PRN (11:15)
--- NOTE | 2021-02-21 12:30 | NUR ---
PATIENT IS RESTING IN BED. NO S/S OF DISTRESS. ALL SAFETY PRECAUTIONS IN PLACE.
--- NOTE | 2021-02-21 14:12 | NUR ---
02/21/21 RD FOLLOW UP COMPLETED PLEASE REFER TO NUTRITION ASSESSMENT UNDER CARE ACTIVITY FOR ESTIMATED NUTRITIONAL NEEDS. 1. CONTINUE MECHANICAL SOFT 60G CCHO DIET TOLERATED 2. ASSIST SETTING UP MEAL. 3. RD TO FOLLOW-UP 5-7 DAYS, LOW RISK ABIGAIL AVENDANO, RD
[2021-02-21] MEDS: ALPRAZolam 0.25 MG TAB PO PRN (14:24)
--- NOTE | 2021-02-21 15:40 | NUR ---
PATIENT IS AWAKE AND LAYING IN BED. NO S/S OF DISTRESS. PT DENIES PAIN. ALL SAFETY PRECAUTIONS IN PLACE.
[2021-02-21 16:00] VITALS: BP 128/63
--- NOTE | 2021-02-21 19:25 | NUR ---
ENDORSED PATIENT TO DISCHARGE PLANNER RN FOR CONTINUITY OF CARE. PATIENT IS STABLE.
[2021-02-21] MEDS: ZOLPIDEM 5 MG TAB PO PRN (21:28)
[2021-02-22 01:05] VITALS: BP 117/65
--- NOTE | 2021-02-22 01:55 | NUR ---
THE PATIENT VITALS ARE STABLE. THE PATIENT FEELS COMFORTABLE , LATEST BS WAS 147 , NO INSULIN WAS ADMINISTERED. AMBIEN WAS ADMINISTERED . THE PATEINT SLEEPS COMFORTABLE. BED IS LOW POSITION SAFETY MEASURES ARE PROVIDED
[2021-02-22] MEDS: VANCOMYCIN HCL 25 MG/ML SOLN PO SCH (05:20)
--- NOTE | 2021-02-22 07:25 | NUR ---
RECEIVED REPORT FROM SENIOR RUBY DEVELOPER RN FOR CONTINUITY OF CARE. PATIENT IS IN BED RESTING. NO S/S OF DISTRESS. RESPIRATIONS ARE EVEN AND UNLABORED. ALL SAFETY PRECAUTIONS IN PLACE.
[2021-02-22 08:00] VITALS: BP 144/69
[2021-02-22] MEDS: BLOOD GLUCOSE MONITORING 1 DEV DEV FS SCH ×4 (08:15→21:21)
[2021-02-22] MEDS: INSULIN LISPRO SLIDING SCALE 100 UNITS/ML VIAL SUBQ PRN ×2 (08:16→12:40)
[2021-02-22] MEDS: levETIRAcetam 500 MG TAB PO SCH ×2 (10:18→21:34)
[2021-02-22] MEDS: metFORMIN 850 MG TAB PO SCH ×2 (10:18→17:07)
[2021-02-22] MEDS: hydrALAZINE 10 MG TAB PO SCH ×3 (10:18→17:00)
[2021-02-22] MEDS: AMIODARONE 200 MG TAB PO SCH (10:19)
[2021-02-22] MEDS: PANTOPRAZOLE 40 MG TABEC PO SCH (10:19)
--- NOTE | 2021-02-22 10:20 | NUR ---
ADMINISTERED SCHEDULED MEDICATIONS TO PATIENT. PATIENT EDUCATION GIVEN. PATIENT VERBALIZED UNDERSTANDING.
[2021-02-22] MEDS: ALPRAZolam 0.25 MG TAB PO PRN ×2 (11:00→21:34)
--- NOTE | 2021-02-22 12:48 | NUR ---
PATIENT'S BLOOD SUGAR WAS 193. HUMALOG WAS ATTEMPTED TO BE GIVEN PER SLIDING SCALE BUT PATIENT REFUSED. AFTER MUCH PATIENT EDUCATION, PATIENT STILL REFUSED. NO COVERAGE GIVEN.
--- NOTE | 2021-02-22 13:48 | NUR ---
PATIENT DECLINED 1300 SCHEDULED MEDICATION HYDRALAZINE. EDUCATED PATIENT ABOUT MEDICATION. PATIENT STILL REFUSED MEDICATION. PT BP IS 135/73 AND HR 93. WILL CONTINUE TO MONITOR.
--- NOTE | 2021-02-22 15:30 | NUR ---
PATIENT RESTING AT THE BEDSIDE. NO S/S OF DISTRESS. RESPIRATIONS ARE EVEN AND UNLABORED. ALL SAFETY PRECAUTIONS IN PLACE.
[2021-02-22 16:00] VITALS: BP 126/64
--- NOTE | 2021-02-22 19:25 | NUR ---
ENDORSED PATIENT TO DATA ARCHITECT RN FOR CONTINUITY OF CARE. PATIENT IS STABLE.
[2021-02-23 00:01] VITALS: BP 135/69
--- NOTE | 2021-02-23 00:06 | NUR ---
The pateint vitals are stable, she sleeps comfortable in her bed. scheduled meds were administered. she denies any pain ,. breathing is even and unlabored . bed is low position, she was assited to the bathroom .latest bs 147 . no insulin was given . comfort and safety measures are placed.
--- NOTE | 2021-02-23 07:15 | NUR ---
RECEIVED BEDSIDE REPORT FROM UPHOLSTERY COVERS INSPECTOR NURSE FOR CONTINUITY OF CARE. PT IS ASLEEP, CHEST RISE AND FALL IS SYMMETRICAL. ON ROOM AIR. MS PATIENT. PT IS CONTINENT OF BOWEL AND BLADDER WITH PERIODS OF INCONTINENCE. PT IS AMBULATORY WITH ASSISTANCE. SKIN IS WARM AND DRY. WOUND ON THE BACK WHERE NEPHROSTOMY TUBE WAS PULLED OUT. PT DOES NOT HAVE IV IN PLACE, PT REFUSED PER UPHOLSTERY COVERS INSPECTOR NURSE. PT IS STABLE AT THIS TIME. PLAN OF CARE DISCUSSED.
[2021-02-23] MEDS: BLOOD GLUCOSE MONITORING 1 DEV DEV FS SCH ×4 (07:26→20:45)
[2021-02-23 08:00] VITALS: BP 121/60
[2021-02-23] MEDS: PANTOPRAZOLE 40 MG TABEC PO SCH (08:58)
[2021-02-23] MEDS: AMIODARONE 200 MG TAB PO SCH (08:59)
[2021-02-23] MEDS: metFORMIN 850 MG TAB PO SCH ×4 (08:59→20:46)
[2021-02-23] MEDS: levETIRAcetam 500 MG TAB PO SCH ×2 (08:59→20:45)
[2021-02-23] MEDS: hydrALAZINE 10 MG TAB PO SCH ×4 (08:59→17:11)
--- NOTE | 2021-02-23 09:30 | NUR ---
ROUNDED ON PT. SHE IS SLEEPING IN HER BED IN SEMI FOWLERS POSITION. BREATHING IS UNLABORED ON RA. NO DISTRESS NOTED. WILL CONTINUE TO MONITOR.
--- NOTE | 2021-02-23 11:00 | NUR ---
PT IS UP AT THE CHAIR AT THE ENTRANCE OF THE ROOM. PT WANTED TO WATCH WHAT WAS GOING ON IN THE HALLWAY. BREATHING IS UNLABORED ON RA. NO DISTRESS NOTED. PT DENIES PAIN. PT IS DRY AND DIAPER IS INTACT.
[2021-02-23] MEDS: INSULIN LISPRO SLIDING SCALE 100 UNITS/ML VIAL SUBQ PRN ×2 (12:20→20:48)
--- NOTE | 2021-02-23 12:21 | NUR ---
BS READING IS 255. PT WAS GIVEN 6 UNITS HUMALOG INSULIN PER SLIDING SCALE. WILL MONITOR BS.
--- NOTE | 2021-02-23 14:00 | NUR ---
PT IS UP TO THE RESTROOM WITH THE ASSISTANCE OF THE STUDENT NURSE. PT'S GAIT WAS STEADY. VOIDED IN THE RESTROOM; CLEAR, YELLOW URINE. PT IS BACK TO SLEEP. PT IS STABLE AT THIS TIME. WILL CONTINUE TO MONITOR.
--- NOTE | 2021-02-23 14:20 | NUR ---
YOSELYN, DAUGHTER IN LAW, CALLED AND ASKED FOR UPDATE FOR PT. ALL QUESTIONS ANSWERED.
[2021-02-23 16:00] VITALS: BP 117/67
[2021-02-23] MEDS: ACETAMINOPHEN 325 MG TAB PO PRN (16:44)
--- NOTE | 2021-02-23 16:45 | NUR ---
PATIENT COMPLAINED OF 3/10 LARKIN. ADMINISTERED PRN TYLENOL PER MD ORDERED.
--- NOTE | 2021-02-23 17:13 | NUR ---
PT REFUSED MEDS; METFORMIN AND HYDRALAZINE. INFORMED PT ABOUT THE IMPORTANCE OF THE MEDICATION AND SHE STILL REFUSED. BP IS STABLE AT THIS TIME, 117/67 AND HR IS 97. BLOOD SUGAR IS ALSO STABLE, READING RIGHT NOW WAS 96. WILL CONTINUE TO MONITOR PT.
--- NOTE | 2021-02-23 19:13 | NUR ---
ENDORSED PT TO MANAGER RETIREMENT NURSE FOR CONTINUITY OF CARE. PT IS STABLE AT THIS TIME. PLAN OF CARE DISCUSSED.
[2021-02-23 20:00] VITALS: BP 120/55
--- NOTE | 2021-02-23 20:00 | NUR ---
RECEIVED BEDSIDE REPORT FROM DAY RN FOR CONTINUITY OF CARE. PATIENT ALERT, AWAKE FORGETFUL AND CONFUSED AT TIMES. NO SIGN AND SYMPTOMS OF DISTRESS NOTED AT THIS TIME. FALL PRECAUTION AND ISOLATION PRECAUTION IMPLEMENTED. VSS, AFEBRILE, SATING 98% ON RA. CALL LIGHT WITHIN REACH. WILL CONTINUE POC AND OBSERVATION.
[2021-02-23] MEDS: ALPRAZolam 0.25 MG TAB PO PRN (20:46)
--- NOTE | 2021-02-23 22:00 | NUR ---
DUE MEDICATIONS GIVEN ORDERED AND PT TOLERATED IT WELL. NO ADVERSE DRUG REACTION NOTED. WILL CONTINUE TO OBSERVE THE PATIENT.
--- NOTE | 2021-02-24 02:13 | NUR ---
PATIENT ASLEEP AT THIS TIME. VISIBLE CHEST RISE AND FALL NOTED. SAFETY MEASURES IN PLACE.
[2021-02-24 04:00] VITALS: BP 134/61
[2021-02-24] MEDS: BLOOD GLUCOSE MONITORING 1 DEV DEV FS SCH ×4 (05:52→20:46)
[2021-02-24] MEDS: ACETAMINOPHEN 325 MG TAB PO PRN ×2 (05:54→16:24)
--- NOTE | 2021-02-24 06:21 | NUR ---
NO ACUTE EVENT THROUGHOUT THE NIGHT. NOT IN ANY DISTRESS AND NO COMPLAIN AT THIS TIME. ALL NEEDS ATTENDED. CALL LIGHT WITHIN REACH WILL ENDORSE THE PT TO THE ONCOMING RN FOR CONTINUITY OF CARE.
--- NOTE | 2021-02-24 07:10 | NUR ---
RECEIVED BEDSIDE REPORT FROM COAL MINE INSPECTOR NURSE FOR CONTINUITY OF CARE. PT IS AWAKE AND ALERT. A&OX2. ON RA WITH BREATHING UNLABORED. AMBULATORY WITH STANDBY ASSIST. SKIN IS WARM AND DRY. WOUND ON BACK WHERE NEPHROSTOMY TUBE WAS PREVIOUSLY PULLED OUT. NO IV AT THIS TIME, PT REFUSED. PT IS STABLE. PLAN OF CARE DISCUSSED.
--- NOTE | 2021-02-24 07:23 | NUR ---
ENDORSED PATIENT TO DAY RN FOR CONTINUITY OF CARE. PATIENT STABLE. SIGNING OFF.
[2021-02-24 08:00] VITALS: BP 135/76
[2021-02-24] MEDS: hydrALAZINE 10 MG TAB PO SCH ×3 (08:41→16:24)
[2021-02-24] MEDS: levETIRAcetam 500 MG TAB PO SCH ×2 (08:41→20:48)
[2021-02-24] MEDS: PANTOPRAZOLE 40 MG TABEC PO SCH (08:42)
[2021-02-24] MEDS: AMIODARONE 200 MG TAB PO SCH (08:42)
--- NOTE | 2021-02-24 09:30 | NUR ---
PT IS AWAKE AND ALERT. LAYING IN BED. NO DISTRESS NOTED. PT DENIES PAIN. PT STABLE.
--- NOTE | 2021-02-24 11:15 | NUR ---
PT IS UP TO THE RESTROOM. GAIT IS STEADY. STANDBY ASSISTANCE AVAILABLE. NO DISTRESS NOTED.
--- NOTE | 2021-02-24 12:35 | NUR ---
BS READING IS 140. NO INSULIN COVERAGE PER SLIDING SCALE. PT REFUSED HYDRALAZINE. BP WAS 129/81. BP IS STABLE. WILL CONTINUE TO MONITOR.
--- NOTE | 2021-02-24 14:30 | NUR ---
PT IS AMBULATING AROUND THE UNIT WITH ADULT MINISTRIES DIRECTOR, DANE. BREATHING IS UNLABORED. PT DENIES PAIN. GAIT IS STEADY. WILL CONTINUE TO MONITOR.
[2021-02-24 16:00] VITALS: BP 131/68
[2021-02-24] MEDS: metFORMIN 850 MG TAB PO SCH (16:24)
[2021-02-24] MEDS: INSULIN LISPRO SLIDING SCALE 100 UNITS/ML VIAL SUBQ PRN ×2 (16:26→20:50)
--- NOTE | 2021-02-24 16:27 | NUR ---
PT WAS GIVEN TYLENOL FOR HEADACHE. PT WAS ALSO GIVEN HUMALOG INSULIN PER SLIDING SCALE, 2 UNITS. BS READING WAS 179. WILL CONTINUE TO MONITOR.
--- NOTE | 2021-02-24 18:30 | NUR ---
PT IS AWAKE, SITTING UP IN BED. PT IS EATING DINNER. NO DISTRESS NOTED. PT IS STABLE.
--- NOTE | 2021-02-24 19:10 | NUR ---
ENDORSED PT TO ANTHROPOLOGIST PHYSICAL NURSE FOR CONTINUITY OF CARE. PT IS STABLE AT THIS TIME. PLAN OF CARE DISCUSSED.
--- NOTE | 2021-02-24 19:17 | NUR ---
RECEIVED REPORT FROM DAYSSDFT NURSE FOR CONTINUITY OF CARE.
[2021-02-24 20:00] VITALS: BP 140/75
--- NOTE | 2021-02-24 20:57 | NUR ---
GAVE ALL SCHEDULED MEDS. CRUSHED MEDS. PT TOLERATED WELL. BS CHECKED IT WAS 158. GAVE 2 UNITS FOR COVERAGE.
[2021-02-24] MEDS: ALPRAZolam 0.25 MG TAB PO PRN (21:58)
--- NOTE | 2021-02-24 22:01 | NUR ---
GAVE PRN XANAX FOR ANXIETY.
--- NOTE | 2021-02-25 | NUR ---
PATIENT ASLEEP, NO SIGNS OF DISTRESS, ON ROOM AIR. SAFETY MEASURE IMPLEMENTED.
--- NOTE | 2021-02-25 01:20 | NUR ---
PT ASLEEP, ON ROOM AIR, NO SIGNS OF DISTRESS
[2021-02-25 04:00] VITALS: BP 141/72
[2021-02-25] MEDS: BLOOD GLUCOSE MONITORING 1 DEV DEV FS SCH ×4 (06:54→20:57)
--- NOTE | 2021-02-25 06:54 | NUR ---
CHECKED SCHEDULED BS, IT WAS 143. NO INSULIN COVERAGE GIVEN.
--- NOTE | 2021-02-25 07:15 | NUR ---
RECEIVED BEDSIDE REPORT FROM INSURANCE ADJUSTOR NURSE FOR CONTINUITY OF CARE. PT IS AWAKE AND ALERT. A&OX3. ON RA WITH BREATHING UNLABORED. AMBULATORY WITH STANDBY ASSIST. SKIN IS WARM AND DRY. WOUND ON BACK WHERE NEPHROSTOMY TUBE WAS PREVIOUSLY PULLED OUT. NO IV AT THIS TIME, PT REFUSED. PT IS STABLE. PLAN OF CARE DISCUSSED ALL SAFEETY MEASURES ON PLACE, CALLS LIGHT WITHIN REACH
--- NOTE | 2021-02-25 07:26 | NUR ---
GAVE REPORT TO DAYSHIFT NURSE FOR CONTINUITY OF CARE.
--- NOTE | 2021-02-25 09:40 | NUR ---
PT IS AWAKE, SITTING UP IN BED. PT IS EATING DINNER. NO DISTRESS NOTED. PT IS STABLE Addendum: 02/25/21 at 1126 by Vernell Campbell RN RN PT EATING BREAKFAST
--- NOTE | 2021-02-25 10:00 | NUR ---
PT IS AWAKE, SITTING UP IN BED. PT IS EATING DINNER. NO DISTRESS NOTED. PT IS STABLE Addendum: 02/25/21 at 1126 by Vernell Campbell RN RN EATING SNACK
[2021-02-25] MEDS: PANTOPRAZOLE 40 MG TABEC PO SCH (10:17)
[2021-02-25] MEDS: metFORMIN 850 MG TAB PO SCH ×2 (10:17→17:00)
[2021-02-25] MEDS: hydrALAZINE 10 MG TAB PO SCH ×3 (10:18→17:00)
[2021-02-25] MEDS: AMIODARONE 200 MG TAB PO SCH (10:18)
[2021-02-25] MEDS: levETIRAcetam 500 MG TAB PO SCH ×2 (10:18→20:44)
[2021-02-25] MEDS: INSULIN LISPRO SLIDING SCALE 100 UNITS/ML VIAL SUBQ PRN ×3 (10:20→21:43)
--- NOTE | 2021-02-25 11:24 | NUR ---
PT IS AWAKE, SITTING UP IN BED. NO DISTRESS NOTED. PT IS STABLE ALL SAFETY ,MEASURE ON PLACE, CALLS LIGHT WITHIN REACH
--- NOTE | 2021-02-25 13:35 | NUR ---
PT ON BED, NO COMPLAINS NO SIGN OF DISTRESS NOTED, ALL SAFETY MEASURES ON PLACE CALLS LIGHT WITHIN REACH
--- NOTE | 2021-02-25 15:34 | NUR ---
DC PLANING: [place] [facility] , NO BEHAVIOR NOTED AND WILLING TO ACCEPT PATIENT WHEN MEDICAL GOT APPROVED. CM TO FOLLOW Addendum: 03/04/21 at 1538 by Argentina Patel RN DC PLANING STILL AWAITING FOR MEDICAL PROCESS TO BE APPROVED. AYAK[place] [facility] [place] AND JERSEY FROM [facility] CAME IN TO SEE PATIENT AND PT HAS NO BEHAVIORAL ISSUES WILL DISCUSS IT WITH HER DON AND WILL CALL BACK JERSEY IS ASKING PATIENT O BE VACCINATED. WILL NOTIFY MD ALVARES TO FOLLOW Addendum: 03/05/21 at 1058 by Argentina Patel RN DC PLANNING: RECEIVED A CALL FROM LORENA AT [facility] STATED THE FACILITY WILL ACCEPT HER IF PATIENT GOT VACCINATED AND WILL RUN THE MEDICAL ON March. NOTIFIED DR OVIEDO WILL ORDER COVID-19 VACCINE [employer]. GIORGIO TO FOLLOW
--- NOTE | 2021-02-25 15:40 | NUR ---
PT ON BED, NO COMPLAINS NO SIGN OF DISTRESS NOTED, ALL SAFETY MEASURES ON PLACE CALLS LIGHT WITHIN REACH
[2021-02-25 16:00] VITALS: BP 138/78
--- NOTE | 2021-02-25 17:20 | NUR ---
PT ON BED, NO COMPLAINS NO SIGN OF DISTRESS NOTED, ALL SAFETY MEASURES ON PLACE CALLS LIGHT WITHIN REACH
[2021-02-25] MEDS: ACETAMINOPHEN 325 MG TAB PO PRN (18:13)
--- NOTE | 2021-02-25 18:15 | NUR ---
PT ON BED, PT COMPLAINS ABOUT PAIN, GOT MEDICATED PRN ORDER. NO SIGN OF DISTRESS NOTED, ALL SAFETY MEASURES ON PLACE CALLS LIGHT WITHIN REACH
--- NOTE | 2021-02-25 19:20 | NUR ---
FULL REPORT GIVEN TO COUNTY DIRECTOR WELFARE NURSE
[2021-02-25] MEDS: ALPRAZolam 0.25 MG TAB PO PRN (21:52)
[2021-02-26] VITALS: BP 129/67
[2021-02-26] MEDS: BLOOD GLUCOSE MONITORING 1 DEV DEV FS SCH ×4 (06:25→21:48)
--- NOTE | 2021-02-26 07:20 | NUR ---
RECEIVED BEDSIDE REPORT FROM CIVIL ENGINEERING DIRECTOR NURSE FOR CONTINUITY OF CARE. PT IS AWAKE AND ALERT. A&OX3. ON RA WITH BREATHING UNLABORED. AMBULATORY WITH STANDBY ASSIST. SKIN IS WARM AND DRY. WOUND ON BACK WHERE NEPHROSTOMY TUBE WAS PREVIOUSLY PULLED OUT. NO IV AT THIS TIME, PT REFUSED. PT IS STABLE. PLAN OF CARE DISCUSSED ALL SAFEETY MEASURES ON PLACE, CALLS LIGHT WITHIN REACH
[2021-02-26 08:00] VITALS: BP 138/80
[2021-02-26] MEDS: levETIRAcetam 500 MG TAB PO SCH ×2 (09:08→21:22)
[2021-02-26] MEDS: AMIODARONE 200 MG TAB PO SCH (09:08)
[2021-02-26] MEDS: PANTOPRAZOLE 40 MG TABEC PO SCH (09:08)
[2021-02-26] MEDS: hydrALAZINE 10 MG TAB PO SCH ×3 (09:10→17:00)
[2021-02-26] MEDS: metFORMIN 850 MG TAB PO SCH ×2 (09:14→17:00)
--- NOTE | 2021-02-26 09:15 | NUR ---
PT ON BED, NO COMPLAINS NO SIGN OF DISTRESS NOTED, ALL SAFETY MEASURES ON PLACE CALLS LIGHT WITHIN REACH
--- NOTE | 2021-02-26 11:20 | NUR ---
PT SETTING ON BED. NO SIGN OF DISTRESS NOTED. CALLS LIGHT WITHIN REACH, ALL SAFETY MEASURES ON PLACE
--- NOTE | 2021-02-26 13:10 | NUR ---
PT SETTING ON BED. NO SIGN OF DISTRESS NOTED. CALLS LIGHT WITHIN REACH, ALL SAFETY MEASURES ON PLACE
[2021-02-26] MEDS: ACETAMINOPHEN 325 MG TAB PO PRN (15:11)
--- NOTE | 2021-02-26 15:15 | NUR ---
PT LAYING ON BED. NO SIGN OF DISTRESS NOTED. CALLS LIGHT WITHIN REACH, ALL SAFETY MEASURES ON PLACE
[2021-02-26 16:00] VITALS: BP 130/73
--- NOTE | 2021-02-26 17:25 | NUR ---
PT SETTING ON BED NO SIGN OF DISTRESS NOTED. CALLS LIGHT WITHIN REACH, ALL SAFETY MEASURES ON PLACE
--- NOTE | 2021-02-26 19:30 | NUR ---
RECD. RESTING IN BED, AWAKE, A/OX2. RESPIRATION EVEN AND UNLABORED. NO IV LINE. AMBULATORY TO THE BR. GAIT STEADY. WITH COLOSTOMY BAG IN THE LEFT SIDED NEPHROSTOMY TUBE SITE, NO DRAINAGE NOTED. WANTS SLEEPING PILL TONIGHT, WILL CALL . DENIES PAIN 0/10.
--- NOTE | 2021-02-26 19:35 | NUR ---
FULL BEDSIDE REPORT GIVEN TO COMPUTER INFORMATION SYSTEMS INSTRUCTOR NURSE
[2021-02-26 20:00] VITALS: BP 128/75
[2021-02-26] MEDS: traZODone 50 MG TAB PO PRN (21:23)
--- NOTE | 2021-02-26 21:23 | NUR ---
MEDICATED WITH DESYREL FOR SLEEP PER MD ORDER.
[2021-02-26] MEDS: INSULIN LISPRO SLIDING SCALE 100 UNITS/ML VIAL SUBQ PRN (21:48)
--- NOTE | 2021-02-26 22:30 | NUR ---
AMBULATED TO THE BR TO VOID, BACK TO BED AFTER VOIDING.
--- NOTE | 2021-02-27 | NUR ---
SLEEPING COMFORTABLY IN BED.
--- NOTE | 2021-02-27 02:00 | NUR ---
STILL SLEEPING COMFORTABLY IN BED.
--- NOTE | 2021-02-27 04:00 | NUR ---
RESPIRATIO EVEN AND UNLABORED. STILL SLEEPING COMFORTABLY IN BED.
[2021-02-27] MEDS: INSULIN LISPRO SLIDING SCALE 100 UNITS/ML VIAL SUBQ PRN ×3 (07:09→15:47)
[2021-02-27] MEDS: BLOOD GLUCOSE MONITORING 1 DEV DEV FS SCH ×4 (07:09→21:00)
--- NOTE | 2021-02-27 07:24 | NUR ---
RECEIVED REPORT FROM COAT FINISHER NURSE FOR CONTINUITY OF CARE. PT STABLE. NO S/S OF DISTRESS. CALL LIGHT IN REACH. ALL SAFETY MEASURES IN PLACE
--- NOTE | 2021-02-27 07:30 | NUR ---
CONDITION REMAIN STABLE. ENDORSED TO AM SHIFT NURSE FOR CONTINUITY OF CARE.
[2021-02-27 08:00] VITALS: BP 118/74
[2021-02-27] MEDS: hydrALAZINE 10 MG TAB PO SCH ×2 (08:22→13:36)
[2021-02-27] MEDS: AMIODARONE 200 MG TAB PO SCH (08:25)
[2021-02-27] MEDS: levETIRAcetam 500 MG TAB PO SCH (08:25)
[2021-02-27] MEDS: metFORMIN 850 MG TAB PO SCH ×2 (08:27→17:18)
[2021-02-27] MEDS: PANTOPRAZOLE 40 MG TABEC PO SCH (08:27)
--- NOTE | 2021-02-27 09:32 | NUR ---
PT GIVEN MORNING MEDS. PATIENT TOLERATED WELL. BREAKFAST TRAY AT BEDSIDE. REINFORCED EDUCATION TOWER HOIST OPERATOR LIGHT USE, CALL LIGHT IN REACH. ALL SAFETY MEASURES IN PLACE
--- NOTE | 2021-02-27 11:30 | NUR ---
ROUNDED ON PT. LINENS CHANGED. PATIENT RESTING IN BED. NO S/S OF DISTRESS. CALL LIGHT IN REACH. ALL SAFETY MEASURES IN PLACE.
--- NOTE | 2021-02-27 12:44 | NUR ---
PT IN BED WITH LUNCH TRAY AT BEDSIDE. PT FRIEND BROUGHT FOOD, PT EATING FOOD FROM HOME. TOLERATING WELL. INSULIN GIVEN PER MD ORDER. PT TOLERATED WELL. PT HAS OSTOMY BAG ATTACHED TO PREVIOUS NEPHROSTOMY SITE ON BACK LEFT, CLEAN DRY AND INTACT. NO DRAINAGE. CALL LIGHT IN REACH. ALL SAFETY MEASURES IN PLACE
[2021-02-27] MEDS: ALPRAZolam 0.25 MG TAB PO PRN (13:36)
--- NOTE | 2021-02-27 13:37 | NUR ---
PT STATED HAVING ANXIETY. USED BREATHING EXERCISES AND MEDICATED. PT TOLERATED WELL. CALL LIGHT IN REACH. ALL SAFETY MEASURES IN PLACE
--- NOTE | 2021-02-27 13:46 | NUR ---
02/27/21 RD FOLLOW UP COMPLETED PLEASE REFER TO NUTRITION ASSESSMENT UNDER CARE ACTIVITY FOR ESTIMATED NUTRITIONAL NEEDS. 1. CONTINUE MECHANICAL SOFT CCHO 60 GM AND CARDIAC DIET TOLERATED 2. ASSIST SETTING UP MEAL 3. HONOR PATIENT FOOD PREFENCE, ALLOW FOOD FROM HOME 4. RD TO FOLLOW-UP 5-7 DAYS, LOW RISK ABIGAIL AVENDANO, RD
[2021-02-27] MEDS ORDERED: hydrALAZINE 25 MG TAB PO PRN (15:00)
--- NOTE | 2021-02-27 15:30 | NUR ---
ROUNDED ON PT. PATIENT SITTING IN CHAIR NEAR DOOR WAY. PT STATED SHE WAS COLD. PT GIVEN WARMED BLANKET. NO S/S OF DISTRESS. CHARTING ACROSS FROM PT ROOM UNTIL PT RETURNS TO BED AND CAN REACH ALL LIGHT. ALL SAFETY MEASURES IN PLACE.
[2021-02-27] MEDS: ACETAMINOPHEN 325 MG TAB PO PRN (15:37)
[2021-02-27 16:00] VITALS: BP 123/64
--- NOTE | 2021-02-27 17:33 | NUR ---
ROUNDED ON PT. PATIENT RESTING IN BED. PT EDUCATION REINFORCEMENT ON USE OF CALL LIGHT. PT VERBALIZED UNDERSTANDING. PT EDUCATED ON MEDICATION GIVEN PER MD ORDER. PT VERBALIZED UNDERSTANDING. PATIENT TOLERATED WELL. NO S/S OF DISTRESS. CALL LIGHT IN REACH. ALL SAFETY MEASURES IN PLACE.
--- NOTE | 2021-02-27 19:12 | NUR ---
REPORT GIVEN TO DISPATCHER RADIO NURSE FOR CONTINUITY OF CARE. PT STABLE. RESTING IN BED. NO S/S OF DISTRESS. CALL LIGHT IN REACH. ALL SAFETY MEASURES IN PLACE
--- NOTE | 2021-02-27 19:13 | NUR ---
RECD. RESTING IN BED, AWAKE, A/OX2. RESPIRATION EVEN AND UNLABORED. AMBULATORY TO THE BR. ABLE TO VERBALIZED NEEDS AND TAKE GOOD CARE OF SELF HYGIENE. REORIENTED ON HOSPITAL SETTING, VERBALIZED SHE WANTS MEDICATION FOR SLEEP. WILL MEDICATE PER MD ORDER. DENIES PAIN 0/10.
[2021-02-27 20:00] VITALS: BP 132/64
[2021-02-27] MEDS: traZODone 50 MG TAB PO PRN (20:59)
[2021-02-27] MEDS: METOPROLOL 25 MG TAB PO SCH (21:09)
--- NOTE | 2021-02-27 21:09 | NUR ---
BS CHECKED, 137, NO INSULIN COVERAGE. SCHEDULED MEDICATIONS GIVEN. REFUSED TO TAKE NIGHT SNACK. WILL OFFER AGAIN LATER.
--- NOTE | 2021-02-27 22:00 | NUR ---
SLEEPING COMFORTABLY IN BED.
--- NOTE | 2021-02-27 23:00 | NUR ---
HAD A LARGE LOOSE BM, LIGHT BROWN IN COLOR. ASSISTED BY CAN TO CLEANSED SELF AND CHANGE GOWN AND UNDERWEAR.
[2021-02-28] VITALS: BP 125/60
--- NOTE | 2021-02-28 01:00 | NUR ---
WOKE UP FROM SLEEP, AMBULATED TO BR TO VOID. BACK TO BED AFTER VOIDING AND WENT BACK TO SLEEP.
--- NOTE | 2021-02-28 02:30 | NUR ---
AMBULATED TO TO VOID. BACK TO BED AFTER VOIDING. TAKE OFF COLOSTOMY BAG IN THE NEPHROSTOMY SITE. OPENING ALREADY COMPLETELY HEALED. APPLY DRESSING TO SITE PER MD ORDER.
--- NOTE | 2021-02-28 04:30 | NUR ---
SLEEPING COMFORTABLY IN BED, RESPIRATION EVEN AND UNLABORED.
[2021-02-28] MEDS: BLOOD GLUCOSE MONITORING 1 DEV DEV FS SCH ×4 (06:33→21:41)
[2021-02-28] MEDS: INSULIN LISPRO SLIDING SCALE 100 UNITS/ML VIAL SUBQ PRN ×3 (06:37→21:50)
--- NOTE | 2021-02-28 07:20 | NUR ---
STILL SLEEPING IN BED, CONDITION REMAIN STABLE. ENDORSED TO AM SHIFT NURSES FOR CONTINUITY OF CARE.
--- NOTE | 2021-02-28 07:24 | NUR ---
PT HAS BEEN ENDORSED BY PSYCHOLOGY TECH NURSE FOR CONTINUITY OF CARE, POC DISCUSSED. PT IS STABLE IN BED SLEEPING WITH CHEST RISING AND FALLING EVEN AND UNLABORED ON ROOM AIR. PT ON MEDSURG STATUS. LAST BOWEL MOVEMENT NOTED ON THE . SKIN INTACT, WITH LEFT FLANK SCAR FROM PREVIOUS NEPHROSTOMY TUBE, ENDORSED IT IS CLOSED. PT HAS NO IV ACCESS. AWAITING CASE MANAGEMENT FOR DISCHARGE PLACEMENT. ALL SAFETY MEASURES IN PLACE, CALL LIGHT WITHIN REACH. WILL CONTINUE TO MONITOR.
[2021-02-28 08:00] VITALS: BP 98/54
[2021-02-28] MEDS: METOPROLOL 25 MG TAB PO SCH ×2 (09:00→21:46)
[2021-02-28] MEDS: AMIODARONE 200 MG TAB PO SCH (09:00)
[2021-02-28] MEDS: PANTOPRAZOLE 40 MG TABEC PO SCH (09:06)
[2021-02-28] MEDS: metFORMIN 850 MG TAB PO SCH ×2 (09:07→17:48)
--- NOTE | 2021-02-28 09:34 | NUR ---
DAMASO MEDICATION ADMINISTERED PER MD ORDER, BP MEDICATION HELD DUE TO A DECREASED BP. PT EDUCATION PROVIDED. PT TOLERATED ADMINISTRATION. PT IS STABLE IN BED WITH NO ACUTE S/S OF DISTRESS. ALL SAFETY MEASURES IN PLACE CALL LIGHT WITHIN REACH WILL CONTINUE TO MONITOR.
--- NOTE | 2021-02-28 12:26 | NUR ---
BLOOD GLUCOSE IS 231; 4 UNITS OF INSULIN ADMINISTERED PER MD ORDER. PT TOLERATED ADMINISTRATION. ALL SAFETY MEASURES IN PLACE, CALL LIGHT WITHIN REACH. WILL CONTINUE TO MONITOR
--- NOTE | 2021-02-28 13:13 | NUR ---
ATTEMPTED TO CALL "LISA" PER PTS REQUEST, UNABLE TO GET ANSWER. WILL ATTEMPT AGAIN
--- NOTE | 2021-02-28 13:44 | NUR ---
PT ON THE PHONE WITH FAMILY IN STABLE CONDITION.
[2021-02-28 16:00] VITALS: BP 130/61
[2021-02-28] MEDS: ACETAMINOPHEN 325 MG TAB PO PRN (17:48)
--- NOTE | 2021-02-28 17:58 | NUR ---
DAMASO MEDICATION ADMINISTERED PER MD ORDER, PRN TYLENOL ADMINISTERED FOR HEADACHE.
--- NOTE | 2021-02-28 18:42 | NUR ---
CALLED LAB TO NOTIFY THEM OF LAB DRAW, STATED THEY WILL COLLECT BLOOD.
--- NOTE | 2021-02-28 19:18 | NUR ---
PT HAS BEEN ENDORSED TO MUSEUM DOCENT IN STABLE CONDITION. POC DISCUSSED.
[2021-02-28] MEDS: ALPRAZolam 0.25 MG TAB PO PRN (21:46)
--- NOTE | 2021-02-28 23:21 | NUR ---
the pateint vitasl are stable, breathing is even and unlabored, she lies comfortable in her bed, she went to the bathroom [facility] for BM , her stool is loose and watery. bed is low position and call light is in reach
[2021-02-28 23:52] VITALS: BP 135/86
[2021-03-01] MEDS: BLOOD GLUCOSE MONITORING 1 DEV DEV FS SCH ×4 (06:46→20:20)
--- NOTE | 2021-03-01 07:05 | NUR ---
RECEIVED CHANGE OF SHIFT REPORT FROM NIGHT NURSE AT BEDSIDE FOR CONTINUITY OF CARE. REVIEWED AND WILL CONTINUE WITH POC. PT ASLEEP DURING BEDSIDE REPORT. WHEN AWAKE, NURSE REPORTS PT IS AA&OX3 AND AMBULATORY. PT IS ON RA WITH NORMAL, UNLABORED BREATHING. PT HAS NO IV ACCESS. SKIN IS WARM, DRY, AND INTACT. PT ON CONTACT PRECAUTIONS FOR C. DIFF, NIGHT NURSE REPORTS PT HAD 4-5 EPISODES OF DIARRHEA LAST NIGHT. PT IS CONTINENT WITH PERIODS OF INCONTINENCE. NIGHT NURSE REPORTS PT REFUSED AM GLUCOSE CHECK. WILL PERFORM FREQ ROUNDING.
[2021-03-01 08:00] VITALS: BP 131/66
[2021-03-01] MEDS: metFORMIN 850 MG TAB PO SCH ×3 (08:00→16:46)
[2021-03-01] MEDS: METOPROLOL 25 MG TAB PO SCH ×2 (08:37→20:20)
[2021-03-01] MEDS: AMIODARONE 200 MG TAB PO SCH (08:37)
[2021-03-01] MEDS: PANTOPRAZOLE 40 MG TABEC PO SCH (08:38)
--- NOTE | 2021-03-01 09:20 | NUR ---
PT CONDITION IS STABLE. PT IS CURRENTLY EATING AND DENIES ANY PAIN OR DISCOMFORT AT THIS TIME. WILL CONTINUE TO PERFORM FREQ ROUNDING.
[2021-03-01] MEDS: INSULIN LISPRO SLIDING SCALE 100 UNITS/ML VIAL SUBQ PRN ×2 (11:35→20:26)
[2021-03-01] MEDS: ALPRAZolam 0.25 MG TAB PO PRN ×2 (11:40→21:58)
--- NOTE | 2021-03-01 11:40 | NUR ---
PT RECEIVED 6 UNITS OF HUMALOG INSULIN PER SLIDING SCALE FOR BG LEVEL OF 251. PT COMPLAINED OF ANXIETY AND ASKED FOR MEDICATION. ADMINISTERED XANAX PRN FOR ANXIETY. PT CONDITION IS STABLE. WILL CONTINUE TO MONITOR PT CONDITION.
--- NOTE | 2021-03-01 13:10 | NUR ---
PT CONDITION IS STABLE. PT IS CURRENTLY USING RESTROOM WITHOUT HELP. PT DENIES PAIN OR DISCOMFORT AT THIS TIME. WILL CONTINUE TO PERFORM FREQ ROUNDING.
--- NOTE | 2021-03-01 15:06 | NUR ---
PT CONDITION IS STABLE. PT IS AWAKE AND WATCHING TV. DENIES PAIN AND DISCOMFORT. WILL CONTINUE WITH FREQ MONITORING.
[2021-03-01 16:00] VITALS: BP 130/62
--- NOTE | 2021-03-01 17:05 | NUR ---
YOSELYN (FAMILY) CALLED TO SPEAK WITH PT. PT UNABLE TO HEAR FAMILY OVER TELEPHONE. PT CONDITION IS STABLE AND PT DOES NOT APPEAR TO BE IN PAIN OR DISTRESS.
--- NOTE | 2021-03-01 19:10 | NUR ---
GAVE CHANGE OF SHIFT REPORT TO NIGHT NURSE AT BEDSIDE FOR CONTINUITY OF CARE. PT IS AWAKE AND DENIES PAIN OR DISCOMFORT. PT IS STABLE. DISCUSSED POC. SAFETY MEASURES IN PLACE.
--- NOTE | 2021-03-01 19:11 | NUR ---
RECEIVED BEDSIDE REPORT FROM DAY RN. PT IS RESTING IN BED DENIES ANY COMPLAINS. PT IS TAJIK SPEAKING UNDERSTANDS LITTLE DANISH. RESPIRATIONS ARE EQUAL AND UNLABORED ON ROOM AIR. SKIN IS WARM, DRY AND INTACT. NO IV ACCESS MD AWARE. PT IS AMBULATORY ABLE TO MAKE NEEDS KNOWN. POC PT IS WAITING FOR PLACEMENT. POC REVIEWED WITH PATIENT. CALL LIGHT IS WITHIN REACH. WILL CONTINUE TO MONITOR.
[2021-03-01] MEDS: ACETAMINOPHEN 325 MG TAB PO PRN (19:30)
[2021-03-01 20:00] VITALS: BP 139/64
[2021-03-01] MEDS: traZODone 50 MG TAB PO PRN (20:20)
--- NOTE | 2021-03-01 20:20 | NUR ---
VITAL SIGNS ARE WITHIN NORMAL LIMITS. BS 162 COVERAGE GIVEN PER SLIDING SCALE. DAMASO MEDICATIONS GIVEN PER ORDERS. MED EDUCATION GIVEN. SAFETY MEASURES ARE IN PLACE.
--- NOTE | 2021-03-01 21:58 | NUR ---
PT WANDERING AROUND THE UNIT. NEEDS FREQUENT REDIRECTION. PRN XANAX GIVEN.PT BACK IN BED. WILL CONTINUE TO MONITOR.
--- NOTE | 2021-03-02 00:28 | NUR ---
PT APPEARS TO BE ASLEEP. CHEST RISE AND FALL NOTED. CALL LIGHT WITHIN REACH. WILL CONTINUE TO MONITOR.
--- NOTE | 2021-03-02 02:11 | NUR ---
PT ASLEEP IN BED. CALL LIGHT WITHIN REACH.
[2021-03-02 04:00] VITALS: BP 151/77
--- NOTE | 2021-03-02 04:00 | NUR ---
VITAL SIGNS TAKEN AND STABLE.ALL NEEDS MET. CALL LIGHT WITHIN REACH.
[2021-03-02] MEDS: BLOOD GLUCOSE MONITORING 1 DEV DEV FS SCH ×4 (06:47→20:58)
[2021-03-02] MEDS: INSULIN LISPRO SLIDING SCALE 100 UNITS/ML VIAL SUBQ PRN ×3 (06:49→20:59)
--- NOTE | 2021-03-02 06:52 | NUR ---
BLOOD SUGAR IS 155. PT REFUSED COVERAGE DESPITE EDUCATION.WILL CONTINUE TO MONITOR. CALL LIGHT WITHIN REACH.
--- NOTE | 2021-03-02 07:14 | NUR ---
GAVE BEDSIDE REPORT TO DAY RN. PT ENDORSED IN STABLE CONDITION.
--- NOTE | 2021-03-02 07:15 | NUR ---
RECEIVED CHANGE OF SHIFT REPORT FROM NIGHT NURSE AT BEDSIDE FOR CONTINUITY OF CARE. REVIEWED AND WILL CONTINUE WITH POC. PT ASLEEP DURING BEDSIDE REPORT. NURSE STATES PT IS AA&OX3 AND AMBULATORY WHEN AWAKE. PT IS ON RA WITH NORMAL, UNLABORED BREATHING. PT CONDITION IS STABLE. PT DOES NOT HAVE IV ACCESS, MD AWARE. WILL CONTINUE TO MONITOR.
[2021-03-02] MEDS: METOPROLOL 25 MG TAB PO SCH ×2 (08:31→20:48)
[2021-03-02] MEDS: metFORMIN 850 MG TAB PO SCH ×2 (08:31→16:54)
[2021-03-02] MEDS: PANTOPRAZOLE 40 MG TABEC PO SCH (08:31)
[2021-03-02] MEDS: AMIODARONE 200 MG TAB PO SCH (08:32)
--- NOTE | 2021-03-02 09:30 | NUR ---
PT CONDITION IS STABLE. PT IS AWAKE AND WATCHING TV. DENIES PAIN OR DISCOMFORT. SAFETY MEASURES IN PLACE.
--- NOTE | 2021-03-02 11:07 | NUR ---
PT IS AWAKE AND STABLE. ON RA AND DENIES PAIN OR DISCOMFORT.
--- NOTE | 2021-03-02 13:16 | NUR ---
PT ASKED FOR Z-GUARD. PT STATED BOTTOM HURTS. APPLIED LAYER OF Z-GUARD FOR PT. DOES NOT WANT MEDICATION AT THIS TIME.
--- NOTE | 2021-03-02 15:20 | NUR ---
YOSELYN (FAMILY) ATTEMPTED TO CALL PT. PT WAS ASLEEP AND FAMILY DID NOT WANT TO DISTURB. PT IS STABLE.
[2021-03-02 16:00] VITALS: BP 142/76
[2021-03-02] MEDS: ACETAMINOPHEN 325 MG TAB PO PRN ×2 (16:54→20:49)
--- NOTE | 2021-03-02 17:15 | NUR ---
LAB AT BEDSIDE TO DRAW CBC AND BMP. PT REFUSED. EDUCATED PT ABOUT IMPORTANCE OF LAB DRAW PT STILL REFUSED. PT STATED "TOO SKINNY". WILL NOTIFY .
--- NOTE | 2021-03-02 19:27 | NUR ---
GAVE CHANGE OF SHIFT REPORT TO NIGHT NURSE AT BEDSIDE FOR CONTINUITY OF CARE. PT IS STABLE. DISCUSSED POC. SAFETY MEASURES IN PLACE.
--- NOTE | 2021-03-02 19:28 | NUR ---
RECEIVED BEDSIDE ENDORSEMENT FROM AM SHIFT. PATIENT IS AWAKE SITTING ON THE CHAIR. NO SOB NOTED AT THIS TIME. NO COMPLAINTS OF PAIN. SAFETY MEASURES ARE IN PLACE. WILL CONTINUE TO MONITOR.
--- NOTE | 2021-03-02 20:45 | NUR ---
DUE MEDS GIVEN PER MD ORDERED.
[2021-03-02] MEDS: traZODone 50 MG TAB PO PRN (20:49)
--- NOTE | 2021-03-02 20:49 | NUR ---
PT COMPLAINED OF HEADACHE, TYLENOL GIVEN PER MD ORDERED.
[2021-03-03] VITALS: BP 138/64
[2021-03-03] MEDS: INSULIN LISPRO SLIDING SCALE 100 UNITS/ML VIAL SUBQ PRN ×4 (06:36→21:50)
[2021-03-03] MEDS: BLOOD GLUCOSE MONITORING 1 DEV DEV FS SCH ×4 (06:36→21:49)
--- NOTE | 2021-03-03 07:04 | NUR ---
BEDSIDE ENDORSEMENT GIVEN TO AM NURSE. PATIENT IS STABLE.
--- NOTE | 2021-03-03 07:05 | NUR ---
RECEIVED CHANGE OF SHIFT REPORT FROM NIGHT NURSE AT BEDSIDE FOR CONTINUITY OF CARE. REVIEWED AND WILL CONTINUE WITH POC. PT IS AA&OX3 AND AMBULATORY WITH STEADY GAIT AND PERIODS OF UNSTEADY GAIT. SAFETY PRECAUTIONS IN PLACE. SKIN WARM, DRY AND INTACT. PT IS CONTINENT WITH PERIODS ON INCONTINENCE. WILL CONTINUE TO MONITOR.
--- NOTE | 2021-03-03 07:30 | NUR ---
PT REFUSED BLOOD DRAW FROM LAB. EDUCATED ON IMPORTANCE OF LAB WORK, PT STILL REFUSED.
[2021-03-03 08:00] VITALS: BP 137/58
[2021-03-03] MEDS: METOPROLOL 25 MG TAB PO SCH ×2 (08:28→21:44)
[2021-03-03] MEDS: PANTOPRAZOLE 40 MG TABEC PO SCH (08:28)
[2021-03-03] MEDS: metFORMIN 850 MG TAB PO SCH ×2 (08:29→16:39)
[2021-03-03] MEDS: AMIODARONE 200 MG TAB PO SCH (08:29)
--- NOTE | 2021-03-03 09:05 | NUR ---
PT CONDITION IS STABLE. PT IS AWAKE AND CALMLY WATCHING TV. PT DENIES PAIN OR DISCOMFORT AT THIS TIME. WILL CONTINUE TO MONITOR PT CONDITION.
--- NOTE | 2021-03-03 11:05 | NUR ---
ADMINISTERED 2 UNITS OF INSULIN FOR BG LEVEL OF 165.
--- NOTE | 2021-03-03 11:21 | NUR ---
PT CONDITION IS STABLE. PT AWAKE AND AMBULATED TO THE RESTROOM TO VOID. PT DENIES PAIN AT THIS TIME AND IS BACK IN BED WATCHING TV.
--- NOTE | 2021-03-03 13:05 | NUR ---
PT IS AWAKE AND WATCHING TV. PT IS STABLE AND CALM. PT DENIES PAIN AND DOES NOT APPEAR TO BE IN DISTRESS AT THIS TIME. WILL CONTINUE TO MONITOR.
--- NOTE | 2021-03-03 15:05 | NUR ---
PT IS AWAKE WITH FAMILY FRIEND AT BEDSIDE. PT IS CONTENT AND DENIES PAIN OR DISCOMFORT. WILL CONTINUE TO MONITOR PT CONDITION.
[2021-03-03 16:00] VITALS: BP 145/64
--- NOTE | 2021-03-03 17:05 | NUR ---
PT IS NOW AWAKE. WILL PREPARE FOR STRAIGHT CATHETERIZATION. EDUCATED PT ABOUT PROCEDURE, VERBALIZED UNDERSTANDING BUT NEEDED REENFORCEMENT OF TEACHING. WILL CONTINUE TO PERFORM FREQ ROUNDING.
--- NOTE | 2021-03-03 17:18 | NUR ---
ADMINISTERED 2 UNITS OF HUMALOG INSULIN PER SLIDING SCALE FOR BG LEVEL OF 165. WILL CONTINUE WITH BG MONITORING.
--- NOTE | 2021-03-03 19:05 | NUR ---
GAVE CHANGE OF SHIFT REPORT TO NIGHT NURSE AT BEDSIDE FOR CONTINUITY OF CARE. PT CONDITION IS STABLE. POC DISCUSSED.
--- NOTE | 2021-03-03 19:10 | NUR ---
RECEIVED REPORT AT BEDSIDE FROM AM NURSE. PATIENT IN BED AWAKE, ALERT VERBALLY RESPONSIVE IN MAORI. NO ACUTE DISTRESS NOTED. RESPIRATION REGULAR UNLABORED. AMBULATES WITHOUT ASSIST. DENIES PAIN. SAFETY MEASURES IN PLACE. WILL CONTINUE TO MONITOR.
[2021-03-03] MEDS: traZODone 50 MG TAB PO PRN (21:43)
--- NOTE | 2021-03-03 21:44 | NUR ---
DUE MEDS GIVEN ORDERED
[2021-03-04] VITALS: BP 129/68
[2021-03-04] MEDS: BLOOD GLUCOSE MONITORING 1 DEV DEV FS SCH ×4 (06:45→21:26)
[2021-03-04 08:00] VITALS: BP 136/73
[2021-03-04 09:41] LABS: ANION GAP 13.9 (8-16); BASOPHILS % (AUTO) 0.2 % (0.0-2.0); CARBON DIOXIDE 26.5 mmol/L (21-32); CHLORIDE 100 mmol/L (98-107); CREATININE 1.3 mg/dL (0.6-1.3); GLUCOSE 211 mg/dL (74-106); HEMATOCRIT 29.2 % (36-48); HEMOGLOBIN 9.8 g/dL (12.0-16.0); LYMPHOCYTES # (AUTO) 1.8 K/uL (2.5-16.5); LYMPHOCYTES % (AUTO) 15.6 % (20.5-51.1); MEAN CORPUSCULAR HEMOGLOBIN 30 pg (27-31); MEAN CORPUSCULAR HGB CONC 33 g/dL (33-37); MEAN CORPUSCULAR VOLUME 89.7 fL (80-94); MONOCYTES # (AUTO) 1.1 K/uL (0.8-1.0); MONOCYTES % (AUTO) 9.6 % (1.7-9.3); NEUTROPHILS # (AUTO) 8.9 K/uL (1.8-7.7); NEUTROPHILS % (AUTO) 74.6 % (42.2-75.2); PLATELET COUNT (AUTO) 417 K/uL (140-450); POTASSIUM 3.4 mmol/L (3.5-5.1); RED BLOOD CELL COUNT(AUTO) 3.26 MIL/uL (4.20-5.40); RED CELL DISTRIBUTION WIDTH 15.3 % (11.6-13.7); SODIUM SERUM 137 mmol/L (136-145); UREA NITROGEN, BLOOD 14 mg/dL (7-18); WHITE BLOOD COUNT (AUTO) 11.9 K/uL (4.8-10.8)
[2021-03-04 09:46] LABS: MAGNESIUM 1.3 mg/dL (1.8-2.4); PHOSPHORUS 3.8 mg/dL (2.5-4.9)
[2021-03-04] MEDS: AMIODARONE 200 MG TAB PO SCH (10:18)
[2021-03-04] MEDS: PANTOPRAZOLE 40 MG TABEC PO SCH (10:18)
[2021-03-04] MEDS: metFORMIN 850 MG TAB PO SCH ×2 (10:18→18:43)
[2021-03-04] MEDS: METOPROLOL 25 MG TAB PO SCH ×2 (10:19→21:29)
[2021-03-04] MEDS: INSULIN LISPRO SLIDING SCALE 100 UNITS/ML VIAL SUBQ PRN ×2 (12:38→21:28)
[2021-03-04] MEDS: POTASSIUM CHLORIDE 20% 40 MEQ/15 ML UDC GT PRN (12:39)
[2021-03-04] MEDS: MAGNESIUM OXIDE 400 MG TAB PO PRN (12:39)
[2021-03-04 16:00] VITALS: BP 137/64
--- NOTE | 2021-03-04 19:30 | NUR ---
RECEIVED ENDORSEMENT FROM KENNEDI ROSE. PATIENT IN BED AWAKE, ALERT , NO S/S OF RESPIRATORY DISTRESS. CALL LIGHT WITHIN REACH. SAFETY MEASURES IN PLACE. WILL CONTINUE TO MONITOR.
--- NOTE | 2021-03-04 21:29 | NUR ---
DUE MEDS GIVEN ORDERED. NO SOB NOTED.
[2021-03-04] MEDS: traZODone 50 MG TAB PO PRN (21:30)
[2021-03-05] VITALS: BP 146/72
--- NOTE | 2021-03-05 02:00 | NUR ---
ASSISTED PATIENT TO THE TOILET.
[2021-03-05] MEDS: BLOOD GLUCOSE MONITORING 1 DEV DEV FS SCH ×4 (06:42→21:11)
[2021-03-05] MEDS: INSULIN LISPRO SLIDING SCALE 100 UNITS/ML VIAL SUBQ PRN ×3 (06:42→21:19)
--- NOTE | 2021-03-05 07:27 | NUR ---
ENDORSEMENT GIVEN TO AM NURSE FOR CONTINUITY OF CARE. PATIENT IS STABLE.
[2021-03-05 08:00] VITALS: BP 124/78
--- NOTE | 2021-03-05 08:34 | NUR ---
Patient awake, alert and oriented. Complained of lower abdominal pain and see Mar for pain med administration. Vitals stable, called for Dr Perez for repeat labs.
[2021-03-05] MEDS: DEXT 5% / NACL 0.45% 1,000 ML IV SCH ×2 (09:20→22:40)
[2021-03-05 09:26] LABS: BASOPHILS % (AUTO) 0.4 % (0.0-2.0); EOSINOPHILS % (AUTO) 0.1 % (0.0-4.0); HEMATOCRIT 28.4 % (36-48); HEMOGLOBIN 9.7 g/dL (12.0-16.0); LYMPHOCYTES # (AUTO) 2.4 K/uL (2.5-16.5); LYMPHOCYTES % (AUTO) 26.6 % (20.5-51.1); MEAN CORPUSCULAR HEMOGLOBIN 30 pg (27-31); MEAN CORPUSCULAR HGB CONC 34 g/dL (33-37); MEAN CORPUSCULAR VOLUME 88.6 fL (80-94); MONOCYTES # (AUTO) 0.7 K/uL (0.8-1.0); MONOCYTES % (AUTO) 7.8 % (1.7-9.3); NEUTROPHILS # (AUTO) 5.8 K/uL (1.8-7.7); NEUTROPHILS % (AUTO) 65.1 % (42.2-75.2); PLATELET COUNT (AUTO) 360 K/uL (140-450); RED BLOOD CELL COUNT(AUTO) 3.21 MIL/uL (4.20-5.40); RED CELL DISTRIBUTION WIDTH 15.3 % (11.6-13.7); WHITE BLOOD COUNT (AUTO) 8.9 K/uL (4.8-10.8)
[2021-03-05 09:29] LABS: ANION GAP 11.1 (8-16); CARBON DIOXIDE 26.3 mmol/L (21-32); CHLORIDE 103 mmol/L (98-107); CREATININE 1.1 mg/dL (0.6-1.3); GLUCOSE 205 mg/dL (74-106); POTASSIUM 3.4 mmol/L (3.5-5.1); SODIUM SERUM 137 mmol/L (136-145); UREA NITROGEN, BLOOD 16 mg/dL (7-18)
[2021-03-05] MEDS: AMIODARONE 200 MG TAB PO SCH (10:19)
[2021-03-05] MEDS: MAGNESIUM OXIDE 400 MG TAB PO PRN (10:19)
[2021-03-05] MEDS: POTASSIUM CHLORIDE 20% 40 MEQ/15 ML UDC GT PRN (10:19)
[2021-03-05] MEDS: metFORMIN 850 MG TAB PO SCH ×2 (10:20→17:00)
[2021-03-05] MEDS: METOPROLOL 25 MG TAB PO SCH ×2 (10:20→21:11)
[2021-03-05] MEDS: ACETAMINOPHEN 325 MG TAB PO PRN (10:20)
[2021-03-05] MEDS: PANTOPRAZOLE 40 MG TABEC PO SCH (10:20)
[2021-03-05] MEDS ORDERED: COMMUNICATION ORDER MC SCH (10:30)
[2021-03-05] MEDS ORDERED: [UNRECOGNIZED DRUG - OTHER] MC SCH (13:00)
[2021-03-05] MEDS ORDERED: [UNRECOGNIZED DRUG - OTHER] IM SCH (13:00)
--- NOTE | 2021-03-05 13:30 | NUR ---
RECEIVED REPORT FOR PT FORM MILTON (PREVIOUS RN FOR PT). PT CONDITION IS STABLE. PT IS AA&OX3 AND AMBULATORY. PT HAS STEADY GAIT WITH PERIODS OF UNSTEADINESS. PT IS ON FALL PRECAUTIONS, ALL SAFETY MEASURES IN PLACE. PT HAS NO IV ACCESS AND REFUSES IV INITIATION DESPITE EDUCATION. WILL CONTINUE TO TRY TO BEGIN IV LINE.
--- NOTE | 2021-03-05 13:34 | NUR ---
CALLED PHARMACY FOR SCHEDULED JASSEN VACCINE FOR PT. RACHID (FISH HATCHERY ASSISTANT) STATED HE WILL BRING IT RIGHT NOW. AWAITING ARRIVAL OF VACCINE.
--- NOTE | 2021-03-05 13:40 | NUR ---
NADINE VACCINE ARRIVED FOR PT ADMINISTRATION. WILL ADMINISTER VACCINE NOW.
[2021-03-05] MEDS: ALPRAZolam 0.25 MG TAB PO PRN (14:14)
--- NOTE | 2021-03-05 14:14 | NUR ---
ADMINISTERED XANAX PRN FOR ANXIETY. WILL REASSESS PT IN 1 HOUR.
[2021-03-05 14:15] LABS: BILIRUBIN,URINE NEGATIVE (NEGATIVE); BLOOD, URINE TRACE-I (NEGATIVE); LEUKOCYTE ESTERASE ,URINE 3+ (NEGATIVE); NITRITE, URINE NEGATIVE (NEGATIVE); UGLUCOSE NEGATIVE (NEGATIVE)
[2021-03-05] MEDS ORDERED: MAGNESIUM OXIDE 400 MG TAB PO PRN (14:15)
[2021-03-05 14:20] LABS: APPEARANCE,URINE HAZY (CLEAR); COLOR,URINE YELLOW (YELLOW)
[2021-03-05 14:29] LABS: RBC,URINE 0-5 /HPF (0-5); WBC,URINE 80-100 /HPF (0-5); YEAST,URINE Moderate /HPF (None Seen)
--- NOTE | 2021-03-05 14:54 | NUR ---
03/05/21 RD FOLLOW UP COMPLETED PLEASE REFER TO NUTRITION ASSESSMENT UNDER CARE ACTIVITY FOR ESTIMATED NUTRITIONAL NEEDS. 1. CONTINUE MECHANICAL SOFT CCHO 60 GM AND CARDIAC DIET TOLERATED 2. ASSIST SETTING UP MEAL 3. GLUCERNA ONCE DAILY 4. RD TO FOLLOW-UP 5-7 DAYS, LOW RISK ABIGAIL AVENDANO, RD
--- NOTE | 2021-03-05 15:25 | NUR ---
PT STABLE. PT AWAKE AND WATCHING TV.
[2021-03-05 16:00] VITALS: BP 132/66
--- NOTE | 2021-03-05 17:25 | NUR ---
PT AWAKE AND WATCHING TV. WILL CONTINUE TO MONITOR.
--- NOTE | 2021-03-05 19:20 | NUR ---
GAVE CHANGE OF SHIFT REPORT TO NIGHT NURSE AT BEDSIDE FOR CONTINUITY OF CARE. PT STABLE. DISCUSSED POC.
--- NOTE | 2021-03-05 19:25 | NUR ---
RECD. SITTING ON BED, AWAKE, A/0X1. RESPIRATION EVEN AND UNLABORED. NO IV LINE. REORIENTED TO HOSPITAL SETTING. AMBULATORY TO THE BATHROOM. INSTRUCTED TO CALL NURSE BEFORE GETTING OUT OF BED FOR ASSISTANCE. VERBALIZED SHE WANTS SLEEPING PILL FOR TONIGHT, AND FEELING VERY TIRED. WILL MEDICATE PER MD ORDER. DENIES PAIN 0/10.
--- NOTE | 2021-03-05 20:00 | NUR ---
Patient's Plan of Care was discussed and reviewed with MOBILE APPLICATION DEVELOPMENT LEAD: ROBIN STAPLETON
[2021-03-05] MEDS: traZODone 50 MG TAB PO PRN (21:11)
--- NOTE | 2021-03-05 21:11 | NUR ---
SCHEDULED MEDICATIONS ADMINISTERED. BS CHECKED -246. HUMALOG INSULIN COVERAGE GIVEN PER MD ORDER.
--- NOTE | 2021-03-06 | NUR ---
SLEEPING COMFORTABLY IN BED.
[2021-03-06 00:45] VITALS: BP 145/71
--- NOTE | 2021-03-06 01:15 | NUR ---
BED ALARMED, PATIENT OOB AND GOES TO THE BR TO VOID. BACK TO BED AFTER VOIDING.
--- NOTE | 2021-03-06 02:30 | NUR ---
ASSISTED TO GO TO BR TO VOID BY CHARGE NURSE BRADY. BACK TO BED AFTER VOIDING, STATED SHE HAS SMALL AMOUNT OF SOFT LOOSE BM.
--- NOTE | 2021-03-06 04:00 | NUR ---
BED ALARMED, PATIENT WENT BY HERSELF TO THE BR TO VOID. BACK TO BED. ADVISED TO GO TO BACK TO SLEEP.
--- NOTE | 2021-03-06 06:00 | NUR ---
SLEEPING COMFORTABLY IN BED. SAFETY MAINTAINED.
[2021-03-06] MEDS: BLOOD GLUCOSE MONITORING 1 DEV DEV FS SCH ×4 (06:23→21:04)
[2021-03-06] MEDS: INSULIN LISPRO SLIDING SCALE 100 UNITS/ML VIAL SUBQ PRN ×2 (06:25→16:48)
--- NOTE | 2021-03-06 07:00 | NUR ---
ABLE TO SLEEP WELL. SAFETY MAINTAINED DURING SHIFT.
--- NOTE | 2021-03-06 07:15 | NUR ---
RECEIVED BEDSIDE REPORT FROM NIGHT NURSE.PATIENT IS SLEEPING. BREATHING IS UNLABORED WITH SYMMETRICAL RISE AND FALL OF CHEST. SKIN IS WARM AND DRY. NO IV LINE. CALL LIGHT WITHIN REACH. ALL SAFETY MEASURES IN PLACE. PATIENT IS STABLE. WILL CONTINUE TO MONITOR.
--- NOTE | 2021-03-06 07:15 | NUR ---
CONDITION REMAIN STABLE. ENDORSED TO AM SHIFT NURSE FOR CONTINUITY OF CARE.
[2021-03-06 08:00] VITALS: BP 122/66
[2021-03-06] MEDS: PANTOPRAZOLE 40 MG TABEC PO SCH (08:45)
--- NOTE | 2021-03-06 08:45 | NUR ---
PT SITTING IN BED AWAKE AND ALERT. SCHEDULE MEDICATIONS GIVEN AND PT TOLERATED WELL. PT IS STABLE. CALL LIGHT WITHIN REACH. ALL SAFETY MEASURES IN PLACE.
[2021-03-06] MEDS: AMIODARONE 200 MG TAB PO SCH (08:46)
[2021-03-06] MEDS: METOPROLOL 25 MG TAB PO SCH ×2 (08:47→20:58)
[2021-03-06] MEDS: metFORMIN 850 MG TAB PO SCH ×2 (08:47→16:46)
--- NOTE | 2021-03-06 11:30 | NUR ---
PT'S BS READING IS 151. PT REFUSED INSULIN AT THIS TIME. WILL REPEAT BS READING SCHEDULED BEFORE DINNER.
[2021-03-06] MEDS: DEXT 5% / NACL 0.45% 1,000 ML IV SCH (12:00)
--- NOTE | 2021-03-06 13:40 | NUR ---
PT SITTING COMFORTABLY IN CHAIR. BREATHING IS UNLABORED. PT DENIES ANY PAIN. SAFETY MAINTAINED.
[2021-03-06 16:00] VITALS: BP 132/66
[2021-03-06] MEDS: ALPRAZolam 0.25 MG TAB PO PRN (16:46)
--- NOTE | 2021-03-06 16:46 | NUR ---
PT WAS GIVEN XANAX SHE STATED SHE WAS FEELING A LOT OF ANXIETY. BP WAS STABLE. WILL CONTINUE TO MONITOR PT. SHE IS CURRENTLY IN BED RESTING.
--- NOTE | 2021-03-06 18:28 | NUR ---
PT IS SITTING UP AT CHAIR NEAR HALLWAY. PT DENIES PAIN AT THIS TIME. PT WAS GIVEN WATER AND A SNACK REQUESTED. WILL CONTINUE TO MONITOR.
--- NOTE | 2021-03-06 19:15 | NUR ---
ENDORSED PT TO SHERIFF'S SERGEANT NURSE FOR CONTINUITY OF CARE. PT STABLE. PLAN OF CARE DISCUSSED.
--- NOTE | 2021-03-06 19:16 | NUR ---
RECD. RESTING IN BED, AWAKE,A/OX2. REORIENTED TO HOSPITAL SETTING. RESPIRATION EVEN AND UNLABORED. AMBULATORY TO THE BR. SAFETY MEASURES ENFORCED/BED ON ALARM. DENIES PAIN 0/10.
--- NOTE | 2021-03-06 19:57 | NUR ---
BP - 170/78, HR - 95. MEDICATED WITH APRESOLINE PO PER MD ORDER.
[2021-03-06] MEDS: traZODone 50 MG TAB PO PRN (20:58)
[2021-03-07] MEDS ORDERED: Z-GUARD PASTE TP SCH (01:00)
[2021-03-07] MEDS: DEXT 5% / NACL 0.45% 1,000 ML IV SCH (01:20)
--- NOTE | 2021-03-07 07:30 | NUR ---
RECEIVED BEDSIDE REPORT FROM NIGHT NURSE AT BEDSIDE FOR CONTINUITY OF CARE. PT IS AA&OX3, RESPIRATIONS EVEN AND UNLABORED. ON ROOM AIR AND NO DISTRESS NOTED. SKIN IS WARM, DRY, AND INTACT. NO IV PLACED PATIENT REFUSED. PLAN OF CARE DISCUSSED. SAFETY PRECAUTIONS IN PLACE WILL CONTINUE TO MONITOR.
[2021-03-07] MEDS: BLOOD GLUCOSE MONITORING 1 DEV DEV FS SCH ×2 (07:44→11:30)
[2021-03-07] MEDS: INSULIN LISPRO SLIDING SCALE 100 UNITS/ML VIAL SUBQ PRN (07:46)
[2021-03-07 08:00] VITALS: BP 151/67
[2021-03-07] MEDS: PANTOPRAZOLE 40 MG TABEC PO SCH (08:49)
[2021-03-07] MEDS: metFORMIN 850 MG TAB PO SCH (08:49)
[2021-03-07] MEDS: ACETAMINOPHEN 325 MG TAB PO PRN (08:49)
--- NOTE | 2021-03-07 08:49 | NUR ---
PATIENT COMPLAINED OF ABD PAIN 3. ADMINISTERED PRN PAIN MEDICATIONS PER MD ORDERED.
[2021-03-07] MEDS: AMIODARONE 200 MG TAB PO SCH (08:50)
[2021-03-07] MEDS: METOPROLOL 25 MG TAB PO SCH (08:52)
--- NOTE | 2021-03-07 09:30 | NUR ---
DC PLANNING LATE ENTRY CALL WAS AT ABOUT 9:30 AM MILO RECEIVED A CALL FROM PATIENT'S DAUGHTER IN LAW- YOSELYN JASSO FROM STATING THAT SHE HAS BEEN TALKING TO HER KLYSTROM TUBE TESTER IN [place]IP, FAMILY FRIENDS AND HER FAMILY FROM [facility] ABOUT PATIENT'S SITUATION AND HOW CAN THEY ASSIST WITH HER SITUATION. PER YOSELYN AFTER TALKING WITH HER FAMILY IN [facility] SHE WAS OFFERED EMOTIONAL AND FINANCIAL SUPPORT TO ASSIST WITH PATIENT'S BOARD AND CARE; THEREFORE SHE HAS DECIDED TO COME TO [facility] AND FIELD MARKETING ASSOCIATE PATIENT TO THEN TAKE HER TO [facility]. PER YOSELYN SHE AND HER DAUGHTER CAESAR JASSO WILL BE MOVING BACK TO LIVE IN THEIR HOME IN [facility] WITH PATIENT. MILO TOOK INFORMATION AND TOLD YOSELYN THAT PATIENT WILL BE GETTING READY FOR DISCHARGE. MILO ALSO ASKED YOSELYN WHEN SHE WILL BE PICKING UP PATIENT. PER YOSELYN SHE WILL BE IN THE HOSPITAL AT ABOUT 10:30AM TO FIELD MARKETING ASSOCIATE THE PATIENT FOR DC. MILO TOOK INFORMATION AND AGREED TO COORDINATE THE DC. YOSELYN WAS THANKFUL AND ENDED THE CALL. Addendum: 03/07/21 at 1312 by Amada Buitrago CM DC PLANNING CALL WAS ABOUT 10:30 AM MILO ATTEMPTED TO CONTACT APS WORKER KADEEM KIDD AT ASSIGNED TO THE CASE IN REFERENCE TO APS REPORT MADE ON 01/08/2021. THE CALL WAS IN ATTEMPT TO GIVE DIET TECH AN UPDATE ON POSSIBLY CLOSE CASE WITH APS SINCE PATIENT'S FAMILY STILL HAD PATIENT AT [facility] AFTER 66 DAYS. MILO LEFT MS. BERNABE QUAN A VOICE MAIL MSG WITH THESE RESIDENTIAL ADVISOR'S DIRECT CONTACT NUMBER AND A REQUEST FOR A CALL BACK.
--- NOTE | 2021-03-07 09:45 | NUR ---
ALL SCHEDULED MEDS GIVEN. PT IS STABLE. NO DISTRESS NOTED.
[2021-03-07 11:00] VITALS: BP 105/80
--- NOTE | 2021-03-07 11:15 | NUR ---
DISCUSSED DISCHARGE INSTRUCTIONS WITH PATIENT AND DAUGHTER IN LAW WITH JOB PRINTER APPRENTICE PRESENT AT BEDSIDE. PT AND FAMILY VERBALIZED UNDERSTANDING AND SIGNED DISCHARGE FORMS.
--- NOTE | 2021-03-07 11:40 | NUR ---
PT OFF THE UNIT. PT WAS PICKED UP BY DAUGHTER IN LAW IN ROOM. ID BAND REMOVED AND NO IV WAS INSERTED. PT WAS STABLE PRIOR TO DISCHARGE.
--- NOTE | 2021-03-07 13:13 | NUR ---
DC PLANNING MILO MET WITH PATIENT AND HER DAUGHTER IN LAW YOSELYN JASSO AT BEDSIDE TO DISCUSS PATIENT'S DC FOR TODAY ON 03/07/2021 AT ABOUT 11:00AM. (AFTER 66 DAYS OF ADMISSION AT [facility]). PER YOSELYN SHE HAS BEEN TALKING TO MANY PEOPLE IN PARTICULAR HER FAMILY MEMBERS IN [facility] THAT HAD QUESTION THEM ABOUT YOSELYN AND CAESAR (GRANDDAUGHTER) DECISION TO MOVING BACK TO [facility]" WITHOUT PATIENT. PER YOSELYN HER FAMILY HAS CREATED SOME PRESSURE TO THE BOTH OF THEM ENOUGH TO RECONSIDER CHOICE ON LIVING THE PATIENT STRANDED AT THE [facility] IN THE [facility]. PER YOSELYN AFTER REALIZING THAT PATIENT WAS GOING TO BE WITHOUT FAMILY, FINANCIAL, EMOTIONAL SUPPORT OR CARE. THEY BOTH CHANGE THIER MINDS AND DECIDED TO TAKE PATIENT TO [facility] WITH THEM. BERNARD TOPETE THEIR FAMILY MADE THEM CHANGE THEIR MINDS AND WITH THEIR HELP THEY WILL BE CARING FOR PATIENT IN [facility]. YOSELYN PROVIDED HER INFORMATION AND ADDRESS IN [facility], ACCORDING TO YOSELYN THEY WILL BE TAKING AN AIRPLANE TO [facility] IN ABOUT TWO DAYS, THEN THEY WILL STAY FOR ANOTHER TWO DAYS AND WILL BE FLYING TO [facility] AT THE FOLLOWING ADDRESS : [facility] [address] [facility] [address] IN [facility]. SW THANK HER FOR THE INFORMATION AND ENDED THE VISIT, THEY DEPART AND LEFT THE [facility] PREMISES FOR PATIENT DC. Addendum: 03/07/21 at 1410 by Amada Buitrago CM DC PLANNING CALL WAS ABOUT 1:00PM MILO CONTACTED [facility] AT ) TO FILE FOR NEW APS REPORT. MILO SPOKE TO CHYNA; A REPORT WAS TAKEN; REPORT # [id number]. Addendum: 03/11/21 at 1133 by Amada Buitrago DC PLANNING LATE ENTRY CALL WAS AT ABOUT 9:30 AM MILO RECEIVED A CALL FROM PATIENT'S DAUGHTER IN LAW- YOSELYN JASSO FROM STATING THAT SHE HAS CONCERN ABOUT TAKING PATIENT WITH HER AND TRAVELING WITH HER ON AN AIR PLANE TO [facility]. PER YOSELYN PATIENT HAS BECOME LETHARGIC, WEAK, AND UNABLE TO FOLLOW SPECIFIC DIRECTIONSTHEREFORE; SHE IS CONSIDERING TO BRING PATIENT BACK TO ED TO HAVE HER EVALUATED. MILO INFORMED YOSELYN THAT PATIENT WILL HAVE TO COME IN AND BE EVALUATED AT THE ED TO SEE IF SHE MEETS CRITERIA TO BE ADMITTED. YOSELYN UNDERSTOOD AND ENDED THE CALL.
== END 2021-03-07 13:10 | disposition home or self-care (01) | DRG 720 ==
LOC: MED 21:04 → EDBD 12-31 03:23 → MTU 12-31 03:23
PROVIDERS: ADMIT Family Medicine; ATTEND Family Medicine
PROC: 0T9130Z Drainage of Left Kidney with Drainage Device, Percutaneous Approach (ICD-10-PCS; principal; 2020-12-31)
PROC: 4A10X4Z Monitoring of Central Nervous Electrical Activity, External Approach (ICD-10-PCS; 2021-01-08)
DX: A41.51 Sepsis due to Escherichia coli [E. coli] (principal); N17.0 Acute kidney failure with tubular necrosis; E11.00 Type 2 diabetes mellitus with hyperosmolarity without nonketotic hyperglycemic-hyperosmolar coma (NKHHC); G93.41 Metabolic encephalopathy; A04.72 Enterocolitis due to Clostridium difficile, not specified as recurrent; D63.1 Anemia in chronic kidney disease; I48.91 Unspecified atrial fibrillation; G40.909 Epilepsy, unspecified, not intractable, without status epilepticus; E87.1 Hypo-osmolality and hyponatremia; E83.51 Hypocalcemia; E83.39 Other disorders of phosphorus metabolism; C54.1 Malignant neoplasm of endometrium; D64.9 Anemia, unspecified; E11.65 Type 2 diabetes mellitus with hyperglycemia; I12.9 Hypertensive chronic kidney disease with stage 1 through stage 4 chronic kidney disease, or unspecified chronic kidney disease; N18.9 Chronic kidney disease, unspecified; E87.5 Hyperkalemia; F03.90 Unspecified dementia, unspecified severity, without behavioral disturbance, psychotic disturbance, mood disturbance, and anxiety; F20.9 Schizophrenia, unspecified; S06.300A Unspecified focal traumatic brain injury without loss of consciousness, initial encounter; W18.39XA Other fall on same level, initial encounter; E87.6 Hypokalemia; I16.1 Hypertensive emergency; E78.00 Pure hypercholesterolemia, unspecified; E83.42 Hypomagnesemia; I45.10 Unspecified right bundle-branch block; M51.36 Other intervertebral disc degeneration, lumbar region; N13.6 Pyonephrosis; Z20.822 Contact with and (suspected) exposure to COVID-19; Z85.42 Personal history of malignant neoplasm of other parts of uterus; Z90.49 Acquired absence of other specified parts of digestive tract; Z93.6 Other artificial openings of urinary tract status; Y93.89 Activity, other specified; Y92.89 Other specified places as the place of occurrence of the external cause; Y99.8 Other external cause status
CPT/HCPCS: 36415; 70450; 71045; 72100; 73030; 73501; 73562; 76770; 77012; 80048; 80053; 81001; 82150; 82948; 83036; 83605; 83690; 83735; 83880; 84100; 84436; 84439; 84443; 84479; 84484; 85025; 85610; 85730; 87040; 87070; 87081; 87086; 92610; 92700; 93005; 93970; 96361; 96365; 96372; 96375; 96376; 97163-GP; 99285; J0360; J0610; J0692; J0696; J1200; J1610; J1630; J1644; J1815; J1885; J1953; J2001; J2060; J2185; J2250; J2270; J2405; J2543; J3010; J3370; J3475; J3480; J3490; J7030; J7060; Q0092

== ENCOUNTER 2021-03-11 10:59 | Emergency (ER) | payer MEDICAID, SELFPAY ==
[~2021-03-11] VITALS: Ht 142.2 cm; Wt 38.6 kg
[~2021-03-11 10:59] MED LIST: AMIO200T10 PO; APR10 PO; APR20I IVP; GLIM2TAB PO; LANTUS SUBQ; LEVE1000 PO; LOSA100T1 PO; METF1TAB5 PO; METO50TA99 PO; OLAN2.5T40 PO; QUET25TA46 PO
--- NOTE | 2021-03-11 11:00 | NUR ---
Cliff levy in ED - 03/11/21 at 1102 by MEDDM BIBA ALS TO ER BED 2
[2021-03-11 11:17] VITALS: BP 106/65
--- NOTE | 2021-03-11 14:00 | NUR ---
PT ASSISTED TO BED 8 BY KAMILLA
--- NOTE | 2021-03-11 14:09 | NUR ---
80 Y/O FEMALE BIB DAUGHTER IN LAW WITH C/O DIARRHEA. DENIES N/V, COCCYX PAIN(REDNESS NOTED), AND GENERALIZED WEAKNESS X4 DAYS. PT WAS D/C FROM [facility] 03/07. PT CAREGIVER STATES THAT HER BLOOD SUGAR WAS 33 ON THURSDAY, GAVE SUGAR AND WENT UP TO 90. BS 182 DURING TRIAGE. PT AOPX2 (SELF, SITUATION). TREATED FOR CDIFF AT [facility]. PMH:DM, HTN, CDIFF SEE CHART FOR FURTHER NKDA
--- NOTE | 2021-03-11 14:21 | NUR ---
DR CHACON ATTEMPTED TO USE PACKAGING INSPECTOR [id number], PT IS HEARING IMPAIRED AND COMM WAS UNSUCCESSFUL
--- NOTE | 2021-03-11 14:45 | NUR ---
URINE COLLECTED AND WALKED DOWN TO LAB. LOGGED IN PER IRINA
--- NOTE | 2021-03-11 16:12 | NUR ---
LAB AT BEDSIDE FOR LAB DRAWS, COVID TEST GIVEN TO PIANO PROFESSOR.
[2021-03-11 16:27] LABS: HEMATOCRIT 25.8 % (36-48); HEMOGLOBIN 8.6 g/dL (12.0-16.0); MEAN CORPUSCULAR HEMOGLOBIN 30 pg (27-31); MEAN CORPUSCULAR HGB CONC 33 g/dL (33-37); MEAN CORPUSCULAR VOLUME 88.4 fL (80-94); PLATELET COUNT (AUTO) 437 K/uL (140-450); RED BLOOD CELL COUNT(AUTO) 2.92 MIL/uL (4.20-5.40); RED CELL DISTRIBUTION WIDTH 15.2 % (11.6-13.7)
[2021-03-11 16:30] LABS: WHITE BLOOD COUNT (AUTO) 27.3 K/uL (4.8-10.8)
[2021-03-11 16:44] LABS: ALBUMIN 1.9 g/dL (3.4-5.0); ANION GAP 14.3 (8-16); ASPARTATE AMINOTRANSFERASE 14 U/L (15-37); CARBON DIOXIDE 23.2 mmol/L (21-32); CHLORIDE 97 mmol/L (98-107); CREATININE 1.3 mg/dL (0.6-1.3); GLUCOSE 221 mg/dL (74-106); LIPASE 80 U/L (73-393); POTASSIUM 3.5 mmol/L (3.5-5.1); SODIUM SERUM 131 mmol/L (136-145); TOTAL BILIRUBIN 0.5 mg/dL (0.0-1.0); UREA NITROGEN, BLOOD 23 mg/dL (7-18)
[2021-03-11 16:48] LABS: LYMPHOCYTES % (MANUAL) 4 % (20-46); MONOCYTES % (MANUAL) 2 % (5-12)
[2021-03-11] MEDS ORDERED: NACL 0.9% 1,000 ML IV SCH (16:50)
[2021-03-11] MEDS ORDERED: PIPERACILLIN/TAZOBACTAM 3.375 GM in DEXTROSE 5% 50 ML IV SCH (16:50)
[2021-03-11 16:58] LABS: APPEARANCE,URINE CLEAR (CLEAR); BILIRUBIN,URINE NEGATIVE (NEGATIVE); BLOOD, URINE NEGATIVE (NEGATIVE); COLOR,URINE YELLOW (YELLOW); LEUKOCYTE ESTERASE ,URINE 2+ (NEGATIVE); NITRITE, URINE NEGATIVE (NEGATIVE); UGLUCOSE NEGATIVE (NEGATIVE)
[2021-03-11 17:00] LABS: WBC,URINE 16-25 (MOD) /HPF (0-5); YEAST,URINE Many /HPF (None Seen)
--- NOTE | 2021-03-11 17:15 | NUR ---
Unable to get IV acess, SARAH made aware. Will do US IV
[2021-03-11] MEDS ORDERED: PIPERACILLIN/TAZOBACTAM 3.375 GM VIAL IV ONE (17:23)
--- NOTE | 2021-03-11 18:47 | NUR ---
ERMD at bedside to insert US IV.
--- NOTE | 2021-03-11 18:55 | NUR ---
Pt has concerns about leaving AMA. ERMD at bedside to answer all questions.
[2021-03-11] MEDS: PIPERACILLIN/TAZOBACTAM 3.375 GM in DEXTROSE 5% 50 ML IV ONE (19:01)
[2021-03-11] MEDS: NACL 0.9% 1,000 ML IV ONE (19:02)
--- NOTE | 2021-03-11 19:25 | NUR ---
Received report from Margie CHUNG for continuity of care
--- NOTE | 2021-03-11 19:25 | NUR ---
Pt report given to Paloma RN. Transfer of care at this time.
--- NOTE | 2021-03-11 19:29 | NUR ---
Patient appears to be resting comfortably in bed- semi fowlers with eyes open and relative at bedside speaking with one another. Vital Signs within normal limits. Respirations even and unlabored. AAOx4. Safety measures are in place, placed on screening nurse, and will continue to monitor patient.
--- NOTE | 2021-03-11 19:30 | NUR ---
IV removed, catheter intact and site benign. Applied folded 4x4 gauze and tape to stop bleeding.
[2021-03-11] MEDS ORDERED: ONDA-24 PO (19:34)
[2021-03-11] MEDS ORDERED: CEPH-588 PO (19:34)
[2021-03-11] MEDS ORDERED: AMOX-1000 PO (19:34)
--- NOTE | 2021-03-11 19:55 | NUR ---
Patient discharged with v/s stable. Written and verbal after care instructions given and explained. Patient alert, oriented and verbalized understanding of instructions. Ambulatory with by caregiver. All questions addressed prior to discharge. ID band AND IV ACCESS removed. Patient advised to follow up with PMD. Rx of AUGMENTIN, KEFLEX, ZOFRAN given. Patient educated on indication of medication including possible reaction and side effects. Opportunity to ask questions provided and answered.
[2021-03-11 19:56] VITALS: BP 111/54
== END 2021-03-11 19:55 | disposition left against medical advice (07) ==
LOC: MED 10:59
DX: N39.0 Urinary tract infection, site not specified (principal); Z20.822 Contact with and (suspected) exposure to COVID-19; A41.9 Sepsis, unspecified organism; R53.1 Weakness; E11.9 Type 2 diabetes mellitus without complications; I10 Essential (primary) hypertension; F03.90 Unspecified dementia, unspecified severity, without behavioral disturbance, psychotic disturbance, mood disturbance, and anxiety; F20.9 Schizophrenia, unspecified; Z90.49 Acquired absence of other specified parts of digestive tract; Z98.890 Other specified postprocedural states; Z85.89 Personal history of malignant neoplasm of other organs and systems; Z79.4 Long term (current) use of insulin; Z79.899 Other long term (current) drug therapy
CPT/HCPCS: 36415; 71045; 80053; 81001; 83605; 83690; 84484; 85025; 87040; 87086; 87426; 93005; 96365; 99291; J2543; J7030; U0003